=== PATIENT | male | born 1945 | race American Indian/Alaskan Native ===

== ENCOUNTER 2017-02-18 10:48 | Inpatient (IN) | payer MEDICARE ==
[2017-02-18] MEDS ORDERED: ARTIFICIAL TEARS OPHTH OINT OU PRN (11:09)
[2017-02-18] MEDS ORDERED: VASELINE LIP THERAPY TP PRN (11:09)
--- NOTE | 2017-02-18 11:13 | Emergency Department Report ---
HPI - General Chief Complaint: Seizure Time Seen by Provider: 02/18/17 11:09 - HPI HPI: This is a 71-year-old male who presents the emergency department by EMS after having 2 seizures, unknown if witnessed, with resulting altered mental status and unresponsive. Patient was found to have no gag reflex while in the emergency department and was completely unresponsive to painful or verbal stimuli and therefore was intubated secondary to protection of his airway. Secondary to his current medical condition the patient is a poor historian. ED Past Medical Hx - Past Medical History Previous Medical History?: Yes Hx Hypertension: Yes Hx GERD: Yes Hx Seizures: Yes Hx HIV: No Additional medical history: high cholesterol - Surgical History Past Surgical History?: Yes Additional Surgical History: L. knee replacement, vasectomy - Social History Smoking Status: Unknown if ever smoked - Medications Home Medications: Home Medications Medication Instructions Recorded Confirmed Last Taken Type Levothyroxine [Synthroid] 50 mcg PO QAM 05/26/16 02/18/17 02/17/17 History levETIRAcetam [Keppra TAB] 750 mg PO BID 05/26/16 02/18/17 02/17/17 History Clopidogrel [Plavix] 75 mg PO DAILY #30 tablet 06/03/16 02/18/17 02/17/17 Rx Simvastatin [Zocor TAB] 20 mg PO QHS 02/18/17 02/18/17 02/17/17 History ED Review of Systems ROS: Stated complaint: SEIZURE Other details as noted in HPI Comment: Unobtainable due to pts medical conditions Physical Exam - Physical Exam Vital Signs: Vital Signs 02/18/17 10:55 Temperature 98.7 F Pulse Rate 132 H Respiratory 24 Rate Blood Pressure 144/82 O2 Sat by Pulse 92 Oximetry Physical Exam: GENERAL: Patient is ill-appearing and unresponsive. HEENT: Normocephalic. Atraumatic. Pupils equal reactive to light bilaterally. No spontaneous eye opening or extraocular motion. Patient has moist mucous membranes. NECK: Supple. Trachea is midline. CHEST/LUNGS: Clear to auscultation. There is no respiratory distress noted. HEART/CARDIOVASCULAR: Regular. There is mild to moderate tachycardia. There is no gallop rub or murmur. ABDOMEN: Abdomen is soft, nontender. Patient has normal bowel sounds. There is no abdominal distention. SKIN: Skin is warm and dry. NEURO: The patient is unresponsive to verbal, tactile or painful stimuli. GCS of 3. No gag reflex. MUSCULOSKELETAL: There is no tenderness or deformity. Radial pulses +2 over 4 bilaterally. Cap refill less than 2 seconds There is no evidence of acute injury. ED Course Vital Signs 02/18/17 10:55 Temperature 98.7 F Pulse Rate 132 H Respiratory 24 Rate Blood Pressure 144/82 O2 Sat by Pulse 92 Oximetry - ABG Interpretation Ph: 7.349 PCO2: 39 PO2: 279 Bicarbonate: 21 Interpretation: normal - Intubation Time Out Performed: Yes Paralytic: Succinylcholine Mg Given: 100 Laryngoscope: fiberoptic video scope (glydescope) Size: 4 ET Tube Size: 7.5 Other Airway Intervention: 24 Tube Secured Location: lips Tube Placement Confirmation: visualized tube passing t, equal breath sounds bilat, confirmation by capnometr Patient Tolerated Procedure: well Intubation Complications: none ED Medical Decision Making - Lab Data Result diagrams: 02/18/17 11:30 02/18/17 11:30 - EKG Data -: EKG Interpreted by Me EKG shows normal: sinus rhythm, axis, intervals, QRS complexes, ST-T waves Rate: tachycardia (124 bpm) - EKG Data When compared to previous EKG there are: previous EKG unavailable Interpretation: other (Sinus Tachycardia) - Radiology Data Radiology results: report reviewed, image reviewed interpreted by me: Chest x-ray does not show any pneumothorax, pleural effusions or obvious pneumonia. ET tube is in appropriate position above the venkatesh. CT of the head without contrast shows no acute findings. Extensive chronic changes including a large chronic right MCA infarct or stable since May. - Medical Decision Making This is a 71-year-old male presents to the emergency department unresponsive after 2 witnessed seizures. When I see the patient he is unresponsive to any type of stimuli and has a GCS of 3 and no gag reflex. For this reason and protection of the airway the patient was intubated and was done so without any obvious, complications. CT of the head shows a chronic large right MCA infarct but no acute intracranial process. He has a elevated troponin level but this may be secondary to his seizures or physical stress. EKG does not show any signs of ST elevation AK. Patient was covered with some Keppra for the recent seizures. Eventually a family member came bedside and says that he doesn't fact have a history of seizures but she does not know which medications he takes. His primary care physician was found not to be Dr. Esa Melissa. Patient will be admitted to the ICU for further evaluation and treatment. - Differential Diagnosis status epilepticus, brain bleed, CVA, sepsis Critical Care Time: Yes Critical care time in (mins) excluding proc time.: 35 Critical care attestation.: If time is entered above; I have spent that time in minutes in the direct care of this critically ill patient, excluding procedure time. Critical care time was spent on this patient and doing his initial evaluation, multiple re- evaluations, ordering and interpretation of labs and imaging, reading of EKG, ventilator management. This does not include the time spent doing the intubation procedure. Critical Care Time: 35 minutes. ED Disposition Clinical Impression: H/O: CVA (cerebrovascular accident), Acute respiratory failure with hypoxemia, Seizure disorder, Encephalopathy Hypertension Qualifiers: Hypertension type: essential hypertension Qualified Code(s): I10 - Essential ( primary) hypertension Disposition: 09 OP ADMIT IP TO THIS HOSP Is pt being admited?: Yes Condition: Serious Time of Disposition: 18:43
[2017-02-18] MEDS ORDERED: QUELICIN ONE (11:16)
[2017-02-18 11:21] LABS: Urine Drugs of Abuse Note Disclamer
[2017-02-18 11:29] LABS: Bilirubin,Urine NEG (Negative); Blood,Urine NEG (Negative); Ketones,Urine NEG (Negative); Leukocyte Esterase,Urine NEG (Negative); Mucus,Urine FEW /HPF; Nitrite,Urine NEG (Negative); Protein,Urine <15 mg/dL mg/dL (Negative); Urobilinogen,Urine < 2.0 mg/dL (<2.0)
[2017-02-18] MEDS ORDERED: KEPPRA 1,000 MG/NS 0.75% 100ML 1,000 MG/100 ML BAG IV ONE (11:50)
[2017-02-18 11:51] LABS: Eosinophils % (Auto) 2.1 % (0.0-4.3); Hematocrit 43.8 % (35.5-45.6); Hemoglobin 13.9 gm/dl (11.8-15.2); Mean Corpuscular HGB Conc 32 % (32-34); Mean Corpuscular Hemoglobin 29 pg (28-32); Mean Corpuscular Volume 93 fl (84-94); Platelet Count 344 K/mm3 (140-440); Red Blood Count 4.74 M/mm3 (3.65-5.03); Red Cell Distribution Width 14.8 % (13.2-15.2); White Blood Count 11.1 K/mm3 (4.5-11.0)
--- NOTE | 2017-02-18 11:59 | XRay Report ---
AP CHEST: HISTORY: Endotracheal tube placement The endotracheal tube terminates 5.7 cm superior to the venkatesh. AP view of the chest demonstrates a normal mediastinal and cardiac contour with clear lungs and normal bony and soft tissue structures. IMPRESSION: Unremarkable AP chest.
[2017-02-18] MEDS ORDERED: ATIVAN 100 MG in NACL 0.9% 50 ML, VIAFLEX EMPTY CONTAINER 0 ML IV SCH (12:00)
--- NOTE | 2017-02-18 12:04 | Admit Criteria Form ---
Admission Criteria Documentation: RESPIRATORY FAILURE GRG Clinical Indications for Admission to Inpatient Care (Place 'X' for any and all applicable criteria): Hospital admission is needed for appropriate care of the patient because of acute respiratory failure or insufficiency as indicated by ANY ONE of the following(1)(2)(3)(4)(5)(6)(7)(8): [ ]I. Mechanical ventilation needed (acute invasive or noninvasive) [ ]II. Severe ventilation deficit as indicated by ANY ONE of the following (9) [ ]a) Respiratory acidosis (pH less than 7.32 and partial pressure of carbon dioxide greater than 40 mm Hg (5.3 kPa)) [ ]b) Partial pressure of carbon dioxide greater than 44 mm Hg (5.9 kPa ) (new) [ ]c) Airflow measurements less than 25% of predicted (eg, peak expiratory flow rate less than 100 L/minute) [ ]d) Forced vital capacity less than 15 mL/kg of ideal body weight, or 50% decrease in vital capacity from baseline [ ]III. Noncardiac pulmonary edema not resolving with rapid emergency treatment (8) [ ]IV. Severe respiratory distress as indicated by ANY ONE of the following: [ ]a) Severe tachypnea (respiratory rate greater than 30, greater than 45 for 6-month-old, greater than 60 for ) [ ]b) Severe hypoxemia (partial pressure of oxygen less than 50 mm Hg ( 6.7 kPa) on greater than 50% oxygen or partial pressure of oxygen to FIO2 ratio less than 200) [ ]c) Mental status deterioration from respiratory disease [X]V. Airway obstruction or inadequate protection [A](10)(11) The original [facility] content created by [employer] has been revised. The portions of the content which have been revised are identified through the use of italic text or in bold, and [employer] has neither reviewed nor approved the modified material. All other unmodified content is copyright [employer]. Please see references footnoted in the original [facility] edition 2016 Admission Criteria Met: Yes
[2017-02-18] MEDS ORDERED: NACL 0.9% 1000 ML 1,000 ML IV ONE ×2 (12:10→13:56)
[2017-02-18 12:12] LABS: Albumin 2.8 g/dL (3.9-5); Albumin/Globulin Ratio 0.5 %; BUN/Creatinine Ratio 9.33; Bilirubin,Total 0.3 mg/dL (0.1-1.2); Calcium 9.6 mg/dL (8.4-10.2); Chloride 95.9 mmol/L (98-107); Potassium 4.8 mmol/L (3.6-5.0); Total Protein 8.4 g/dL (6.3-8.2)
--- NOTE | 2017-02-18 12:31 | Cat Scan Report ---
Cranial CT without contrast. History: Seizure. Findings: Comparison is made to the previous study on May 26, 2016. The posterior fossa is normal. A large chronic right MCA infarct with associated ipsilateral ventriculomegaly ex vacuo is unchanged. Extensive atrophic changes and periventricular chronic ischemic changes are also stable. There is no evidence of acute infarct or hemorrhage. No extra-axial collections or masses are seen. A chronic lacunar infarct is seen in the internal capsule on the right. Impression: No acute findings. Extensive chronic changes including a large chronic right MCA infarct are stable since May,.
--- NOTE | 2017-02-18 12:49 | History and Physical Report ---
History of Present Illness Chief complaint: Unresponsive History of present illness: 71 YO Male with HTN, Seizure disorder, GERD, HLD, Bullous pemphigoid presents to ED for evaluation. Pt unable to provide history, but history taken from medical record, and ED staff, EMS run sheet, as well as patient family who is at bedside during exam and interview. Pt had two seizures as per EMS and was subsequently unresponsive. Pt seen and evaluated in ED, and found to be unresponsive and unable to protect airway with vomitus in oral pharynx with absent gag reflex. Pt intubated and placed on vent support. No reports of fever , chills, CP, Palpitations, NVD, recent ill contacts, trauma, or skin rashes. Past History Past Medical History: GERD, hypertension, hyperlipidemia, seizures Past Surgical History: total knee replacement, Other (vasectomy) Social history: single, Lives alone. denies: smoking, alcohol abuse, prescription drug abuse, IV drug use Family history: hypertension Medications and Allergies Allergies Allergy/AdvReac Type Severity Reaction Status Date / Time No Known Allergies Allergy Verified 10/24/13 04:08 Home Medications Medication Instructions Recorded Confirmed Last Taken Type Levothyroxine [Synthroid] 50 mcg PO QAM 05/26/16 02/18/17 02/17/17 History levETIRAcetam [Keppra TAB] 750 mg PO BID 05/26/16 02/18/17 02/17/17 History Clopidogrel [Plavix] 75 mg PO DAILY #30 tablet 06/03/16 02/18/17 02/17/17 Rx Simvastatin [Zocor TAB] 20 mg PO QHS 02/18/17 02/18/17 02/17/17 History Active Meds: Active Medications Hydrophilic Ointment (Vaseline Lip Therapy) 1 applic TP Q2HR PRN PRN Reason: Dry Lips Lorazepam 100 mg/ Sodium Chloride/ Miscellaneous Information 100 mls @ 1 mls/ hr IV TITR NESSA; 1 MG/HR PRN Reason: Protocol Last Admin: 02/18/17 12:47 Dose: 1 mg/hr, 1 mls/hr Sodium Chloride (Nacl 0.9% 1000 Ml) 1,000 mls @ 999 mls/hr IV BOLUS ONE Stop: 02/18/17 13:10 Last Admin: 02/18/17 12:47 Dose: 999 mls/hr Multi-Ingred Cream/Lotion/Oil/Oint (Artificial Tears Ophth Oint) 1 applic OU Q4HR PRN PRN Reason: Dry Eye(s) Review of Systems ROS unobtainable: due to mental status Exam - Constitutional Vitals: Temp Pulse Resp BP Pulse Ox 98.7 F 97 H 24 111/73 96 02/18/17 10:55 02/18/17 12:20 02/18/17 10:55 02/18/17 12:20 02/18/17 12:20 General appearance: Present: severe distress - EENT Eyes: Present: EOM intact - Neck Neck: Present: supple, normal ROM - Respiratory Respiratory effort: labored Respiratory: bilateral: diminished - Cardiovascular Heart Sounds: Present: S1 & S2. Absent: rub, click - Extremities Extremities: pulses symmetrical, No edema Peripheral Pulses: within normal limits - Abdominal General gastrointestinal: Present: soft, non-tender, non-distended, normal bowel sounds Male genitourinary: Present: normal - Integumentary Integumentary: Present: clear, dry, clammy (BLE lesions, back lesions, present on admission. ), decreased turgor - Musculoskeletal Musculoskeletal: generalized weakness - Psychiatric Psychiatric: no intact judgment & insight, no memory intact - Neurologic Neurologic: no gait normal Results - Labs CBC & Chem 7: 02/18/17 11:30 02/18/17 11:30 Labs: Abnormal lab results 02/18/17 02/18/17 02/18/17 Range/Units 10:54 11:30 11:30 WBC 11.1 H (4.5-11.0) K/mm3 Chloride 95.9 L (98-107) mmol/L Carbon Dioxide 13 L (22-30) mmol/L Glucose 192 H (75-100) mg/dL POC Glucose 223 H (70-105) Lactic Acid (0.7-2.0) mmol/L Troponin T 0.073 H (0.00-0.029) ng/mL Total Protein 8.4 H (6.3-8.2) g/dL Albumin 2.8 L (3.9-5) g/dL TSH (0.270-4.200) mlU/mL Salicylates (2.8-20.0) mg/dL 02/18/17 02/18/17 02/18/17 Range/Units 11:30 11:30 11:30 WBC (4.5-11.0) K/mm3 Chloride (98-107) mmol/L Carbon Dioxide (22-30) mmol/L Glucose (75-100) mg/dL POC Glucose (70-105) Lactic Acid 10.90 H* (0.7-2.0) mmol/L Troponin T (0.00-0.029) ng/mL Total Protein (6.3-8.2) g/dL Albumin (3.9-5) g/dL TSH 6.350 H (0.270-4.200) mlU/mL Salicylates < 0.3 L (2.8-20.0) mg/dL Assessment and Plan - Patient Problems (1) Acute respiratory failure with hypoxemia Current Visit: Yes Status: Acute Plan to address problem: Pt intubated: Wean vent as tolerated, SBT daily, Pulmonary consulted, ABG, supplemental oxygen, nebs, pulmonary toilet The high probability of a clinically significant, sudden or life threatening deterioration of the [Pulmonary, renal, cardiac] system(s) required my full and direct attention, intervention and personal management. The aggregate critical care time was [65] minutes. This time is in addition to time spent performing reported procedures but includes the following: [x] Data Review and interpretation [x] Patient assessment and monitoring of vital signs [x] Documentation [x] Medication orders and management (2) Aspiration pneumonia Current Visit: Yes Status: Acute Qualifiers: Aspiration pneumonia type: due to vomit Laterality: bilateral Lung location: L Plan to address problem: Pneumonia protocol: IV abx, blood cultures, supportive care, Pulmonary consulted , wean vent as tolerated. (3) Lactic acidosis Current Visit: Yes Status: Acute Plan to address problem: IV abx, IVF, supportive care, (4) Myxedema coma Current Visit: Yes Status: Acute Plan to address problem: Synthroid therapy, supportive care. (5) Encephalopathy Current Visit: Yes Status: Acute Plan to address problem: Toxic/Metabolic: IVF, synthroid and keppra therapy, supportive care. (6) Seizure disorder Current Visit: Yes Status: Acute Plan to address problem: Keppra therapy, keppra level, (7) DVT prophylaxis Current Visit: Yes Status: Acute
[2017-02-18] MEDS ORDERED: PROVENTIL IH PRN (12:51)
[2017-02-18 13:03] LABS: ISTAT Base Excess -4; ISTAT HCO3 21.9; ISTAT PCO2 39.9 (35-45); ISTAT PH 7.349 (7.35-7.45); ISTAT PO2 279 (80-105); ISTAT SO2 100; ISTAT TCO2 23
--- NOTE | 2017-02-18 14:51 | Consultation ---
History of Present Illness Consult date: 02/18/17 Requesting physician: SARABJIT KING Reason for consult: hypoxemia, other (Altered mental status from seizure activity) History of present illness: 71 y/o male with 2 witnessed seizures at home, unsure if history of seizure, admitted to ICU after being intubated in ED for airway protection. No family present and patient is not responsive. Home meds suggest history of seizures Past History Past Medical History: other (unable to obtain) Past Surgical History: Other (unable to obtain) Social history: other (unable to obtain) Family history: other (unable to obtain) Medications and Allergies Allergies Allergy/AdvReac Type Severity Reaction Status Date / Time No Known Allergies Allergy Verified 10/24/13 04:08 Home Medications Medication Instructions Recorded Confirmed Last Taken Type Levothyroxine [Synthroid] 50 mcg PO QAM 05/26/16 02/18/17 02/17/17 History levETIRAcetam [Keppra TAB] 750 mg PO BID 05/26/16 02/18/17 02/17/17 History Clopidogrel [Plavix] 75 mg PO DAILY #30 tablet 06/03/16 02/18/17 02/17/17 Rx Simvastatin [Zocor TAB] 20 mg PO QHS 02/18/17 02/18/17 02/17/17 History Active Meds: Active Medications Albuterol (Proventil) 2.5 mg IH Q3HRT PRN PRN Reason: Shortness Of Breath Hydrophilic Ointment (Vaseline Lip Therapy) 1 applic TP Q2HR PRN PRN Reason: Dry Lips Azithromycin 500 mg/ Sodium (Chloride) 250 mls @ 250 mls/hr IV Q24HR NESSA PRN Reason: Protocol Ceftriaxone Sodium (Rocephin/Ns 1 Gm/50 Ml) 1 gm in 50 mls @ 100 mls/hr IV Q24HR NESSA PRN Reason: Protocol Sodium Chloride (Nacl 0.9% 1000 Ml) 1,000 mls @ 999 mls/hr IV BOLUS ONE Stop: 02/18/17 14:56 Last Admin: 02/18/17 14:21 Dose: 999 mls/hr Levetiracetam (Keppra) 500 mg PO BID [facility] Levothyroxine Sodium (Synthroid) 50 mcg PO DAILY@0600 [facility] Multi-Ingred Cream/Lotion/Oil/Oint (Artificial Tears Ophth Oint) 1 applic OU Q4HR PRN PRN Reason: Dry Eye(s) Review of Systems ROS unobtainable: due to endotracheal tube, due to mental status Physical Examination Vital signs: Vital Signs Temp Pulse Resp BP Pulse Ox 98.7 F 132 H 24 144/82 92 02/18/17 10:55 02/18/17 10:55 02/18/17 10:55 02/18/17 10:55 02/18/17 10:55 General appearance: comatose, appears uncomfortable, other (dishelved) ENT: other (orally intubated) Neck: supple Effort: normal Ascultation: Bilateral: clear Cardiovascular: regular rate and rhythm Gastrointestinal: normoactive bowel sounds, soft, non-tender Extremities: edema Gait: other (unable to assess) Results - Laboratory Findings CBC and BMP: 02/18/17 11:30 02/19/17 11:59 ABG POC ABG pH 7.349 (7.35-7.45) L 02/18/17 12:51 POC ABG pCO2 39.9 (35-45) 02/18/17 12:51 POC ABG pO2 279 (80-105) H 02/18/17 12:51 POC ABG HCO3 21.9 02/18/17 12:51 POC ABG Total CO2 23 02/18/17 12:51 POC ABG O2 Sat 100 02/18/17 12:51 - Diagnostic Findings Chest x-ray: image reviewed (clear) Assessment and Plan 71 y/o male, intubated for airway protection secondary to encephalopathy, possible post-ictal phase of witnessed out of hospital seizures per report 1. Restart Keppra 2. No sedation 3. Attempt to reach family 4. Needs EEG to rule out nonconvulsive status CCT 31 minutes
--- NOTE | 2017-02-18 18:41 | XRay Report ---
FINAL REPORT EXAM: XR ABDOMEN 1V AP HISTORY: Feeding tube placement TECHNIQUE: KUB(s) view of abdomen. PRIORS: None. FINDINGS: Enteric tube extends below the diaphragm, appears looped over the epigastric region with tip projected laterally over left upper quadrant. Mildly nonspecific bowel gas pattern without evidence of mechanical obstruction. No apparent pneumoperitoneum. Degenerative change in the lumbar spine. IMPRESSION: 1. Enteric tube position as reported. 2. Nonspecific bowel gas pattern, which may represent adynamic ileus. Followup may be warranted.
[2017-02-18] MEDS: KEPPRA PO SCH (21:53)
[2017-02-19] MEDS ORDERED: SYNTHROID PO SCH (06:00)
[2017-02-19 06:30] LABS: ISTAT Base Excess -3; ISTAT HCO3 21.3; ISTAT PCO2 32.6 (35-45); ISTAT PH 7.423 (7.35-7.45); ISTAT PO2 181 (80-105); ISTAT SO2 100; ISTAT TCO2 22
--- NOTE | 2017-02-19 08:43 | XRay Report ---
AP CHEST :02/18/17 02:08 CLINICAL: Intubated.Follow up respiratory failure. COMPARISON:Previous day. FINDINGS: The endotracheal tube is in satisfactory position. The feeding tube is satisfactory. Normal heart and pulmonary vessels. Lungs are normally expanded and clear. No pneumothorax. IMPRESSION: No change.No congestive heart failure or pneumonia.
[2017-02-19 09:12] LABS: ISTAT Base Excess -2; ISTAT HCO3 23.6; ISTAT PCO2 39.9 (35-45); ISTAT PH 7.379 (7.35-7.45); ISTAT PO2 139 (80-105); ISTAT SO2 99; ISTAT TCO2 25
[2017-02-19] MEDS ORDERED: ZITHROMAX 500 MG in NACL 0.9% 250ML 250 ML IV SCH (10:00)
[2017-02-19] MEDS ORDERED: ROCEPHIN/NS 1 GM/50 ML 1 GM/50 ML BAG IV SCH (10:00)
[2017-02-19] MEDS: KEPPRA PO SCH ×2 (10:49→21:16)
[2017-02-19] MEDS: PEPCID IV SCH ×2 (10:49→21:16)
[2017-02-19 12:34] LABS: Anion Gap 20 mmol/L; BUN/Creatinine Ratio 14.54; Blood Urea Nitrogen 16 mg/dL (9-20); Calcium 8.5 mg/dL (8.4-10.2); Carbon Dioxide 18 mmol/L (22-30); Chloride 103.4 mmol/L (98-107); Glucose 82 mg/dL (75-100); Potassium 4.3 mmol/L (3.6-5.0); Sodium 137 mmol/L (137-145)
--- NOTE | 2017-02-19 13:06 | Progress Note ---
Assessment and Plan 71 y/o male, intubated for airway protection secondary to encephalopathy, possible post-ictal phase of witnessed out of hospital seizures per report 1. Follow up EEG results 2. needs neuro consult for EEG results 3. Attempt to reach family, still no one at bedside. 4. Continue home medications 5. Tolerating CPAP as gas was good and CXR remains clear, however, given mental state, not able to extubate at this time, may require trach. CCT 31 minutes Subjective Date of service: 02/19/17 Interval history: No acute events. Still intubated and on no sedation. Will open eyes but does not follow commands. No family at bedside. Objective Vital Signs - 12hr 02/19/17 02/19/17 02/19/17 01:11 01:21 01:30 Temperature Pulse Rate 97 H 95 H 101 H Respiratory 19 17 18 Rate Respiratory Rate [ Generalized] Blood Pressure 132/83 144/81 128/77 O2 Sat by Pulse 100 99 100 Oximetry 02/19/17 02/19/17 02/19/17 01:41 01:51 02:00 Temperature Pulse Rate 97 H 98 H 95 H Respiratory 18 13 18 Rate Respiratory Rate [ Generalized] Blood Pressure 128/77 121/79 142/82 O2 Sat by Pulse 98 99 97 Oximetry 02/19/17 02/19/17 02/19/17 02:11 02:21 02:31 Temperature Pulse Rate 95 H 110 H 108 H Respiratory 18 29 H 10 L Rate Respiratory Rate [ Generalized] Blood Pressure 142/82 147/89 142/82 O2 Sat by Pulse 99 100 Oximetry 02/19/17 02/19/17 02/19/17 02:40 02:51 03:00 Temperature Pulse Rate 106 H 100 H 98 H Respiratory 18 18 17 Rate Respiratory Rate [ Generalized] Blood Pressure 145/87 119/77 128/84 O2 Sat by Pulse 100 100 Oximetry 02/19/17 02/19/17 02/19/17 03:11 03:12 03:21 Temperature 99.0 F Pulse Rate 97 H 107 H Respiratory 14 18 Rate Respiratory Rate [ Generalized] Blood Pressure 128/84 140/83 O2 Sat by Pulse 100 100 Oximetry 02/19/17 02/19/17 02/19/17 03:30 03:41 03:51 Temperature Pulse Rate 99 H 107 H 101 H Respiratory 14 17 16 Rate Respiratory Rate [ Generalized] Blood Pressure 146/89 146/89 141/89 O2 Sat by Pulse 99 99 98 Oximetry 02/19/17 02/19/17 02/19/17 04:00 04:06 04:11 Temperature Pulse Rate 105 H 106 H Respiratory 18 18 Rate Respiratory Rate [ Generalized] Blood Pressure 148/92 148/92 O2 Sat by Pulse 99 100 98 Oximetry 02/19/17 02/19/17 02/19/17 04:20 04:21 04:30 Temperature Pulse Rate 105 H 98 H 107 H Respiratory 12 14 Rate Respiratory Rate [ Generalized] Blood Pressure 143/93 143/93 142/85 O2 Sat by Pulse 99 99 99 Oximetry 02/19/17 02/19/17 02/19/17 04:41 04:51 05:00 Temperature Pulse Rate 108 H 107 H 109 H Respiratory 19 17 18 Rate Respiratory Rate [ Generalized] Blood Pressure 142/85 149/93 149/89 O2 Sat by Pulse 99 98 97 Oximetry 02/19/17 02/19/17 02/19/17 05:11 05:21 05:30 Temperature Pulse Rate 108 H 100 H 107 H Respiratory 18 15 18 Rate Respiratory Rate [ Generalized] Blood Pressure 149/89 146/89 149/94 O2 Sat by Pulse 97 99 99 Oximetry 02/19/17 02/19/17 02/19/17 05:41 05:51 06:00 Temperature Pulse Rate 104 H 106 H 107 H Respiratory 18 17 17 Rate Respiratory Rate [ Generalized] Blood Pressure 149/94 144/92 153/87 O2 Sat by Pulse 99 98 98 Oximetry 02/19/17 02/19/17 02/19/17 06:11 06:21 06:30 Temperature Pulse Rate 105 H 107 H 112 H Respiratory 14 14 14 Rate Respiratory Rate [ Generalized] Blood Pressure 153/87 151/89 150/85 O2 Sat by Pulse 98 98 98 Oximetry 02/19/17 02/19/17 02/19/17 06:41 06:51 07:00 Temperature Pulse Rate 111 H 109 H 116 H Respiratory 16 15 17 Rate Respiratory Rate [ Generalized] Blood Pressure 150/85 151/91 134/86 O2 Sat by Pulse 98 97 98 Oximetry 02/19/17 02/19/17 02/19/17 07:11 07:21 07:30 Temperature Pulse Rate 112 H 112 H 113 H Respiratory 15 16 19 Rate Respiratory Rate [ Generalized] Blood Pressure 134/86 147/90 151/88 O2 Sat by Pulse 98 97 97 Oximetry 02/19/17 02/19/17 02/19/17 07:41 07:51 08:00 Temperature 99.7 F H Pulse Rate 111 H 110 H 109 H Respiratory 15 15 26 H Rate Respiratory Rate [ Generalized] Blood Pressure 151/88 124/73 150/86 O2 Sat by Pulse 98 98 98 Oximetry 02/19/17 02/19/17 02/19/17 08:03 08:11 08:21 Temperature Pulse Rate 107 H 115 H 115 H Respiratory 26 H 31 H Rate Respiratory Rate [ Generalized] Blood Pressure 124/73 150/86 154/84 O2 Sat by Pulse 99 98 97 Oximetry 02/19/17 02/19/17 02/19/17 08:30 08:41 08:51 Temperature Pulse Rate 117 H 117 H 120 H Respiratory 27 H 24 27 H Rate Respiratory Rate [ Generalized] Blood Pressure 149/86 149/86 137/79 O2 Sat by Pulse 96 99 98 Oximetry 02/19/17 02/19/17 02/19/17 09:00 09:11 09:21 Temperature Pulse Rate 119 H 112 H 117 H Respiratory 20 19 17 Rate Respiratory Rate [ Generalized] Blood Pressure 143/93 143/93 154/93 O2 Sat by Pulse 97 97 98 Oximetry 02/19/17 02/19/17 02/19/17 09:30 09:41 09:51 Temperature Pulse Rate 113 H 112 H 113 H Respiratory 16 24 29 H Rate Respiratory Rate [ Generalized] Blood Pressure 149/90 149/90 142/92 O2 Sat by Pulse 99 98 99 Oximetry 02/19/17 02/19/17 02/19/17 10:00 10:11 10:21 Temperature Pulse Rate 112 H 113 H 112 H Respiratory 28 H 14 25 H Rate Respiratory 24 Rate [ Generalized] Blood Pressure 139/90 139/90 151/85 O2 Sat by Pulse 98 98 98 Oximetry 02/19/17 02/19/17 02/19/17 10:30 10:41 10:51 Temperature Pulse Rate 113 H 111 H 111 H Respiratory 16 19 18 Rate Respiratory Rate [ Generalized] Blood Pressure 158/96 158/96 151/80 O2 Sat by Pulse 98 98 97 Oximetry 02/19/17 02/19/17 02/19/17 11:00 11:11 11:21 Temperature Pulse Rate 108 H 113 H 108 H Respiratory 22 15 Rate Respiratory Rate [ Generalized] Blood Pressure 166/95 166/95 166/95 O2 Sat by Pulse 97 98 99 Oximetry 02/19/17 02/19/17 02/19/17 11:30 11:41 11:51 Temperature Pulse Rate 112 H 117 H 113 H Respiratory Rate Respiratory Rate [ Generalized] Blood Pressure 167/98 167/98 167/98 O2 Sat by Pulse 99 99 98 Oximetry 02/19/17 02/19/17 12:00 12:25 Temperature 100.1 F H Pulse Rate 112 H 112 H Respiratory Rate Respiratory Rate [ Generalized] Blood Pressure 154/97 154/97 O2 Sat by Pulse 99 99 Oximetry Constitutional: comatose, appears uncomfortable, other (dishelved) ENT: other (orally intubated) Neck: supple Effort: normal Ascultation: Bilateral: clear Cardiovascular: regular rate and rhythm Gastrointestinal: normoactive bowel sounds, soft, non-tender Extremities: edema CBC and BMP: 02/18/17 11:30 02/19/17 11:59 ABG, PT/INR, D-dimer: ABG POC ABG pH 7.379 (7.35-7.45) 02/19/17 09:06 POC ABG pCO2 39.9 (35-45) 02/19/17 09:06 POC ABG pO2 139 (80-105) H 02/19/17 09:06 POC ABG HCO3 23.6 02/19/17 09:06 POC ABG Total CO2 25 02/19/17 09:06 POC ABG O2 Sat 99 02/19/17 09:06 Abnormal lab findings: Abnormal Labs 02/18/17 02/19/17 02/19/17 17:56 06:05 09:06 POC ABG pCO2 32.6 L POC ABG pO2 181 H 139 H Carbon Dioxide Lactic Acid 3.00 H* 02/19/17 02/19/17 11:59 11:59 POC ABG pCO2 POC ABG pO2 Carbon Dioxide 18 L Lactic Acid 2.20 H*
[2017-02-19] MEDS ORDERED: SIMPLE SYRUP FEEDTUBE PRN ×2 (13:14)
[2017-02-19] MEDS ORDERED: PANCREAZE DR 10,500 UNIT FEEDTUBE PRN (13:14)
[2017-02-19] MEDS ORDERED: SODIUM BICARBONATE FEEDTUBE PRN (13:14)
[2017-02-19] MEDS: DIPRIVAN 10 MG/ML 1,000 MG/100 ML BOTTLE IV SCH (15:06)
--- NOTE | 2017-02-19 18:43 | Progress Note ---
Assessment and Plan Assessment and plan: 71 YO Male with HTN, Seizure disorder, GERD, HLD, Bullous pemphigoid presents to ED for evaluation. Pt unable to provide history, but history taken from medical record, and ED staff, EMS run sheet, as well as patient family who is at bedside during exam and interview. Pt had two seizures as per EMS and was subsequently unresponsive. Pt seen and evaluated in ED, and found to be unresponsive and unable to protect airway with vomitus in oral pharynx with absent gag reflex. Pt intubated and placed on vent support. No reports of fever , chills, CP, Palpitations, NVD, recent ill contacts, trauma, or skin rashes. * Acute respiratory failure with hypoxemia * Aspiration pneumonitis * Lactic acidosis improved and doubt sepsis most likely secondary to seizure * Seizure disorder * Possible cardiomyopathy with bilateral lower extremity edema * Hypothyroidism evaluate for myxedema coma doubt the latter * Acute encephalopathy likely secondary to seizure postictal state Plan * Continue supportive care, bd special education teacher input appreciated * Start on empiric Levaquin for possible aspiration pneumonitis * Change levothyroxine to IV * Neurology consult and EEG pending * Continue critical care inpatient stay * Echocardiogram * DVT and GI prophylaxis * Aspiration precautions * No direct family member present in the room family friend present provided some information is noted. The high probability of a clinically significant, sudden or life threatening deterioration of the [Pulmonary, renal, cardiac] system(s) required my full and direct attention, intervention and personal management. The aggregate critical care time was [35] minutes. This time is in addition to time spent performing reported procedures but includes the following: [x] Data Review and interpretation [x] Patient assessment and monitoring of vital signs [x] Documentation [x] Medication orders and management History Interval history: Patient seen and examined today in no acute distress remains intubated. No other adverse events reported by nursing staff. Family friend in the room reports the patient has not had any seizure in the last 1 year. She denies any knowledge of drug abuse all noncompliance with medication. Unfortunately patient has not followed up with any doctor since diagnosis was made while in [place]. Hospitalist Physical - Physical exam Narrative exam: VITAL SIGNS: Reviewed. GENERAL: The patient appeared well nourished and normally developed. Vital signs as documented. HEAD: No signs of head trauma. EYES: Pupils are equal. Extraocular motions intact. EARS: Unable to assess patient's sedated MOUTH: ET tube in place NECK: No adenopathy, no JVD. CHEST: Chest with clear breath sounds bilaterally. No wheezes, rales, or rhonchi. CARDIAC: Regular rate and rhythm. S1 and S2, without murmurs, gallops, or rubs. VASCULAR: 2+ patellar edema bilaterally. Peripheral pulses normal and equal in all extremities. ABDOMEN: Soft, without detectable tenderness. No sign of distention. No rebound or guarding, and no masses palpated. Bowel Sounds normal. MUSCULOSKELETAL: Good range of motion of all major joints. Extremities without clubbing, cyanosis. NEUROLOGIC EXAM: Sedated on mechanical ventilation. PSYCHIATRIC: Mood normal. SKIN: No rash or lesions. - Constitutional Vitals: Temp Pulse Resp BP Pulse Ox 100.1 F H 105 H 16 145/90 99 02/19/17 12:00 02/19/17 18:00 02/19/17 16:00 02/19/17 18:00 02/19/17 18:00 General appearance: Present: severe distress Results - Labs CBC & Chem 7: 02/18/17 11:30 02/19/17 11:59 Labs: Laboratory Last Values WBC 11.1 K/mm3 (4.5-11.0) H 02/18/17 11:30 RBC 4.74 M/mm3 (3.65-5.03) 02/18/17 11:30 Hgb 13.9 gm/dl (11.8-15.2) 02/18/17 11:30 Hct 43.8 % (35.5-45.6) 02/18/17 11:30 MCV 93 fl (84-94) 02/18/17 11:30 MCH 29 pg (28-32) 02/18/17 11:30 MCHC 32 % (32-34) 02/18/17 11:30 RDW 14.8 % (13.2-15.2) 02/18/17 11:30 Plt Count 344 K/mm3 (140-440) 02/18/17 11:30 Lymph % (Auto) 33.6 % (13.4-35.0) 02/18/17 11:30 [place] % (Auto) 2.0 % (0.0-7.3) 02/18/17 11:30 Eos % (Auto) 2.1 % (0.0-4.3) 02/18/17 11:30 Baso % (Auto) 1.0 % (0.0-1.8) 02/18/17 11:30 Lymph # 3.7 K/mm3 (1.2-5.4) 02/18/17 11:30 [place] # 0.2 K/mm3 (0.0-0.8) 02/18/17 11:30 Eos # 0.2 K/mm3 (0.0-0.4) 02/18/17 11:30 Baso # 0.1 K/mm3 (0.0-0.1) 02/18/17 11:30 Seg Neutrophils % 61.3 % (40.0-70.0) 02/18/17 11:30 Seg Neutrophils # 6.8 K/mm3 (1.8-7.7) 02/18/17 11:30 POC ABG pH 7.379 (7.35-7.45) 02/19/17 09:06 POC ABG pCO2 39.9 (35-45) 02/19/17 09:06 POC ABG pO2 139 (80-105) H 02/19/17 09:06 POC ABG HCO3 23.6 02/19/17 09:06 POC ABG Total CO2 25 02/19/17 09:06 POC ABG O2 Sat 99 02/19/17 09:06 POC ABG Base Excess -2 02/19/17 09:06 FiO2 35 % 02/19/17 09:06 Sodium 137 mmol/L (137-145) 02/19/17 11:59 Potassium 4.3 mmol/L (3.6-5.0) 02/19/17 11:59 Chloride 103.4 mmol/L (98-107) 02/19/17 11:59 Carbon Dioxide 18 mmol/L (22-30) L 02/19/17 11:59 Anion Gap 20 mmol/L 02/19/17 11:59 BUN 16 mg/dL (9-20) 02/19/17 11:59 Creatinine 1.1 mg/dL (0.8-1.5) 02/19/17 11:59 Estimated GFR > 60 ml/min 02/19/17 11:59 BUN/Creatinine Ratio 14.54 % 02/19/17 11:59 Glucose 82 mg/dL (75-100) 02/19/17 11:59 POC Glucose 223 (70-105) H 02/18/17 10:54 Lactic Acid 2.20 mmol/L (0.7-2.0) H* 02/19/17 11:59 Calcium 8.5 mg/dL (8.4-10.2) 02/19/17 11:59 Total Bilirubin 0.30 mg/dL (0.1-1.2) 02/18/17 11:30 AST 26 units/L (5-40) 02/18/17 11:30 ALT 24 units/L (7-56) 02/18/17 11:30 Alkaline Phosphatase 113 units/L (35-129) 02/18/17 11:30 Troponin T 0.073 ng/mL (0.00-0.029) H 02/18/17 11:30 Total Protein 8.4 g/dL (6.3-8.2) H 02/18/17 11:30 Albumin 2.8 g/dL (3.9-5) L 02/18/17 11:30 Albumin/Globulin Ratio 0.5 % 02/18/17 11:30 Triglycerides 136 mg/dL (2-149) 02/18/17 11:30 Cholesterol 192 mg/dL (50-199) 02/18/17 11:30 LDL Cholesterol Direct 126 mg/dL (50-130) 02/18/17 11:30 HDL Cholesterol 39 mg/dL (40-59) L 02/18/17 11:30 Cholesterol/HDL Ratio 4.92 % 02/18/17 11:30 TSH 6.350 mlU/mL (0.270-4.200) H 02/18/17 11:30 Urine Color Yellow (Yellow) 02/18/17 Unknown Urine Turbidity Clear (Clear) 02/18/17 Unknown Urine pH 5.0 (5.0-7.0) 02/18/17 Unknown Ur Specific [place] 1.018 (1.003-1.030) 02/18/17 Unknown Urine Protein <15 mg/dl mg/dL (Negative) 02/18/17 Unknown Urine Glucose (UA) Neg mg/dL (Negative) 02/18/17 Unknown Urine Ketones Neg mg/dL (Negative) 02/18/17 Unknown Urine Blood Neg (Negative) 02/18/17 Unknown Urine Nitrite Neg (Negative) 02/18/17 Unknown Urine Bilirubin Neg (Negative) 02/18/17 Unknown Urine Urobilinogen < 2.0 mg/dL (<2.0) 02/18/17 Unknown Ur Leukocyte Esterase Neg (Negative) 02/18/17 Unknown Urine WBC (Auto) 1.0 /HPF (0.0-6.0) 02/18/17 Unknown Urine RBC (Auto) 1.0 /HPF (0.0-6.0) 02/18/17 Unknown U Epithel Cells (Auto) 3.0 /HPF (0-13.0) 02/18/17 Unknown Urine Mucus Few /HPF 02/18/17 Unknown Salicylates < 0.3 mg/dL (2.8-20.0) L 02/18/17 11:30 Urine Opiates Screen Presumptive negative 02/18/17 Unknown Urine Methadone Screen Presumptive negative 02/18/17 Unknown Acetaminophen < 15.0 ug/mL (10.0-30.0) 02/18/17 11:30 Ur Barbiturates Screen Presumptive negative 02/18/17 Unknown Ur Phencyclidine Scrn Presumptive negative 02/18/17 Unknown Ur Amphetamines Screen Presumptive negative 02/18/17 Unknown U Benzodiazepines Scrn Presumptive negative 02/18/17 Unknown Urine Cocaine Screen Presumptive negative 02/18/17 Unknown U Marijuana (THC) Screen Presumptive negative 02/18/17 Unknown Drugs of Abuse Note Disclamer 02/18/17 Unknown Plasma/Serum Alcohol < 0.01 gm% (0-0.07) 02/18/17 11:30 - Imaging and Cardiology Chest x-ray: image reviewed (no acute pathology)
[2017-02-19] MEDS ORDERED: LEVAQUIN 750MG/150ML 750 MG/150 ML BAG IV SCH (19:00)
--- NOTE | 2017-02-19 22:14 | Consultation ---
This EEG shows a great deal of muscle activity artifact present throughout and there is a right frontal spike wave focus with epileptiform discharges occurring in the right hemisphere. IMPRESSION: Abnormal EEG with persistent epileptic status activity in the right cerebral hemisphere and slowing present in the remainder of the tracing. [id number]la JOB# [id number] AUSTEN/NTS
[2017-02-20] MEDS: SYNTHROID IV SCH (05:39)
[2017-02-20 05:40] LABS: Hematocrit 34.6 % (35.5-45.6); Hemoglobin 11.1 gm/dl (11.8-15.2); Mean Corpuscular HGB Conc 32 % (32-34); Mean Corpuscular Hemoglobin 28 pg (28-32); Mean Corpuscular Volume 89 fl (84-94); Platelet Count 305 K/mm3 (140-440); Red Blood Count 3.89 M/mm3 (3.65-5.03); Red Cell Distribution Width 14.3 % (13.2-15.2); White Blood Count 11.3 K/mm3 (4.5-11.0)
[2017-02-20 06:03] LABS: Alanine Aminotransferase 29 units/L (7-56); Albumin 2.6 g/dL (3.9-5); Albumin/Globulin Ratio 0.7 %; Alkaline Phosphatase 93 units/L (35-129); Anion Gap 22 mmol/L; Blood Urea Nitrogen 17 mg/dL (9-20); Calcium 8.5 mg/dL (8.4-10.2); Carbon Dioxide 19 mmol/L (22-30); Chloride 106.8 mmol/L (98-107); Glucose 87 mg/dL (75-100); Sodium 144 mmol/L (137-145); Total Protein 6.3 g/dL (6.3-8.2)
[2017-02-20 07:03] LABS: ISTAT Base Excess -1; ISTAT HCO3 22.8; ISTAT PCO2 32.3 (35-45); ISTAT PH 7.457 (7.35-7.45); ISTAT PO2 134 (80-105); ISTAT SO2 99; ISTAT TCO2 24
--- NOTE | 2017-02-20 08:27 | Consultation ---
History of Present Illness - Reason for Consult Consult date: 02/20/17 seizure - History of Present Illness spoke witht attending yesterday post reviewing the EEG there is active spike wave focus a/w epilleptiform activity will review active IV seizure meds as seizure control is needed thanks Past History Past Medical History: other (unable to obtain) Past Surgical History: Other (unable to obtain) Social history: other (unable to obtain) Family history: other (unable to obtain) Medications and Allergies Allergies Allergy/AdvReac Type Severity Reaction Status Date / Time No Known Allergies Allergy Verified 10/24/13 04:08 Home Medications Medication Instructions Recorded Confirmed Last Taken Type Levothyroxine [Synthroid] 50 mcg PO QAM 05/26/16 02/18/17 02/17/17 History levETIRAcetam [Keppra TAB] 750 mg PO BID 05/26/16 02/18/17 02/17/17 History Clopidogrel [Plavix] 75 mg PO DAILY #30 tablet 06/03/16 02/18/17 02/17/17 Rx Simvastatin [Zocor TAB] 20 mg PO QHS 02/18/17 02/18/17 02/17/17 History Active Meds: Active Medications Albuterol (Proventil) 2.5 mg IH Q3HRT PRN PRN Reason: Shortness Of Breath Lipase/Protease/Amylase (Pancrejudy Dr 10,500 Unit) 1 each FEEDTUBE PRN PRN PRN Reason: For Clogged Feeding Tube Enoxaparin Sodium (Lovenox) 40 mg SUB-Q QDAY@1000 NESSA Famotidine (Pepcid) 20 mg IV BID NESSA Last Admin: 02/19/17 21:16 Dose: 20 mg Hydrophilic Ointment (Vaseline Lip Therapy) 1 applic TP Q2HR PRN PRN Reason: Dry Lips Propofol (Diprivan 10 Mg/Ml) 1,000 mg in 100 mls @ 2.37 mls/hr IV TITR NESSA; 5 MCG/KG/MIN PRN Reason: Protocol Last Admin: 02/19/17 15:06 Dose: 5 mcg/kg/min, 2.37 mls/hr Levofloxacin/Dextrose (Levaquin 750mg/150ml) 750 mg in 150 mls @ 100 mls/hr IV Q24HR NESSA PRN Reason: Protocol Last Admin: 02/19/17 20:22 Dose: 100 mls/hr Levetiracetam (Keppra) 500 mg PO BID [facility] Last Admin: 02/19/17 21:16 Dose: 500 mg Levothyroxine Sodium (Synthroid) 25 mcg IV DAILY@0600 [facility] Last Admin: 02/20/17 05:39 Dose: 25 mcg Multi-Ingred Cream/Lotion/Oil/Oint (Artificial Tears Ophth Oint) 1 applic OU Q4HR PRN PRN Reason: Dry Eye(s) Simple Syrup (Simple Syrup) 15 ml FEEDTUBE PRN PRN PRN Reason: Hypoglycemia Simple Syrup (Simple Syrup) 30 ml FEEDTUBE PRN PRN PRN Reason: Hypoglycemia Sodium Bicarbonate (Sodium Bicarbonate) 325 mg FEEDTUBE PRN PRN PRN Reason: For Clogged Feeding Tube Exam - Constitutional Vitals: Temp Pulse Resp BP Pulse Ox 99.2 F 108 H 18 146/80 98 02/20/17 07:52 02/20/17 08:00 02/20/17 08:00 02/20/17 08:00 02/20/17 08:00 Results - Labs CBC & Chem 7: 02/20/17 05:07 02/20/17 05:07 Labs: Abnormal lab results 02/19/17 02/19/17 02/19/17 Range/Units 09:06 11:59 11:59 WBC (4.5-11.0) K/mm3 Hgb (11.8-15.2) gm/dl Hct (35.5-45.6) % POC ABG pH (7.35-7.45) POC ABG pCO2 (35-45) POC ABG pO2 139 H (80-105) Carbon Dioxide 18 L (22-30) mmol/L Lactic Acid 2.20 H* (0.7-2.0) mmol/L Albumin (3.9-5) g/dL 02/20/17 02/20/17 02/20/17 Range/Units 05:07 05:07 06:41 WBC 11.3 H (4.5-11.0) K/mm3 Hgb 11.1 L (11.8-15.2) gm/dl Hct 34.6 L D (35.5-45.6) % POC ABG pH 7.457 H (7.35-7.45) POC ABG pCO2 32.3 L (35-45) POC ABG pO2 134 H (80-105) Carbon Dioxide 19 L (22-30) mmol/L Lactic Acid (0.7-2.0) mmol/L Albumin 2.6 L (3.9-5) g/dL
--- NOTE | 2017-02-20 09:34 | XRay Report ---
AP CHEST :02/20/17 02:07 CLINICAL: Intubated.Follow up respiratory failure. COMPARISON:The previous day. FINDINGS: The endotracheal tube is in satisfactory position. The feeding tube is satisfactory. The lungs are normally expanded and clear. Normal heart and pulmonary vessels. No pneumothorax. IMPRESSION: Normal chest.No change.
[2017-02-20] MEDS: PEPCID IV SCH (09:42)
[2017-02-20] MEDS: KEPPRA PO SCH (09:42)
[2017-02-20] MEDS: ATIVAN IV PRN (09:51)
--- NOTE | 2017-02-20 11:43 | Progress Note ---
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 Titrate propofol to stop seizures 2. Will need to increase maintanence medication. Will increase Keppra, may need second agent 3. No PSV trials now 4. Most likely will need trach and peg and superintendent terminal placement given history and current neurologic status. Will discuss with neuro and ask their opinion 5. Overall prognosis is guarded CCT 31 minutes Subjective Date of service: 02/20/17 Interval history: Patient found to be in status yesterday after neuro reviewed the EEG. Started on propofol for burst suppression. still seizing so propofol to be increased. Neurology is following. Objective Vital Signs - 12hr 02/19/17 02/20/17 02/20/17 23:41 00:00 00:28 Temperature 100.4 F H Pulse Rate 101 H 105 H Respiratory 17 Rate Blood Pressure 141/86 141/86 O2 Sat by Pulse 99 98 Oximetry 02/20/17 02/20/17 02/20/17 00:30 01:00 01:30 Temperature Pulse Rate 102 H 101 H 104 H Respiratory Rate Blood Pressure 149/93 155/96 151/94 O2 Sat by Pulse 100 100 100 Oximetry 02/20/17 02/20/17 02/20/17 02:00 02:30 03:00 Temperature Pulse Rate 94 H 99 H 97 H Respiratory 18 Rate Blood Pressure 142/84 146/83 145/80 O2 Sat by Pulse 98 100 99 Oximetry 02/20/17 02/20/17 02/20/17 03:30 03:49 04:00 Temperature 100.1 F H Pulse Rate 100 H 97 H 99 H Respiratory 18 15 Rate Blood Pressure 136/76 136/76 140/84 O2 Sat by Pulse 100 100 100 Oximetry 02/20/17 02/20/17 02/20/17 04:30 05:00 05:31 Temperature Pulse Rate 98 H 99 H 105 H Respiratory 18 19 18 Rate Blood Pressure 129/78 119/77 154/91 O2 Sat by Pulse 100 96 94 Oximetry 02/20/17 02/20/17 02/20/17 06:00 06:30 07:00 Temperature Pulse Rate 102 H 116 H 111 H Respiratory 18 18 19 Rate Blood Pressure 158/85 159/91 152/79 O2 Sat by Pulse 99 98 99 Oximetry 02/20/17 02/20/17 02/20/17 07:30 07:47 07:52 Temperature 99.2 F Pulse Rate 109 H 112 H Respiratory 18 Rate Blood Pressure 148/76 148/76 O2 Sat by Pulse 98 98 Oximetry 02/20/17 02/20/17 02/20/17 07:59 08:00 08:30 Temperature Pulse Rate 106 H 108 H 108 H Respiratory 18 18 Rate Blood Pressure 148/76 146/80 158/77 O2 Sat by Pulse 99 98 98 Oximetry 02/20/17 02/20/17 02/20/17 09:00 09:30 10:00 Temperature Pulse Rate 107 H 105 H 101 H Respiratory 18 18 Rate Blood Pressure 164/87 139/85 O2 Sat by Pulse 97 98 Oximetry 02/20/17 02/20/17 02/20/17 10:01 10:31 11:00 Temperature Pulse Rate 103 H 99 H 100 H Respiratory 18 18 18 Rate Blood Pressure 135/93 135/87 140/88 O2 Sat by Pulse 98 99 99 Oximetry Constitutional: comatose, appears uncomfortable, other (dishelved) ENT: other (orally intubated) Neck: supple Effort: normal Ascultation: Bilateral: clear Cardiovascular: regular rate and rhythm Gastrointestinal: normoactive bowel sounds, soft, non-tender Extremities: edema CBC and BMP: 02/20/17 05:07 02/20/17 05:07 ABG, PT/INR, D-dimer: ABG POC ABG pH 7.457 (7.35-7.45) H 02/20/17 06:41 POC ABG pCO2 32.3 (35-45) L 02/20/17 06:41 POC ABG pO2 134 (80-105) H 02/20/17 06:41 POC ABG HCO3 22.8 02/20/17 06:41 POC ABG Total CO2 24 02/20/17 06:41 POC ABG O2 Sat 99 02/20/17 06:41 Abnormal lab findings: Abnormal Labs 02/18/17 02/19/17 02/19/17 17:56 06:05 09:06 WBC Hgb Hct POC ABG pH POC ABG pCO2 32.6 L POC ABG pO2 181 H 139 H Carbon Dioxide Lactic Acid 3.00 H* Albumin 02/19/17 02/19/17 02/20/17 11:59 11:59 05:07 WBC 11.3 H Hgb 11.1 L Hct 34.6 L D POC ABG pH POC ABG pCO2 POC ABG pO2 Carbon Dioxide 18 L Lactic Acid 2.20 H* Albumin 02/20/17 02/20/17 02/20/17 05:07 06:41 09:58 WBC Hgb Hct POC ABG pH 7.457 H POC ABG pCO2 32.3 L POC ABG pO2 134 H Carbon Dioxide 19 L Lactic Acid 2.70 H* Albumin 2.6 L
[2017-02-20] MEDS ORDERED: NACL 0.9% 500 ML 500 ML IV SCH (12:00)
[2017-02-20] MEDS ORDERED: KEPPRA PO SCH (12:00)
[2017-02-20] MEDS: ZOSYN/NS 4.5GM/100ML 4.5 GM/100 ML VIAL IV SCH ×2 (12:35→17:16)
[2017-02-20] MEDS: LOVENOX SUB-Q SCH (12:39)
[2017-02-20] MEDS ORDERED: KEPPRA PO ONE (13:00)
--- NOTE | 2017-02-20 14:37 | Progress Note ---
Assessment and Plan Assessment and plan: 71 YO Male with HTN, Seizure disorder, GERD, HLD, Bullous pemphigoid presents to ED for evaluation. Pt unable to provide history, but history taken from medical record, and ED staff, EMS run sheet, as well as patient family who is at bedside during exam and interview. Pt had two seizures as per EMS and was subsequently unresponsive. Pt seen and evaluated in ED, and found to be unresponsive and unable to protect airway with vomitus in oral pharynx with absent gag reflex. Pt intubated and placed on vent support. No reports of fever , chills, CP, Palpitations, NVD, recent ill contacts, trauma, or skin rashes. * Acute respiratory failure with hypoxemia * Status Epiliepticus * Aspiration pneumonitis * Possible Sepsis from * Seizure disorder * Possible cardiomyopathy with bilateral lower extremity edema * Hypothyroidism evaluate for myxedema coma doubt the latter * Acute encephalopathy likely secondary to seizure postictal state Plan * Continue supportive care, vibrating screed operator input appreciated, titrating Propofol to held decrease seizures * PRN Ativan if needed * zosyn for abx. patient with low grade temp * Cultures reviewed, no growth * Change levothyroxine to IV * Neurology consult and EEG Review noted, patient in status epileptics * Continue critical care inpatient stay * Echocardiogram * DVT and GI prophylaxis * Aspiration precautions * Guarded prognosis * No direct family member present in the room family friend present provided some information is noted. The high probability of a clinically significant, sudden or life threatening deterioration of the [Pulmonary, Neuro cardiac] system(s) required my full and direct attention, intervention and personal management. The aggregate critical care time was [35] minutes. This time is in addition to time spent performing reported procedures but includes the following: [x] Data Review and interpretation [x] Patient assessment and monitoring of vital signs [x] Documentation [x] Medication orders and management History Interval history: Patient seen and examined today in no acute distress remains intubated. still with seizures. No other adverse events reported by nursing staff. Hospitalist Physical - Physical exam Narrative exam: VITAL SIGNS: Reviewed. GENERAL: The patient appeared well nourished and normally developed. Vital signs as documented. HEAD: No signs of head trauma. intermittent facail twitching EYES: Pupils are equal. Extraocular motions intact. EARS: Unable to assess patient's sedated MOUTH: ET tube in place NECK: No adenopathy, no JVD. CHEST: Chest with clear breath sounds bilaterally. No wheezes, rales, or rhonchi. CARDIAC: Regular rate and rhythm. S1 and S2, without murmurs, gallops, or rubs. VASCULAR: 2+ patellar edema bilaterally. Peripheral pulses normal and equal in all extremities. ABDOMEN: Soft, without detectable tenderness. No sign of distention. No rebound or guarding, and no masses palpated. Bowel Sounds normal. MUSCULOSKELETAL: Good range of motion of all major joints. Extremities without clubbing, cyanosis. NEUROLOGIC EXAM: Sedated on mechanical ventilation. PSYCHIATRIC: Mood normal. SKIN: No rash or lesions. - Constitutional Vitals: Temp Pulse Resp BP Pulse Ox 99.3 F 97 H 18 103/60 99 02/20/17 12:00 02/20/17 13:00 02/20/17 13:00 02/20/17 13:00 02/20/17 13:00 General appearance: Present: severe distress Results - Labs CBC & Chem 7: 02/20/17 05:07 02/20/17 05:07 Labs: Laboratory Last Values WBC 11.3 K/mm3 (4.5-11.0) H 02/20/17 05:07 RBC 3.89 M/mm3 (3.65-5.03) 02/20/17 05:07 Hgb 11.1 gm/dl (11.8-15.2) L 02/20/17 05:07 Hct 34.6 % (35.5-45.6) L D 02/20/17 05:07 MCV 89 fl (84-94) 02/20/17 05:07 MCH 28 pg (28-32) 02/20/17 05:07 MCHC 32 % (32-34) 02/20/17 05:07 RDW 14.3 % (13.2-15.2) 02/20/17 05:07 Plt Count 305 K/mm3 (140-440) 02/20/17 05:07 Lymph % (Auto) 33.6 % (13.4-35.0) 02/18/17 11:30 [place] % (Auto) 2.0 % (0.0-7.3) 02/18/17 11:30 Eos % (Auto) 2.1 % (0.0-4.3) 02/18/17 11:30 Baso % (Auto) 1.0 % (0.0-1.8) 02/18/17 11:30 Lymph # 3.7 K/mm3 (1.2-5.4) 02/18/17 11:30 [place] # 0.2 K/mm3 (0.0-0.8) 02/18/17 11:30 Eos # 0.2 K/mm3 (0.0-0.4) 02/18/17 11:30 Baso # 0.1 K/mm3 (0.0-0.1) 02/18/17 11:30 Seg Neutrophils % 61.3 % (40.0-70.0) 02/18/17 11:30 Seg Neutrophils # 6.8 K/mm3 (1.8-7.7) 02/18/17 11:30 POC ABG pH 7.457 (7.35-7.45) H 02/20/17 06:41 POC ABG pCO2 32.3 (35-45) L 02/20/17 06:41 POC ABG pO2 134 (80-105) H 02/20/17 06:41 POC ABG HCO3 22.8 02/20/17 06:41 POC ABG Total CO2 24 02/20/17 06:41 POC ABG O2 Sat 99 02/20/17 06:41 POC ABG Base Excess -1 02/20/17 06:41 FiO2 35 % 02/20/17 06:41 Sodium 144 mmol/L (137-145) D 02/20/17 05:07 Potassium 4.0 mmol/L (3.6-5.0) 02/20/17 05:07 Chloride 106.8 mmol/L (98-107) 02/20/17 05:07 Carbon Dioxide 19 mmol/L (22-30) L 02/20/17 05:07 Anion Gap 22 mmol/L 02/20/17 05:07 BUN 17 mg/dL (9-20) 02/20/17 05:07 Creatinine 1.0 mg/dL (0.8-1.5) 02/20/17 05:07 Estimated GFR > 60 ml/min 02/20/17 05:07 BUN/Creatinine Ratio 17.00 % 02/20/17 05:07 Glucose 87 mg/dL (75-100) 02/20/17 05:07 POC Glucose 223 (70-105) H 02/18/17 10:54 Lactic Acid 2.70 mmol/L (0.7-2.0) H* 02/20/17 09:58 Calcium 8.5 mg/dL (8.4-10.2) 02/20/17 05:07 Total Bilirubin 0.20 mg/dL (0.1-1.2) 02/20/17 05:07 AST 29 units/L (5-40) 02/20/17 05:07 ALT 29 units/L (7-56) 02/20/17 05:07 Alkaline Phosphatase 93 units/L (35-129) 02/20/17 05:07 Troponin T 0.073 ng/mL (0.00-0.029) H 02/18/17 11:30 Total Protein 6.3 g/dL (6.3-8.2) D 02/20/17 05:07 Albumin 2.6 g/dL (3.9-5) L 02/20/17 05:07 Albumin/Globulin Ratio 0.7 % 02/20/17 05:07 Triglycerides 136 mg/dL (2-149) 02/18/17 11:30 Cholesterol 192 mg/dL (50-199) 02/18/17 11:30 LDL Cholesterol Direct 126 mg/dL (50-130) 02/18/17 11:30 HDL Cholesterol 39 mg/dL (40-59) L 02/18/17 11:30 Cholesterol/HDL Ratio 4.92 % 02/18/17 11:30 TSH 6.350 mlU/mL (0.270-4.200) H 02/18/17 11:30 Free T4 1.15 ng/dL (0.76-1.46) 02/19/17 19:52 Urine Color Yellow (Yellow) 02/18/17 Unknown Urine Turbidity Clear (Clear) 02/18/17 Unknown Urine pH 5.0 (5.0-7.0) 02/18/17 Unknown Ur Specific [place] 1.018 (1.003-1.030) 02/18/17 Unknown Urine Protein <15 mg/dl mg/dL (Negative) 02/18/17 Unknown Urine Glucose (UA) Neg mg/dL (Negative) 02/18/17 Unknown Urine Ketones Neg mg/dL (Negative) 02/18/17 Unknown Urine Blood Neg (Negative) 02/18/17 Unknown Urine Nitrite Neg (Negative) 02/18/17 Unknown Urine Bilirubin Neg (Negative) 02/18/17 Unknown Urine Urobilinogen < 2.0 mg/dL (<2.0) 02/18/17 Unknown Ur Leukocyte Esterase Neg (Negative) 02/18/17 Unknown Urine WBC (Auto) 1.0 /HPF (0.0-6.0) 02/18/17 Unknown Urine RBC (Auto) 1.0 /HPF (0.0-6.0) 02/18/17 Unknown U Epithel Cells (Auto) 3.0 /HPF (0-13.0) 02/18/17 Unknown Urine Mucus Few /HPF 02/18/17 Unknown Salicylates < 0.3 mg/dL (2.8-20.0) L 02/18/17 11:30 Urine Opiates Screen Presumptive negative 02/18/17 Unknown Urine Methadone Screen Presumptive negative 02/18/17 Unknown Acetaminophen < 15.0 ug/mL (10.0-30.0) 02/18/17 11:30 Ur Barbiturates Screen Presumptive negative 02/18/17 Unknown Ur Phencyclidine Scrn Presumptive negative 02/18/17 Unknown Ur Amphetamines Screen Presumptive negative 02/18/17 Unknown U Benzodiazepines Scrn Presumptive negative 02/18/17 Unknown Urine Cocaine Screen Presumptive negative 02/18/17 Unknown U Marijuana (THC) Screen Presumptive negative 02/18/17 Unknown Drugs of Abuse Note Disclamer 02/18/17 Unknown Plasma/Serum Alcohol < 0.01 gm% (0-0.07) 02/18/17 11:30 - Imaging and Cardiology MRI - head: pending
[2017-02-20] MEDS: DIPRIVAN 10 MG/ML 1,000 MG/100 ML BOTTLE IV SCH (17:13)
[2017-02-20] MEDS: PEPCID PO SCH (22:10)
[2017-02-21] MEDS: KEPPRA PO SCH ×3 (00:38→22:26)
[2017-02-21] MEDS: DIPRIVAN 10 MG/ML 1,000 MG/100 ML BOTTLE IV SCH ×2 (00:42→17:46)
[2017-02-21] MEDS: ZOSYN/NS 4.5GM/100ML 4.5 GM/100 ML VIAL IV SCH ×3 (01:36→18:14)
[2017-02-21 04:55] LABS: Hematocrit 31.8 % (35.5-45.6); Hemoglobin 10.6 gm/dl (11.8-15.2); Mean Corpuscular HGB Conc 33 % (32-34); Mean Corpuscular Hemoglobin 29 pg (28-32); Mean Corpuscular Volume 88 fl (84-94); Platelet Count 276 K/mm3 (140-440); Red Blood Count 3.62 M/mm3 (3.65-5.03); Red Cell Distribution Width 14.9 % (13.2-15.2); White Blood Count 9.7 K/mm3 (4.5-11.0)
[2017-02-21 05:00] LABS: ISTAT Base Excess -2; ISTAT HCO3 20.6; ISTAT PCO2 25.6 (35-45); ISTAT PH 7.513 (7.35-7.45); ISTAT PO2 102 (80-105); ISTAT SO2 99; ISTAT TCO2 21
[2017-02-21] MEDS: SYNTHROID IV SCH (06:36)
--- NOTE | 2017-02-21 09:11 | XRay Report ---
AP CHEST :02/21/17 02:01 CLINICAL: Intubated.Follow up respiratory failure. COMPARISON:The previous day. FINDINGS: The endotracheal tube is in satisfactory position. The feeding tube is satisfactory. Normal heart and pulmonary vessels. The lungs are normally expanded and clear. No pneumothorax. IMPRESSION: Normal.
[2017-02-21] MEDS: PEPCID PO SCH ×2 (09:48→22:27)
[2017-02-21] MEDS: LOVENOX SUB-Q SCH (09:49)
--- NOTE | 2017-02-21 11:25 | Progress Note ---
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 Titrate propofol to stop seizures. We did increase Keppra as well yesterday. Nursing decreased diprovan this am from 15 down to 10. Explained to them the importance of seizure cessation. Needs repeat EEG to confirm patient is out of status. Will order today. 2. Continue Keppra, follow up neuro recs 3. No PSV trials now 4. Most likely will need trach and peg and alf placement given history and current neurologic status. Will discuss with neuro and ask their opinion 5. Overall prognosis is guarded CCT 31 minutes Subjective Date of service: 02/21/17 Interval history: No acute events. Diprovan up to 10. Patient at least not twitching. No family at bedside. Objective Vital Signs - 12hr 02/20/17 02/21/17 02/21/17 23:30 00:00 00:30 Temperature 98.8 F Pulse Rate 91 H 90 92 H Pulse Rate [ Left Dorsalis Pedis] Pulse Rate [ Left Radial] Pulse Rate [ Right Dorsalis Pedis] Pulse Rate [ Right Radial] Respiratory 18 18 18 Rate Blood Pressure 146/81 139/73 140/83 O2 Sat by Pulse 100 98 99 Oximetry 02/21/17 02/21/17 02/21/17 00:42 01:00 01:12 Temperature Pulse Rate 79 Pulse Rate [ Left Dorsalis Pedis] Pulse Rate [ Left Radial] Pulse Rate [ Right Dorsalis Pedis] Pulse Rate [ Right Radial] Respiratory 18 18 18 Rate Blood Pressure 132/73 O2 Sat by Pulse 99 Oximetry 02/21/17 02/21/17 02/21/17 01:30 02:00 02:30 Temperature Pulse Rate 81 88 81 Pulse Rate [ Left Dorsalis Pedis] Pulse Rate [ Left Radial] Pulse Rate [ Right Dorsalis Pedis] Pulse Rate [ Right Radial] Respiratory 18 18 18 Rate Blood Pressure 125/71 136/72 138/74 O2 Sat by Pulse 98 99 Oximetry 02/21/17 02/21/17 02/21/17 03:00 03:30 04:00 Temperature 98.3 F Pulse Rate 80 78 77 Pulse Rate [ 74 Left Dorsalis Pedis] Pulse Rate [ 74 Left Radial] Pulse Rate [ 74 Right Dorsalis Pedis] Pulse Rate [ 74 Right Radial] Respiratory 18 18 18 Rate Blood Pressure 126/69 123/76 128/77 O2 Sat by Pulse 100 99 Oximetry 02/21/17 02/21/17 02/21/17 04:30 04:34 05:00 Temperature Pulse Rate 77 75 75 Pulse Rate [ Left Dorsalis Pedis] Pulse Rate [ Left Radial] Pulse Rate [ Right Dorsalis Pedis] Pulse Rate [ Right Radial] Respiratory 18 17 Rate Blood Pressure 136/85 128/77 133/85 O2 Sat by Pulse 99 100 100 Oximetry 02/21/17 02/21/17 02/21/17 05:30 06:00 06:30 Temperature Pulse Rate 72 72 80 Pulse Rate [ Left Dorsalis Pedis] Pulse Rate [ Left Radial] Pulse Rate [ Right Dorsalis Pedis] Pulse Rate [ Right Radial] Respiratory 14 14 14 Rate Blood Pressure 134/79 136/78 135/76 O2 Sat by Pulse 99 99 99 Oximetry 02/21/17 02/21/17 02/21/17 07:00 07:30 08:00 Temperature 97.9 F Pulse Rate 79 73 83 Pulse Rate [ Left Dorsalis Pedis] Pulse Rate [ Left Radial] Pulse Rate [ Right Dorsalis Pedis] Pulse Rate [ Right Radial] Respiratory 15 14 16 Rate Blood Pressure 135/80 131/78 133/76 O2 Sat by Pulse 99 99 98 Oximetry 02/21/17 02/21/17 02/21/17 08:05 08:30 09:00 Temperature Pulse Rate 87 89 Pulse Rate [ Left Dorsalis Pedis] Pulse Rate [ Left Radial] Pulse Rate [ Right Dorsalis Pedis] Pulse Rate [ Right Radial] Respiratory 16 14 18 Rate Blood Pressure 139/79 133/76 O2 Sat by Pulse 99 100 99 Oximetry 02/21/17 02/21/17 09:30 10:00 Temperature Pulse Rate 84 78 Pulse Rate [ Left Dorsalis Pedis] Pulse Rate [ Left Radial] Pulse Rate [ Right Dorsalis Pedis] Pulse Rate [ Right Radial] Respiratory 17 16 Rate Blood Pressure 141/78 130/77 O2 Sat by Pulse 97 99 Oximetry Constitutional: comatose, other (dishelved) ENT: other (orally intubated) Neck: supple Effort: normal Ascultation: Bilateral: clear Cardiovascular: regular rate and rhythm Gastrointestinal: normoactive bowel sounds, soft, non-tender Extremities: edema CBC and BMP: 02/21/17 03:56 02/20/17 05:07 ABG, PT/INR, D-dimer: ABG POC ABG pH 7.513 (7.35-7.45) H 02/21/17 04:47 POC ABG pCO2 25.6 (35-45) L 02/21/17 04:47 POC ABG pO2 102 (80-105) 02/21/17 04:47 POC ABG HCO3 20.6 02/21/17 04:47 POC ABG Total CO2 21 02/21/17 04:47 POC ABG O2 Sat 99 02/21/17 04:47 Abnormal lab findings: Abnormal Labs 02/18/17 02/19/17 02/19/17 17:56 06:05 09:06 WBC RBC Hgb Hct POC ABG pH POC ABG pCO2 32.6 L POC ABG pO2 181 H 139 H Carbon Dioxide Lactic Acid 3.00 H* Albumin 02/19/17 02/19/17 02/20/17 11:59 11:59 05:07 WBC 11.3 H RBC Hgb 11.1 L Hct 34.6 L D POC ABG pH POC ABG pCO2 POC ABG pO2 Carbon Dioxide 18 L Lactic Acid 2.20 H* Albumin 02/20/17 02/20/17 02/20/17 05:07 06:41 09:58 WBC RBC Hgb Hct POC ABG pH 7.457 H POC ABG pCO2 32.3 L POC ABG pO2 134 H Carbon Dioxide 19 L Lactic Acid 2.70 H* Albumin 2.6 L 02/21/17 02/21/17 03:56 04:47 WBC RBC 3.62 L Hgb 10.6 L Hct 31.8 L POC ABG pH 7.513 H POC ABG pCO2 25.6 L POC ABG pO2 Carbon Dioxide Lactic Acid Albumin
--- NOTE | 2017-02-21 15:35 | Progress Note ---
Assessment and Plan Assessment and plan: 71 YO Male with HTN, Seizure disorder, GERD, HLD, Bullous pemphigoid presents to ED for evaluation. Pt unable to provide history, but history taken from medical record, and ED staff, EMS run sheet, as well as patient family who is at bedside during exam and interview. Pt had two seizures as per EMS and was subsequently unresponsive. Pt seen and evaluated in ED, and found to be unresponsive and unable to protect airway with vomitus in oral pharynx with absent gag reflex. Pt intubated and placed on vent support. No reports of fever , chills, CP, Palpitations, NVD, recent ill contacts, trauma, or skin rashes. * Acute respiratory failure with hypoxemia * Status Epiliepticus * Aspiration pneumonitis * Possible Sepsis from * Seizure disorder * Possible cardiomyopathy with bilateral lower extremity edema * Hypothyroidism evaluate for myxedema coma doubt the latter * Acute encephalopathy likely secondary to seizure postictal state Plan * Continue supportive care, skill training program coordinator input appreciated, discussed case in detail * Repeat EEG * PRN Ativan if needed * zosyn for abx. No new fever, will discontinue abx if remains afebril 24-48hrs * Cultures reviewed, no growth * Continue iv evothyroxine * Neurology consult and EEG Review noted, patient in status epileptics * Continue critical care inpatient stay * Echocardiogram * DVT and GI prophylaxis * Aspiration precautions * Guarded prognosis * No direct family member present in the room family friend present provided some information is noted. The high probability of a clinically significant, sudden or life threatening deterioration of the [Pulmonary, Neuro cardiac] system(s) required my full and direct attention, intervention and personal management. The aggregate critical care time was [35] minutes. This time is in addition to time spent performing reported procedures but includes the following: [x] Data Review and interpretation [x] Patient assessment and monitoring of vital signs [x] Documentation [x] Medication orders and management History Interval history: Patient seen and examined today in no acute distress remains intubated. no new seizure activity withnessed. No other adverse events reported by nursing staff. Hospitalist Physical - Physical exam Narrative exam: VITAL SIGNS: Reviewed. GENERAL: The patient appeared well nourished and normally developed. Vital signs as documented. HEAD: No signs of head trauma. EYES: Pupils are equal. Extraocular motions intact. EARS: Unable to assess patient's sedated MOUTH: ET tube in place NECK: No adenopathy, no JVD. CHEST: Chest with clear breath sounds bilaterally. No wheezes, rales, or rhonchi. CARDIAC: Regular rate and rhythm. S1 and S2, without murmurs, gallops, or rubs. VASCULAR: 2+ patellar edema bilaterally. Peripheral pulses normal and equal in all extremities. ABDOMEN: Soft, without detectable tenderness. No sign of distention. No rebound or guarding, and no masses palpated. Bowel Sounds normal. MUSCULOSKELETAL: Good range of motion of all major joints. Extremities without clubbing, cyanosis. NEUROLOGIC EXAM: Sedated on mechanical ventilation. PSYCHIATRIC: Mood normal. SKIN: No rash or lesions. - Constitutional Vitals: Temp Pulse Resp BP Pulse Ox 99.4 F 80 14 136/81 97 02/21/17 12:00 02/21/17 12:00 02/21/17 12:00 02/21/17 12:00 02/21/17 12:00 General appearance: Present: severe distress Results - Labs CBC & Chem 7: 02/21/17 03:56 02/20/17 05:07 Labs: Laboratory Last Values WBC 9.7 K/mm3 (4.5-11.0) 02/21/17 03:56 RBC 3.62 M/mm3 (3.65-5.03) L 02/21/17 03:56 Hgb 10.6 gm/dl (11.8-15.2) L 02/21/17 03:56 Hct 31.8 % (35.5-45.6) L 02/21/17 03:56 MCV 88 fl (84-94) 02/21/17 03:56 MCH 29 pg (28-32) 02/21/17 03:56 MCHC 33 % (32-34) 02/21/17 03:56 RDW 14.9 % (13.2-15.2) 02/21/17 03:56 Plt Count 276 K/mm3 (140-440) 02/21/17 03:56 Lymph % (Auto) 33.6 % (13.4-35.0) 02/18/17 11:30 [place] % (Auto) 2.0 % (0.0-7.3) 02/18/17 11:30 Eos % (Auto) 2.1 % (0.0-4.3) 02/18/17 11:30 Baso % (Auto) 1.0 % (0.0-1.8) 02/18/17 11:30 Lymph # 3.7 K/mm3 (1.2-5.4) 02/18/17 11:30 [place] # 0.2 K/mm3 (0.0-0.8) 02/18/17 11:30 Eos # 0.2 K/mm3 (0.0-0.4) 02/18/17 11:30 Baso # 0.1 K/mm3 (0.0-0.1) 02/18/17 11:30 Seg Neutrophils % 61.3 % (40.0-70.0) 02/18/17 11:30 Seg Neutrophils # 6.8 K/mm3 (1.8-7.7) 02/18/17 11:30 POC ABG pH 7.513 (7.35-7.45) H 02/21/17 04:47 POC ABG pCO2 25.6 (35-45) L 02/21/17 04:47 POC ABG pO2 102 (80-105) 02/21/17 04:47 POC ABG HCO3 20.6 02/21/17 04:47 POC ABG Total CO2 21 02/21/17 04:47 POC ABG O2 Sat 99 02/21/17 04:47 POC ABG Base Excess -2 02/21/17 04:47 FiO2 28 % 02/21/17 04:47 Sodium 144 mmol/L (137-145) D 02/20/17 05:07 Potassium 4.0 mmol/L (3.6-5.0) 02/20/17 05:07 Chloride 106.8 mmol/L (98-107) 02/20/17 05:07 Carbon Dioxide 19 mmol/L (22-30) L 02/20/17 05:07 Anion Gap 22 mmol/L 02/20/17 05:07 BUN 17 mg/dL (9-20) 02/20/17 05:07 Creatinine 1.0 mg/dL (0.8-1.5) 02/20/17 05:07 Estimated GFR > 60 ml/min 02/20/17 05:07 BUN/Creatinine Ratio 17.00 % 02/20/17 05:07 Glucose 87 mg/dL (75-100) 02/20/17 05:07 POC Glucose 223 (70-105) H 02/18/17 10:54 Lactic Acid 2.70 mmol/L (0.7-2.0) H* 02/20/17 09:58 Calcium 8.5 mg/dL (8.4-10.2) 02/20/17 05:07 Total Bilirubin 0.20 mg/dL (0.1-1.2) 02/20/17 05:07 AST 29 units/L (5-40) 02/20/17 05:07 ALT 29 units/L (7-56) 02/20/17 05:07 Alkaline Phosphatase 93 units/L (35-129) 02/20/17 05:07 Troponin T 0.073 ng/mL (0.00-0.029) H 02/18/17 11:30 Total Protein 6.3 g/dL (6.3-8.2) D 02/20/17 05:07 Albumin 2.6 g/dL (3.9-5) L 02/20/17 05:07 Albumin/Globulin Ratio 0.7 % 02/20/17 05:07 Triglycerides 136 mg/dL (2-149) 02/18/17 11:30 Cholesterol 192 mg/dL (50-199) 02/18/17 11:30 LDL Cholesterol Direct 126 mg/dL (50-130) 02/18/17 11:30 HDL Cholesterol 39 mg/dL (40-59) L 02/18/17 11:30 Cholesterol/HDL Ratio 4.92 % 02/18/17 11:30 TSH 6.350 mlU/mL (0.270-4.200) H 02/18/17 11:30 Free T4 1.15 ng/dL (0.76-1.46) 02/19/17 19:52 Urine Color Yellow (Yellow) 02/18/17 Unknown Urine Turbidity Clear (Clear) 02/18/17 Unknown Urine pH 5.0 (5.0-7.0) 02/18/17 Unknown Ur Specific [place] 1.018 (1.003-1.030) 02/18/17 Unknown Urine Protein <15 mg/dl mg/dL (Negative) 02/18/17 Unknown Urine Glucose (UA) Neg mg/dL (Negative) 02/18/17 Unknown Urine Ketones Neg mg/dL (Negative) 02/18/17 Unknown Urine Blood Neg (Negative) 02/18/17 Unknown Urine Nitrite Neg (Negative) 02/18/17 Unknown Urine Bilirubin Neg (Negative) 02/18/17 Unknown Urine Urobilinogen < 2.0 mg/dL (<2.0) 02/18/17 Unknown Ur Leukocyte Esterase Neg (Negative) 02/18/17 Unknown Urine WBC (Auto) 1.0 /HPF (0.0-6.0) 02/18/17 Unknown Urine RBC (Auto) 1.0 /HPF (0.0-6.0) 02/18/17 Unknown U Epithel Cells (Auto) 3.0 /HPF (0-13.0) 02/18/17 Unknown Urine Mucus Few /HPF 02/18/17 Unknown Salicylates < 0.3 mg/dL (2.8-20.0) L 02/18/17 11:30 Urine Opiates Screen Presumptive negative 02/18/17 Unknown Urine Methadone Screen Presumptive negative 02/18/17 Unknown Acetaminophen < 15.0 ug/mL (10.0-30.0) 02/18/17 11:30 Ur Barbiturates Screen Presumptive negative 02/18/17 Unknown Levetiracetam 15.1 mcg/mL 02/18/17 13:07 Ur Phencyclidine Scrn Presumptive negative 02/18/17 Unknown Ur Amphetamines Screen Presumptive negative 02/18/17 Unknown U Benzodiazepines Scrn Presumptive negative 02/18/17 Unknown Urine Cocaine Screen Presumptive negative 02/18/17 Unknown U Marijuana (THC) Screen Presumptive negative 02/18/17 Unknown Drugs of Abuse Note Disclamer 02/18/17 Unknown Plasma/Serum Alcohol < 0.01 gm% (0-0.07) 02/18/17 11:30
[2017-02-22] MEDS: ZOSYN/NS 4.5GM/100ML 4.5 GM/100 ML VIAL IV SCH ×3 (01:45→18:25)
[2017-02-22 03:48] LABS: Hematocrit 33.3 % (35.5-45.6); Hemoglobin 11.1 gm/dl (11.8-15.2); Mean Corpuscular HGB Conc 33 % (32-34); Mean Corpuscular Hemoglobin 29 pg (28-32); Mean Corpuscular Volume 88 fl (84-94); Platelet Count 268 K/mm3 (140-440); Red Blood Count 3.79 M/mm3 (3.65-5.03); Red Cell Distribution Width 14.7 % (13.2-15.2); White Blood Count 9.3 K/mm3 (4.5-11.0)
[2017-02-22 04:04] LABS: BUN/Creatinine Ratio 23.33; Blood Urea Nitrogen 21 mg/dL (9-20); Calcium 8.1 mg/dL (8.4-10.2); Carbon Dioxide 20 mmol/L (22-30); Glucose 132 mg/dL (75-100)
[2017-02-22 04:05] LABS: Anion Gap 18 mmol/L; Chloride 107.8 mmol/L (98-107); Potassium 3.3 mmol/L (3.6-5.0); Sodium 142 mmol/L (137-145)
[2017-02-22 05:38] LABS: ISTAT Base Excess -2; ISTAT HCO3 22.3; ISTAT PCO2 32.8 (35-45); ISTAT PH 7.441 (7.35-7.45); ISTAT PO2 112 (80-105); ISTAT SO2 99; ISTAT TCO2 23
[2017-02-22] MEDS: SYNTHROID IV SCH (05:49)
[2017-02-22] MEDS: TYLENOL FEEDTUBE PRN (08:57)
--- NOTE | 2017-02-22 09:08 | XRay Report ---
AP CHEST :02/22/17 CLINICAL: Intubated.Follow up respiratory failure. COMPARISON:Previous day. FINDINGS: An endotracheal tube is in satisfactory position. A feeding tube is satisfactory. Normal heart and pulmonary vessels. Lungs are clear except for mild left lower lobe subsegmental atelectasis. No pneumothorax. IMPRESSION: Mild left lower lobe atelectasis.No congestive heart failure or pneumonia.
[2017-02-22] MEDS: KEPPRA PO SCH ×2 (09:32→21:43)
[2017-02-22] MEDS: PEPCID PO SCH ×2 (09:33→21:45)
[2017-02-22] MEDS: LOVENOX SUB-Q SCH (09:33)
[2017-02-22] MEDS: DIPRIVAN 10 MG/ML 1,000 MG/100 ML BOTTLE IV SCH (10:45)
--- NOTE | 2017-02-22 13:56 | Progress Note ---
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 patient found to be in status via EEG read by neuro. Placed on Diprovan 02/20/17 for burst suppression. Also increased Keppra dosing same day. [place] following. Per neuro, EEG tomorrow. Most likely this patient will need trach and peg given his current mental state. Lung mechanics are good, not a candidate for extubation based on mental state. Will check Triglycerides given continuous propofol infusion therapy. 2. Follow up neuro recs 3. Overall prognosis is guarded CCT 31 minutes Subjective Date of service: 02/22/17 Interval history: No acute events. No documented evidence of seizure activity. Spoke with neuro yesterday. They state they will order EEG for tomorrow. Had temp of 100.7 this am. Last cultures drawn were from 02/18. Remainder is negative. Objective Vital Signs - 12hr 02/22/17 02/22/17 02/22/17 02:00 02:30 03:00 Temperature Pulse Rate 88 90 86 Pulse Rate [ Left Dorsalis Pedis] Pulse Rate [ Left Radial] Pulse Rate [ Right Dorsalis Pedis] Pulse Rate [ Right Radial] Respiratory 15 19 14 Rate Blood Pressure 161/80 165/88 148/81 O2 Sat by Pulse 99 100 99 Oximetry 02/22/17 02/22/17 02/22/17 03:30 03:53 04:00 Temperature 100.5 F H Pulse Rate 87 95 H Pulse Rate [ 89 Left Dorsalis Pedis] Pulse Rate [ 89 Left Radial] Pulse Rate [ 89 Right Dorsalis Pedis] Pulse Rate [ 89 Right Radial] Respiratory 14 14 Rate Blood Pressure 150/85 174/102 O2 Sat by Pulse 100 98 Oximetry 02/22/17 02/22/17 02/22/17 04:15 04:30 05:00 Temperature Pulse Rate 84 89 83 Pulse Rate [ Left Dorsalis Pedis] Pulse Rate [ Left Radial] Pulse Rate [ Right Dorsalis Pedis] Pulse Rate [ Right Radial] Respiratory 17 14 Rate Blood Pressure 147/102 167/104 153/80 O2 Sat by Pulse 100 100 100 Oximetry 02/22/17 02/22/17 02/22/17 05:30 06:00 06:30 Temperature Pulse Rate 87 72 82 Pulse Rate [ Left Dorsalis Pedis] Pulse Rate [ Left Radial] Pulse Rate [ Right Dorsalis Pedis] Pulse Rate [ Right Radial] Respiratory 15 15 16 Rate Blood Pressure 152/83 157/71 163/81 O2 Sat by Pulse 99 99 98 Oximetry 02/22/17 02/22/17 02/22/17 07:00 07:11 07:20 Temperature Pulse Rate 92 H 90 91 H Pulse Rate [ Left Dorsalis Pedis] Pulse Rate [ Left Radial] Pulse Rate [ Right Dorsalis Pedis] Pulse Rate [ Right Radial] Respiratory 20 29 H Rate Blood Pressure 156/86 156/86 160/85 O2 Sat by Pulse 99 100 99 Oximetry 02/22/17 02/22/17 02/22/17 07:30 07:37 07:39 Temperature Pulse Rate 95 H 95 H 94 H Pulse Rate [ Left Dorsalis Pedis] Pulse Rate [ Left Radial] Pulse Rate [ Right Dorsalis Pedis] Pulse Rate [ Right Radial] Respiratory 23 31 H Rate Blood Pressure 158/85 160/85 158/85 O2 Sat by Pulse 100 99 100 Oximetry 02/22/17 02/22/17 02/22/17 08:00 08:10 08:30 Temperature 100.7 F H Pulse Rate 102 H 99 H Pulse Rate [ Left Dorsalis Pedis] Pulse Rate [ Left Radial] Pulse Rate [ Right Dorsalis Pedis] Pulse Rate [ Right Radial] Respiratory 23 19 17 Rate Blood Pressure 170/91 171/95 O2 Sat by Pulse 99 99 99 Oximetry 02/22/17 02/22/17 02/22/17 09:00 09:30 10:00 Temperature Pulse Rate 95 H 97 H 94 H Pulse Rate [ Left Dorsalis Pedis] Pulse Rate [ Left Radial] Pulse Rate [ Right Dorsalis Pedis] Pulse Rate [ Right Radial] Respiratory 15 22 15 Rate Blood Pressure 159/85 164/86 135/71 O2 Sat by Pulse 98 99 97 Oximetry 02/22/17 02/22/17 02/22/17 10:30 10:45 11:00 Temperature Pulse Rate 82 83 81 Pulse Rate [ Left Dorsalis Pedis] Pulse Rate [ Left Radial] Pulse Rate [ Right Dorsalis Pedis] Pulse Rate [ Right Radial] Respiratory 14 15 Rate Blood Pressure 123/66 141/71 O2 Sat by Pulse 100 100 Oximetry 02/22/17 02/22/17 02/22/17 11:30 11:39 12:00 Temperature 99.9 F H Pulse Rate 78 78 66 Pulse Rate [ Left Dorsalis Pedis] Pulse Rate [ Left Radial] Pulse Rate [ Right Dorsalis Pedis] Pulse Rate [ Right Radial] Respiratory 14 14 Rate Blood Pressure 127/67 127/67 131/65 O2 Sat by Pulse 100 100 99 Oximetry 02/22/17 02/22/17 02/22/17 12:20 12:30 13:00 Temperature Pulse Rate 78 88 Pulse Rate [ Left Dorsalis Pedis] Pulse Rate [ Left Radial] Pulse Rate [ Right Dorsalis Pedis] Pulse Rate [ Right Radial] Respiratory 14 15 16 Rate Blood Pressure 138/69 134/74 O2 Sat by Pulse 100 99 98 Oximetry Constitutional: comatose, other (dishelved) ENT: other (orally intubated) Neck: supple Effort: normal Ascultation: Bilateral: clear Cardiovascular: regular rate and rhythm Gastrointestinal: normoactive bowel sounds, soft, non-tender Extremities: edema CBC and BMP: 02/22/17 03:22 02/22/17 03:22 ABG, PT/INR, D-dimer: ABG POC ABG pH 7.441 (7.35-7.45) 02/22/17 04:33 POC ABG pCO2 32.8 (35-45) L 02/22/17 04:33 POC ABG pO2 112 (80-105) H 02/22/17 04:33 POC ABG HCO3 22.3 02/22/17 04:33 POC ABG Total CO2 23 02/22/17 04:33 POC ABG O2 Sat 99 02/22/17 04:33 Abnormal lab findings: Abnormal Labs 02/18/17 02/19/17 02/19/17 17:56 06:05 09:06 WBC RBC Hgb Hct POC ABG pH POC ABG pCO2 32.6 L POC ABG pO2 181 H 139 H Potassium Chloride Carbon Dioxide BUN Glucose Lactic Acid 3.00 H* Calcium Albumin 02/19/17 02/19/17 02/20/17 11:59 11:59 05:07 WBC 11.3 H RBC Hgb 11.1 L Hct 34.6 L D POC ABG pH POC ABG pCO2 POC ABG pO2 Potassium Chloride Carbon Dioxide 18 L BUN Glucose Lactic Acid 2.20 H* Calcium Albumin 02/20/17 02/20/17 02/20/17 05:07 06:41 09:58 WBC RBC Hgb Hct POC ABG pH 7.457 H POC ABG pCO2 32.3 L POC ABG pO2 134 H Potassium Chloride Carbon Dioxide 19 L BUN Glucose Lactic Acid 2.70 H* Calcium Albumin 2.6 L 02/21/17 02/21/17 02/22/17 03:56 04:47 03:22 WBC RBC 3.62 L Hgb 10.6 L 11.1 L Hct 31.8 L 33.3 L POC ABG pH 7.513 H POC ABG pCO2 25.6 L POC ABG pO2 Potassium Chloride Carbon Dioxide BUN Glucose Lactic Acid Calcium Albumin 02/22/17 02/22/17 03:22 04:33 WBC RBC Hgb Hct POC ABG pH POC ABG pCO2 32.8 L POC ABG pO2 112 H Potassium 3.3 L Chloride 107.8 H Carbon Dioxide 20 L BUN 21 H Glucose 132 H Lactic Acid Calcium 8.1 L Albumin
--- NOTE | 2017-02-22 14:14 | Progress Note ---
Assessment and Plan Assessment and plan: 71 YO Male with HTN, Seizure disorder, GERD, HLD, Bullous pemphigoid presents to ED for evaluation. Pt unable to provide history, but history taken from medical record, and ED staff, EMS run sheet, as well as patient family who is at bedside during exam and interview. Pt had two seizures as per EMS and was subsequently unresponsive. Pt seen and evaluated in ED, and found to be unresponsive and unable to protect airway with vomitus in oral pharynx with absent gag reflex. Pt intubated and placed on vent support. No reports of fever , chills, CP, Palpitations, NVD, recent ill contacts, trauma, or skin rashes. * Acute respiratory failure with hypoxemia * Status Epiliepticus * Aspiration pneumonitis * Possible Sepsis * Hypokalemia * Seizure disorder * Possible cardiomyopathy with bilateral lower extremity edema * Hypothyroidism evaluate for myxedema coma doubt the latter * Acute encephalopathy likely secondary to seizure postictal state Plan * Continue supportive care, machine spreader input appreciated, discussed case in detail * Repeat EEG PENDING * MRI still pending. * PRN Ativan if needed * zosyn for abx. No new fever, will discontinue abx if remains afebril 24-48hrs * Cultures reviewed, no growth * REPLACE k * Continue iv Levothyroxine * Neurology consult and EEG Review noted, patient in status epileptics * Continue critical care inpatient stay * Echocardiogram * DVT and GI prophylaxis * Aspiration precautions * Guarded prognosis * No direct family member present in the room family friend present provided some information is noted. The high probability of a clinically significant, sudden or life threatening deterioration of the [Pulmonary, Neuro cardiac] system(s) required my full and direct attention, intervention and personal management. The aggregate critical care time was [35] minutes. This time is in addition to time spent performing reported procedures but includes the following: [x] Data Review and interpretation [x] Patient assessment and monitoring of vital signs [x] Documentation [x] Medication orders and management History Interval history: Patient seen and examined today in no acute distress remains intubated. no new seizure activity witnessed. No other adverse events reported by nursing staff. Hospitalist Physical - Physical exam Narrative exam: VITAL SIGNS: Reviewed. GENERAL: The patient appeared well nourished and normally developed. Vital signs as documented. HEAD: No signs of head trauma. EYES: Pupils are equal. Extraocular motions intact. EARS: Unable to assess patient's sedated MOUTH: ET tube in place NECK: No adenopathy, no JVD. CHEST: Chest with clear breath sounds bilaterally. No wheezes, rales, or rhonchi. CARDIAC: Regular rate and rhythm. S1 and S2, without murmurs, gallops, or rubs. VASCULAR: 1+ patellar edema bilaterally. Peripheral pulses normal and equal in all extremities. ABDOMEN: Soft, without detectable tenderness. No sign of distention. No rebound or guarding, and no masses palpated. Bowel Sounds normal. MUSCULOSKELETAL: Good range of motion of all major joints. Extremities without clubbing, cyanosis. NEUROLOGIC EXAM: Sedated on mechanical ventilation. PSYCHIATRIC: Mood normal. SKIN: No rash or lesions. - Constitutional Vitals: Temp Pulse Resp BP Pulse Ox 99.9 F H 88 16 134/74 98 02/22/17 12:00 02/22/17 13:00 02/22/17 13:00 02/22/17 13:00 02/22/17 13:00 General appearance: Present: severe distress Results - Labs CBC & Chem 7: 02/22/17 03:22 02/22/17 03:22 Labs: Laboratory Last Values WBC 9.3 K/mm3 (4.5-11.0) 02/22/17 03:22 RBC 3.79 M/mm3 (3.65-5.03) 02/22/17 03:22 Hgb 11.1 gm/dl (11.8-15.2) L 02/22/17 03:22 Hct 33.3 % (35.5-45.6) L 02/22/17 03:22 MCV 88 fl (84-94) 02/22/17 03:22 MCH 29 pg (28-32) 02/22/17 03:22 MCHC 33 % (32-34) 02/22/17 03:22 RDW 14.7 % (13.2-15.2) 02/22/17 03:22 Plt Count 268 K/mm3 (140-440) 02/22/17 03:22 Lymph % (Auto) 33.6 % (13.4-35.0) 02/18/17 11:30 [place] % (Auto) 2.0 % (0.0-7.3) 02/18/17 11:30 Eos % (Auto) 2.1 % (0.0-4.3) 02/18/17 11:30 Baso % (Auto) 1.0 % (0.0-1.8) 02/18/17 11:30 Lymph # 3.7 K/mm3 (1.2-5.4) 02/18/17 11:30 [place] # 0.2 K/mm3 (0.0-0.8) 02/18/17 11:30 Eos # 0.2 K/mm3 (0.0-0.4) 02/18/17 11:30 Baso # 0.1 K/mm3 (0.0-0.1) 02/18/17 11:30 Seg Neutrophils % 61.3 % (40.0-70.0) 02/18/17 11:30 Seg Neutrophils # 6.8 K/mm3 (1.8-7.7) 02/18/17 11:30 POC ABG pH 7.441 (7.35-7.45) 02/22/17 04:33 POC ABG pCO2 32.8 (35-45) L 02/22/17 04:33 POC ABG pO2 112 (80-105) H 02/22/17 04:33 POC ABG HCO3 22.3 02/22/17 04:33 POC ABG Total CO2 23 02/22/17 04:33 POC ABG O2 Sat 99 02/22/17 04:33 POC ABG Base Excess -2 02/22/17 04:33 FiO2 28 % 02/22/17 04:33 Sodium 142 mmol/L (137-145) 02/22/17 03:22 Potassium 3.3 mmol/L (3.6-5.0) L 02/22/17 03:22 Chloride 107.8 mmol/L (98-107) H 02/22/17 03:22 Carbon Dioxide 20 mmol/L (22-30) L 02/22/17 03:22 Anion Gap 18 mmol/L 02/22/17 03:22 BUN 21 mg/dL (9-20) H 02/22/17 03:22 Creatinine 0.9 mg/dL (0.8-1.5) 02/22/17 03:22 Estimated GFR > 60 ml/min 02/22/17 03:22 BUN/Creatinine Ratio 23.33 % 02/22/17 03:22 Glucose 132 mg/dL (75-100) H 02/22/17 03:22 POC Glucose 223 (70-105) H 02/18/17 10:54 Lactic Acid 1.70 mmol/L (0.7-2.0) 02/22/17 03:22 Calcium 8.1 mg/dL (8.4-10.2) L 02/22/17 03:22 Total Bilirubin 0.20 mg/dL (0.1-1.2) 02/20/17 05:07 AST 29 units/L (5-40) 02/20/17 05:07 ALT 29 units/L (7-56) 02/20/17 05:07 Alkaline Phosphatase 93 units/L (35-129) 02/20/17 05:07 Troponin T 0.073 ng/mL (0.00-0.029) H 02/18/17 11:30 Total Protein 6.3 g/dL (6.3-8.2) D 02/20/17 05:07 Albumin 2.6 g/dL (3.9-5) L 02/20/17 05:07 Albumin/Globulin Ratio 0.7 % 02/20/17 05:07 Triglycerides 136 mg/dL (2-149) 02/18/17 11:30 Cholesterol 192 mg/dL (50-199) 02/18/17 11:30 LDL Cholesterol Direct 126 mg/dL (50-130) 02/18/17 11:30 HDL Cholesterol 39 mg/dL (40-59) L 02/18/17 11:30 Cholesterol/HDL Ratio 4.92 % 02/18/17 11:30 TSH 6.350 mlU/mL (0.270-4.200) H 02/18/17 11:30 Free T4 1.15 ng/dL (0.76-1.46) 02/19/17 19:52 Urine Color Yellow (Yellow) 02/18/17 Unknown Urine Turbidity Clear (Clear) 02/18/17 Unknown Urine pH 5.0 (5.0-7.0) 02/18/17 Unknown Ur Specific [place] 1.018 (1.003-1.030) 02/18/17 Unknown Urine Protein <15 mg/dl mg/dL (Negative) 02/18/17 Unknown Urine Glucose (UA) Neg mg/dL (Negative) 02/18/17 Unknown Urine Ketones Neg mg/dL (Negative) 02/18/17 Unknown Urine Blood Neg (Negative) 02/18/17 Unknown Urine Nitrite Neg (Negative) 02/18/17 Unknown Urine Bilirubin Neg (Negative) 02/18/17 Unknown Urine Urobilinogen < 2.0 mg/dL (<2.0) 02/18/17 Unknown Ur Leukocyte Esterase Neg (Negative) 02/18/17 Unknown Urine WBC (Auto) 1.0 /HPF (0.0-6.0) 02/18/17 Unknown Urine RBC (Auto) 1.0 /HPF (0.0-6.0) 02/18/17 Unknown U Epithel Cells (Auto) 3.0 /HPF (0-13.0) 02/18/17 Unknown Urine Mucus Few /HPF 02/18/17 Unknown Salicylates < 0.3 mg/dL (2.8-20.0) L 02/18/17 11:30 Urine Opiates Screen Presumptive negative 02/18/17 Unknown Urine Methadone Screen Presumptive negative 02/18/17 Unknown Acetaminophen < 15.0 ug/mL (10.0-30.0) 02/18/17 11:30 Ur Barbiturates Screen Presumptive negative 02/18/17 Unknown Levetiracetam 15.1 mcg/mL 02/18/17 13:07 Ur Phencyclidine Scrn Presumptive negative 02/18/17 Unknown Ur Amphetamines Screen Presumptive negative 02/18/17 Unknown U Benzodiazepines Scrn Presumptive negative 02/18/17 Unknown Urine Cocaine Screen Presumptive negative 02/18/17 Unknown U Marijuana (THC) Screen Presumptive negative 02/18/17 Unknown Drugs of Abuse Note Disclamer 02/18/17 Unknown Plasma/Serum Alcohol < 0.01 gm% (0-0.07) 02/18/17 11:30
[2017-02-22] MEDS: KCL 10MEQ/100ML 10 MEQ/100 ML BAG IV SCH ×4 (16:33→20:40)
[2017-02-23] MEDS: ZOSYN/NS 4.5GM/100ML 4.5 GM/100 ML VIAL IV SCH ×2 (01:05→09:16)
[2017-02-23] MEDS: DIPRIVAN 10 MG/ML 1,000 MG/100 ML BOTTLE IV SCH (01:34)
[2017-02-23] MEDS: SYNTHROID IV SCH (06:51)
[2017-02-23 06:53] LABS: Hematocrit 38.8 % (35.5-45.6); Hemoglobin 12.8 gm/dl (11.8-15.2); Mean Corpuscular HGB Conc 33 % (32-34); Mean Corpuscular Hemoglobin 31 pg (28-32); Mean Corpuscular Volume 94 fl (84-94); Platelet Count 165 K/mm3 (140-440); Red Blood Count 4.14 M/mm3 (3.65-5.03); Red Cell Distribution Width 16.5 % (13.2-15.2); White Blood Count 7.8 K/mm3 (4.5-11.0)
[2017-02-23 07:18] LABS: Anion Gap 16 mmol/L; Blood Urea Nitrogen 35 mg/dL (9-20); Calcium 7.4 mg/dL (8.4-10.2); Carbon Dioxide 18 mmol/L (22-30); Chloride 119.5 mmol/L (98-107); Glucose 143 mg/dL (75-100); Potassium 3.7 mmol/L (3.6-5.0); Sodium 150 mmol/L (137-145)
--- NOTE | 2017-02-23 07:19 | XRay Report ---
Single view chest: Compared to 02/22/17. History: Followup of respiratory failure. Findings: Cardiomegaly. Stable support system. No right lung consolidation. Left lower lobe obscured by enlarged heart. Impression: Findings as detailed above. Consolidation or atelectasis if present left lower lobe cannot be excluded.
--- NOTE | 2017-02-23 08:19 | Consultation ---
History of Present Illness - Reason for Consult Consult date: 02/23/17 seizure - History of Present Illness I plan to check another portable EEG on the patient and leave a note as to the results... spoke to attending on thursday Past History Past Medical History: other (unable to obtain) Past Surgical History: Other (unable to obtain) Social history: other (unable to obtain) Family history: other (unable to obtain) Medications and Allergies Allergies Allergy/AdvReac Type Severity Reaction Status Date / Time No Known Allergies Allergy Verified 10/24/13 04:08 Home Medications Medication Instructions Recorded Confirmed Last Taken Type Levothyroxine [Synthroid] 50 mcg PO QAM 05/26/16 02/18/17 02/17/17 History levETIRAcetam [Keppra TAB] 750 mg PO BID 05/26/16 02/18/17 02/17/17 History Clopidogrel [Plavix] 75 mg PO DAILY #30 tablet 06/03/16 02/18/17 02/17/17 Rx Simvastatin [Zocor TAB] 20 mg PO QHS 02/18/17 02/18/17 02/17/17 History Active Meds: Active Medications Acetaminophen (Tylenol) 650 mg FEEDTUBE Q6H PRN PRN Reason: Non Cardiac Pain or Temp>100.5 Last Admin: 02/22/17 08:57 Dose: 650 mg Albuterol (Proventil) 2.5 mg IH Q3HRT PRN PRN Reason: Shortness Of Breath Lipase/Protease/Amylase (Pancreaze Dr 10,500 Unit) 1 each FEEDTUBE PRN PRN PRN Reason: For Clogged Feeding Tube Enoxaparin Sodium (Lovenox) 40 mg SUB-Q QDAY@1000 NESSA Last Admin: 02/22/17 09:33 Dose: 40 mg Famotidine (Pepcid) 20 mg PO BID NESSA Last Admin: 02/22/17 21:45 Dose: 20 mg Hydrophilic Ointment (Vaseline Lip Therapy) 1 applic TP Q2HR PRN PRN Reason: Dry Lips Propofol (Diprivan 10 Mg/Ml) 1,000 mg in 100 mls @ 2.37 mls/hr IV TITR NESSA; 5 MCG/KG/MIN PRN Reason: Protocol Last Admin: 02/23/17 01:34 Dose: 10 mcg/kg/min, 4.74 mls/hr Piperacillin Sod/Tazobactam Sod (Zosyn/Ns 4.5gm/100ml) 4.5 gm in 100 mls @ 200 mls/hr IV Q8H NESSA PRN Reason: Protocol Last Admin: 02/23/17 01:05 Dose: 200 mls/hr Levetiracetam (Keppra) 1,000 mg PO BID [facility] Last Admin: 02/22/17 21:43 Dose: 1,000 mg Levothyroxine Sodium (Synthroid) 25 mcg IV DAILY@0600 [facility] Last Admin: 02/23/17 06:51 Dose: 25 mcg Lorazepam (Ativan) 2 mg IV Q4H PRN PRN Reason: Seizures Last Admin: 02/20/17 09:51 Dose: 2 mg Multi-Ingred Cream/Lotion/Oil/Oint (Artificial Tears Ophth Oint) 1 applic OU Q4HR PRN PRN Reason: Dry Eye(s) Simple Syrup (Simple Syrup) 15 ml FEEDTUBE PRN PRN PRN Reason: Hypoglycemia Simple Syrup (Simple Syrup) 30 ml FEEDTUBE PRN PRN PRN Reason: Hypoglycemia Sodium Bicarbonate (Sodium Bicarbonate) 325 mg FEEDTUBE PRN PRN PRN Reason: For Clogged Feeding Tube Exam - Constitutional Vitals: Temp Pulse Resp BP Pulse Ox 98.9 F 68 17 141/64 99 02/23/17 03:21 02/23/17 08:02 02/23/17 07:00 02/23/17 08:02 02/23/17 08:02 Results - Labs CBC & Chem 7: 02/23/17 06:15 02/23/17 06:15 Labs: Abnormal lab results 02/23/17 02/23/17 Range/Units 06:15 06:15 RDW 16.5 H (13.2-15.2) % Sodium 150 H D (137-145) mmol/L Chloride 119.5 H (98-107) mmol/L Carbon Dioxide 18 L (22-30) mmol/L BUN 35 H (9-20) mg/dL Glucose 143 H (75-100) mg/dL Calcium 7.4 L (8.4-10.2) mg/dL
[2017-02-23 08:50] LABS: ISTAT Base Excess 0; ISTAT HCO3 23.7; ISTAT PH 7.464 (7.35-7.45); ISTAT PO2 71 (80-105); ISTAT SO2 95; ISTAT TCO2 25
[2017-02-23] MEDS: KEPPRA PO SCH ×2 (09:17→21:09)
[2017-02-23] MEDS: PEPCID PO SCH ×2 (09:17→21:09)
[2017-02-23] MEDS: LOVENOX SUB-Q SCH (09:17)
--- NOTE | 2017-02-23 13:18 | Progress Note ---
Assessment and Plan Imp: 1. Status epilepticus 2. Acute resp. failure, hypoxia 3. YUDY, better 4. Hypernatremia 5. Aspiration pneumonia 6. Hx of CVA 7. Lactic acidosis 2/2 #1 Rec: 1. F/u repeat EEG and needs MRI; f/u neurology recs -> ? if he needs additional AEDs besides Keppra 2. Hold SBT pending #1 3. Complete a brief course of Zosyn 4. Increase free water; cont. TFs, DVT and GI PPx 5. May need trach but would like to see if he could wake up off Diprivan first 6. Prognosis guarded; will update niece by phone CCT 31 minutes Subjective Date of service: 02/23/17 Principal diagnosis: Acute resp. failure Interval history: No seizures reported. Sedated on Propofol 10mcg. Unable to give hx. Active Medications Acetaminophen (Tylenol) 650 mg FEEDTUBE Q6H PRN PRN Reason: Non Cardiac Pain or Temp>100.5 Last Admin: 02/22/17 08:57 Dose: 650 mg Albuterol (Proventil) 2.5 mg IH Q3HRT PRN PRN Reason: Shortness Of Breath Lipase/Protease/Amylase (Pancreaze Dr 10,500 Unit) 1 each FEEDTUBE PRN PRN PRN Reason: For Clogged Feeding Tube Enoxaparin Sodium (Lovenox) 40 mg SUB-Q QDAY@1000 NESSA Last Admin: 02/23/17 09:17 Dose: 40 mg Famotidine (Pepcid) 20 mg PO BID NESSA Last Admin: 02/23/17 09:17 Dose: 20 mg Hydrophilic Ointment (Vaseline Lip Therapy) 1 applic TP Q2HR PRN PRN Reason: Dry Lips Propofol (Diprivan 10 Mg/Ml) 1,000 mg in 100 mls @ 2.37 mls/hr IV TITR NESSA; 5 MCG/KG/MIN PRN Reason: Protocol Last Admin: 02/23/17 01:34 Dose: 10 mcg/kg/min, 4.74 mls/hr Piperacillin Sod/Tazobactam Sod (Zosyn/Ns 4.5gm/100ml) 4.5 gm in 100 mls @ 200 mls/hr IV Q8H NESSA PRN Reason: Protocol Last Admin: 02/23/17 09:16 Dose: 200 mls/hr Levetiracetam (Keppra) 1,000 mg PO BID [facility] Last Admin: 02/23/17 09:17 Dose: 1,000 mg Levothyroxine Sodium (Synthroid) 25 mcg IV DAILY@0600 [facility] Last Admin: 02/23/17 06:51 Dose: 25 mcg Lorazepam (Ativan) 2 mg IV Q4H PRN PRN Reason: Seizures Last Admin: 02/20/17 09:51 Dose: 2 mg Multi-Ingred Cream/Lotion/Oil/Oint (Artificial Tears Ophth Oint) 1 applic OU Q4HR PRN PRN Reason: Dry Eye(s) Simple Syrup (Simple Syrup) 15 ml FEEDTUBE PRN PRN PRN Reason: Hypoglycemia Simple Syrup (Simple Syrup) 30 ml FEEDTUBE PRN PRN PRN Reason: Hypoglycemia Sodium Bicarbonate (Sodium Bicarbonate) 325 mg FEEDTUBE PRN PRN PRN Reason: For Clogged Feeding Tube Objective Vital Signs - 12hr 02/23/17 02/23/17 02/23/17 01:34 02:00 03:00 Temperature Pulse Rate 80 78 Pulse Rate [ From Monitor] Respiratory 16 22 16 Rate Respiratory Rate [ Generalized] Blood Pressure 153/71 134/64 O2 Sat by Pulse 98 95 Oximetry 02/23/17 02/23/17 02/23/17 03:21 04:00 04:30 Temperature 98.9 F Pulse Rate 65 72 Pulse Rate [ From Monitor] Respiratory 14 Rate Respiratory 16 Rate [ Generalized] Blood Pressure 143/62 136/77 O2 Sat by Pulse 98 99 Oximetry 02/23/17 02/23/17 02/23/17 05:00 06:00 07:00 Temperature Pulse Rate 73 75 70 Pulse Rate [ From Monitor] Respiratory 14 17 17 Rate Respiratory Rate [ Generalized] Blood Pressure 137/66 140/66 141/64 O2 Sat by Pulse 99 97 97 Oximetry 02/23/17 02/23/17 02/23/17 08:00 08:02 09:00 Temperature 98.4 F Pulse Rate 74 68 60 Pulse Rate [ 74 From Monitor] Respiratory 16 14 Rate Respiratory Rate [ Generalized] Blood Pressure 140/62 141/64 143/56 O2 Sat by Pulse 99 99 100 Oximetry 02/23/17 02/23/17 02/23/17 10:00 11:01 12:00 Temperature 99.4 F Pulse Rate 85 61 Pulse Rate [ From Monitor] Respiratory 20 14 Rate Respiratory Rate [ Generalized] Blood Pressure 155/79 130/57 O2 Sat by Pulse 100 100 Oximetry 02/23/17 12:29 Temperature Pulse Rate 72 Pulse Rate [ From Monitor] Respiratory Rate Respiratory Rate [ Generalized] Blood Pressure 131/60 O2 Sat by Pulse 100 Oximetry Constitutional: other (disheveled on Propofol, critically ill on vent) ENT: other (orally intubated) Neck: supple Effort: normal Ascultation: Bilateral: other (coarse BS bilaterally) Cardiovascular: regular rate and rhythm Gastrointestinal: normoactive bowel sounds, soft, non-tender Integumentary: normal Extremities: pink and warm, edema Neurologic: unable to assess (on propofol) Psychiatric: other (unable to assess) CBC and BMP: 02/23/17 06:15 02/23/17 06:15 ABG, PT/INR, D-dimer: ABG POC ABG pH 7.464 (7.35-7.45) H 02/23/17 05:49 POC ABG pCO2 33.0 (35-45) L 02/23/17 05:49 POC ABG pO2 71 (80-105) L 02/23/17 05:49 POC ABG HCO3 23.7 02/23/17 05:49 POC ABG Total CO2 25 02/23/17 05:49 POC ABG O2 Sat 95 02/23/17 05:49 Abnormal lab findings: Abnormal Labs 02/18/17 02/19/17 02/19/17 17:56 06:05 09:06 WBC RBC Hgb Hct RDW POC ABG pH POC ABG pCO2 32.6 L POC ABG pO2 181 H 139 H Sodium Potassium Chloride Carbon Dioxide BUN Glucose Lactic Acid 3.00 H* Calcium Albumin 02/19/17 02/19/17 02/20/17 11:59 11:59 05:07 WBC 11.3 H RBC Hgb 11.1 L Hct 34.6 L D RDW POC ABG pH POC ABG pCO2 POC ABG pO2 Sodium Potassium Chloride Carbon Dioxide 18 L BUN Glucose Lactic Acid 2.20 H* Calcium Albumin 02/20/17 02/20/17 02/20/17 05:07 06:41 09:58 WBC RBC Hgb Hct RDW POC ABG pH 7.457 H POC ABG pCO2 32.3 L POC ABG pO2 134 H Sodium Potassium Chloride Carbon Dioxide 19 L BUN Glucose Lactic Acid 2.70 H* Calcium Albumin 2.6 L 02/21/17 02/21/17 02/22/17 03:56 04:47 03:22 WBC RBC 3.62 L Hgb 10.6 L 11.1 L Hct 31.8 L 33.3 L RDW POC ABG pH 7.513 H POC ABG pCO2 25.6 L POC ABG pO2 Sodium Potassium Chloride Carbon Dioxide BUN Glucose Lactic Acid Calcium Albumin 02/22/17 02/22/17 02/23/17 03:22 04:33 05:49 WBC RBC Hgb Hct RDW POC ABG pH 7.464 H POC ABG pCO2 32.8 L 33.0 L POC ABG pO2 112 H 71 L Sodium Potassium 3.3 L Chloride 107.8 H Carbon Dioxide 20 L BUN 21 H Glucose 132 H Lactic Acid Calcium 8.1 L Albumin 02/23/17 02/23/17 06:15 06:15 WBC RBC Hgb Hct RDW 16.5 H POC ABG pH POC ABG pCO2 POC ABG pO2 Sodium 150 H D Potassium Chloride 119.5 H Carbon Dioxide 18 L BUN 35 H Glucose 143 H Lactic Acid Calcium 7.4 L Albumin Chest x-ray: report reviewed, image reviewed (? LLL density)
--- NOTE | 2017-02-23 16:53 | Progress Note ---
Assessment and Plan Assessment and plan: 71 YO Male with HTN, Seizure disorder, GERD, HLD, Bullous pemphigoid presents to ED for evaluation. Pt unable to provide history, but history taken from medical record, and ED staff, EMS run sheet, as well as patient family who is at bedside during exam and interview. Pt had two seizures as per EMS and was subsequently unresponsive. Pt seen and evaluated in ED, and found to be unresponsive and unable to protect airway with vomitus in oral pharynx with absent gag reflex. Pt intubated and placed on vent support. No reports of fever , chills, CP, Palpitations, NVD, recent ill contacts, trauma, or skin rashes. * Acute respiratory failure with hypoxemia * Status Epiliepticus * Aspiration pneumonitis-RESOLVING NO NEW FEVER * YUDY-secondary to vasomotor nephropathy-resolved * Possible Sepsis * Hypernatremia * Hypokalemia-corrected * Seizure disorder * DIASTOLIC CHF-CHRONIC. preserved EF * Hypothyroidism evaluate for myxedema coma doubt the latter * Acute encephalopathy likely secondary to seizure postictal state Plan * Continue supportive care, family program specialist input appreciated, discussed case in detail * Repeat EEG PENDING * MRI still pending. * PRN Ativan if needed * zosyn for abx. No new fever, will discontinue abx * Cultures reviewed, no growth * Continue iv Levothyroxine * Neurology consult and EEG Review noted, patient in status epileptics * Continue critical care inpatient stay * DVT and GI prophylaxis * Aspiration precautions * Guarded prognosis * Discussed with niece family member present in the room family friend present provided some information is noted. The high probability of a clinically significant, sudden or life threatening deterioration of the [Pulmonary, Neuro cardiac] system(s) required my full and direct attention, intervention and personal management. The aggregate critical care time was [35] minutes. This time is in addition to time spent performing reported procedures but includes the following: [x] Data Review and interpretation [x] Patient assessment and monitoring of vital signs [x] Documentation [x] Medication orders and management History Interval history: Patient seen and examined today in no acute distress remains intubated. no new seizure activity witnessed. No other adverse events reported by nursing staff. Hospitalist Physical - Physical exam Narrative exam: VITAL SIGNS: Reviewed. GENERAL: The patient appeared well nourished and normally developed. Vital signs as documented. HEAD: No signs of head trauma. EYES: Pupils are equal. Extraocular motions intact. EARS: Unable to assess patient's sedated MOUTH: ET tube in place NECK: No adenopathy, no JVD. CHEST: Chest with clear breath sounds bilaterally. No wheezes, rales, or rhonchi. CARDIAC: Regular rate and rhythm. S1 and S2, without murmurs, gallops, or rubs. VASCULAR: 1+ patellar edema bilaterally. Peripheral pulses normal and equal in all extremities. ABDOMEN: Soft, without detectable tenderness. No sign of distention. No rebound or guarding, and no masses palpated. Bowel Sounds normal. MUSCULOSKELETAL: Extremities without clubbing, cyanosis. NEUROLOGIC EXAM: Sedated on mechanical ventilation. PSYCHIATRIC: Mood normal. SKIN: No rash or lesions. - Constitutional Vitals: Temp Pulse Resp BP Pulse Ox 99.4 F 68 14 132/60 99 02/23/17 12:00 02/23/17 15:49 02/23/17 15:00 02/23/17 15:49 02/23/17 15:49 General appearance: Present: severe distress Results - Labs CBC & Chem 7: 02/23/17 06:15 02/23/17 06:15 Labs: Laboratory Last Values WBC 7.8 K/mm3 (4.5-11.0) 02/23/17 06:15 RBC 4.14 M/mm3 (3.65-5.03) 02/23/17 06:15 Hgb 12.8 gm/dl (11.8-15.2) 02/23/17 06:15 Hct 38.8 % (35.5-45.6) 02/23/17 06:15 MCV 94 fl (84-94) 02/23/17 06:15 MCH 31 pg (28-32) 02/23/17 06:15 MCHC 33 % (32-34) 02/23/17 06:15 RDW 16.5 % (13.2-15.2) H 02/23/17 06:15 Plt Count 165 K/mm3 (140-440) 02/23/17 06:15 Lymph % (Auto) 33.6 % (13.4-35.0) 02/18/17 11:30 [place] % (Auto) 2.0 % (0.0-7.3) 02/18/17 11:30 Eos % (Auto) 2.1 % (0.0-4.3) 02/18/17 11:30 Baso % (Auto) 1.0 % (0.0-1.8) 02/18/17 11:30 Lymph # 3.7 K/mm3 (1.2-5.4) 02/18/17 11:30 [place] # 0.2 K/mm3 (0.0-0.8) 02/18/17 11:30 Eos # 0.2 K/mm3 (0.0-0.4) 02/18/17 11:30 Baso # 0.1 K/mm3 (0.0-0.1) 02/18/17 11:30 Seg Neutrophils % 61.3 % (40.0-70.0) 02/18/17 11:30 Seg Neutrophils # 6.8 K/mm3 (1.8-7.7) 02/18/17 11:30 POC ABG pH 7.464 (7.35-7.45) H 02/23/17 05:49 POC ABG pCO2 33.0 (35-45) L 02/23/17 05:49 POC ABG pO2 71 (80-105) L 02/23/17 05:49 POC ABG HCO3 23.7 02/23/17 05:49 POC ABG Total CO2 25 02/23/17 05:49 POC ABG O2 Sat 95 02/23/17 05:49 POC ABG Base Excess 0 02/23/17 05:49 FiO2 28 % 02/23/17 05:49 Sodium 150 mmol/L (137-145) H D 02/23/17 06:15 Potassium 3.7 mmol/L (3.6-5.0) 02/23/17 06:15 Chloride 119.5 mmol/L (98-107) H 02/23/17 06:15 Carbon Dioxide 18 mmol/L (22-30) L 02/23/17 06:15 Anion Gap 16 mmol/L 02/23/17 06:15 BUN 35 mg/dL (9-20) H 02/23/17 06:15 Creatinine 1.0 mg/dL (0.8-1.5) 02/23/17 06:15 Estimated GFR > 60 ml/min 02/23/17 06:15 BUN/Creatinine Ratio 35.00 % 02/23/17 06:15 Glucose 143 mg/dL (75-100) H 02/23/17 06:15 POC Glucose 223 (70-105) H 02/18/17 10:54 Lactic Acid 1.70 mmol/L (0.7-2.0) 02/22/17 03:22 Calcium 7.4 mg/dL (8.4-10.2) L 02/23/17 06:15 Total Bilirubin 0.20 mg/dL (0.1-1.2) 02/20/17 05:07 AST 29 units/L (5-40) 02/20/17 05:07 ALT 29 units/L (7-56) 02/20/17 05:07 Alkaline Phosphatase 93 units/L (35-129) 02/20/17 05:07 Troponin T 0.073 ng/mL (0.00-0.029) H 02/18/17 11:30 Total Protein 6.3 g/dL (6.3-8.2) D 02/20/17 05:07 Albumin 2.6 g/dL (3.9-5) L 02/20/17 05:07 Albumin/Globulin Ratio 0.7 % 02/20/17 05:07 Triglycerides 136 mg/dL (2-149) 02/18/17 11:30 Cholesterol 192 mg/dL (50-199) 02/18/17 11:30 LDL Cholesterol Direct 126 mg/dL (50-130) 02/18/17 11:30 HDL Cholesterol 39 mg/dL (40-59) L 02/18/17 11:30 Cholesterol/HDL Ratio 4.92 % 02/18/17 11:30 TSH 6.350 mlU/mL (0.270-4.200) H 02/18/17 11:30 Free T4 1.15 ng/dL (0.76-1.46) 02/19/17 19:52 Urine Color Yellow (Yellow) 02/18/17 Unknown Urine Turbidity Clear (Clear) 02/18/17 Unknown Urine pH 5.0 (5.0-7.0) 02/18/17 Unknown Ur Specific [place] 1.018 (1.003-1.030) 02/18/17 Unknown Urine Protein <15 mg/dl mg/dL (Negative) 02/18/17 Unknown Urine Glucose (UA) Neg mg/dL (Negative) 02/18/17 Unknown Urine Ketones Neg mg/dL (Negative) 02/18/17 Unknown Urine Blood Neg (Negative) 02/18/17 Unknown Urine Nitrite Neg (Negative) 02/18/17 Unknown Urine Bilirubin Neg (Negative) 02/18/17 Unknown Urine Urobilinogen < 2.0 mg/dL (<2.0) 02/18/17 Unknown Ur Leukocyte Esterase Neg (Negative) 02/18/17 Unknown Urine WBC (Auto) 1.0 /HPF (0.0-6.0) 02/18/17 Unknown Urine RBC (Auto) 1.0 /HPF (0.0-6.0) 02/18/17 Unknown U Epithel Cells (Auto) 3.0 /HPF (0-13.0) 02/18/17 Unknown Urine Mucus Few /HPF 02/18/17 Unknown Salicylates < 0.3 mg/dL (2.8-20.0) L 02/18/17 11:30 Urine Opiates Screen Presumptive negative 02/18/17 Unknown Urine Methadone Screen Presumptive negative 02/18/17 Unknown Acetaminophen < 15.0 ug/mL (10.0-30.0) 02/18/17 11:30 Ur Barbiturates Screen Presumptive negative 02/18/17 Unknown Levetiracetam 15.1 mcg/mL 02/18/17 13:07 Ur Phencyclidine Scrn Presumptive negative 02/18/17 Unknown Ur Amphetamines Screen Presumptive negative 02/18/17 Unknown U Benzodiazepines Scrn Presumptive negative 02/18/17 Unknown Urine Cocaine Screen Presumptive negative 02/18/17 Unknown U Marijuana (THC) Screen Presumptive negative 02/18/17 Unknown Drugs of Abuse Note Disclamer 02/18/17 Unknown Plasma/Serum Alcohol < 0.01 gm% (0-0.07) 02/18/17 11:30
[2017-02-24] MEDS: ATIVAN IV PRN (00:17)
--- NOTE | 2017-02-24 00:19 | XRay Report ---
FINAL REPORT EXAM: XR ABDOMEN 1V AP HISTORY: confirm DH placement TECHNIQUE: Single-view abdomen 1 image PRIORS: Abdomen radiograph 02/18/2017 FINDINGS: There is a nonobstructed bowel-gas pattern. Metallic tip feeding tube courses to the stomach. No acute osseous abnormality is identified. There is increased opacity in the retrocardiac region of the left lung base. IMPRESSION: 1. Metallic tip feeding tube courses to the stomach. 2. Atelectasis versus infiltrate in the left lung base.
[2017-02-24] MEDS ORDERED: ATIVAN IV STA (00:40)
[2017-02-24 05:01] LABS: Hematocrit TNR % (35.5-45.6); Hemoglobin TNR gm/dl (11.8-15.2); Mean Corpuscular HGB Conc TNR % (32-34); Mean Corpuscular Hemoglobin TNR pg (28-32); Mean Corpuscular Volume TNR fl (84-94); Mean Platelet Volume TNR fl (6-12); Platelet Count TNR K/mm3 (140-440); Red Blood Count TNR M/mm3 (3.65-5.03); Red Cell Distribution Width TNR % (13.2-15.2); White Blood Count TNR K/mm3 (4.5-11.0)
[2017-02-24 05:02] LABS: Basophils % (Auto) TNR % (0.0-1.8); Diff Status TNR; Eosinophils % (Auto) TNR % (0.0-4.3)
[2017-02-24 05:04] LABS: Anion Gap 18 mmol/L; BUN/Creatinine Ratio 21.66; Blood Urea Nitrogen 13 mg/dL (9-20); Calcium 8.3 mg/dL (8.4-10.2); Carbon Dioxide 18 mmol/L (22-30); Chloride 104.9 mmol/L (98-107); Glucose 109 mg/dL (75-100); Potassium 3.4 mmol/L (3.6-5.0); Sodium 137 mmol/L (137-145)
[2017-02-24 05:05] LABS: ISTAT Base Excess -2; ISTAT HCO3 22.1; ISTAT PCO2 31.1 (35-45); ISTAT PO2 61 (80-105); ISTAT SO2 93; ISTAT TCO2 23
[2017-02-24] MEDS: DIPRIVAN 10 MG/ML 1,000 MG/100 ML BOTTLE IV SCH (05:18)
[2017-02-24 05:52] LABS: Basophils % (Auto) 0.4 % (0.0-1.8); Eosinophils % (Auto) 3.2 % (0.0-4.3); Hematocrit 34.7 % (35.5-45.6); Mean Corpuscular HGB Conc 32 % (32-34); Mean Corpuscular Hemoglobin 28 pg (28-32); Mean Corpuscular Volume 89 fl (84-94); Platelet Count 279 K/mm3 (140-440); Red Blood Count 3.89 M/mm3 (3.65-5.03); Red Cell Distribution Width 15.2 % (13.2-15.2); White Blood Count 10.2 K/mm3 (4.5-11.0)
[2017-02-24] MEDS ORDERED: KPHOS 30 MMOL in NACL 0.9% 500 ML 500 ML IV ONE (08:00)
--- NOTE | 2017-02-24 09:53 | XRay Report ---
AP chest x-ray. History: Follow up breast for failure. Findings: Mild cardiomegaly is present. The lungs are clear. There is no pleural fluid. Pulmonary vessels are normal. The endotracheal tube is in satisfactory position. Impression: No acute findings.
[2017-02-24] MEDS: KEPPRA PO SCH ×2 (09:55→22:34)
[2017-02-24] MEDS: PEPCID PO SCH ×2 (09:56→22:34)
[2017-02-24] MEDS: LOVENOX SUB-Q SCH (09:56)
[2017-02-24] MEDS ORDERED: NACL 0.9% IV ONE (11:00)
[2017-02-24] MEDS ORDERED: DILANTIN IV ONE (11:00)
--- NOTE | 2017-02-24 11:48 | Progress Note ---
Assessment and Plan Imp: 1. Status epilepticus 2. Acute resp. failure, hypoxia 3. YUDY, better 4. Hypernatremia 5. Aspiration pneumonia, better 6. Hx of CVA 7. Lactic acidosis 2/2 #1 Rec: 1. F/u repeat EEG and needs MRI once off Propofol; cont. Keppra and will load him with/add Dilantin 2. Hold SBT pending #1 3. Completed a brief course of Zosyn; check stool for cdiff 4. Cont. free water; cont. TFs, DVT and GI PPx 5. May need trach but would like to see if he could wake up off Diprivan first 6. Replete K and Phos 7. Prognosis guarded; updated niece by phone on 02/23 CCT 31 minutes Subjective Date of service: 02/24/17 Principal diagnosis: Acute resp. failure Interval history: ? Seizure activity overnight (mouth twitching) and given several doses of Ativan. Sedated on Propofol 5mcg. Unable to give hx. High residuals and loose stools per RN. Active Medications Acetaminophen (Tylenol) 650 mg FEEDTUBE Q6H PRN PRN Reason: Non Cardiac Pain or Temp>100.5 Last Admin: 02/22/17 08:57 Dose: 650 mg Albuterol (Proventil) 2.5 mg IH Q3HRT PRN PRN Reason: Shortness Of Breath Lipase/Protease/Amylase (Pancreaze Dr 10,500 Unit) 1 each FEEDTUBE PRN PRN PRN Reason: For Clogged Feeding Tube Enoxaparin Sodium (Lovenox) 40 mg SUB-Q QDAY@1000 NESSA Last Admin: 02/24/17 09:56 Dose: 40 mg Famotidine (Pepcid) 20 mg PO BID [facility] Last Admin: 02/24/17 09:56 Dose: 20 mg Hydrophilic Ointment (Vaseline Lip Therapy) 1 applic TP Q2HR PRN PRN Reason: Dry Lips Propofol (Diprivan 10 Mg/Ml) 1,000 mg in 100 mls @ 2.37 mls/hr IV TITR NESSA; 5 MCG/KG/MIN PRN Reason: Protocol Last Admin: 02/24/17 05:18 Dose: 5 mcg/kg/min, 2.37 mls/hr Potassium Phosphate 30 mmol/ (Sodium Chloride) 510 mls @ 85 mls/hr IV ONCE ONE Stop: 02/24/17 13:59 Last Admin: 02/24/17 09:55 Dose: 85 mls/hr Phenytoin 1,000 mg/ Sodium (Chloride) 520 mls @ 500 mls/hr IV ONCE ONE Stop: 02/24/17 12:02 Levetiracetam (Keppra) 1,000 mg PO BID [facility] Last Admin: 02/24/17 09:55 Dose: 1,000 mg Levothyroxine Sodium (Synthroid) 25 mcg IV DAILY@0600 [facility] Last Admin: 02/23/17 06:51 Dose: 25 mcg Lorazepam (Ativan) 2 mg IV Q4H PRN PRN Reason: Seizures Last Admin: 02/24/17 00:17 Dose: 2 mg Multi-Ingred Cream/Lotion/Oil/Oint (Artificial Tears Ophth Oint) 1 applic OU Q4HR PRN PRN Reason: Dry Eye(s) Phenytoin (Dilantin) 125 mg FEEDTUBE Q8HR NESSA Simple Syrup (Simple Syrup) 15 ml FEEDTUBE PRN PRN PRN Reason: Hypoglycemia Simple Syrup (Simple Syrup) 30 ml FEEDTUBE PRN PRN PRN Reason: Hypoglycemia Sodium Bicarbonate (Sodium Bicarbonate) 325 mg FEEDTUBE PRN PRN PRN Reason: For Clogged Feeding Tube Objective Vital Signs - 12hr 02/24/17 02/24/17 02/24/17 00:00 00:15 01:00 Temperature 98.5 F Pulse Rate 91 H 83 86 Respiratory 19 14 Rate Blood Pressure 164/81 164/81 152/98 O2 Sat by Pulse 98 100 99 Oximetry 02/24/17 02/24/17 02/24/17 01:45 02:00 03:00 Temperature Pulse Rate 74 74 68 Respiratory 14 14 Rate Blood Pressure 140/71 132/69 O2 Sat by Pulse 98 99 100 Oximetry 02/24/17 02/24/17 02/24/17 04:00 04:01 04:41 Temperature 98.7 F Pulse Rate 75 75 Respiratory 14 Rate Blood Pressure 147/69 147/69 O2 Sat by Pulse 99 98 Oximetry 02/24/17 02/24/17 02/24/17 05:00 05:18 06:00 Temperature Pulse Rate 75 76 Respiratory 15 15 14 Rate Blood Pressure 140/73 128/69 O2 Sat by Pulse 98 Oximetry 02/24/17 02/24/17 02/24/17 07:00 07:57 08:00 Temperature 99.2 F Pulse Rate 64 67 63 Respiratory 14 14 Rate Blood Pressure 140/74 140/74 138/70 O2 Sat by Pulse 97 99 Oximetry 02/24/17 02/24/17 02/24/17 09:00 10:00 11:00 Temperature Pulse Rate 69 66 74 Respiratory 14 14 14 Rate Blood Pressure 133/71 129/68 150/74 O2 Sat by Pulse 100 100 Oximetry Constitutional: other (disheveled on Propofol, critically ill on vent) ENT: other (orally intubated) Neck: supple Effort: normal Ascultation: Bilateral: other (coarse BS bilaterally) Cardiovascular: regular rate and rhythm (no mrg) Gastrointestinal: normoactive bowel sounds, soft, non-tender Integumentary: normal Extremities: no cyanosis, pink and warm, edema Neurologic: unable to assess (on propofol) Psychiatric: other (unable to assess) CBC and BMP: 02/24/17 05:38 02/24/17 04:04 ABG, PT/INR, D-dimer: ABG POC ABG pH 7.460 (7.35-7.45) H 02/24/17 04:41 POC ABG pCO2 31.1 (35-45) L 02/24/17 04:41 POC ABG pO2 61 (80-105) L 02/24/17 04:41 POC ABG HCO3 22.1 02/24/17 04:41 POC ABG Total CO2 23 02/24/17 04:41 POC ABG O2 Sat 93 02/24/17 04:41 Abnormal lab findings: Abnormal Labs 02/18/17 02/19/17 02/19/17 17:56 06:05 09:06 WBC RBC Hgb Hct RDW POC ABG pH POC ABG pCO2 32.6 L POC ABG pO2 181 H 139 H Sodium Potassium Chloride Carbon Dioxide BUN Creatinine Glucose Lactic Acid 3.00 H* Calcium Phosphorus Albumin 02/19/17 02/19/17 02/20/17 11:59 11:59 05:07 WBC 11.3 H RBC Hgb 11.1 L Hct 34.6 L D RDW POC ABG pH POC ABG pCO2 POC ABG pO2 Sodium Potassium Chloride Carbon Dioxide 18 L BUN Creatinine Glucose Lactic Acid 2.20 H* Calcium Phosphorus Albumin 02/20/17 02/20/17 02/20/17 05:07 06:41 09:58 WBC RBC Hgb Hct RDW POC ABG pH 7.457 H POC ABG pCO2 32.3 L POC ABG pO2 134 H Sodium Potassium Chloride Carbon Dioxide 19 L BUN Creatinine Glucose Lactic Acid 2.70 H* Calcium Phosphorus Albumin 2.6 L 02/21/17 02/21/17 02/22/17 03:56 04:47 03:22 WBC RBC 3.62 L Hgb 10.6 L 11.1 L Hct 31.8 L 33.3 L RDW POC ABG pH 7.513 H POC ABG pCO2 25.6 L POC ABG pO2 Sodium Potassium Chloride Carbon Dioxide BUN Creatinine Glucose Lactic Acid Calcium Phosphorus Albumin 02/22/17 02/22/17 02/23/17 03:22 04:33 05:49 WBC RBC Hgb Hct RDW POC ABG pH 7.464 H POC ABG pCO2 32.8 L 33.0 L POC ABG pO2 112 H 71 L Sodium Potassium 3.3 L Chloride 107.8 H Carbon Dioxide 20 L BUN 21 H Creatinine Glucose 132 H Lactic Acid Calcium 8.1 L Phosphorus Albumin 02/23/17 02/23/17 02/24/17 06:15 06:15 04:04 WBC RBC Hgb Hct RDW 16.5 H POC ABG pH POC ABG pCO2 POC ABG pO2 Sodium 150 H D Potassium 3.4 L Chloride 119.5 H Carbon Dioxide 18 L 18 L BUN 35 H Creatinine 0.6 L Glucose 143 H 109 H Lactic Acid Calcium 7.4 L 8.3 L Phosphorus 1.50 L Albumin 02/24/17 02/24/17 04:41 05:38 WBC RBC Hgb 11.0 L Hct 34.7 L RDW POC ABG pH 7.460 H POC ABG pCO2 31.1 L POC ABG pO2 61 L Sodium Potassium Chloride Carbon Dioxide BUN Creatinine Glucose Lactic Acid Calcium Phosphorus Albumin Chest x-ray: report reviewed, image reviewed (clear lungs)
[2017-02-24] MEDS: DILANTIN FEEDTUBE SCH ×2 (14:00→22:34)
--- NOTE | 2017-02-24 16:48 | XRay Report ---
AP chest x-ray. History: PICC line placement. Findings: A left-sided PIC line terminates in the region of the upper SVC, and there is no evidence of pneumothorax. The heart and lungs reveal no acute findings or interval changes since today's earlier study. The endotracheal tube is in satisfactory position.
[2017-02-25 04:40] LABS: Basophils % (Auto) 0.8 % (0.0-1.8); Hematocrit 33.3 % (35.5-45.6); Mean Corpuscular HGB Conc 33 % (32-34); Mean Corpuscular Hemoglobin 29 pg (28-32); Mean Corpuscular Volume 88 fl (84-94); Platelet Count 308 K/mm3 (140-440); Red Blood Count 3.79 M/mm3 (3.65-5.03); White Blood Count 9.7 K/mm3 (4.5-11.0)
[2017-02-25 04:53] LABS: Anion Gap 16 mmol/L; BUN/Creatinine Ratio 21.42; Blood Urea Nitrogen 15 mg/dL (9-20); Calcium 8.2 mg/dL (8.4-10.2); Carbon Dioxide 22 mmol/L (22-30); Chloride 106.8 mmol/L (98-107); Glucose 123 mg/dL (75-100); Potassium 3.7 mmol/L (3.6-5.0); Sodium 141 mmol/L (137-145)
[2017-02-25] MEDS: SYNTHROID IV SCH ×2 (05:59→22:09)
[2017-02-25] MEDS: DIPRIVAN 10 MG/ML 1,000 MG/100 ML BOTTLE IV SCH (06:00)
[2017-02-25] MEDS: DILANTIN FEEDTUBE SCH ×3 (06:00→22:15)
[2017-02-25 06:57] LABS: ISTAT Base Excess -1; ISTAT HCO3 22.2; ISTAT PCO2 30.1 (35-45); ISTAT PH 7.475 (7.35-7.45); ISTAT PO2 161 (80-105); ISTAT SO2 100; ISTAT TCO2 23
--- NOTE | 2017-02-25 09:28 | XRay Report ---
AP CHEST: HISTORY: Followup respiratory failure Lines and support devices are unchanged since yesterday's exam. Heart size is stable at the upper limits of normal. Subtle opacity has developed at the left lung base which could represent atelectasis or small effusion. Otherwise the lungs are clear.
[2017-02-25] MEDS: KEPPRA PO SCH ×2 (09:52→22:15)
[2017-02-25] MEDS: LOVENOX SUB-Q SCH (09:52)
[2017-02-25] MEDS: PEPCID PO SCH ×2 (09:53→22:15)
--- NOTE | 2017-02-25 13:34 | Progress Note ---
Assessment and Plan Assessment and plan: 71 YO Male with HTN, Seizure disorder, GERD, HLD, Bullous pemphigoid presents to ED for evaluation. Pt unable to provide history, but history taken from medical record, and ED staff, EMS run sheet, as well as patient family who is at bedside during exam and interview. Pt had two seizures as per EMS and was subsequently unresponsive. Pt seen and evaluated in ED, and found to be unresponsive and unable to protect airway with vomitus in oral pharynx with absent gag reflex. Pt intubated and placed on vent support. No reports of fever , chills, CP, Palpitations, NVD, recent ill contacts, trauma, or skin rashes. Acute respiratory failure with hypoxemia on mechanical ventilator greater than 96 hours * Continue to attempt to wean off ventilator. Patient will likely require trach and PEG, pulmonary input appreciated Status Epiliepticus * Neurology input appreciated, continue Keppra, continue Dilantin which is being titrated off, continued propofol, we'll continue to taper off propofol as tolerated Aspiration pneumonitis was ruled out, sepsis ruled out, CXR negative YUDY-secondary to vasomotor nephropathy-resolved Hypernatremia resolved with IVF Hypokalemia-corrected * repleted and normalized DIASTOLIC CHF-CHRONIC. preserved EF Subclinical Hypothyroidism * continue low dose synthroid Acute Metabolic encephalopathy likely secondary to seizure and postictal state, rx underlying cause * Guarded prognosis * Discussed with niece family member present in the room family friend present provided some information is noted. The high probability of a clinically significant, sudden or life threatening deterioration of the [Pulmonary, Neuro cardiac] system(s) required my full and direct attention, intervention and personal management. The aggregate critical care time was [35] minutes. This time is in addition to time spent performing reported procedures but includes the following: [x] Data Review and interpretation [x] Patient assessment and monitoring of vital signs [x] Documentation [x] Medication orders and management History Interval history: Patient remains intubated and sedated, he is on propofol drip Hospitalist Physical - Physical exam Narrative exam: General: no distress HEENT: MMM, EOMI cardiac: S1-S2 heard lungs: Ventilated breath sounds abdomen: soft, nontender, nondistended bowel sounds positive extremities: no edema clubbing or cyanosis Skin: no rash or lesion Neuro: Intubated and sedated - Constitutional Vitals: Temp Pulse Resp BP Pulse Ox 98.8 F 70 14 154/69 99 02/25/17 08:00 02/25/17 12:00 02/25/17 12:00 02/25/17 12:00 02/25/17 12:00 General appearance: Present: severe distress Results - Labs CBC & Chem 7: 02/27/17 05:40 02/27/17 05:40 Labs: Laboratory Last Values WBC 9.7 K/mm3 (4.5-11.0) 02/25/17 04:00 RBC 3.79 M/mm3 (3.65-5.03) 02/25/17 04:00 Hgb 11.0 gm/dl (11.8-15.2) L 02/25/17 04:00 Hct 33.3 % (35.5-45.6) L 02/25/17 04:00 MCV 88 fl (84-94) 02/25/17 04:00 MCH 29 pg (28-32) 02/25/17 04:00 MCHC 33 % (32-34) 02/25/17 04:00 RDW 15.0 % (13.2-15.2) 02/25/17 04:00 Plt Count 308 K/mm3 (140-440) 02/25/17 04:00 Lymph % (Auto) 21.8 % (13.4-35.0) 02/25/17 04:00 [place] % (Auto) 5.6 % (0.0-7.3) 02/25/17 04:00 Eos % (Auto) 3.0 % (0.0-4.3) 02/25/17 04:00 Baso % (Auto) 0.8 % (0.0-1.8) 02/25/17 04:00 Lymph # 2.1 K/mm3 (1.2-5.4) 02/25/17 04:00 [place] # 0.5 K/mm3 (0.0-0.8) 02/25/17 04:00 Eos # 0.3 K/mm3 (0.0-0.4) 02/25/17 04:00 Baso # 0.1 K/mm3 (0.0-0.1) 02/25/17 04:00 Add Manual Diff TNR 02/24/17 04:04 Seg Neutrophils % 68.8 % (40.0-70.0) 02/25/17 04:00 Seg Neutrophils # 6.7 K/mm3 (1.8-7.7) 02/25/17 04:00 POC ABG pH 7.475 (7.35-7.45) H 02/25/17 06:44 POC ABG pCO2 30.1 (35-45) L 02/25/17 06:44 POC ABG pO2 161 (80-105) H 02/25/17 06:44 POC ABG HCO3 22.2 02/25/17 06:44 POC ABG Total CO2 23 02/25/17 06:44 POC ABG O2 Sat 100 02/25/17 06:44 POC ABG Base Excess -1 02/25/17 06:44 FiO2 28 % 02/25/17 06:44 Sodium 141 mmol/L (137-145) 02/25/17 04:00 Potassium 3.7 mmol/L (3.6-5.0) 02/25/17 04:00 Chloride 106.8 mmol/L (98-107) 02/25/17 04:00 Carbon Dioxide 22 mmol/L (22-30) 02/25/17 04:00 Anion Gap 16 mmol/L 02/25/17 04:00 BUN 15 mg/dL (9-20) 02/25/17 04:00 Creatinine 0.7 mg/dL (0.8-1.5) L 02/25/17 04:00 Estimated GFR > 60 ml/min 02/25/17 04:00 BUN/Creatinine Ratio 21.42 % 02/25/17 04:00 Glucose 123 mg/dL (75-100) H 02/25/17 04:00 POC Glucose 223 (70-105) H 02/18/17 10:54 Lactic Acid 1.70 mmol/L (0.7-2.0) 02/22/17 03:22 Calcium 8.2 mg/dL (8.4-10.2) L 02/25/17 04:00 Phosphorus 2.90 mg/dL (2.5-4.5) D 02/25/17 04:00 Magnesium 2.00 mg/dL (1.7-2.3) 02/24/17 04:04 Total Bilirubin 0.20 mg/dL (0.1-1.2) 02/20/17 05:07 AST 29 units/L (5-40) 02/20/17 05:07 ALT 29 units/L (7-56) 02/20/17 05:07 Alkaline Phosphatase 93 units/L (35-129) 02/20/17 05:07 Troponin T 0.073 ng/mL (0.00-0.029) H 02/18/17 11:30 Total Protein 6.3 g/dL (6.3-8.2) D 02/20/17 05:07 Albumin 2.6 g/dL (3.9-5) L 02/20/17 05:07 Albumin/Globulin Ratio 0.7 % 02/20/17 05:07 Triglycerides 136 mg/dL (2-149) 02/18/17 11:30 Cholesterol 192 mg/dL (50-199) 02/18/17 11:30 LDL Cholesterol Direct 126 mg/dL (50-130) 02/18/17 11:30 HDL Cholesterol 39 mg/dL (40-59) L 02/18/17 11:30 Cholesterol/HDL Ratio 4.92 % 02/18/17 11:30 TSH 6.350 mlU/mL (0.270-4.200) H 02/18/17 11:30 Free T4 1.15 ng/dL (0.76-1.46) 02/19/17 19:52 Urine Color Yellow (Yellow) 02/18/17 Unknown Urine Turbidity Clear (Clear) 02/18/17 Unknown Urine pH 5.0 (5.0-7.0) 02/18/17 Unknown Ur Specific [place] 1.018 (1.003-1.030) 02/18/17 Unknown Urine Protein <15 mg/dl mg/dL (Negative) 02/18/17 Unknown Urine Glucose (UA) Neg mg/dL (Negative) 02/18/17 Unknown Urine Ketones Neg mg/dL (Negative) 02/18/17 Unknown Urine Blood Neg (Negative) 02/18/17 Unknown Urine Nitrite Neg (Negative) 02/18/17 Unknown Urine Bilirubin Neg (Negative) 02/18/17 Unknown Urine Urobilinogen < 2.0 mg/dL (<2.0) 02/18/17 Unknown Ur Leukocyte Esterase Neg (Negative) 02/18/17 Unknown Urine WBC (Auto) 1.0 /HPF (0.0-6.0) 02/18/17 Unknown Urine RBC (Auto) 1.0 /HPF (0.0-6.0) 02/18/17 Unknown U Epithel Cells (Auto) 3.0 /HPF (0-13.0) 02/18/17 Unknown Urine Mucus Few /HPF 02/18/17 Unknown Salicylates < 0.3 mg/dL (2.8-20.0) L 02/18/17 11:30 Urine Opiates Screen Presumptive negative 02/18/17 Unknown Urine Methadone Screen Presumptive negative 02/18/17 Unknown Acetaminophen < 15.0 ug/mL (10.0-30.0) 02/18/17 11:30 Ur Barbiturates Screen Presumptive negative 02/18/17 Unknown Levetiracetam 15.1 mcg/mL 02/18/17 13:07 Ur Phencyclidine Scrn Presumptive negative 02/18/17 Unknown Ur Amphetamines Screen Presumptive negative 02/18/17 Unknown U Benzodiazepines Scrn Presumptive negative 02/18/17 Unknown Urine Cocaine Screen Presumptive negative 02/18/17 Unknown U Marijuana (THC) Screen Presumptive negative 02/18/17 Unknown Drugs of Abuse Note Disclamer 02/18/17 Unknown Plasma/Serum Alcohol < 0.01 gm% (0-0.07) 02/18/17 11:30
--- NOTE | 2017-02-25 14:18 | Progress Note ---
Assessment and Plan Imp: 1. Seizure d/o -> Status epilepticus, better 2. Acute resp. failure, hypoxia 3. YUDY, better 4. Hypernatremia 5. Aspiration pneumonia, better 6. Hx of CVA 7. Lactic acidosis 2/2 #1 Rec: 1. F/u repeat EEG and needs MRI now that he is off Propofol; cont. Keppra/ Dilantin; f/u neuro recs 2. Hold SBT pending #1, unless mentation improves significantly off sedation 3. Completed a brief course of Zosyn; check stool for cdiff -> neg 4. Cont. free water; cont. TFs, DVT and GI PPx 5. May need trach but would like to see if he could wake up off Diprivan first 6. Replete elytes prn 7. Prognosis guarded; updated niece by phone on 02/23 CCT 31 minutes Subjective Date of service: 02/25/17 Principal diagnosis: Acute resp. failure Interval history: No seizure activity reported. Off propofol as of this morning. Will open eyes minimally but not following commands. Moves legs spontaneously. Active Medications Acetaminophen (Tylenol) 650 mg FEEDTUBE Q6H PRN PRN Reason: Non Cardiac Pain or Temp>100.5 Last Admin: 02/22/17 08:57 Dose: 650 mg Albuterol (Proventil) 2.5 mg IH Q3HRT PRN PRN Reason: Shortness Of Breath Lipase/Protease/Amylase (Pancrejudy Dr 10,500 Unit) 1 each FEEDTUBE PRN PRN PRN Reason: For Clogged Feeding Tube Enoxaparin Sodium (Lovenox) 40 mg SUB-Q QDAY@1000 NESSA Last Admin: 02/25/17 09:52 Dose: 40 mg Famotidine (Pepcid) 20 mg PO BID [facility] Last Admin: 02/25/17 09:53 Dose: 20 mg Hydrophilic Ointment (Vaseline Lip Therapy) 1 applic TP Q2HR PRN PRN Reason: Dry Lips Propofol (Diprivan 10 Mg/Ml) 1,000 mg in 100 mls @ 2.37 mls/hr IV TITR NESSA; 5 MCG/KG/MIN PRN Reason: Protocol Last Admin: 02/25/17 06:00 Dose: 5 mcg/kg/min, 2.37 mls/hr Levetiracetam (Keppra) 1,000 mg PO BID [facility] Last Admin: 02/25/17 09:52 Dose: 1,000 mg Levothyroxine Sodium (Synthroid) 25 mcg IV DAILY@0600 [facility] Last Admin: 02/25/17 05:59 Dose: 25 mcg Lorazepam (Ativan) 2 mg IV Q4H PRN PRN Reason: Seizures Last Admin: 02/24/17 00:17 Dose: 2 mg Multi-Ingred Cream/Lotion/Oil/Oint (Artificial Tears Ophth Oint) 1 applic OU Q4HR PRN PRN Reason: Dry Eye(s) Phenytoin (Dilantin) 125 mg FEEDTUBE Q8HR [facility] Last Admin: 02/25/17 06:00 Dose: 125 mg Simple Syrup (Simple Syrup) 15 ml FEEDTUBE PRN PRN PRN Reason: Hypoglycemia Simple Syrup (Simple Syrup) 30 ml FEEDTUBE PRN PRN PRN Reason: Hypoglycemia Sodium Bicarbonate (Sodium Bicarbonate) 325 mg FEEDTUBE PRN PRN PRN Reason: For Clogged Feeding Tube Objective Vital Signs - 12hr 02/25/17 02/25/17 02/25/17 03:00 04:00 04:51 Temperature 98.9 F Pulse Rate 76 77 85 Pulse Rate [ 75 From Monitor] Respiratory 15 16 Rate Blood Pressure 152/80 162/76 135/81 O2 Sat by Pulse 100 100 100 Oximetry 02/25/17 02/25/17 02/25/17 05:01 06:00 07:00 Temperature Pulse Rate 77 74 62 Pulse Rate [ From Monitor] Respiratory 14 15 15 Rate Blood Pressure 162/76 150/73 152/64 O2 Sat by Pulse 100 100 100 Oximetry 02/25/17 02/25/17 02/25/17 07:01 08:00 09:00 Temperature 98.8 F Pulse Rate 89 69 81 Pulse Rate [ From Monitor] Respiratory 14 15 Rate Blood Pressure 141/65 146/76 O2 Sat by Pulse 100 100 100 Oximetry 02/25/17 02/25/17 02/25/17 10:00 11:00 11:55 Temperature Pulse Rate 83 74 83 Pulse Rate [ From Monitor] Respiratory 15 14 Rate Blood Pressure 145/78 149/75 145/78 O2 Sat by Pulse 100 100 100 Oximetry 02/25/17 12:00 Temperature Pulse Rate 70 Pulse Rate [ From Monitor] Respiratory 14 Rate Blood Pressure 154/69 O2 Sat by Pulse 100 Oximetry Constitutional: other (disheveled, critically ill on vent) ENT: other (orally intubated) Neck: supple Effort: normal Ascultation: Bilateral: other (coarse BS bilaterally) Cardiovascular: regular rate and rhythm (no mrg) Gastrointestinal: normoactive bowel sounds, soft, non-tender Integumentary: normal Extremities: no cyanosis, pink and warm, edema Neurologic: unable to assess (on propofol) Psychiatric: other (unable to assess) CBC and BMP: 02/25/17 04:00 02/25/17 04:00 ABG, PT/INR, D-dimer: ABG POC ABG pH 7.475 (7.35-7.45) H 02/25/17 06:44 POC ABG pCO2 30.1 (35-45) L 02/25/17 06:44 POC ABG pO2 161 (80-105) H 02/25/17 06:44 POC ABG HCO3 22.2 02/25/17 06:44 POC ABG Total CO2 23 02/25/17 06:44 POC ABG O2 Sat 100 02/25/17 06:44 Abnormal lab findings: Abnormal Labs 02/18/17 02/19/17 02/19/17 17:56 06:05 09:06 WBC RBC Hgb Hct RDW POC ABG pH POC ABG pCO2 32.6 L POC ABG pO2 181 H 139 H Sodium Potassium Chloride Carbon Dioxide BUN Creatinine Glucose Lactic Acid 3.00 H* Calcium Phosphorus Albumin 02/19/17 02/19/17 02/20/17 11:59 11:59 05:07 WBC 11.3 H RBC Hgb 11.1 L Hct 34.6 L D RDW POC ABG pH POC ABG pCO2 POC ABG pO2 Sodium Potassium Chloride Carbon Dioxide 18 L BUN Creatinine Glucose Lactic Acid 2.20 H* Calcium Phosphorus Albumin 02/20/17 02/20/17 02/20/17 05:07 06:41 09:58 WBC RBC Hgb Hct RDW POC ABG pH 7.457 H POC ABG pCO2 32.3 L POC ABG pO2 134 H Sodium Potassium Chloride Carbon Dioxide 19 L BUN Creatinine Glucose Lactic Acid 2.70 H* Calcium Phosphorus Albumin 2.6 L 02/21/17 02/21/17 02/22/17 03:56 04:47 03:22 WBC RBC 3.62 L Hgb 10.6 L 11.1 L Hct 31.8 L 33.3 L RDW POC ABG pH 7.513 H POC ABG pCO2 25.6 L POC ABG pO2 Sodium Potassium Chloride Carbon Dioxide BUN Creatinine Glucose Lactic Acid Calcium Phosphorus Albumin 02/22/17 02/22/17 02/23/17 03:22 04:33 05:49 WBC RBC Hgb Hct RDW POC ABG pH 7.464 H POC ABG pCO2 32.8 L 33.0 L POC ABG pO2 112 H 71 L Sodium Potassium 3.3 L Chloride 107.8 H Carbon Dioxide 20 L BUN 21 H Creatinine Glucose 132 H Lactic Acid Calcium 8.1 L Phosphorus Albumin 02/23/17 02/23/17 02/24/17 06:15 06:15 04:04 WBC RBC Hgb Hct RDW 16.5 H POC ABG pH POC ABG pCO2 POC ABG pO2 Sodium 150 H D Potassium 3.4 L Chloride 119.5 H Carbon Dioxide 18 L 18 L BUN 35 H Creatinine 0.6 L Glucose 143 H 109 H Lactic Acid Calcium 7.4 L 8.3 L Phosphorus 1.50 L Albumin 02/24/17 02/24/17 02/25/17 04:41 05:38 04:00 WBC RBC Hgb 11.0 L 11.0 L Hct 34.7 L 33.3 L RDW POC ABG pH 7.460 H POC ABG pCO2 31.1 L POC ABG pO2 61 L Sodium Potassium Chloride Carbon Dioxide BUN Creatinine Glucose Lactic Acid Calcium Phosphorus Albumin 02/25/17 02/25/17 04:00 06:44 WBC RBC Hgb Hct RDW POC ABG pH 7.475 H POC ABG pCO2 30.1 L POC ABG pO2 161 H Sodium Potassium Chloride Carbon Dioxide BUN Creatinine 0.7 L Glucose 123 H Lactic Acid Calcium 8.2 L Phosphorus Albumin Chest x-ray: report reviewed (unable to view image myself)
[2017-02-26] MEDS: DILANTIN FEEDTUBE SCH ×3 (05:19→22:20)
[2017-02-26] MEDS: SYNTHROID IV SCH (05:20)
[2017-02-26 07:00] LABS: Basophils % (Auto) 0.6 % (0.0-1.8); Eosinophils % (Auto) 3.1 % (0.0-4.3); Hematocrit 32.3 % (35.5-45.6); Hemoglobin 10.6 gm/dl (11.8-15.2); Mean Corpuscular HGB Conc 33 % (32-34); Mean Corpuscular Hemoglobin 29 pg (28-32); Mean Corpuscular Volume 89 fl (84-94); Platelet Count 329 K/mm3 (140-440); Red Blood Count 3.65 M/mm3 (3.65-5.03); Red Cell Distribution Width 14.9 % (13.2-15.2); White Blood Count 8.5 K/mm3 (4.5-11.0)
[2017-02-26 07:25] LABS: Anion Gap 20 mmol/L; Blood Urea Nitrogen 14 mg/dL (9-20); Carbon Dioxide 18 mmol/L (22-30); Chloride 100.9 mmol/L (98-107); Glucose 125 mg/dL (75-100); Potassium 3.6 mmol/L (3.6-5.0); Sodium 135 mmol/L (137-145)
[2017-02-26] MEDS ORDERED: POTASSIUM CHLORIDE FEEDTUBE ONE (10:00)
[2017-02-26] MEDS: LOVENOX SUB-Q SCH (10:16)
[2017-02-26] MEDS: PEPCID PO SCH ×2 (10:17→22:20)
[2017-02-26] MEDS: KEPPRA PO SCH ×2 (10:17→22:20)
[2017-02-26] MEDS: ATIVAN IV PRN (11:30)
--- NOTE | 2017-02-26 12:14 | Magnetic Resonance Report ---
MRI scan of brain: History: Seizure. Technique: Multiplanar, multisequence images were obtained without contrast injection. Findings: No evidence of restricted diffusion. Ventricles are midline location with mild dilatation with evidence of cortical atrophy. Periventricular areas of hyperintensity is noted. There is chronic right MCA infarct. No extra-axial fluid collection. Normal brainstem and cerebellum. Impression: No acute intracranial abnormality. Small vessel ischemic changes with cortical atrophy. Chronic right MCA infarct.
--- NOTE | 2017-02-26 12:35 | Progress Note ---
Assessment and Plan Imp: 1. Seizure d/o -> Status epilepticus, better 2. Acute resp. failure, hypoxia 3. YUDY, better 4. Hypernatremia 5. Aspiration pneumonia, better 6. Hx of R MCA CVA 7. Lactic acidosis 2/2 #1 Rec: 1. F/u repeat EEG; MRI neg for acute process; cont. Keppra/Dilantin; f/u neuro recs 2. Okay for SBT but mentation precludes extubation; if no improvement next 24 hours will need to consult surgery to evaluate for trach/peg which could be done early next week, then would likely need LTAC at that point 3. Completed a brief course of Zosyn; check stool for cdiff -> neg 4. Cont. free water; cont. TFs, DVT and GI PPx 5. Replete elytes prn 6. Prognosis guarded; updated niece by phone on 02/23; no family present today CCT 31 minutes Subjective Date of service: 02/26/17 Principal diagnosis: Acute resp. failure Interval history: No seizure activity reported. Off propofol x 24 hours. Was getting agitated during MRI, trying to raise up out of bed, but nothing purposeful. Received IV Ativan and is now sedated. He was on PSV and tolerating well but after sedation back on ACVC. Active Medications Acetaminophen (Tylenol) 650 mg FEEDTUBE Q6H PRN PRN Reason: Non Cardiac Pain or Temp>100.5 Last Admin: 02/22/17 08:57 Dose: 650 mg Albuterol (Proventil) 2.5 mg IH Q3HRT PRN PRN Reason: Shortness Of Breath Lipase/Protease/Amylase (Saleem Hart 10,500 Unit) 1 each FEEDTUBE PRN PRN PRN Reason: For Clogged Feeding Tube Enoxaparin Sodium (Lovenox) 40 mg SUB-Q QDAY@1000 NESSA Last Admin: 02/26/17 10:16 Dose: 40 mg Famotidine (Pepcid) 20 mg PO BID [facility] Last Admin: 02/26/17 10:17 Dose: 20 mg Hydrophilic Ointment (Vaseline Lip Therapy) 1 applic TP Q2HR PRN PRN Reason: Dry Lips Propofol (Diprivan 10 Mg/Ml) 1,000 mg in 100 mls @ 2.37 mls/hr IV TITR NESSA; 5 MCG/KG/MIN PRN Reason: Protocol Last Admin: 02/25/17 06:00 Dose: 5 mcg/kg/min, 2.37 mls/hr Levetiracetam (Keppra) 1,000 mg PO BID [facility] Last Admin: 02/26/17 10:17 Dose: 1,000 mg Levothyroxine Sodium (Synthroid) 25 mcg IV DAILY@0600 [facility] Last Admin: 02/26/17 05:20 Dose: 25 mcg Lorazepam (Ativan) 2 mg IV Q4H PRN PRN Reason: Seizures Last Admin: 02/24/17 00:17 Dose: 2 mg Multi-Ingred Cream/Lotion/Oil/Oint (Artificial Tears Ophth Oint) 1 applic OU Q4HR PRN PRN Reason: Dry Eye(s) Phenytoin (Dilantin) 125 mg FEEDTUBE Q8HR [facility] Last Admin: 02/26/17 05:19 Dose: 125 mg Simple Syrup (Simple Syrup) 15 ml FEEDTUBE PRN PRN PRN Reason: Hypoglycemia Simple Syrup (Simple Syrup) 30 ml FEEDTUBE PRN PRN PRN Reason: Hypoglycemia Sodium Bicarbonate (Sodium Bicarbonate) 325 mg FEEDTUBE PRN PRN PRN Reason: For Clogged Feeding Tube Objective Vital Signs - 12hr 02/26/17 02/26/17 02/26/17 01:00 02:00 03:00 Temperature Pulse Rate 97 H 97 H 91 H Pulse Rate [ From Monitor] Respiratory 14 17 15 Rate Blood Pressure 158/84 154/83 150/78 O2 Sat by Pulse 100 100 100 Oximetry 02/26/17 02/26/17 02/26/17 03:42 04:00 05:00 Temperature 99.4 F Pulse Rate 93 H 97 H 87 Pulse Rate [ 97 H From Monitor] Respiratory 16 13 Rate Blood Pressure 158/84 162/85 148/75 O2 Sat by Pulse 100 100 100 Oximetry 02/26/17 02/26/17 02/26/17 06:00 06:30 07:00 Temperature Pulse Rate 97 H 80 Pulse Rate [ From Monitor] Respiratory 21 Rate Blood Pressure 148/75 162/85 156/86 O2 Sat by Pulse 99 100 100 Oximetry 02/26/17 02/26/17 02/26/17 08:00 09:00 09:41 Temperature 97.7 F Pulse Rate 87 86 82 Pulse Rate [ From Monitor] Respiratory 18 26 H 24 Rate Blood Pressure 174/88 174/87 174/87 O2 Sat by Pulse 99 99 99 Oximetry 02/26/17 10:00 Temperature Pulse Rate 75 Pulse Rate [ From Monitor] Respiratory 25 H Rate Blood Pressure 140/81 O2 Sat by Pulse 100 Oximetry Constitutional: other (disheveled, critically ill on vent) ENT: other (orally intubated) Neck: supple Effort: normal Ascultation: Bilateral: other (coarse BS bilaterally) Cardiovascular: regular rate and rhythm (no mrg) Gastrointestinal: normoactive bowel sounds, soft, non-tender Integumentary: normal Extremities: no cyanosis, pink and warm, edema Neurologic: CN II-XII normal, unable to assess (sedated) Psychiatric: other (unable to assess) CBC and BMP: 02/26/17 05:51 02/26/17 05:51 ABG, PT/INR, D-dimer: ABG POC ABG pH 7.475 (7.35-7.45) H 02/25/17 06:44 POC ABG pCO2 30.1 (35-45) L 02/25/17 06:44 POC ABG pO2 161 (80-105) H 02/25/17 06:44 POC ABG HCO3 22.2 02/25/17 06:44 POC ABG Total CO2 23 02/25/17 06:44 POC ABG O2 Sat 100 02/25/17 06:44 Abnormal lab findings: Abnormal Labs 02/18/17 02/19/17 02/19/17 17:56 06:05 09:06 WBC RBC Hgb Hct RDW POC ABG pH POC ABG pCO2 32.6 L POC ABG pO2 181 H 139 H Sodium Potassium Chloride Carbon Dioxide BUN Creatinine Glucose Lactic Acid 3.00 H* Calcium Phosphorus Albumin 02/19/17 02/19/17 02/20/17 11:59 11:59 05:07 WBC 11.3 H RBC Hgb 11.1 L Hct 34.6 L D RDW POC ABG pH POC ABG pCO2 POC ABG pO2 Sodium Potassium Chloride Carbon Dioxide 18 L BUN Creatinine Glucose Lactic Acid 2.20 H* Calcium Phosphorus Albumin 02/20/17 02/20/17 02/20/17 05:07 06:41 09:58 WBC RBC Hgb Hct RDW POC ABG pH 7.457 H POC ABG pCO2 32.3 L POC ABG pO2 134 H Sodium Potassium Chloride Carbon Dioxide 19 L BUN Creatinine Glucose Lactic Acid 2.70 H* Calcium Phosphorus Albumin 2.6 L 02/21/17 02/21/17 02/22/17 03:56 04:47 03:22 WBC RBC 3.62 L Hgb 10.6 L 11.1 L Hct 31.8 L 33.3 L RDW POC ABG pH 7.513 H POC ABG pCO2 25.6 L POC ABG pO2 Sodium Potassium Chloride Carbon Dioxide BUN Creatinine Glucose Lactic Acid Calcium Phosphorus Albumin 02/22/17 02/22/17 02/23/17 03:22 04:33 05:49 WBC RBC Hgb Hct RDW POC ABG pH 7.464 H POC ABG pCO2 32.8 L 33.0 L POC ABG pO2 112 H 71 L Sodium Potassium 3.3 L Chloride 107.8 H Carbon Dioxide 20 L BUN 21 H Creatinine Glucose 132 H Lactic Acid Calcium 8.1 L Phosphorus Albumin 02/23/17 02/23/17 02/24/17 06:15 06:15 04:04 WBC RBC Hgb Hct RDW 16.5 H POC ABG pH POC ABG pCO2 POC ABG pO2 Sodium 150 H D Potassium 3.4 L Chloride 119.5 H Carbon Dioxide 18 L 18 L BUN 35 H Creatinine 0.6 L Glucose 143 H 109 H Lactic Acid Calcium 7.4 L 8.3 L Phosphorus 1.50 L Albumin 02/24/17 02/24/17 02/25/17 04:41 05:38 04:00 WBC RBC Hgb 11.0 L 11.0 L Hct 34.7 L 33.3 L RDW POC ABG pH 7.460 H POC ABG pCO2 31.1 L POC ABG pO2 61 L Sodium Potassium Chloride Carbon Dioxide BUN Creatinine Glucose Lactic Acid Calcium Phosphorus Albumin 02/25/17 02/25/17 02/26/17 04:00 06:44 05:51 WBC RBC Hgb 10.6 L Hct 32.3 L RDW POC ABG pH 7.475 H POC ABG pCO2 30.1 L POC ABG pO2 161 H Sodium Potassium Chloride Carbon Dioxide BUN Creatinine 0.7 L Glucose 123 H Lactic Acid Calcium 8.2 L Phosphorus Albumin 02/26/17 05:51 WBC RBC Hgb Hct RDW POC ABG pH POC ABG pCO2 POC ABG pO2 Sodium 135 L Potassium Chloride Carbon Dioxide 18 L BUN Creatinine 0.7 L Glucose 125 H Lactic Acid Calcium 8.0 L Phosphorus 2.40 L Albumin Chest x-ray: report reviewed, image reviewed
--- NOTE | 2017-02-26 18:53 | Progress Note ---
Assessment and Plan Assessment and plan: 71 YO Male with HTN, Seizure disorder, GERD, HLD, Bullous pemphigoid presents to ED for evaluation. Pt unable to provide history, but history taken from medical record, and ED staff, EMS run sheet, as well as patient family who is at bedside during exam and interview. Pt had two seizures as per EMS and was subsequently unresponsive. Pt seen and evaluated in ED, and found to be unresponsive and unable to protect airway with vomitus in oral pharynx with absent gag reflex. Pt intubated and placed on vent support. No reports of fever , chills, CP, Palpitations, NVD, recent ill contacts, trauma, or skin rashes. Acute respiratory failure with hypoxemia on mechanical ventilator greater than 96 hours * Continue to attempt to wean off ventilator. Patient will likely require trach and PEG, pulmonary input appreciated Status Epiliepticus * Neurology input appreciated, continue Keppra, continue Dilantin which is being titrated off, continued propofol, we'll continue to taper off propofol as tolerated Aspiration pneumonitis was ruled out, sepsis ruled out, CXR negative YUDY-secondary to vasomotor nephropathy-resolved Hypernatremia resolved with IVF Hypokalemia-corrected * repleted and normalized DIASTOLIC CHF-CHRONIC. preserved EF, stable Subclinical Hypothyroidism * continue low dose synthroid Acute Metabolic encephalopathy likely secondary to seizure and postictal state, rx underlying cause * Guarded prognosis * Discussed with niece family member present in the room family friend present provided some information is noted. The high probability of a clinically significant, sudden or life threatening deterioration of the [Pulmonary, Neuro cardiac] system(s) required my full and direct attention, intervention and personal management. The aggregate critical care time was [35] minutes. This time is in addition to time spent performing reported procedures but includes the following: [x] Data Review and interpretation [x] Patient assessment and monitoring of vital signs [x] Documentation [x] Medication orders and management History Interval history: His nurse relates that when he went on to MRI and he was off propofol patient was moving, but not agitated. Patient remains intubated and sedated, he is on propofol drip Hospitalist Physical - Physical exam Narrative exam: General: no distress HEENT: MMM, EOMI cardiac: S1-S2 heard lungs: Ventilated breath sounds abdomen: soft, nontender, nondistended bowel sounds positive extremities: no edema clubbing or cyanosis Skin: no rash or lesion Neuro: Intubated and sedated - Constitutional Vitals: Temp Pulse Resp BP Pulse Ox 99.1 F 84 14 136/86 100 02/26/17 16:00 02/26/17 18:00 02/26/17 18:00 02/26/17 18:00 02/26/17 18:00 General appearance: Present: severe distress Results - Labs CBC & Chem 7: 02/27/17 05:40 02/27/17 05:40 Labs: Laboratory Last Values WBC 8.5 K/mm3 (4.5-11.0) 02/26/17 05:51 RBC 3.65 M/mm3 (3.65-5.03) 02/26/17 05:51 Hgb 10.6 gm/dl (11.8-15.2) L 02/26/17 05:51 Hct 32.3 % (35.5-45.6) L 02/26/17 05:51 MCV 89 fl (84-94) 02/26/17 05:51 MCH 29 pg (28-32) 02/26/17 05:51 MCHC 33 % (32-34) 02/26/17 05:51 RDW 14.9 % (13.2-15.2) 02/26/17 05:51 Plt Count 329 K/mm3 (140-440) 02/26/17 05:51 Lymph % (Auto) 28.0 % (13.4-35.0) 02/26/17 05:51 [place] % (Auto) 6.5 % (0.0-7.3) 02/26/17 05:51 Eos % (Auto) 3.1 % (0.0-4.3) 02/26/17 05:51 Baso % (Auto) 0.6 % (0.0-1.8) 02/26/17 05:51 Lymph # 2.4 K/mm3 (1.2-5.4) 02/26/17 05:51 [place] # 0.6 K/mm3 (0.0-0.8) 02/26/17 05:51 Eos # 0.3 K/mm3 (0.0-0.4) 02/26/17 05:51 Baso # 0.1 K/mm3 (0.0-0.1) 02/26/17 05:51 Add Manual Diff TNR 02/24/17 04:04 Seg Neutrophils % 61.8 % (40.0-70.0) 02/26/17 05:51 Seg Neutrophils # 5.3 K/mm3 (1.8-7.7) 02/26/17 05:51 POC ABG pH 7.475 (7.35-7.45) H 02/25/17 06:44 POC ABG pCO2 30.1 (35-45) L 02/25/17 06:44 POC ABG pO2 161 (80-105) H 02/25/17 06:44 POC ABG HCO3 22.2 02/25/17 06:44 POC ABG Total CO2 23 02/25/17 06:44 POC ABG O2 Sat 100 02/25/17 06:44 POC ABG Base Excess -1 02/25/17 06:44 FiO2 28 % 02/25/17 06:44 Sodium 135 mmol/L (137-145) L 02/26/17 05:51 Potassium 3.6 mmol/L (3.6-5.0) 02/26/17 05:51 Chloride 100.9 mmol/L (98-107) 02/26/17 05:51 Carbon Dioxide 18 mmol/L (22-30) L 02/26/17 05:51 Anion Gap 20 mmol/L 02/26/17 05:51 BUN 14 mg/dL (9-20) 02/26/17 05:51 Creatinine 0.7 mg/dL (0.8-1.5) L 02/26/17 05:51 Estimated GFR > 60 ml/min 02/26/17 05:51 BUN/Creatinine Ratio 20.00 % 02/26/17 05:51 Glucose 125 mg/dL (75-100) H 02/26/17 05:51 POC Glucose 223 (70-105) H 02/18/17 10:54 Lactic Acid 1.70 mmol/L (0.7-2.0) 02/22/17 03:22 Calcium 8.0 mg/dL (8.4-10.2) L 02/26/17 05:51 Phosphorus 2.40 mg/dL (2.5-4.5) L 02/26/17 05:51 Magnesium 1.90 mg/dL (1.7-2.3) 02/26/17 05:51 Total Bilirubin 0.20 mg/dL (0.1-1.2) 02/20/17 05:07 AST 29 units/L (5-40) 02/20/17 05:07 ALT 29 units/L (7-56) 02/20/17 05:07 Alkaline Phosphatase 93 units/L (35-129) 02/20/17 05:07 Troponin T 0.073 ng/mL (0.00-0.029) H 02/18/17 11:30 Total Protein 6.3 g/dL (6.3-8.2) D 02/20/17 05:07 Albumin 2.6 g/dL (3.9-5) L 02/20/17 05:07 Albumin/Globulin Ratio 0.7 % 02/20/17 05:07 Triglycerides 136 mg/dL (2-149) 02/18/17 11:30 Cholesterol 192 mg/dL (50-199) 02/18/17 11:30 LDL Cholesterol Direct 126 mg/dL (50-130) 02/18/17 11:30 HDL Cholesterol 39 mg/dL (40-59) L 02/18/17 11:30 Cholesterol/HDL Ratio 4.92 % 02/18/17 11:30 TSH 6.350 mlU/mL (0.270-4.200) H 02/18/17 11:30 Free T4 1.15 ng/dL (0.76-1.46) 02/19/17 19:52 Urine Color Yellow (Yellow) 02/18/17 Unknown Urine Turbidity Clear (Clear) 02/18/17 Unknown Urine pH 5.0 (5.0-7.0) 02/18/17 Unknown Ur Specific [place] 1.018 (1.003-1.030) 02/18/17 Unknown Urine Protein <15 mg/dl mg/dL (Negative) 02/18/17 Unknown Urine Glucose (UA) Neg mg/dL (Negative) 02/18/17 Unknown Urine Ketones Neg mg/dL (Negative) 02/18/17 Unknown Urine Blood Neg (Negative) 02/18/17 Unknown Urine Nitrite Neg (Negative) 02/18/17 Unknown Urine Bilirubin Neg (Negative) 02/18/17 Unknown Urine Urobilinogen < 2.0 mg/dL (<2.0) 02/18/17 Unknown Ur Leukocyte Esterase Neg (Negative) 02/18/17 Unknown Urine WBC (Auto) 1.0 /HPF (0.0-6.0) 02/18/17 Unknown Urine RBC (Auto) 1.0 /HPF (0.0-6.0) 02/18/17 Unknown U Epithel Cells (Auto) 3.0 /HPF (0-13.0) 02/18/17 Unknown Urine Mucus Few /HPF 02/18/17 Unknown Salicylates < 0.3 mg/dL (2.8-20.0) L 02/18/17 11:30 Urine Opiates Screen Presumptive negative 02/18/17 Unknown Urine Methadone Screen Presumptive negative 02/18/17 Unknown Acetaminophen < 15.0 ug/mL (10.0-30.0) 02/18/17 11:30 Ur Barbiturates Screen Presumptive negative 02/18/17 Unknown Levetiracetam 15.1 mcg/mL 02/18/17 13:07 Ur Phencyclidine Scrn Presumptive negative 02/18/17 Unknown Ur Amphetamines Screen Presumptive negative 02/18/17 Unknown U Benzodiazepines Scrn Presumptive negative 02/18/17 Unknown Urine Cocaine Screen Presumptive negative 02/18/17 Unknown U Marijuana (THC) Screen Presumptive negative 02/18/17 Unknown Drugs of Abuse Note Disclamer 02/18/17 Unknown Plasma/Serum Alcohol < 0.01 gm% (0-0.07) 02/18/17 11:30
[2017-02-27] MEDS: DILANTIN FEEDTUBE SCH ×3 (06:01→22:17)
[2017-02-27] MEDS: SYNTHROID IV SCH (06:02)
[2017-02-27 06:16] LABS: Basophils % (Auto) 0.5 % (0.0-1.8); Eosinophils % (Auto) 2.9 % (0.0-4.3); Hematocrit 31.4 % (35.5-45.6); Hemoglobin 10.2 gm/dl (11.8-15.2); Mean Corpuscular HGB Conc 33 % (32-34); Mean Corpuscular Hemoglobin 29 pg (28-32); Mean Corpuscular Volume 88 fl (84-94); Platelet Count 312 K/mm3 (140-440); Red Blood Count 3.57 M/mm3 (3.65-5.03); Red Cell Distribution Width 15.1 % (13.2-15.2); White Blood Count 7.3 K/mm3 (4.5-11.0)
[2017-02-27 06:35] LABS: Anion Gap 17 mmol/L; BUN/Creatinine Ratio 24.28; Blood Urea Nitrogen 17 mg/dL (9-20); Calcium 8.3 mg/dL (8.4-10.2); Carbon Dioxide 23 mmol/L (22-30); Chloride 105.4 mmol/L (98-107); Glucose 100 mg/dL (75-100); Potassium 3.9 mmol/L (3.6-5.0); Sodium 141 mmol/L (137-145)
[2017-02-27 08:23] LABS: ISTAT Base Excess -2; ISTAT HCO3 22.9; ISTAT PCO2 36.3 (35-45); ISTAT PH 7.409 (7.35-7.45); ISTAT PO2 107 (80-105); ISTAT SO2 98; ISTAT TCO2 24
--- NOTE | 2017-02-27 10:00 | Progress Note ---
Assessment and Plan Assessment and plan: 71 YO Male with HTN, Seizure disorder, GERD, HLD, Bullous pemphigoid presents to ED for evaluation. Pt unable to provide history, but history taken from medical record, and ED staff, EMS run sheet, as well as patient family who is at bedside during exam and interview. Pt had two seizures as per EMS and was subsequently unresponsive. Pt seen and evaluated in ED, and found to be unresponsive and unable to protect airway with vomitus in oral pharynx with absent gag reflex. Pt intubated and placed on vent support. No reports of fever , chills, CP, Palpitations, NVD, recent ill contacts, trauma, or skin rashes. Acute respiratory failure with hypoxemia on mechanical ventilator greater than 96 hours * Continue to attempt to wean off ventilator. Patient will likely require trach and PEG, pulmonary input appreciated Status Epiliepticus * Neurology input appreciated, continue Keppra, continue Dilantin which is being titrated off, continued propofol, we'll continue to taper off propofol as tolerated * check dilantin level * Case discussed with neurologist Aspiration pneumonitis * start on zosyn, will need seven-day course of antibiotics * Obtain tracheal aspirate culture YUDY-secondary to vasomotor nephropathy-resolved with IVF Hypernatremia resolved with IVF Hypokalemia-corrected * repleted and normalized DIASTOLIC CHF-CHRONIC. preserved EF, stable Subclinical Hypothyroidism * continue low dose synthroid Acute Metabolic encephalopathy likely secondary to seizure and postictal state, rx underlying cause * Guarded prognosis * Discussed with niece family member present in the room family friend present provided some information is noted. Case management on board, patient will likely require LTAC placement The high probability of a clinically significant, sudden or life threatening deterioration of the [Pulmonary, Neuro cardiac] system(s) required my full and direct attention, intervention and personal management. The aggregate critical care time was [35] minutes. This time is in addition to time spent performing reported procedures but includes the following: [x] Data Review and interpretation [x] Patient assessment and monitoring of vital signs [x] Documentation [x] Medication orders and management History Interval history: Patient remains intubated and sedated, he is on propofol drip Hospitalist Physical - Physical exam Narrative exam: General: no distress HEENT: MMM, EOMI cardiac: S1-S2 heard lungs: Ventilated breath sounds abdomen: soft, nontender, nondistended bowel sounds positive extremities: no edema clubbing or cyanosis Skin: no rash or lesion Neuro: Intubated and sedated - Constitutional Vitals: Temp Pulse Resp BP Pulse Ox 98.7 F 94 H 28 H 138/74 98 02/27/17 08:00 02/27/17 08:05 02/27/17 08:05 02/27/17 08:05 02/27/17 08:05 General appearance: Present: severe distress Results - Labs CBC & Chem 7: 02/27/17 05:40 02/27/17 05:40 Labs: Laboratory Last Values WBC 7.3 K/mm3 (4.5-11.0) 02/27/17 05:40 RBC 3.57 M/mm3 (3.65-5.03) L 02/27/17 05:40 Hgb 10.2 gm/dl (11.8-15.2) L 02/27/17 05:40 Hct 31.4 % (35.5-45.6) L 02/27/17 05:40 MCV 88 fl (84-94) 02/27/17 05:40 MCH 29 pg (28-32) 02/27/17 05:40 MCHC 33 % (32-34) 02/27/17 05:40 RDW 15.1 % (13.2-15.2) 02/27/17 05:40 Plt Count 312 K/mm3 (140-440) 02/27/17 05:40 Lymph % (Auto) 30.0 % (13.4-35.0) 02/27/17 05:40 [place] % (Auto) 7.4 % (0.0-7.3) H 02/27/17 05:40 Eos % (Auto) 2.9 % (0.0-4.3) 02/27/17 05:40 Baso % (Auto) 0.5 % (0.0-1.8) 02/27/17 05:40 Lymph # 2.2 K/mm3 (1.2-5.4) 02/27/17 05:40 [place] # 0.5 K/mm3 (0.0-0.8) 02/27/17 05:40 Eos # 0.2 K/mm3 (0.0-0.4) 02/27/17 05:40 Baso # 0.0 K/mm3 (0.0-0.1) 02/27/17 05:40 Add Manual Diff TNR 02/24/17 04:04 Seg Neutrophils % 59.2 % (40.0-70.0) 02/27/17 05:40 Seg Neutrophils # 4.3 K/mm3 (1.8-7.7) 02/27/17 05:40 POC ABG pH 7.409 (7.35-7.45) 02/27/17 08:13 POC ABG pCO2 36.3 (35-45) 02/27/17 08:13 POC ABG pO2 107 (80-105) H 02/27/17 08:13 POC ABG HCO3 22.9 02/27/17 08:13 POC ABG Total CO2 24 02/27/17 08:13 POC ABG O2 Sat 98 02/27/17 08:13 POC ABG Base Excess -2 02/27/17 08:13 FiO2 28 % 02/27/17 08:13 Sodium 141 mmol/L (137-145) 02/27/17 05:40 Potassium 3.9 mmol/L (3.6-5.0) 02/27/17 05:40 Chloride 105.4 mmol/L (98-107) 02/27/17 05:40 Carbon Dioxide 23 mmol/L (22-30) 02/27/17 05:40 Anion Gap 17 mmol/L 02/27/17 05:40 BUN 17 mg/dL (9-20) 02/27/17 05:40 Creatinine 0.7 mg/dL (0.8-1.5) L 02/27/17 05:40 Estimated GFR > 60 ml/min 02/27/17 05:40 BUN/Creatinine Ratio 24.28 % 02/27/17 05:40 Glucose 100 mg/dL (75-100) 02/27/17 05:40 POC Glucose 223 (70-105) H 02/18/17 10:54 Lactic Acid 1.70 mmol/L (0.7-2.0) 02/22/17 03:22 Calcium 8.3 mg/dL (8.4-10.2) L 02/27/17 05:40 Phosphorus 2.40 mg/dL (2.5-4.5) L 02/26/17 05:51 Magnesium 1.90 mg/dL (1.7-2.3) 02/27/17 05:40 Total Bilirubin 0.20 mg/dL (0.1-1.2) 02/20/17 05:07 AST 29 units/L (5-40) 02/20/17 05:07 ALT 29 units/L (7-56) 02/20/17 05:07 Alkaline Phosphatase 93 units/L (35-129) 02/20/17 05:07 Troponin T 0.073 ng/mL (0.00-0.029) H 02/18/17 11:30 Total Protein 6.3 g/dL (6.3-8.2) D 02/20/17 05:07 Albumin 2.6 g/dL (3.9-5) L 02/20/17 05:07 Albumin/Globulin Ratio 0.7 % 02/20/17 05:07 Triglycerides 136 mg/dL (2-149) 02/18/17 11:30 Cholesterol 192 mg/dL (50-199) 02/18/17 11:30 LDL Cholesterol Direct 126 mg/dL (50-130) 02/18/17 11:30 HDL Cholesterol 39 mg/dL (40-59) L 02/18/17 11:30 Cholesterol/HDL Ratio 4.92 % 02/18/17 11:30 TSH 6.350 mlU/mL (0.270-4.200) H 02/18/17 11:30 Free T4 1.15 ng/dL (0.76-1.46) 02/19/17 19:52 Urine Color Yellow (Yellow) 02/18/17 Unknown Urine Turbidity Clear (Clear) 02/18/17 Unknown Urine pH 5.0 (5.0-7.0) 02/18/17 Unknown Ur Specific [place] 1.018 (1.003-1.030) 02/18/17 Unknown Urine Protein <15 mg/dl mg/dL (Negative) 02/18/17 Unknown Urine Glucose (UA) Neg mg/dL (Negative) 02/18/17 Unknown Urine Ketones Neg mg/dL (Negative) 02/18/17 Unknown Urine Blood Neg (Negative) 02/18/17 Unknown Urine Nitrite Neg (Negative) 02/18/17 Unknown Urine Bilirubin Neg (Negative) 02/18/17 Unknown Urine Urobilinogen < 2.0 mg/dL (<2.0) 02/18/17 Unknown Ur Leukocyte Esterase Neg (Negative) 02/18/17 Unknown Urine WBC (Auto) 1.0 /HPF (0.0-6.0) 02/18/17 Unknown Urine RBC (Auto) 1.0 /HPF (0.0-6.0) 02/18/17 Unknown U Epithel Cells (Auto) 3.0 /HPF (0-13.0) 02/18/17 Unknown Urine Mucus Few /HPF 02/18/17 Unknown Salicylates < 0.3 mg/dL (2.8-20.0) L 02/18/17 11:30 Urine Opiates Screen Presumptive negative 02/18/17 Unknown Urine Methadone Screen Presumptive negative 02/18/17 Unknown Acetaminophen < 15.0 ug/mL (10.0-30.0) 02/18/17 11:30 Ur Barbiturates Screen Presumptive negative 02/18/17 Unknown Levetiracetam 15.1 mcg/mL 02/18/17 13:07 Ur Phencyclidine Scrn Presumptive negative 02/18/17 Unknown Ur Amphetamines Screen Presumptive negative 02/18/17 Unknown U Benzodiazepines Scrn Presumptive negative 02/18/17 Unknown Urine Cocaine Screen Presumptive negative 02/18/17 Unknown U Marijuana (THC) Screen Presumptive negative 02/18/17 Unknown Drugs of Abuse Note Disclamer 02/18/17 Unknown Plasma/Serum Alcohol < 0.01 gm% (0-0.07) 02/18/17 11:30
[2017-02-27] MEDS: PEPCID PO SCH ×2 (10:16→22:17)
[2017-02-27] MEDS: KEPPRA PO SCH ×2 (10:16→22:17)
[2017-02-27] MEDS: LOVENOX SUB-Q SCH (10:17)
--- NOTE | 2017-02-27 10:53 | Consultation ---
History of Present Illness - Reason for Consult Consult date: 02/27/17 stroke - History of Present Illness I reviewed both the current EEG and the MRI the MRI shows onlly chronic changes and no acute stroke old right hemisphere stroke present NOT acute NO BRAIN EDEMA the EEG is much improved no more epileptic activity recommend continue same doses of the dilantin and IV keppra check drug levels formal exam shows he is more arousable Past History Past Medical History: other (unable to obtain) Past Surgical History: Other (unable to obtain) Social history: other (unable to obtain) Family history: other (unable to obtain) Medications and Allergies Allergies Allergy/AdvReac Type Severity Reaction Status Date / Time No Known Allergies Allergy Verified 10/24/13 04:08 Home Medications Medication Instructions Recorded Confirmed Last Taken Type Levothyroxine [Synthroid] 50 mcg PO QAM 05/26/16 02/18/17 02/17/17 History levETIRAcetam [Keppra TAB] 750 mg PO BID 05/26/16 02/18/17 02/17/17 History Clopidogrel [Plavix] 75 mg PO DAILY #30 tablet 06/03/16 02/18/17 02/17/17 Rx Simvastatin [Zocor TAB] 20 mg PO QHS 02/18/17 02/18/17 02/17/17 History Active Meds: Active Medications Acetaminophen (Tylenol) 650 mg FEEDTUBE Q6H PRN PRN Reason: Non Cardiac Pain or Temp>100.5 Last Admin: 02/22/17 08:57 Dose: 650 mg Albuterol (Proventil) 2.5 mg IH Q3HRT PRN PRN Reason: Shortness Of Breath Lipase/Protease/Amylase (Pancreaze Dr 10,500 Unit) 1 each FEEDTUBE PRN PRN PRN Reason: For Clogged Feeding Tube Enoxaparin Sodium (Lovenox) 40 mg SUB-Q QDAY@1000 NESSA Last Admin: 02/27/17 10:17 Dose: 40 mg Famotidine (Pepcid) 20 mg PO BID NESSA Last Admin: 02/27/17 10:16 Dose: 20 mg Hydrophilic Ointment (Vaseline Lip Therapy) 1 applic TP Q2HR PRN PRN Reason: Dry Lips Propofol (Diprivan 10 Mg/Ml) 1,000 mg in 100 mls @ 2.37 mls/hr IV TITR NESSA; 5 MCG/KG/MIN PRN Reason: Protocol Last Admin: 02/25/17 06:00 Dose: 5 mcg/kg/min, 2.37 mls/hr Piperacillin Sod/Tazobactam Sod (Zosyn/Ns 4.5gm/100ml) 4.5 gm in 100 mls @ 200 mls/hr IV Q8H NESSA PRN Reason: Protocol Levetiracetam (Keppra) 1,000 mg PO BID NESSA Last Admin: 02/27/17 10:16 Dose: 1,000 mg Levothyroxine Sodium (Synthroid) 25 mcg FEEDTUBE DAILY@0600 NESSA Lorazepam (Ativan) 2 mg IV Q4H PRN PRN Reason: Seizures Last Admin: 02/26/17 11:30 Dose: 2 mg Multi-Ingred Cream/Lotion/Oil/Oint (Artificial Tears Ophth Oint) 1 applic OU Q4HR PRN PRN Reason: Dry Eye(s) Phenytoin (Dilantin) 125 mg FEEDTUBE Q8HR [facility] Last Admin: 02/27/17 06:01 Dose: 125 mg Simple Syrup (Simple Syrup) 15 ml FEEDTUBE PRN PRN PRN Reason: Hypoglycemia Simple Syrup (Simple Syrup) 30 ml FEEDTUBE PRN PRN PRN Reason: Hypoglycemia Sodium Bicarbonate (Sodium Bicarbonate) 325 mg FEEDTUBE PRN PRN PRN Reason: For Clogged Feeding Tube Exam - Constitutional Vitals: Temp Pulse Resp BP Pulse Ox 98.7 F 94 H 28 H 138/74 98 02/27/17 08:00 02/27/17 08:05 02/27/17 08:05 02/27/17 08:05 02/27/17 08:05 Results - Labs CBC & Chem 7: 02/27/17 05:40 02/27/17 05:40 Labs: Abnormal lab results 02/27/17 02/27/17 02/27/17 Range/Units 05:40 05:40 08:13 RBC 3.57 L (3.65-5.03) M/mm3 Hgb 10.2 L (11.8-15.2) gm/dl Hct 31.4 L (35.5-45.6) % [place] % (Auto) 7.4 H (0.0-7.3) % POC ABG pO2 107 H (80-105) Creatinine 0.7 L (0.8-1.5) mg/dL Calcium 8.3 L (8.4-10.2) mg/dL
[2017-02-27] MEDS: ZOSYN/NS 4.5GM/100ML 4.5 GM/100 ML VIAL IV SCH ×2 (11:53→20:45)
--- NOTE | 2017-02-27 13:55 | Progress Note ---
Assessment and Plan Imp: 1. Seizure d/o -> Status epilepticus, better 2. Acute resp. failure, hypoxia 3. YUDY, better 4. Hypernatremia 5. Aspiration pneumonia, better 6. Hx of R MCA CVA 7. Lactic acidosis 2/2 #1 Rec: 1. Repeat EEG; MRI neg for acute process or ongoing seizures; cont. Keppra/ Dilantin; f/u neuro recs 2. Okay for SBT but mentation precludes extubation; day #9 of vent; if no improvement in mentation over weekend would consult surgery for trach/peg -> LTAC 3. Completed a brief course of Zosyn; check stool for cdiff -> neg 4. Cont. free water; cont. TFs, DVT and GI PPx 5. Replete elytes prn; labs AM 6. Prognosis guarded; updated niece by phone on 02/23; no family present today; unsure exact baseline level functioning but I suspect was poor after recent extensive MCA infarct CCT 31 minutes Subjective Date of service: 02/27/17 Principal diagnosis: Acute resp. failure Interval history: No seizure activity reported. Off propofol x 48 hours. Tolerates PSV but barely opens eyes and follows no commands. Active Medications Acetaminophen (Tylenol) 650 mg FEEDTUBE Q6H PRN PRN Reason: Non Cardiac Pain or Temp>100.5 Last Admin: 02/22/17 08:57 Dose: 650 mg Albuterol (Proventil) 2.5 mg IH Q3HRT PRN PRN Reason: Shortness Of Breath Lipase/Protease/Amylase (Pancreaze Dr 10,500 Unit) 1 each FEEDTUBE PRN PRN PRN Reason: For Clogged Feeding Tube Enoxaparin Sodium (Lovenox) 40 mg SUB-Q QDAY@1000 [facility] Last Admin: 02/27/17 10:17 Dose: 40 mg Famotidine (Pepcid) 20 mg PO BID [facility] Last Admin: 02/27/17 10:16 Dose: 20 mg Hydrophilic Ointment (Vaseline Lip Therapy) 1 applic TP Q2HR PRN PRN Reason: Dry Lips Piperacillin Sod/Tazobactam Sod (Zosyn/Ns 4.5gm/100ml) 4.5 gm in 100 mls @ 200 mls/hr IV Q8H NESSA PRN Reason: Protocol Last Admin: 02/27/17 11:53 Dose: 200 mls/hr Levetiracetam (Keppra) 1,000 mg PO BID [facility] Last Admin: 02/27/17 10:16 Dose: 1,000 mg Levothyroxine Sodium (Synthroid) 25 mcg FEEDTUBE DAILY@0600 [facility] Lorazepam (Ativan) 2 mg IV Q4H PRN PRN Reason: Seizures Last Admin: 02/26/17 11:30 Dose: 2 mg Multi-Ingred Cream/Lotion/Oil/Oint (Artificial Tears Ophth Oint) 1 applic OU Q4HR PRN PRN Reason: Dry Eye(s) Phenytoin (Dilantin) 125 mg FEEDTUBE Q8HR [facility] Last Admin: 02/27/17 06:01 Dose: 125 mg Simple Syrup (Simple Syrup) 15 ml FEEDTUBE PRN PRN PRN Reason: Hypoglycemia Simple Syrup (Simple Syrup) 30 ml FEEDTUBE PRN PRN PRN Reason: Hypoglycemia Sodium Bicarbonate (Sodium Bicarbonate) 325 mg FEEDTUBE PRN PRN PRN Reason: For Clogged Feeding Tube Objective Vital Signs - 12hr 02/27/17 02/27/17 02/27/17 02:00 03:00 04:00 Temperature 99 F Pulse Rate 80 84 79 Pulse Rate [ From Monitor] Respiratory 21 16 14 Rate Blood Pressure 139/81 147/81 120/52 O2 Sat by Pulse 97 97 96 Oximetry 02/27/17 02/27/17 02/27/17 04:18 04:52 05:00 Temperature Pulse Rate 71 67 Pulse Rate [ 76 From Monitor] Respiratory 21 14 Rate Blood Pressure 120/52 118/57 O2 Sat by Pulse 100 100 Oximetry 02/27/17 02/27/17 02/27/17 06:00 07:00 08:00 Temperature 98.7 F Pulse Rate 78 99 H 96 H Pulse Rate [ 89 From Monitor] Respiratory 14 28 H 34 H Rate Blood Pressure 139/63 138/74 166/77 O2 Sat by Pulse 97 94 100 Oximetry 02/27/17 02/27/17 02/27/17 08:05 09:00 10:00 Temperature Pulse Rate 94 H 90 79 Pulse Rate [ From Monitor] Respiratory 28 H 30 H 15 Rate Blood Pressure 138/74 133/84 135/83 O2 Sat by Pulse 98 95 96 Oximetry 02/27/17 02/27/17 02/27/17 11:00 11:07 12:00 Temperature 98.9 F Pulse Rate 79 79 87 Pulse Rate [ From Monitor] Respiratory 25 H 19 29 H Rate Blood Pressure 135/83 135/83 134/79 O2 Sat by Pulse 99 99 99 Oximetry 02/27/17 13:00 Temperature Pulse Rate 79 Pulse Rate [ From Monitor] Respiratory 26 H Rate Blood Pressure 132/81 O2 Sat by Pulse 98 Oximetry Constitutional: other (disheveled, critically ill on vent) ENT: other (orally intubated) Neck: supple Effort: normal Ascultation: Bilateral: other (coarse BS bilaterally) Cardiovascular: regular rate and rhythm (no mrg) Gastrointestinal: normoactive bowel sounds, soft, non-tender Integumentary: normal Extremities: no cyanosis, pink and warm, edema Neurologic: other (opens eyes minimally, not moving extremities) Psychiatric: other (unable to assess) CBC and BMP: 02/27/17 05:40 02/27/17 05:40 ABG, PT/INR, D-dimer: ABG POC ABG pH 7.409 (7.35-7.45) 02/27/17 08:13 POC ABG pCO2 36.3 (35-45) 02/27/17 08:13 POC ABG pO2 107 (80-105) H 02/27/17 08:13 POC ABG HCO3 22.9 02/27/17 08:13 POC ABG Total CO2 24 02/27/17 08:13 POC ABG O2 Sat 98 02/27/17 08:13 Abnormal lab findings: Abnormal Labs 02/18/17 02/19/17 02/19/17 17:56 06:05 09:06 WBC RBC Hgb Hct RDW [place] % (Auto) POC ABG pH POC ABG pCO2 32.6 L POC ABG pO2 181 H 139 H Sodium Potassium Chloride Carbon Dioxide BUN Creatinine Glucose Lactic Acid 3.00 H* Calcium Phosphorus Albumin 02/19/17 02/19/17 02/20/17 11:59 11:59 05:07 WBC 11.3 H RBC Hgb 11.1 L Hct 34.6 L D RDW [place] % (Auto) POC ABG pH POC ABG pCO2 POC ABG pO2 Sodium Potassium Chloride Carbon Dioxide 18 L BUN Creatinine Glucose Lactic Acid 2.20 H* Calcium Phosphorus Albumin 02/20/17 02/20/17 02/20/17 05:07 06:41 09:58 WBC RBC Hgb Hct RDW [place] % (Auto) POC ABG pH 7.457 H POC ABG pCO2 32.3 L POC ABG pO2 134 H Sodium Potassium Chloride Carbon Dioxide 19 L BUN Creatinine Glucose Lactic Acid 2.70 H* Calcium Phosphorus Albumin 2.6 L 02/21/17 02/21/17 02/22/17 03:56 04:47 03:22 WBC RBC 3.62 L Hgb 10.6 L 11.1 L Hct 31.8 L 33.3 L RDW [place] % (Auto) POC ABG pH 7.513 H POC ABG pCO2 25.6 L POC ABG pO2 Sodium Potassium Chloride Carbon Dioxide BUN Creatinine Glucose Lactic Acid Calcium Phosphorus Albumin 02/22/17 02/22/17 02/23/17 03:22 04:33 05:49 WBC RBC Hgb Hct RDW [place] % (Auto) POC ABG pH 7.464 H POC ABG pCO2 32.8 L 33.0 L POC ABG pO2 112 H 71 L Sodium Potassium 3.3 L Chloride 107.8 H Carbon Dioxide 20 L BUN 21 H Creatinine Glucose 132 H Lactic Acid Calcium 8.1 L Phosphorus Albumin 02/23/17 02/23/17 02/24/17 06:15 06:15 04:04 WBC RBC Hgb Hct RDW 16.5 H [place] % (Auto) POC ABG pH POC ABG pCO2 POC ABG pO2 Sodium 150 H D Potassium 3.4 L Chloride 119.5 H Carbon Dioxide 18 L 18 L BUN 35 H Creatinine 0.6 L Glucose 143 H 109 H Lactic Acid Calcium 7.4 L 8.3 L Phosphorus 1.50 L Albumin 02/24/17 02/24/17 02/25/17 04:41 05:38 04:00 WBC RBC Hgb 11.0 L 11.0 L Hct 34.7 L 33.3 L RDW [place] % (Auto) POC ABG pH 7.460 H POC ABG pCO2 31.1 L POC ABG pO2 61 L Sodium Potassium Chloride Carbon Dioxide BUN Creatinine Glucose Lactic Acid Calcium Phosphorus Albumin 02/25/17 02/25/17 02/26/17 04:00 06:44 05:51 WBC RBC Hgb 10.6 L Hct 32.3 L RDW [place] % (Auto) POC ABG pH 7.475 H POC ABG pCO2 30.1 L POC ABG pO2 161 H Sodium Potassium Chloride Carbon Dioxide BUN Creatinine 0.7 L Glucose 123 H Lactic Acid Calcium 8.2 L Phosphorus Albumin 02/26/17 02/27/17 02/27/17 05:51 05:40 05:40 WBC RBC 3.57 L Hgb 10.2 L Hct 31.4 L RDW [place] % (Auto) 7.4 H POC ABG pH POC ABG pCO2 POC ABG pO2 Sodium 135 L Potassium Chloride Carbon Dioxide 18 L BUN Creatinine 0.7 L 0.7 L Glucose 125 H Lactic Acid Calcium 8.0 L 8.3 L Phosphorus 2.40 L Albumin 02/27/17 08:13 WBC RBC Hgb Hct RDW [place] % (Auto) POC ABG pH POC ABG pCO2 POC ABG pO2 107 H Sodium Potassium Chloride Carbon Dioxide BUN Creatinine Glucose Lactic Acid Calcium Phosphorus Albumin Chest x-ray: report reviewed, image reviewed
[2017-02-28] MEDS: ZOSYN/NS 4.5GM/100ML 4.5 GM/100 ML VIAL IV SCH ×3 (04:22→21:04)
[2017-02-28] MEDS: SYNTHROID FEEDTUBE SCH (05:46)
[2017-02-28] MEDS: DILANTIN FEEDTUBE SCH ×3 (05:46→21:05)
[2017-02-28 06:36] LABS: Basophils % (Auto) 0.7 % (0.0-1.8); Eosinophils % (Auto) 2.6 % (0.0-4.3); Hematocrit 32.4 % (35.5-45.6); Hemoglobin 10.4 gm/dl (11.8-15.2); Mean Corpuscular HGB Conc 32 % (32-34); Mean Corpuscular Hemoglobin 29 pg (28-32); Mean Corpuscular Volume 90 fl (84-94); Platelet Count 323 K/mm3 (140-440); Red Blood Count 3.62 M/mm3 (3.65-5.03); Red Cell Distribution Width 15.4 % (13.2-15.2); White Blood Count 9.7 K/mm3 (4.5-11.0)
[2017-02-28 07:11] LABS: Anion Gap 17 mmol/L; BUN/Creatinine Ratio 22.85; Blood Urea Nitrogen 16 mg/dL (9-20); Calcium 8.3 mg/dL (8.4-10.2); Carbon Dioxide 22 mmol/L (22-30); Chloride 100.7 mmol/L (98-107); Glucose 107 mg/dL (75-100); Potassium 4.3 mmol/L (3.6-5.0); Sodium 135 mmol/L (137-145)
[2017-02-28 08:42] LABS: ISTAT Base Excess -1; ISTAT HCO3 23.7; ISTAT PH 7.413 (7.35-7.45); ISTAT PO2 104 (80-105); ISTAT SO2 98; ISTAT TCO2 25
[2017-02-28] MEDS: KEPPRA PO SCH ×2 (10:17→21:04)
[2017-02-28] MEDS: LOVENOX SUB-Q SCH (10:17)
[2017-02-28] MEDS: PEPCID PO SCH ×2 (10:18→21:05)
--- NOTE | 2017-02-28 11:44 | Progress Note ---
Assessment and Plan Seizure d/o - Status epilepticus, better. No electoconvulsive status on EEG report. See note up comments Acute resp. failure. Intubated. Tolerating SBT 10/5 cm H2O bur RSBI 100-130 at this point YUDY, better Hypernatremia. Controlled Aspiration pneumonia, improved Hx of R MCA CVA Lactic acidosis. Resolved Rec Continue SBT as tolerated but doubt extubation at this point, due to neurological status. Complete antibiotics Nutritional support Suture management per neurology recommendations Extubation status likely due to be determined by patient neurological improvement Follow-up chest x-ray in the morning Critical care time was 35 minutes of [id number] evaluation and coordination of care. Subjective Date of service: 02/28/17 Principal diagnosis: Acute resp. failure Interval history: Intubated,non verbal Objective Vital Signs - 12hr 02/28/17 02/28/17 02/28/17 00:00 00:02 00:20 Temperature 99.3 F Pulse Rate 80 85 Respiratory 14 Rate Blood Pressure 131/68 131/68 O2 Sat by Pulse 97 98 98 Oximetry 02/28/17 02/28/17 02/28/17 01:00 02:00 03:00 Temperature Pulse Rate 81 88 84 Respiratory 14 14 14 Rate Blood Pressure 133/76 136/71 136/80 O2 Sat by Pulse 97 95 92 Oximetry 02/28/17 02/28/17 02/28/17 03:40 04:00 04:30 Temperature 99.3 F Pulse Rate 82 Respiratory 14 15 Rate Blood Pressure 130/75 O2 Sat by Pulse 96 97 Oximetry 02/28/17 02/28/17 02/28/17 05:00 06:00 07:00 Temperature Pulse Rate 82 76 74 Respiratory 15 15 21 Rate Blood Pressure 130/75 128/69 131/74 O2 Sat by Pulse 99 98 Oximetry 02/28/17 02/28/17 02/28/17 08:00 08:28 09:00 Temperature 98.4 F Pulse Rate 82 80 88 Respiratory 29 H 24 28 H Rate Blood Pressure 147/75 147/75 146/75 O2 Sat by Pulse 98 79 L 94 Oximetry 02/28/17 10:00 Temperature Pulse Rate 81 Respiratory 31 H Rate Blood Pressure 138/71 O2 Sat by Pulse 93 Oximetry Constitutional: no acute distress, lethargic ENT: other (orally intubated) Neck: supple Effort: normal Ascultation: Bilateral: clear, diminished breath sounds Cardiovascular: regular rate and rhythm Gastrointestinal: normoactive bowel sounds, soft, non-tender Integumentary: normal Extremities: no cyanosis, pink and warm, edema Neurologic: other (opens eyes minimally, not moving extremities) Psychiatric: other (unable to assess) CBC and BMP: 02/28/17 05:35 02/28/17 05:35 ABG, PT/INR, D-dimer: ABG POC ABG pH 7.413 (7.35-7.45) 02/28/17 08:26 POC ABG pCO2 37.0 (35-45) 02/28/17 08:26 POC ABG pO2 104 (80-105) 02/28/17 08:26 POC ABG HCO3 23.7 02/28/17 08:26 POC ABG Total CO2 25 02/28/17 08:26 POC ABG O2 Sat 98 02/28/17 08:26 Abnormal lab findings: Abnormal Labs 02/18/17 02/19/17 02/19/17 17:56 06:05 09:06 WBC RBC Hgb Hct RDW [place] % (Auto) POC ABG pH POC ABG pCO2 32.6 L POC ABG pO2 181 H 139 H Sodium Potassium Chloride Carbon Dioxide BUN Creatinine Glucose Lactic Acid 3.00 H* Calcium Phosphorus Albumin Phenytoin 02/19/17 02/19/17 02/20/17 11:59 11:59 05:07 WBC 11.3 H RBC Hgb 11.1 L Hct 34.6 L D RDW [place] % (Auto) POC ABG pH POC ABG pCO2 POC ABG pO2 Sodium Potassium Chloride Carbon Dioxide 18 L BUN Creatinine Glucose Lactic Acid 2.20 H* Calcium Phosphorus Albumin Phenytoin 02/20/17 02/20/17 02/20/17 05:07 06:41 09:58 WBC RBC Hgb Hct RDW [place] % (Auto) POC ABG pH 7.457 H POC ABG pCO2 32.3 L POC ABG pO2 134 H Sodium Potassium Chloride Carbon Dioxide 19 L BUN Creatinine Glucose Lactic Acid 2.70 H* Calcium Phosphorus Albumin 2.6 L Phenytoin 02/21/17 02/21/17 02/22/17 03:56 04:47 03:22 WBC RBC 3.62 L Hgb 10.6 L 11.1 L Hct 31.8 L 33.3 L RDW [place] % (Auto) POC ABG pH 7.513 H POC ABG pCO2 25.6 L POC ABG pO2 Sodium Potassium Chloride Carbon Dioxide BUN Creatinine Glucose Lactic Acid Calcium Phosphorus Albumin Phenytoin 02/22/17 02/22/17 02/23/17 03:22 04:33 05:49 WBC RBC Hgb Hct RDW [place] % (Auto) POC ABG pH 7.464 H POC ABG pCO2 32.8 L 33.0 L POC ABG pO2 112 H 71 L Sodium Potassium 3.3 L Chloride 107.8 H Carbon Dioxide 20 L BUN 21 H Creatinine Glucose 132 H Lactic Acid Calcium 8.1 L Phosphorus Albumin Phenytoin 02/23/17 02/23/17 02/24/17 06:15 06:15 04:04 WBC RBC Hgb Hct RDW 16.5 H [place] % (Auto) POC ABG pH POC ABG pCO2 POC ABG pO2 Sodium 150 H D Potassium 3.4 L Chloride 119.5 H Carbon Dioxide 18 L 18 L BUN 35 H Creatinine 0.6 L Glucose 143 H 109 H Lactic Acid Calcium 7.4 L 8.3 L Phosphorus 1.50 L Albumin Phenytoin 02/24/17 02/24/17 02/25/17 04:41 05:38 04:00 WBC RBC Hgb 11.0 L 11.0 L Hct 34.7 L 33.3 L RDW [place] % (Auto) POC ABG pH 7.460 H POC ABG pCO2 31.1 L POC ABG pO2 61 L Sodium Potassium Chloride Carbon Dioxide BUN Creatinine Glucose Lactic Acid Calcium Phosphorus Albumin Phenytoin 02/25/17 02/25/17 02/26/17 04:00 06:44 05:51 WBC RBC Hgb 10.6 L Hct 32.3 L RDW Yates % (Auto) POC ABG pH 7.475 H POC ABG pCO2 30.1 L POC ABG pO2 161 H Sodium Potassium Chloride Carbon Dioxide BUN Creatinine 0.7 L Glucose 123 H Lactic Acid Calcium 8.2 L Phosphorus Albumin Phenytoin 02/26/17 02/27/17 02/27/17 05:51 05:40 05:40 WBC RBC 3.57 L Hgb 10.2 L Hct 31.4 L RDW Yates % (Auto) 7.4 H POC ABG pH POC ABG pCO2 POC ABG pO2 Sodium 135 L Potassium Chloride Carbon Dioxide 18 L BUN Creatinine 0.7 L 0.7 L Glucose 125 H Lactic Acid Calcium 8.0 L 8.3 L Phosphorus 2.40 L Albumin Phenytoin 02/27/17 02/28/17 02/28/17 08:13 05:35 05:35 WBC RBC 3.62 L Hgb 10.4 L Hct 32.4 L RDW 15.4 H Yates % (Auto) POC ABG pH POC ABG pCO2 POC ABG pO2 107 H Sodium Potassium Chloride Carbon Dioxide BUN Creatinine Glucose Lactic Acid Calcium Phosphorus Albumin Phenytoin 8.0 L 02/28/17 05:35 WBC RBC Hgb Hct RDW Yates % (Auto) POC ABG pH POC ABG pCO2 POC ABG pO2 Sodium 135 L Potassium Chloride Carbon Dioxide BUN Creatinine 0.7 L Glucose 107 H Lactic Acid Calcium 8.3 L Phosphorus Albumin Phenytoin
--- NOTE | 2017-02-28 12:01 | Progress Note ---
Assessment and Plan Assessment and plan: 71 YO Male with HTN, Seizure disorder, GERD, HLD, Bullous pemphigoid presents to ED for evaluation. Pt unable to provide history, but history taken from medical record, and ED staff, EMS run sheet, as well as patient family who is at bedside during exam and interview. Pt had two seizures as per EMS and was subsequently unresponsive. Pt seen and evaluated in ED, and found to be unresponsive and unable to protect airway with vomitus in oral pharynx with absent gag reflex. Pt intubated and placed on vent support. No reports of fever , chills, CP, Palpitations, NVD, recent ill contacts, trauma, or skin rashes. Acute respiratory failure with hypoxemia on mechanical ventilator greater than 96 hours * Continue to attempt to wean off ventilator. Patient will likely require trach and PEG, pulmonary input appreciated Status Epiliepticus * Neurology input appreciated, continue Keppra, continue Dilantin , continued propofol, we'll continue to taper off propofol as tolerated * Check Dilantin level daily * Case discussed with neurologist, EEGs much improved, no epileptiform activity. Continue current doses of Keppra and Dilantin Aspiration pneumonitis * start on zosyn, will need seven-day course of antibiotics, till 03/06 * Obtain tracheal aspirate culture YUDY-secondary to vasomotor nephropathy-resolved with IVF Hypernatremia resolved with IVF Hypokalemia-corrected * repleted and normalized DIASTOLIC CHF-CHRONIC. preserved EF, stable Subclinical Hypothyroidism * continue low dose synthroid Acute Metabolic encephalopathy likely secondary to seizure and postictal state, rx underlying cause * Guarded prognosis * Discussed with family Case management on board, patient will likely require LTAC placement The high probability of a clinically significant, sudden or life threatening deterioration of the [Pulmonary, Neuro cardiac] system(s) required my full and direct attention, intervention and personal management. The aggregate critical care time was [35] minutes. This time is in addition to time spent performing reported procedures but includes the following: [x] Data Review and interpretation [x] Patient assessment and monitoring of vital signs [x] Documentation [x] Medication orders and management History Interval history: Patient remains intubated and sedated, he is on propofol drip Hospitalist Physical - Physical exam Narrative exam: General: no distress HEENT: MMM, EOMI cardiac: S1-S2 heard lungs: Ventilated breath sounds abdomen: soft, nontender, nondistended bowel sounds positive extremities: no edema clubbing or cyanosis Skin: no rash or lesion Neuro: Intubated and sedated - Constitutional Vitals: Temp Pulse Resp BP Pulse Ox 98.4 F 73 28 H 137/76 95 02/28/17 08:00 02/28/17 11:52 02/28/17 11:52 02/28/17 11:52 02/28/17 11:52 General appearance: Present: severe distress Results - Labs CBC & Chem 7: 02/28/17 05:35 02/28/17 05:35 Labs: Laboratory Last Values WBC 9.7 K/mm3 (4.5-11.0) 02/28/17 05:35 RBC 3.62 M/mm3 (3.65-5.03) L 02/28/17 05:35 Hgb 10.4 gm/dl (11.8-15.2) L 02/28/17 05:35 Hct 32.4 % (35.5-45.6) L 02/28/17 05:35 MCV 90 fl (84-94) 02/28/17 05:35 MCH 29 pg (28-32) 02/28/17 05:35 MCHC 32 % (32-34) 02/28/17 05:35 RDW 15.4 % (13.2-15.2) H 02/28/17 05:35 Plt Count 323 K/mm3 (140-440) 02/28/17 05:35 Lymph % (Auto) 24.1 % (13.4-35.0) 02/28/17 05:35 [place] % (Auto) 6.1 % (0.0-7.3) 02/28/17 05:35 Eos % (Auto) 2.6 % (0.0-4.3) 02/28/17 05:35 Baso % (Auto) 0.7 % (0.0-1.8) 02/28/17 05:35 Lymph # 2.3 K/mm3 (1.2-5.4) 02/28/17 05:35 [place] # 0.6 K/mm3 (0.0-0.8) 02/28/17 05:35 Eos # 0.3 K/mm3 (0.0-0.4) 02/28/17 05:35 Baso # 0.1 K/mm3 (0.0-0.1) 02/28/17 05:35 Add Manual Diff TNR 02/24/17 04:04 Seg Neutrophils % 66.5 % (40.0-70.0) 02/28/17 05:35 Seg Neutrophils # 6.4 K/mm3 (1.8-7.7) 02/28/17 05:35 POC ABG pH 7.413 (7.35-7.45) 02/28/17 08:26 POC ABG pCO2 37.0 (35-45) 02/28/17 08:26 POC ABG pO2 104 (80-105) 02/28/17 08:26 POC ABG HCO3 23.7 02/28/17 08:26 POC ABG Total CO2 25 02/28/17 08:26 POC ABG O2 Sat 98 02/28/17 08:26 POC ABG Base Excess -1 02/28/17 08:26 FiO2 28 % 02/28/17 08:26 Sodium 135 mmol/L (137-145) L 02/28/17 05:35 Potassium 4.3 mmol/L (3.6-5.0) 02/28/17 05:35 Chloride 100.7 mmol/L (98-107) 02/28/17 05:35 Carbon Dioxide 22 mmol/L (22-30) 02/28/17 05:35 Anion Gap 17 mmol/L 02/28/17 05:35 BUN 16 mg/dL (9-20) 02/28/17 05:35 Creatinine 0.7 mg/dL (0.8-1.5) L 02/28/17 05:35 Estimated GFR > 60 ml/min 02/28/17 05:35 BUN/Creatinine Ratio 22.85 % 02/28/17 05:35 Glucose 107 mg/dL (75-100) H 02/28/17 05:35 POC Glucose 223 (70-105) H 02/18/17 10:54 Lactic Acid 1.70 mmol/L (0.7-2.0) 02/22/17 03:22 Calcium 8.3 mg/dL (8.4-10.2) L 02/28/17 05:35 Phosphorus 2.40 mg/dL (2.5-4.5) L 02/26/17 05:51 Magnesium 1.90 mg/dL (1.7-2.3) 02/27/17 05:40 Total Bilirubin 0.20 mg/dL (0.1-1.2) 02/20/17 05:07 AST 29 units/L (5-40) 02/20/17 05:07 ALT 29 units/L (7-56) 02/20/17 05:07 Alkaline Phosphatase 93 units/L (35-129) 02/20/17 05:07 Troponin T 0.073 ng/mL (0.00-0.029) H 02/18/17 11:30 Total Protein 6.3 g/dL (6.3-8.2) D 02/20/17 05:07 Albumin 2.6 g/dL (3.9-5) L 02/20/17 05:07 Albumin/Globulin Ratio 0.7 % 02/20/17 05:07 Triglycerides 136 mg/dL (2-149) 02/18/17 11:30 Cholesterol 192 mg/dL (50-199) 02/18/17 11:30 LDL Cholesterol Direct 126 mg/dL (50-130) 02/18/17 11:30 HDL Cholesterol 39 mg/dL (40-59) L 02/18/17 11:30 Cholesterol/HDL Ratio 4.92 % 02/18/17 11:30 TSH 6.350 mlU/mL (0.270-4.200) H 02/18/17 11:30 Free T4 1.15 ng/dL (0.76-1.46) 02/19/17 19:52 Urine Color Yellow (Yellow) 02/18/17 Unknown Urine Turbidity Clear (Clear) 02/18/17 Unknown Urine pH 5.0 (5.0-7.0) 02/18/17 Unknown Ur Specific [place] 1.018 (1.003-1.030) 02/18/17 Unknown Urine Protein <15 mg/dl mg/dL (Negative) 02/18/17 Unknown Urine Glucose (UA) Neg mg/dL (Negative) 02/18/17 Unknown Urine Ketones Neg mg/dL (Negative) 02/18/17 Unknown Urine Blood Neg (Negative) 02/18/17 Unknown Urine Nitrite Neg (Negative) 02/18/17 Unknown Urine Bilirubin Neg (Negative) 02/18/17 Unknown Urine Urobilinogen < 2.0 mg/dL (<2.0) 02/18/17 Unknown Ur Leukocyte Esterase Neg (Negative) 02/18/17 Unknown Urine WBC (Auto) 1.0 /HPF (0.0-6.0) 02/18/17 Unknown Urine RBC (Auto) 1.0 /HPF (0.0-6.0) 02/18/17 Unknown U Epithel Cells (Auto) 3.0 /HPF (0-13.0) 02/18/17 Unknown Urine Mucus Few /HPF 02/18/17 Unknown Salicylates < 0.3 mg/dL (2.8-20.0) L 02/18/17 11:30 Urine Opiates Screen Presumptive negative 02/18/17 Unknown Urine Methadone Screen Presumptive negative 02/18/17 Unknown Acetaminophen < 15.0 ug/mL (10.0-30.0) 02/18/17 11:30 Ur Barbiturates Screen Presumptive negative 02/18/17 Unknown Phenytoin 8.0 mg/L (10.0-20.0) L 02/28/17 05:35 Levetiracetam 15.1 mcg/mL 02/18/17 13:07 Ur Phencyclidine Scrn Presumptive negative 02/18/17 Unknown Ur Amphetamines Screen Presumptive negative 02/18/17 Unknown U Benzodiazepines Scrn Presumptive negative 02/18/17 Unknown Urine Cocaine Screen Presumptive negative 02/18/17 Unknown U Marijuana (THC) Screen Presumptive negative 02/18/17 Unknown Drugs of Abuse Note Disclamer 02/18/17 Unknown Plasma/Serum Alcohol < 0.01 gm% (0-0.07) 02/18/17 11:30
[2017-02-28] MEDS: ATIVAN IV PRN (16:15)
[2017-03-01] MEDS: ZOSYN/NS 4.5GM/100ML 4.5 GM/100 ML VIAL IV SCH ×2 (04:31→13:25)
[2017-03-01] MEDS: SYNTHROID FEEDTUBE SCH (05:21)
[2017-03-01] MEDS: DILANTIN FEEDTUBE SCH ×3 (05:21→21:05)
--- NOTE | 2017-03-01 09:45 | XRay Report ---
Single view chest: Compared to 02/25/17. History: Left breast followup. Findings: Borderline cardiomegaly. Stable support system. The previously noted density in the left lower lobe is not visualized and may be obscured by position of the heart. The right lung appears unremarkable. Impression: Findings as detailed above. Followup recommended.
[2017-03-01] MEDS: LOVENOX SUB-Q SCH (10:30)
[2017-03-01] MEDS: KEPPRA PO SCH ×2 (10:30→21:05)
[2017-03-01] MEDS: PEPCID PO SCH ×2 (10:30→21:05)
[2017-03-01] MEDS ORDERED: CATHFLO IV ONE (10:46)
[2017-03-01] MEDS ORDERED: WATER FOR INJ (PF) 10 ML ONE (11:04)
[2017-03-01 11:08] LABS: ISTAT Base Excess 1; ISTAT HCO3 24.7; ISTAT PCO2 36.4 (35-45); ISTAT PH 7.439 (7.35-7.45); ISTAT PO2 131 (80-105); ISTAT SO2 99; ISTAT TCO2 26
--- NOTE | 2017-03-01 11:23 | Consultation ---
History of Present Illness - Reason for Consult Consult date: 03/01/17 seizue - History of Present Illness last EEG shows marked impriovement and epileptiform discharges have ceased exam shows he is little more awake and responsive at least opens the eyes and moves left arm slightly Past History Past Medical History: other (unable to obtain) Past Surgical History: Other (unable to obtain) Social history: other (unable to obtain) Family history: other (unable to obtain) Medications and Allergies Allergies Allergy/AdvReac Type Severity Reaction Status Date / Time No Known Allergies Allergy Verified 10/24/13 04:08 Home Medications Medication Instructions Recorded Confirmed Last Taken Type Levothyroxine [Synthroid] 50 mcg PO QAM 05/26/16 02/18/17 02/17/17 History levETIRAcetam [Keppra TAB] 750 mg PO BID 05/26/16 02/18/17 02/17/17 History Clopidogrel [Plavix] 75 mg PO DAILY #30 tablet 06/03/16 02/18/17 02/17/17 Rx Simvastatin [Zocor TAB] 20 mg PO QHS 02/18/17 02/18/17 02/17/17 History Active Meds: Active Medications Acetaminophen (Tylenol) 650 mg FEEDTUBE Q6H PRN PRN Reason: Non Cardiac Pain or Temp>100.5 Last Admin: 02/22/17 08:57 Dose: 650 mg Albuterol (Proventil) 2.5 mg IH Q3HRT PRN PRN Reason: Shortness Of Breath Lipase/Protease/Amylase (Pancreaze Dr 10,500 Unit) 1 each FEEDTUBE PRN PRN PRN Reason: For Clogged Feeding Tube Enoxaparin Sodium (Lovenox) 40 mg SUB-Q QDAY@1000 NESSA Last Admin: 03/01/17 10:30 Dose: 40 mg Famotidine (Pepcid) 20 mg PO BID NESSA Last Admin: 03/01/17 10:30 Dose: 20 mg Hydrophilic Ointment (Vaseline Lip Therapy) 1 applic TP Q2HR PRN PRN Reason: Dry Lips Piperacillin Sod/Tazobactam Sod (Zosyn/Ns 4.5gm/100ml) 4.5 gm in 100 mls @ 200 mls/hr IV Q8H NESSA PRN Reason: Protocol Last Admin: 03/01/17 04:31 Dose: 200 mls/hr Levetiracetam (Keppra) 1,000 mg PO BID [facility] Last Admin: 03/01/17 10:30 Dose: 1,000 mg Levothyroxine Sodium (Synthroid) 25 mcg FEEDTUBE DAILY@0600 [facility] Last Admin: 03/01/17 05:21 Dose: 25 mcg Lorazepam (Ativan) 2 mg IV Q4H PRN PRN Reason: Seizures Last Admin: 02/28/17 16:15 Dose: 2 mg Multi-Ingred Cream/Lotion/Oil/Oint (Artificial Tears Ophth Oint) 1 applic OU Q4HR PRN PRN Reason: Dry Eye(s) Phenytoin (Dilantin) 125 mg FEEDTUBE Q8HR [facility] Last Admin: 03/01/17 05:21 Dose: 125 mg Simple Syrup (Simple Syrup) 15 ml FEEDTUBE PRN PRN PRN Reason: Hypoglycemia Simple Syrup (Simple Syrup) 30 ml FEEDTUBE PRN PRN PRN Reason: Hypoglycemia Sodium Bicarbonate (Sodium Bicarbonate) 325 mg FEEDTUBE PRN PRN PRN Reason: For Clogged Feeding Tube Exam - Constitutional Vitals: Temp Pulse Resp BP Pulse Ox 98.7 F 85 31 H 152/83 95 03/01/17 08:00 03/01/17 10:00 03/01/17 10:00 03/01/17 10:00 03/01/17 10:00 Results - Labs CBC & Chem 7: 02/28/17 05:35 02/28/17 05:35 Labs: Abnormal lab results 03/01/17 Range/Units 09:58 POC ABG pO2 131 H (80-105)
--- NOTE | 2017-03-01 12:36 | Progress Note ---
Assessment and Plan Assessment and plan: 71 YO Male with HTN, Seizure disorder, GERD, HLD, Bullous pemphigoid presents to ED for evaluation. Pt unable to provide history, but history taken from medical record, and ED staff, EMS run sheet, as well as patient family who is at bedside during exam and interview. Pt had two seizures as per EMS and was subsequently unresponsive. Pt seen and evaluated in ED, and found to be unresponsive and unable to protect airway with vomitus in oral pharynx with absent gag reflex. Pt intubated and placed on vent support. No reports of fever , chills, CP, Palpitations, NVD, recent ill contacts, trauma, or skin rashes. Acute respiratory failure with hypoxemia on mechanical ventilator greater than 96 hours * Continue to attempt to wean off ventilator. Patient will likely require trach and PEG, pulmonary input appreciated Status Epiliepticus * Neurology input appreciated, continue Keppra, continue Dilantin , continued propofol, we'll continue to taper off propofol as tolerated * Check Dilantin level daily * MRI brain shows No acute cranial abnormality, small vessel ischemic changes with cortical atrophic, chronic right MCA infarct. * Case discussed with neurologist, EEGs much improved, no epileptiform activity. Continue current doses of Keppra and Dilantin Aspiration pneumonitis * cw abx till 03/06 * tracheal aspirate culture is growing normal kevin YUDY-secondary to vasomotor nephropathy-resolved with IVF Hypernatremia resolved with IVF Hypokalemia-corrected * repleted and normalized DIASTOLIC CHF-CHRONIC. preserved EF, stable Subclinical Hypothyroidism * continue low dose synthroid Acute Metabolic encephalopathy likely secondary to seizure and postictal state, rx underlying cause * Guarded prognosis * Discussed with niece family member present in the room family friend present provided some information is noted. Case management on board, patient will likely require LTAC placement The high probability of a clinically significant, sudden or life threatening deterioration of the [Pulmonary, Neuro cardiac] system(s) required my full and direct attention, intervention and personal management. The aggregate critical care time was [35] minutes. This time is in addition to time spent performing reported procedures but includes the following: [x] Data Review and interpretation [x] Patient assessment and monitoring of vital signs [x] Documentation [x] Medication orders and management History Interval history: Patient remains intubated and sedated, he is on propofol drip Hospitalist Physical - Physical exam Narrative exam: General: no distress HEENT: MMM, EOMI cardiac: S1-S2 heard lungs: Ventilated breath sounds abdomen: soft, nontender, nondistended bowel sounds positive extremities: no edema clubbing or cyanosis Skin: no rash or lesion Neuro: Intubated and sedated - Constitutional Vitals: Temp Pulse Resp BP Pulse Ox 98.5 F 85 31 H 152/83 95 03/01/17 12:00 03/01/17 10:00 03/01/17 10:00 03/01/17 10:00 03/01/17 10:00 General appearance: Present: severe distress Results - Labs CBC & Chem 7: 02/28/17 05:35 02/28/17 05:35 Labs: Laboratory Last Values WBC 9.7 K/mm3 (4.5-11.0) 02/28/17 05:35 RBC 3.62 M/mm3 (3.65-5.03) L 02/28/17 05:35 Hgb 10.4 gm/dl (11.8-15.2) L 02/28/17 05:35 Hct 32.4 % (35.5-45.6) L 02/28/17 05:35 MCV 90 fl (84-94) 02/28/17 05:35 MCH 29 pg (28-32) 02/28/17 05:35 MCHC 32 % (32-34) 02/28/17 05:35 RDW 15.4 % (13.2-15.2) H 02/28/17 05:35 Plt Count 323 K/mm3 (140-440) 02/28/17 05:35 Lymph % (Auto) 24.1 % (13.4-35.0) 02/28/17 05:35 [place] % (Auto) 6.1 % (0.0-7.3) 02/28/17 05:35 Eos % (Auto) 2.6 % (0.0-4.3) 02/28/17 05:35 Baso % (Auto) 0.7 % (0.0-1.8) 02/28/17 05:35 Lymph # 2.3 K/mm3 (1.2-5.4) 02/28/17 05:35 [place] # 0.6 K/mm3 (0.0-0.8) 02/28/17 05:35 Eos # 0.3 K/mm3 (0.0-0.4) 02/28/17 05:35 Baso # 0.1 K/mm3 (0.0-0.1) 02/28/17 05:35 Add Manual Diff TNR 02/24/17 04:04 Seg Neutrophils % 66.5 % (40.0-70.0) 02/28/17 05:35 Seg Neutrophils # 6.4 K/mm3 (1.8-7.7) 02/28/17 05:35 POC ABG pH 7.439 (7.35-7.45) 03/01/17 09:58 POC ABG pCO2 36.4 (35-45) 03/01/17 09:58 POC ABG pO2 131 (80-105) H 03/01/17 09:58 POC ABG HCO3 24.7 03/01/17 09:58 POC ABG Total CO2 26 03/01/17 09:58 POC ABG O2 Sat 99 03/01/17 09:58 POC ABG Base Excess 1 03/01/17 09:58 FiO2 28 % 03/01/17 09:58 Sodium 135 mmol/L (137-145) L 02/28/17 05:35 Potassium 4.3 mmol/L (3.6-5.0) 02/28/17 05:35 Chloride 100.7 mmol/L (98-107) 02/28/17 05:35 Carbon Dioxide 22 mmol/L (22-30) 02/28/17 05:35 Anion Gap 17 mmol/L 02/28/17 05:35 BUN 16 mg/dL (9-20) 02/28/17 05:35 Creatinine 0.7 mg/dL (0.8-1.5) L 02/28/17 05:35 Estimated GFR > 60 ml/min 02/28/17 05:35 BUN/Creatinine Ratio 22.85 % 02/28/17 05:35 Glucose 107 mg/dL (75-100) H 02/28/17 05:35 POC Glucose 223 (70-105) H 02/18/17 10:54 Lactic Acid 1.70 mmol/L (0.7-2.0) 02/22/17 03:22 Calcium 8.3 mg/dL (8.4-10.2) L 02/28/17 05:35 Phosphorus 2.40 mg/dL (2.5-4.5) L 02/26/17 05:51 Magnesium 1.90 mg/dL (1.7-2.3) 02/27/17 05:40 Total Bilirubin 0.20 mg/dL (0.1-1.2) 02/20/17 05:07 AST 29 units/L (5-40) 02/20/17 05:07 ALT 29 units/L (7-56) 02/20/17 05:07 Alkaline Phosphatase 93 units/L (35-129) 02/20/17 05:07 Troponin T 0.073 ng/mL (0.00-0.029) H 02/18/17 11:30 Total Protein 6.3 g/dL (6.3-8.2) D 02/20/17 05:07 Albumin 2.6 g/dL (3.9-5) L 02/20/17 05:07 Albumin/Globulin Ratio 0.7 % 02/20/17 05:07 Triglycerides 136 mg/dL (2-149) 02/18/17 11:30 Cholesterol 192 mg/dL (50-199) 02/18/17 11:30 LDL Cholesterol Direct 126 mg/dL (50-130) 02/18/17 11:30 HDL Cholesterol 39 mg/dL (40-59) L 02/18/17 11:30 Cholesterol/HDL Ratio 4.92 % 02/18/17 11:30 TSH 6.350 mlU/mL (0.270-4.200) H 02/18/17 11:30 Free T4 1.15 ng/dL (0.76-1.46) 02/19/17 19:52 Urine Color Yellow (Yellow) 02/18/17 Unknown Urine Turbidity Clear (Clear) 02/18/17 Unknown Urine pH 5.0 (5.0-7.0) 02/18/17 Unknown Ur Specific [place] 1.018 (1.003-1.030) 02/18/17 Unknown Urine Protein <15 mg/dl mg/dL (Negative) 02/18/17 Unknown Urine Glucose (UA) Neg mg/dL (Negative) 02/18/17 Unknown Urine Ketones Neg mg/dL (Negative) 02/18/17 Unknown Urine Blood Neg (Negative) 02/18/17 Unknown Urine Nitrite Neg (Negative) 02/18/17 Unknown Urine Bilirubin Neg (Negative) 02/18/17 Unknown Urine Urobilinogen < 2.0 mg/dL (<2.0) 02/18/17 Unknown Ur Leukocyte Esterase Neg (Negative) 02/18/17 Unknown Urine WBC (Auto) 1.0 /HPF (0.0-6.0) 02/18/17 Unknown Urine RBC (Auto) 1.0 /HPF (0.0-6.0) 02/18/17 Unknown U Epithel Cells (Auto) 3.0 /HPF (0-13.0) 02/18/17 Unknown Urine Mucus Few /HPF 02/18/17 Unknown Salicylates < 0.3 mg/dL (2.8-20.0) L 02/18/17 11:30 Urine Opiates Screen Presumptive negative 02/18/17 Unknown Urine Methadone Screen Presumptive negative 02/18/17 Unknown Acetaminophen < 15.0 ug/mL (10.0-30.0) 02/18/17 11:30 Ur Barbiturates Screen Presumptive negative 02/18/17 Unknown Phenytoin 8.0 mg/L (10.0-20.0) L 02/28/17 05:35 Levetiracetam 15.1 mcg/mL 02/18/17 13:07 Ur Phencyclidine Scrn Presumptive negative 02/18/17 Unknown Ur Amphetamines Screen Presumptive negative 02/18/17 Unknown U Benzodiazepines Scrn Presumptive negative 02/18/17 Unknown Urine Cocaine Screen Presumptive negative 02/18/17 Unknown U Marijuana (THC) Screen Presumptive negative 02/18/17 Unknown Drugs of Abuse Note Disclamer 02/18/17 Unknown Plasma/Serum Alcohol < 0.01 gm% (0-0.07) 02/18/17 11:30
--- NOTE | 2017-03-01 13:26 | Progress Note ---
Assessment and Plan Seizure d/o - Status epilepticus, better. No electoconvulsive status per EEG report. See note up comments Acute resp. failure. Intubated. Found with RR 38, not tolerating SBT 10/5 cm H2O YUDY, better Hypernatremia. Controlled Aspiration pneumonia, improved. CXR some retrocardiac density Hx of R MCA CVA Lactic acidosis. Resolved Rec A/C mode Vt to 475 cc for KEANU Complete antibiotics Nutritional support Management per neurology recommendations SBT in am.Chest CT if unsuccessful ? Critical care time was 31 minutes of [id number] evaluation and coordination of care. Subjective Date of service: 03/01/17 Principal diagnosis: Acute resp. failure Interval history: Alert intubated, non verbal Objective Vital Signs - 12hr 03/01/17 03/01/17 03/01/17 02:00 03:00 04:00 Temperature 99.8 F H Pulse Rate 65 75 76 Pulse Rate [ 64 From Monitor] Respiratory 15 15 14 Rate Blood Pressure 126/68 133/73 137/78 O2 Sat by Pulse 98 98 98 Oximetry 03/01/17 03/01/17 03/01/17 04:33 05:00 06:00 Temperature Pulse Rate 71 69 77 Pulse Rate [ From Monitor] Respiratory 14 16 Rate Blood Pressure 137/78 141/75 151/81 O2 Sat by Pulse 100 99 98 Oximetry 03/01/17 03/01/17 03/01/17 07:00 07:32 08:00 Temperature 98.7 F Pulse Rate 77 75 81 Pulse Rate [ From Monitor] Respiratory 23 20 26 H Rate Blood Pressure 147/81 147/81 154/85 O2 Sat by Pulse 95 99 96 Oximetry 03/01/17 03/01/17 03/01/17 09:00 09:58 10:00 Temperature Pulse Rate 81 84 80 Pulse Rate [ From Monitor] Respiratory 25 H 30 H 31 H Rate Blood Pressure 164/81 156/91 152/83 O2 Sat by Pulse 93 99 95 Oximetry 03/01/17 12:00 Temperature 98.5 F Pulse Rate Pulse Rate [ From Monitor] Respiratory Rate Blood Pressure O2 Sat by Pulse Oximetry Constitutional: no acute distress, alert, other (not following commands) ENT: other (orally intubated) Neck: supple Effort: normal Ascultation: Bilateral: clear, diminished breath sounds, rhonchi (sporadic) Cardiovascular: regular rate and rhythm Gastrointestinal: normoactive bowel sounds, soft, non-tender Integumentary: normal Extremities: no cyanosis, pink and warm, edema Neurologic: other (opens eyes minimally, not moving extremities) Psychiatric: other (unable to assess) CBC and BMP: 02/28/17 05:35 02/28/17 05:35 ABG, PT/INR, D-dimer: ABG POC ABG pH 7.439 (7.35-7.45) 03/01/17 09:58 POC ABG pCO2 36.4 (35-45) 03/01/17 09:58 POC ABG pO2 131 (80-105) H 03/01/17 09:58 POC ABG HCO3 24.7 03/01/17 09:58 POC ABG Total CO2 26 03/01/17 09:58 POC ABG O2 Sat 99 03/01/17 09:58 Abnormal lab findings: Abnormal Labs 02/18/17 02/19/17 02/19/17 17:56 06:05 09:06 WBC RBC Hgb Hct RDW [place] % (Auto) POC ABG pH POC ABG pCO2 32.6 L POC ABG pO2 181 H 139 H Sodium Potassium Chloride Carbon Dioxide BUN Creatinine Glucose Lactic Acid 3.00 H* Calcium Phosphorus Albumin Phenytoin 02/19/17 02/19/17 02/20/17 11:59 11:59 05:07 WBC 11.3 H RBC Hgb 11.1 L Hct 34.6 L D RDW [place] % (Auto) POC ABG pH POC ABG pCO2 POC ABG pO2 Sodium Potassium Chloride Carbon Dioxide 18 L BUN Creatinine Glucose Lactic Acid 2.20 H* Calcium Phosphorus Albumin Phenytoin 02/20/17 02/20/17 02/20/17 05:07 06:41 09:58 WBC RBC Hgb Hct RDW [place] % (Auto) POC ABG pH 7.457 H POC ABG pCO2 32.3 L POC ABG pO2 134 H Sodium Potassium Chloride Carbon Dioxide 19 L BUN Creatinine Glucose Lactic Acid 2.70 H* Calcium Phosphorus Albumin 2.6 L Phenytoin 02/21/17 02/21/17 02/22/17 03:56 04:47 03:22 WBC RBC 3.62 L Hgb 10.6 L 11.1 L Hct 31.8 L 33.3 L RDW [place] % (Auto) POC ABG pH 7.513 H POC ABG pCO2 25.6 L POC ABG pO2 Sodium Potassium Chloride Carbon Dioxide BUN Creatinine Glucose Lactic Acid Calcium Phosphorus Albumin Phenytoin 02/22/17 02/22/17 02/23/17 03:22 04:33 05:49 WBC RBC Hgb Hct RDW [place] % (Auto) POC ABG pH 7.464 H POC ABG pCO2 32.8 L 33.0 L POC ABG pO2 112 H 71 L Sodium Potassium 3.3 L Chloride 107.8 H Carbon Dioxide 20 L BUN 21 H Creatinine Glucose 132 H Lactic Acid Calcium 8.1 L Phosphorus Albumin Phenytoin 02/23/17 02/23/17 02/24/17 06:15 06:15 04:04 WBC RBC Hgb Hct RDW 16.5 H [place] % (Auto) POC ABG pH POC ABG pCO2 POC ABG pO2 Sodium 150 H D Potassium 3.4 L Chloride 119.5 H Carbon Dioxide 18 L 18 L BUN 35 H Creatinine 0.6 L Glucose 143 H 109 H Lactic Acid Calcium 7.4 L 8.3 L Phosphorus 1.50 L Albumin Phenytoin 02/24/17 02/24/17 02/25/17 04:41 05:38 04:00 WBC RBC Hgb 11.0 L 11.0 L Hct 34.7 L 33.3 L RDW [place] % (Auto) POC ABG pH 7.460 H POC ABG pCO2 31.1 L POC ABG pO2 61 L Sodium Potassium Chloride Carbon Dioxide BUN Creatinine Glucose Lactic Acid Calcium Phosphorus Albumin Phenytoin 02/25/17 02/25/17 02/26/17 04:00 06:44 05:51 WBC RBC Hgb 10.6 L Hct 32.3 L RDW [place] % (Auto) POC ABG pH 7.475 H POC ABG pCO2 30.1 L POC ABG pO2 161 H Sodium Potassium Chloride Carbon Dioxide BUN Creatinine 0.7 L Glucose 123 H Lactic Acid Calcium 8.2 L Phosphorus Albumin Phenytoin 02/26/17 02/27/17 02/27/17 05:51 05:40 05:40 WBC RBC 3.57 L Hgb 10.2 L Hct 31.4 L RDW [place] % (Auto) 7.4 H POC ABG pH POC ABG pCO2 POC ABG pO2 Sodium 135 L Potassium Chloride Carbon Dioxide 18 L BUN Creatinine 0.7 L 0.7 L Glucose 125 H Lactic Acid Calcium 8.0 L 8.3 L Phosphorus 2.40 L Albumin Phenytoin 02/27/17 02/28/17 02/28/17 08:13 05:35 05:35 WBC RBC 3.62 L Hgb 10.4 L Hct 32.4 L RDW 15.4 H [place] % (Auto) POC ABG pH POC ABG pCO2 POC ABG pO2 107 H Sodium Potassium Chloride Carbon Dioxide BUN Creatinine Glucose Lactic Acid Calcium Phosphorus Albumin Phenytoin 8.0 L 02/28/17 03/01/17 05:35 09:58 WBC RBC Hgb Hct RDW [place] % (Auto) POC ABG pH POC ABG pCO2 POC ABG pO2 131 H Sodium 135 L Potassium Chloride Carbon Dioxide BUN Creatinine 0.7 L Glucose 107 H Lactic Acid Calcium 8.3 L Phosphorus Albumin Phenytoin
[2017-03-01] MEDS: ATIVAN IV PRN (15:43)
[2017-03-01] MEDS: LEVAQUIN 750MG/150ML 750 MG/150 ML BAG IV SCH (16:42)
[2017-03-02] MEDS: SYNTHROID FEEDTUBE SCH (05:09)
[2017-03-02] MEDS: DILANTIN FEEDTUBE SCH ×3 (05:09→22:20)
[2017-03-02] MEDS: LEVAQUIN 750MG/150ML 750 MG/150 ML BAG IV SCH (09:58)
[2017-03-02] MEDS: PEPCID PO SCH ×2 (09:59→22:20)
[2017-03-02] MEDS: LOVENOX SUB-Q SCH (09:59)
[2017-03-02] MEDS: KEPPRA PO SCH ×2 (09:59→22:20)
--- NOTE | 2017-03-02 10:37 | Progress Note ---
Assessment and Plan Assessment and plan: 71 YO Male with HTN, Seizure disorder, GERD, HLD, Bullous pemphigoid presents to ED for evaluation. Pt unable to provide history, but history taken from medical record, and ED staff, EMS run sheet, as well as patient family who is at bedside during exam and interview. Pt had two seizures as per EMS and was subsequently unresponsive. Pt seen and evaluated in ED, and found to be unresponsive and unable to protect airway with vomitus in oral pharynx with absent gag reflex. Pt intubated and placed on vent support. No reports of fever , chills, CP, Palpitations, NVD, recent ill contacts, trauma, or skin rashes. Acute respiratory failure with hypoxemia on mechanical ventilator greater than 96 hours * Continue to attempt to wean off ventilator. Patient will likely require trach and PEG, pulmonary input appreciated Status Epiliepticus * Neurology input appreciated, continue Keppra, continue Dilantin , continued propofol, we'll continue to taper off propofol as tolerated * Check Dilantin level daily * MRI brain shows No acute cranial abnormality, small vessel ischemic changes with cortical atrophic, chronic right MCA infarct. * Case discussed with neurologist, EEGs much improved, no epileptiform activity. Continue current doses of Keppra and Dilantin Aspiration pneumonitis * cw abx till 03/06 * tracheal aspirate culture is growing normal kevin YUDY-secondary to vasomotor nephropathy-resolved with IVF Hypernatremia resolved with IVF Hypokalemia-corrected * repleted and normalized DIASTOLIC CHF-CHRONIC. preserved EF, stable Subclinical Hypothyroidism * continue low dose synthroid Acute Metabolic encephalopathy likely secondary to seizure and postictal state, rx underlying cause * Guarded prognosis * Discussed with niece family member present in the room family friend present provided some information is noted. Case management on board, patient will likely require LTAC placement The high probability of a clinically significant, sudden or life threatening deterioration of the [Pulmonary, Neuro cardiac] system(s) required my full and direct attention, intervention and personal management. The aggregate critical care time was [35] minutes. This time is in addition to time spent performing reported procedures but includes the following: [x] Data Review and interpretation [x] Patient assessment and monitoring of vital signs [x] Documentation [x] Medication orders and management History Interval history: Patient remains intubated and sedated, he is on propofol drip Hospitalist Physical - Physical exam Narrative exam: General: no distress HEENT: MMM, EOMI cardiac: S1-S2 heard lungs: Ventilated breath sounds abdomen: soft, nontender, nondistended bowel sounds positive extremities: no edema clubbing or cyanosis Skin: no rash or lesion Neuro: Intubated and sedated, has spontaneos movements of his extremities - Constitutional Vitals: Temp Pulse Resp BP Pulse Ox 98.9 F 88 15 166/97 94 03/02/17 08:00 03/02/17 10:00 03/02/17 10:00 03/02/17 10:00 03/02/17 10:00 General appearance: Present: severe distress Results - Labs CBC & Chem 7: 03/02/17 11:03 03/02/17 11:03 Labs: Laboratory Last Values WBC 9.7 K/mm3 (4.5-11.0) 02/28/17 05:35 RBC 3.62 M/mm3 (3.65-5.03) L 02/28/17 05:35 Hgb 10.4 gm/dl (11.8-15.2) L 02/28/17 05:35 Hct 32.4 % (35.5-45.6) L 02/28/17 05:35 MCV 90 fl (84-94) 02/28/17 05:35 MCH 29 pg (28-32) 02/28/17 05:35 MCHC 32 % (32-34) 02/28/17 05:35 RDW 15.4 % (13.2-15.2) H 02/28/17 05:35 Plt Count 323 K/mm3 (140-440) 02/28/17 05:35 Lymph % (Auto) 24.1 % (13.4-35.0) 02/28/17 05:35 [place] % (Auto) 6.1 % (0.0-7.3) 02/28/17 05:35 Eos % (Auto) 2.6 % (0.0-4.3) 02/28/17 05:35 Baso % (Auto) 0.7 % (0.0-1.8) 02/28/17 05:35 Lymph # 2.3 K/mm3 (1.2-5.4) 02/28/17 05:35 [place] # 0.6 K/mm3 (0.0-0.8) 02/28/17 05:35 Eos # 0.3 K/mm3 (0.0-0.4) 02/28/17 05:35 Baso # 0.1 K/mm3 (0.0-0.1) 02/28/17 05:35 Add Manual Diff TNR 02/24/17 04:04 Seg Neutrophils % 66.5 % (40.0-70.0) 02/28/17 05:35 Seg Neutrophils # 6.4 K/mm3 (1.8-7.7) 02/28/17 05:35 POC ABG pH 7.439 (7.35-7.45) 03/01/17 09:58 POC ABG pCO2 36.4 (35-45) 03/01/17 09:58 POC ABG pO2 131 (80-105) H 03/01/17 09:58 POC ABG HCO3 24.7 03/01/17 09:58 POC ABG Total CO2 26 03/01/17 09:58 POC ABG O2 Sat 99 03/01/17 09:58 POC ABG Base Excess 1 03/01/17 09:58 FiO2 28 % 03/01/17 09:58 Sodium 135 mmol/L (137-145) L 02/28/17 05:35 Potassium 4.3 mmol/L (3.6-5.0) 02/28/17 05:35 Chloride 100.7 mmol/L (98-107) 02/28/17 05:35 Carbon Dioxide 22 mmol/L (22-30) 02/28/17 05:35 Anion Gap 17 mmol/L 02/28/17 05:35 BUN 16 mg/dL (9-20) 02/28/17 05:35 Creatinine 0.7 mg/dL (0.8-1.5) L 02/28/17 05:35 Estimated GFR > 60 ml/min 02/28/17 05:35 BUN/Creatinine Ratio 22.85 % 02/28/17 05:35 Glucose 107 mg/dL (75-100) H 02/28/17 05:35 POC Glucose 223 (70-105) H 02/18/17 10:54 Lactic Acid 1.70 mmol/L (0.7-2.0) 02/22/17 03:22 Calcium 8.3 mg/dL (8.4-10.2) L 02/28/17 05:35 Phosphorus 2.40 mg/dL (2.5-4.5) L 02/26/17 05:51 Magnesium 1.90 mg/dL (1.7-2.3) 02/27/17 05:40 Total Bilirubin 0.20 mg/dL (0.1-1.2) 02/20/17 05:07 AST 29 units/L (5-40) 02/20/17 05:07 ALT 29 units/L (7-56) 02/20/17 05:07 Alkaline Phosphatase 93 units/L (35-129) 02/20/17 05:07 Troponin T 0.073 ng/mL (0.00-0.029) H 02/18/17 11:30 Total Protein 6.3 g/dL (6.3-8.2) D 02/20/17 05:07 Albumin 2.6 g/dL (3.9-5) L 02/20/17 05:07 Albumin/Globulin Ratio 0.7 % 02/20/17 05:07 Triglycerides 136 mg/dL (2-149) 02/18/17 11:30 Cholesterol 192 mg/dL (50-199) 02/18/17 11:30 LDL Cholesterol Direct 126 mg/dL (50-130) 02/18/17 11:30 HDL Cholesterol 39 mg/dL (40-59) L 02/18/17 11:30 Cholesterol/HDL Ratio 4.92 % 02/18/17 11:30 TSH 6.350 mlU/mL (0.270-4.200) H 02/18/17 11:30 Free T4 1.15 ng/dL (0.76-1.46) 02/19/17 19:52 Urine Color Yellow (Yellow) 02/18/17 Unknown Urine Turbidity Clear (Clear) 02/18/17 Unknown Urine pH 5.0 (5.0-7.0) 02/18/17 Unknown Ur Specific [place] 1.018 (1.003-1.030) 02/18/17 Unknown Urine Protein <15 mg/dl mg/dL (Negative) 02/18/17 Unknown Urine Glucose (UA) Neg mg/dL (Negative) 02/18/17 Unknown Urine Ketones Neg mg/dL (Negative) 02/18/17 Unknown Urine Blood Neg (Negative) 02/18/17 Unknown Urine Nitrite Neg (Negative) 02/18/17 Unknown Urine Bilirubin Neg (Negative) 02/18/17 Unknown Urine Urobilinogen < 2.0 mg/dL (<2.0) 02/18/17 Unknown Ur Leukocyte Esterase Neg (Negative) 02/18/17 Unknown Urine WBC (Auto) 1.0 /HPF (0.0-6.0) 02/18/17 Unknown Urine RBC (Auto) 1.0 /HPF (0.0-6.0) 02/18/17 Unknown U Epithel Cells (Auto) 3.0 /HPF (0-13.0) 02/18/17 Unknown Urine Mucus Few /HPF 02/18/17 Unknown Salicylates < 0.3 mg/dL (2.8-20.0) L 02/18/17 11:30 Urine Opiates Screen Presumptive negative 02/18/17 Unknown Urine Methadone Screen Presumptive negative 02/18/17 Unknown Acetaminophen < 15.0 ug/mL (10.0-30.0) 02/18/17 11:30 Ur Barbiturates Screen Presumptive negative 02/18/17 Unknown Phenytoin 6.7 mg/L (10.0-20.0) L 03/02/17 05:13 Levetiracetam 15.1 mcg/mL 02/18/17 13:07 Ur Phencyclidine Scrn Presumptive negative 02/18/17 Unknown Ur Amphetamines Screen Presumptive negative 02/18/17 Unknown U Benzodiazepines Scrn Presumptive negative 02/18/17 Unknown Urine Cocaine Screen Presumptive negative 02/18/17 Unknown U Marijuana (THC) Screen Presumptive negative 02/18/17 Unknown Drugs of Abuse Note Disclamer 02/18/17 Unknown Plasma/Serum Alcohol < 0.01 gm% (0-0.07) 02/18/17 11:30 - Imaging and Cardiology Chest x-ray: image reviewed (resolving left infiltrate)
[2017-03-02] MEDS ORDERED: APRESOLINE IV PRN (10:59)
[2017-03-02 11:14] LABS: Hematocrit 32.7 % (35.5-45.6); Hemoglobin 10.6 gm/dl (11.8-15.2); Mean Corpuscular HGB Conc 32 % (32-34); Mean Corpuscular Hemoglobin 29 pg (28-32); Mean Corpuscular Volume 88 fl (84-94); Platelet Count 376 K/mm3 (140-440); Red Cell Distribution Width 15.6 % (13.2-15.2); White Blood Count 8.7 K/mm3 (4.5-11.0)
--- NOTE | 2017-03-02 11:15 | XRay Report ---
PORTABLE CHEST INDICATION: Follow up respiratory failure. COMPARISON: Yesterday. FINDINGS: Portable, frontal chest radiograph, 10:28 AM, 03/02/2017 demonstrates poorer inspiration with mild exaggerated, though grossly stable cardiomediastinal silhouette. Improved left lung base aeration with mild atelectasis. Stable supporting devices, EKG leads and demineralized bones. CONCLUSION: Improving left basilar opacity, as described. Thank you for the opportunity to participate in this patient's care.
--- NOTE | 2017-03-02 11:24 | Progress Note ---
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 1. Continue Anti-epileptic drugs 2. Tube feeds 3. DVT prophylaxis 4. Check labs today 5. Follow up stat CXR, stable 6. May need bronch 7. PRN hydralazine for blood pressure CCT 31 minutes Subjective Date of service: 03/02/17 Principal diagnosis: Acute resp. failure Interval history: Eyes open but not following commands. No family at bedside. Tolerating PSV Objective Vital Signs - 12hr 03/02/17 03/02/17 03/02/17 00:00 00:11 01:00 Temperature 98.8 F Pulse Rate 89 83 83 Pulse Rate [ From Monitor] Respiratory 14 14 Rate Blood Pressure 137/92 137/92 139/88 O2 Sat by Pulse 98 99 99 Oximetry 03/02/17 03/02/17 03/02/17 02:00 03:00 04:00 Temperature 99.0 F Pulse Rate 78 82 77 Pulse Rate [ 100 H From Monitor] Respiratory 14 15 15 Rate Blood Pressure 155/86 155/86 150/83 O2 Sat by Pulse 97 99 99 Oximetry 03/02/17 03/02/17 03/02/17 04:21 05:00 06:01 Temperature Pulse Rate 85 88 93 H Pulse Rate [ From Monitor] Respiratory 14 28 H Rate Blood Pressure 150/83 150/83 160/88 O2 Sat by Pulse 99 100 93 Oximetry 03/02/17 03/02/17 03/02/17 07:00 08:00 09:00 Temperature 98.9 F Pulse Rate 89 92 H 82 Pulse Rate [ From Monitor] Respiratory 29 H 29 H 28 H Rate Blood Pressure 166/95 168/96 149/89 O2 Sat by Pulse 94 94 93 Oximetry 03/02/17 03/02/17 03/02/17 09:24 10:00 11:15 Temperature Pulse Rate 98 H 94 H 79 Pulse Rate [ From Monitor] Respiratory 15 Rate Blood Pressure 149/89 166/97 133/80 O2 Sat by Pulse 100 94 98 Oximetry Constitutional: no acute distress, alert, other (not following commands) ENT: other (orally intubated) Neck: supple Effort: normal Ascultation: Bilateral: clear, diminished breath sounds, rhonchi (sporadic), other (coarse BS bilaterally) Cardiovascular: regular rate and rhythm Gastrointestinal: normoactive bowel sounds, soft, non-tender Integumentary: normal Extremities: no cyanosis, pink and warm, edema Neurologic: other (opens eyes minimally, not moving extremities) Psychiatric: other (unable to assess) CBC and BMP: 03/02/17 11:03 02/28/17 05:35 ABG, PT/INR, D-dimer: ABG POC ABG pH 7.439 (7.35-7.45) 03/01/17 09:58 POC ABG pCO2 36.4 (35-45) 03/01/17 09:58 POC ABG pO2 131 (80-105) H 03/01/17 09:58 POC ABG HCO3 24.7 03/01/17 09:58 POC ABG Total CO2 26 03/01/17 09:58 POC ABG O2 Sat 99 03/01/17 09:58 Abnormal lab findings: Abnormal Labs 02/18/17 02/19/17 02/19/17 17:56 06:05 09:06 WBC RBC Hgb Hct RDW [place] % (Auto) POC ABG pH POC ABG pCO2 32.6 L POC ABG pO2 181 H 139 H Sodium Potassium Chloride Carbon Dioxide BUN Creatinine Glucose Lactic Acid 3.00 H* Calcium Phosphorus Albumin Phenytoin 02/19/17 02/19/17 02/20/17 11:59 11:59 05:07 WBC 11.3 H RBC Hgb 11.1 L Hct 34.6 L D RDW [place] % (Auto) POC ABG pH POC ABG pCO2 POC ABG pO2 Sodium Potassium Chloride Carbon Dioxide 18 L BUN Creatinine Glucose Lactic Acid 2.20 H* Calcium Phosphorus Albumin Phenytoin 02/20/17 02/20/17 02/20/17 05:07 06:41 09:58 WBC RBC Hgb Hct RDW [place] % (Auto) POC ABG pH 7.457 H POC ABG pCO2 32.3 L POC ABG pO2 134 H Sodium Potassium Chloride Carbon Dioxide 19 L BUN Creatinine Glucose Lactic Acid 2.70 H* Calcium Phosphorus Albumin 2.6 L Phenytoin 02/21/17 02/21/17 02/22/17 03:56 04:47 03:22 WBC RBC 3.62 L Hgb 10.6 L 11.1 L Hct 31.8 L 33.3 L RDW [place] % (Auto) POC ABG pH 7.513 H POC ABG pCO2 25.6 L POC ABG pO2 Sodium Potassium Chloride Carbon Dioxide BUN Creatinine Glucose Lactic Acid Calcium Phosphorus Albumin Phenytoin 02/22/17 02/22/17 02/23/17 03:22 04:33 05:49 WBC RBC Hgb Hct RDW [place] % (Auto) POC ABG pH 7.464 H POC ABG pCO2 32.8 L 33.0 L POC ABG pO2 112 H 71 L Sodium Potassium 3.3 L Chloride 107.8 H Carbon Dioxide 20 L BUN 21 H Creatinine Glucose 132 H Lactic Acid Calcium 8.1 L Phosphorus Albumin Phenytoin 02/23/17 02/23/17 02/24/17 06:15 06:15 04:04 WBC RBC Hgb Hct RDW 16.5 H [place] % (Auto) POC ABG pH POC ABG pCO2 POC ABG pO2 Sodium 150 H D Potassium 3.4 L Chloride 119.5 H Carbon Dioxide 18 L 18 L BUN 35 H Creatinine 0.6 L Glucose 143 H 109 H Lactic Acid Calcium 7.4 L 8.3 L Phosphorus 1.50 L Albumin Phenytoin 02/24/17 02/24/17 02/25/17 04:41 05:38 04:00 WBC RBC Hgb 11.0 L 11.0 L Hct 34.7 L 33.3 L RDW [place] % (Auto) POC ABG pH 7.460 H POC ABG pCO2 31.1 L POC ABG pO2 61 L Sodium Potassium Chloride Carbon Dioxide BUN Creatinine Glucose Lactic Acid Calcium Phosphorus Albumin Phenytoin 02/25/17 02/25/17 02/26/17 04:00 06:44 05:51 WBC RBC Hgb 10.6 L Hct 32.3 L RDW [place] % (Auto) POC ABG pH 7.475 H POC ABG pCO2 30.1 L POC ABG pO2 161 H Sodium Potassium Chloride Carbon Dioxide BUN Creatinine 0.7 L Glucose 123 H Lactic Acid Calcium 8.2 L Phosphorus Albumin Phenytoin 02/26/17 02/27/17 02/27/17 05:51 05:40 05:40 WBC RBC 3.57 L Hgb 10.2 L Hct 31.4 L RDW [place] % (Auto) 7.4 H POC ABG pH POC ABG pCO2 POC ABG pO2 Sodium 135 L Potassium Chloride Carbon Dioxide 18 L BUN Creatinine 0.7 L 0.7 L Glucose 125 H Lactic Acid Calcium 8.0 L 8.3 L Phosphorus 2.40 L Albumin Phenytoin 02/27/17 02/28/17 02/28/17 08:13 05:35 05:35 WBC RBC 3.62 L Hgb 10.4 L Hct 32.4 L RDW 15.4 H [place] % (Auto) POC ABG pH POC ABG pCO2 POC ABG pO2 107 H Sodium Potassium Chloride Carbon Dioxide BUN Creatinine Glucose Lactic Acid Calcium Phosphorus Albumin Phenytoin 8.0 L 02/28/17 03/01/17 03/01/17 05:35 09:58 12:59 WBC RBC Hgb Hct RDW [place] % (Auto) POC ABG pH POC ABG pCO2 POC ABG pO2 131 H Sodium 135 L Potassium Chloride Carbon Dioxide BUN Creatinine 0.7 L Glucose 107 H Lactic Acid Calcium 8.3 L Phosphorus Albumin Phenytoin 6.4 L 03/02/17 03/02/17 05:13 11:03 WBC RBC Hgb 10.6 L Hct 32.7 L RDW 15.6 H [place] % (Auto) POC ABG pH POC ABG pCO2 POC ABG pO2 Sodium Potassium Chloride Carbon Dioxide BUN Creatinine Glucose Lactic Acid Calcium Phosphorus Albumin Phenytoin 6.7 L
[2017-03-02 11:42] LABS: Anion Gap 19 mmol/L; BUN/Creatinine Ratio 21.42; Blood Urea Nitrogen 15 mg/dL (9-20); Calcium 8.3 mg/dL (8.4-10.2); Carbon Dioxide 20 mmol/L (22-30); Chloride 102.8 mmol/L (98-107); Glucose 136 mg/dL (75-100); Sodium 138 mmol/L (137-145)
[2017-03-02] MEDS ORDERED: SIMPLE SYRUP FEEDTUBE PRN ×2 (12:24)
[2017-03-02] MEDS ORDERED: SODIUM BICARBONATE FEEDTUBE PRN (12:24)
[2017-03-02] MEDS ORDERED: PANCREAZE DR 10,500 UNIT FEEDTUBE PRN (12:24)
[2017-03-02] MEDS: IMODIUM PO PRN ×2 (13:49→16:11)
[2017-03-03] MEDS: DILANTIN FEEDTUBE SCH ×3 (05:46→22:59)
[2017-03-03] MEDS: SYNTHROID FEEDTUBE SCH (05:46)
[2017-03-03 08:16] LABS: Hematocrit 32.7 % (35.5-45.6); Hemoglobin 10.7 gm/dl (11.8-15.2); Mean Corpuscular HGB Conc 33 % (32-34); Mean Corpuscular Hemoglobin 29 pg (28-32); Mean Corpuscular Volume 88 fl (84-94); Red Blood Count 3.73 M/mm3 (3.65-5.03); Red Cell Distribution Width 15.4 % (13.2-15.2)
[2017-03-03 08:20] LABS: Platelet Count 342 K/mm3 (140-440)
[2017-03-03 08:31] LABS: Anion Gap 17 mmol/L; Blood Urea Nitrogen 21 mg/dL (9-20); Calcium 8.6 mg/dL (8.4-10.2); Carbon Dioxide 23 mmol/L (22-30); Chloride 102.2 mmol/L (98-107); Glucose 104 mg/dL (75-100); Potassium 4.6 mmol/L (3.6-5.0); Sodium 138 mmol/L (137-145)
[2017-03-03] MEDS: PEPCID PO SCH ×2 (09:38→23:00)
[2017-03-03] MEDS: LOVENOX SUB-Q SCH (09:38)
[2017-03-03] MEDS: KEPPRA PO SCH ×2 (09:39→22:59)
--- NOTE | 2017-03-03 10:02 | Progress Note ---
Assessment and Plan Assessment and plan: 71 YO Male with HTN, Seizure disorder, GERD, HLD, Bullous pemphigoid presents to ED for evaluation. Pt unable to provide history, but history taken from medical record, and ED staff, EMS run sheet, as well as patient family who is at bedside during exam and interview. Pt had two seizures as per EMS and was subsequently unresponsive. Pt seen and evaluated in ED, and found to be unresponsive and unable to protect airway with vomitus in oral pharynx with absent gag reflex. Pt intubated and placed on vent support. No reports of fever , chills, CP, Palpitations, NVD, recent ill contacts, trauma, or skin rashes. Acute respiratory failure with hypoxemia on mechanical ventilator greater than 96 hours * Continue to attempt to wean off ventilator. Patient will likely require bronch, then trach and PEG, pulmonary input appreciated Status Epiliepticus * Neurology input appreciated, continue Keppra, continue Dilantin * Check Dilantin level daily * MRI brain shows No acute cranial abnormality, small vessel ischemic changes with cortical atrophic, chronic right MCA infarct. * Case discussed with neurologist, EEGs much improved, no epileptiform activity. Continue current doses of Keppra and Dilantin Aspiration pneumonitis * cw abx till 03/06 * tracheal aspirate culture is growing normal kevin, therefore non diagnostic YUDY-secondary to vasomotor nephropathy-resolved with IVF Hypernatremia resolved with IVF Hypokalemia-corrected * repleted and normalized DIASTOLIC CHF-CHRONIC. preserved EF, stable Subclinical Hypothyroidism * continue low dose synthroid Acute Metabolic encephalopathy likely secondary to seizure and postictal state, rx underlying cause * Guarded prognosis * Discussed with niece family member present in the room family friend present provided some information is noted. Case management on board, patient will likely require LTAC placement The high probability of a clinically significant, sudden or life threatening deterioration of the [Pulmonary, Neuro, cardiac] system(s) required my full and direct attention, intervention and personal management. The aggregate critical care time was [35] minutes. This time is in addition to time spent performing reported procedures but includes the following: [x] Data Review and interpretation [x] Patient assessment and monitoring of vital signs [x] Documentation [x] Medication orders and management History Interval history: Patient remains intubated and sedated, he has spontaneous movements, does not obey commands Hospitalist Physical - Physical exam Narrative exam: General: no distress HEENT: MMM, EOMI cardiac: S1-S2 heard lungs: Ventilated breath sounds abdomen: soft, nontender, nondistended bowel sounds positive extremities: no edema clubbing or cyanosis Skin: no rash or lesion Neuro: Intubated and sedated, has spontaneos movements of his extremities, does not obey commands - Constitutional Vitals: Temp Pulse Resp BP Pulse Ox 98.3 F 78 27 H 149/79 100 03/03/17 08:00 03/03/17 08:17 03/03/17 08:17 03/03/17 08:17 03/03/17 08:17 General appearance: Present: severe distress Results - Labs CBC & Chem 7: 03/03/17 08:09 03/03/17 08:09 Labs: Laboratory Last Values WBC 9.0 K/mm3 (4.5-11.0) 03/03/17 08:09 RBC 3.73 M/mm3 (3.65-5.03) 03/03/17 08:09 Hgb 10.7 gm/dl (11.8-15.2) L 03/03/17 08:09 Hct 32.7 % (35.5-45.6) L 03/03/17 08:09 MCV 88 fl (84-94) 03/03/17 08:09 MCH 29 pg (28-32) 03/03/17 08:09 MCHC 33 % (32-34) 03/03/17 08:09 RDW 15.4 % (13.2-15.2) H 03/03/17 08:09 Plt Count 342 K/mm3 (140-440) 03/03/17 08:09 Lymph % (Auto) 24.1 % (13.4-35.0) 02/28/17 05:35 [place] % (Auto) 6.1 % (0.0-7.3) 02/28/17 05:35 Eos % (Auto) 2.6 % (0.0-4.3) 02/28/17 05:35 Baso % (Auto) 0.7 % (0.0-1.8) 02/28/17 05:35 Lymph # 2.3 K/mm3 (1.2-5.4) 02/28/17 05:35 [place] # 0.6 K/mm3 (0.0-0.8) 02/28/17 05:35 Eos # 0.3 K/mm3 (0.0-0.4) 02/28/17 05:35 Baso # 0.1 K/mm3 (0.0-0.1) 02/28/17 05:35 Add Manual Diff TNR 02/24/17 04:04 Seg Neutrophils % 66.5 % (40.0-70.0) 02/28/17 05:35 Seg Neutrophils # 6.4 K/mm3 (1.8-7.7) 02/28/17 05:35 POC ABG pH 7.439 (7.35-7.45) 03/01/17 09:58 POC ABG pCO2 36.4 (35-45) 03/01/17 09:58 POC ABG pO2 131 (80-105) H 03/01/17 09:58 POC ABG HCO3 24.7 03/01/17 09:58 POC ABG Total CO2 26 03/01/17 09:58 POC ABG O2 Sat 99 03/01/17 09:58 POC ABG Base Excess 1 03/01/17 09:58 FiO2 28 % 03/01/17 09:58 Sodium 138 mmol/L (137-145) 03/03/17 08:09 Potassium 4.6 mmol/L (3.6-5.0) 03/03/17 08:09 Chloride 102.2 mmol/L (98-107) 03/03/17 08:09 Carbon Dioxide 23 mmol/L (22-30) 03/03/17 08:09 Anion Gap 17 mmol/L 03/03/17 08:09 BUN 21 mg/dL (9-20) H 03/03/17 08:09 Creatinine 0.7 mg/dL (0.8-1.5) L 03/03/17 08:09 Estimated GFR > 60 ml/min 03/03/17 08:09 BUN/Creatinine Ratio 30.00 % 03/03/17 08:09 Glucose 104 mg/dL (75-100) H 03/03/17 08:09 POC Glucose 223 (70-105) H 02/18/17 10:54 Lactic Acid 1.70 mmol/L (0.7-2.0) 02/22/17 03:22 Calcium 8.6 mg/dL (8.4-10.2) 03/03/17 08:09 Phosphorus 2.50 mg/dL (2.5-4.5) 03/02/17 11:03 Magnesium 1.80 mg/dL (1.7-2.3) 03/02/17 11:03 Total Bilirubin 0.20 mg/dL (0.1-1.2) 02/20/17 05:07 AST 29 units/L (5-40) 02/20/17 05:07 ALT 29 units/L (7-56) 02/20/17 05:07 Alkaline Phosphatase 93 units/L (35-129) 02/20/17 05:07 Troponin T 0.073 ng/mL (0.00-0.029) H 02/18/17 11:30 Total Protein 6.3 g/dL (6.3-8.2) D 02/20/17 05:07 Albumin 2.6 g/dL (3.9-5) L 02/20/17 05:07 Albumin/Globulin Ratio 0.7 % 02/20/17 05:07 Triglycerides 136 mg/dL (2-149) 02/18/17 11:30 Cholesterol 192 mg/dL (50-199) 02/18/17 11:30 LDL Cholesterol Direct 126 mg/dL (50-130) 02/18/17 11:30 HDL Cholesterol 39 mg/dL (40-59) L 02/18/17 11:30 Cholesterol/HDL Ratio 4.92 % 02/18/17 11:30 TSH 6.350 mlU/mL (0.270-4.200) H 02/18/17 11:30 Free T4 1.15 ng/dL (0.76-1.46) 02/19/17 19:52 Urine Color Yellow (Yellow) 02/18/17 Unknown Urine Turbidity Clear (Clear) 02/18/17 Unknown Urine pH 5.0 (5.0-7.0) 02/18/17 Unknown Ur Specific [place] 1.018 (1.003-1.030) 02/18/17 Unknown Urine Protein <15 mg/dl mg/dL (Negative) 02/18/17 Unknown Urine Glucose (UA) Neg mg/dL (Negative) 02/18/17 Unknown Urine Ketones Neg mg/dL (Negative) 02/18/17 Unknown Urine Blood Neg (Negative) 02/18/17 Unknown Urine Nitrite Neg (Negative) 02/18/17 Unknown Urine Bilirubin Neg (Negative) 02/18/17 Unknown Urine Urobilinogen < 2.0 mg/dL (<2.0) 02/18/17 Unknown Ur Leukocyte Esterase Neg (Negative) 02/18/17 Unknown Urine WBC (Auto) 1.0 /HPF (0.0-6.0) 02/18/17 Unknown Urine RBC (Auto) 1.0 /HPF (0.0-6.0) 02/18/17 Unknown U Epithel Cells (Auto) 3.0 /HPF (0-13.0) 02/18/17 Unknown Urine Mucus Few /HPF 02/18/17 Unknown Salicylates < 0.3 mg/dL (2.8-20.0) L 02/18/17 11:30 Urine Opiates Screen Presumptive negative 02/18/17 Unknown Urine Methadone Screen Presumptive negative 02/18/17 Unknown Acetaminophen < 15.0 ug/mL (10.0-30.0) 02/18/17 11:30 Ur Barbiturates Screen Presumptive negative 02/18/17 Unknown Phenytoin 6.7 mg/L (10.0-20.0) L 03/02/17 05:13 Levetiracetam 15.1 mcg/mL 02/18/17 13:07 Ur Phencyclidine Scrn Presumptive negative 02/18/17 Unknown Ur Amphetamines Screen Presumptive negative 02/18/17 Unknown U Benzodiazepines Scrn Presumptive negative 02/18/17 Unknown Urine Cocaine Screen Presumptive negative 02/18/17 Unknown U Marijuana (THC) Screen Presumptive negative 02/18/17 Unknown Drugs of Abuse Note Disclamer 02/18/17 Unknown Plasma/Serum Alcohol < 0.01 gm% (0-0.07) 02/18/17 11:30 - Imaging and Cardiology Chest x-ray: image reviewed (resolving infiltrate)
[2017-03-03] MEDS: IMODIUM PO PRN (10:18)
--- NOTE | 2017-03-03 11:16 | Progress Note ---
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 1. Continue Anti-epileptic drugs 2. Tube feeds 3. DVT prophylaxis 4. Placed consult to [place] for trach and peg given mental state, not able to extubate 5. BP improved with PRN meds 6. Discussed on IT rounds, will need placement. Most likely LTACH for further weaning capabilities CCT 31 minutes Subjective Date of service: 03/03/17 Principal diagnosis: Acute resp. failure Interval history: Tolerating PSV since 0600. Stable. No family at bedside. Objective Vital Signs - 12hr 03/02/17 03/02/17 03/03/17 23:27 23:56 00:00 Temperature 100 F H Pulse Rate 77 77 Pulse Rate [ 74 From Monitor] Respiratory 14 Rate Blood Pressure 150/83 151/83 O2 Sat by Pulse 99 100 Oximetry 03/03/17 03/03/17 03/03/17 01:00 02:00 02:13 Temperature Pulse Rate 78 73 74 Pulse Rate [ From Monitor] Respiratory 17 14 Rate Blood Pressure 151/81 149/77 O2 Sat by Pulse 98 98 Oximetry 03/03/17 03/03/17 03/03/17 03:00 04:00 04:05 Temperature 99.7 F H Pulse Rate 75 81 77 Pulse Rate [ From Monitor] Respiratory 14 13 Rate Blood Pressure 143/81 142/80 142/80 O2 Sat by Pulse 97 98 99 Oximetry 03/03/17 03/03/17 03/03/17 05:00 06:00 06:04 Temperature Pulse Rate 80 79 80 Pulse Rate [ From Monitor] Respiratory 20 25 H 13 Rate Blood Pressure 137/81 143/79 143/79 O2 Sat by Pulse 99 99 99 Oximetry 03/03/17 03/03/17 03/03/17 07:00 08:00 08:01 Temperature 98.3 F Pulse Rate 78 87 Pulse Rate [ From Monitor] Respiratory 25 H 21 Rate Blood Pressure 149/79 149/79 O2 Sat by Pulse 98 99 Oximetry 03/03/17 08:17 Temperature Pulse Rate 78 Pulse Rate [ From Monitor] Respiratory 27 H Rate Blood Pressure 149/79 O2 Sat by Pulse 100 Oximetry Constitutional: no acute distress, alert, other (not following commands) ENT: other (orally intubated) Neck: supple Effort: normal Ascultation: Bilateral: clear, diminished breath sounds, rhonchi (sporadic), other (coarse BS bilaterally) Cardiovascular: regular rate and rhythm Gastrointestinal: normoactive bowel sounds, soft, non-tender Integumentary: normal Extremities: no cyanosis, pink and warm, edema Neurologic: other (opens eyes minimally, not moving extremities) Psychiatric: other (unable to assess) CBC and BMP: 03/03/17 08:09 03/03/17 08:09 ABG, PT/INR, D-dimer: ABG POC ABG pH 7.439 (7.35-7.45) 03/01/17 09:58 POC ABG pCO2 36.4 (35-45) 03/01/17 09:58 POC ABG pO2 131 (80-105) H 03/01/17 09:58 POC ABG HCO3 24.7 03/01/17 09:58 POC ABG Total CO2 26 03/01/17 09:58 POC ABG O2 Sat 99 03/01/17 09:58 Abnormal lab findings: Abnormal Labs 02/18/17 02/19/17 02/19/17 17:56 06:05 09:06 WBC RBC Hgb Hct RDW [place] % (Auto) POC ABG pH POC ABG pCO2 32.6 L POC ABG pO2 181 H 139 H Sodium Potassium Chloride Carbon Dioxide BUN Creatinine Glucose Lactic Acid 3.00 H* Calcium Phosphorus Albumin Phenytoin 02/19/17 02/19/17 02/20/17 11:59 11:59 05:07 WBC 11.3 H RBC Hgb 11.1 L Hct 34.6 L D RDW [place] % (Auto) POC ABG pH POC ABG pCO2 POC ABG pO2 Sodium Potassium Chloride Carbon Dioxide 18 L BUN Creatinine Glucose Lactic Acid 2.20 H* Calcium Phosphorus Albumin Phenytoin 02/20/17 02/20/17 02/20/17 05:07 06:41 09:58 WBC RBC Hgb Hct RDW [place] % (Auto) POC ABG pH 7.457 H POC ABG pCO2 32.3 L POC ABG pO2 134 H Sodium Potassium Chloride Carbon Dioxide 19 L BUN Creatinine Glucose Lactic Acid 2.70 H* Calcium Phosphorus Albumin 2.6 L Phenytoin 02/21/17 02/21/17 02/22/17 03:56 04:47 03:22 WBC RBC 3.62 L Hgb 10.6 L 11.1 L Hct 31.8 L 33.3 L RDW [place] % (Auto) POC ABG pH 7.513 H POC ABG pCO2 25.6 L POC ABG pO2 Sodium Potassium Chloride Carbon Dioxide BUN Creatinine Glucose Lactic Acid Calcium Phosphorus Albumin Phenytoin 02/22/17 02/22/17 02/23/17 03:22 04:33 05:49 WBC RBC Hgb Hct RDW [place] % (Auto) POC ABG pH 7.464 H POC ABG pCO2 32.8 L 33.0 L POC ABG pO2 112 H 71 L Sodium Potassium 3.3 L Chloride 107.8 H Carbon Dioxide 20 L BUN 21 H Creatinine Glucose 132 H Lactic Acid Calcium 8.1 L Phosphorus Albumin Phenytoin 02/23/17 02/23/17 02/24/17 06:15 06:15 04:04 WBC RBC Hgb Hct RDW 16.5 H [place] % (Auto) POC ABG pH POC ABG pCO2 POC ABG pO2 Sodium 150 H D Potassium 3.4 L Chloride 119.5 H Carbon Dioxide 18 L 18 L BUN 35 H Creatinine 0.6 L Glucose 143 H 109 H Lactic Acid Calcium 7.4 L 8.3 L Phosphorus 1.50 L Albumin Phenytoin 02/24/17 02/24/17 02/25/17 04:41 05:38 04:00 WBC RBC Hgb 11.0 L 11.0 L Hct 34.7 L 33.3 L RDW [place] % (Auto) POC ABG pH 7.460 H POC ABG pCO2 31.1 L POC ABG pO2 61 L Sodium Potassium Chloride Carbon Dioxide BUN Creatinine Glucose Lactic Acid Calcium Phosphorus Albumin Phenytoin 02/25/17 02/25/17 02/26/17 04:00 06:44 05:51 WBC RBC Hgb 10.6 L Hct 32.3 L RDW [place] % (Auto) POC ABG pH 7.475 H POC ABG pCO2 30.1 L POC ABG pO2 161 H Sodium Potassium Chloride Carbon Dioxide BUN Creatinine 0.7 L Glucose 123 H Lactic Acid Calcium 8.2 L Phosphorus Albumin Phenytoin 02/26/17 02/27/17 02/27/17 05:51 05:40 05:40 WBC RBC 3.57 L Hgb 10.2 L Hct 31.4 L RDW [place] % (Auto) 7.4 H POC ABG pH POC ABG pCO2 POC ABG pO2 Sodium 135 L Potassium Chloride Carbon Dioxide 18 L BUN Creatinine 0.7 L 0.7 L Glucose 125 H Lactic Acid Calcium 8.0 L 8.3 L Phosphorus 2.40 L Albumin Phenytoin 02/27/17 02/28/17 02/28/17 08:13 05:35 05:35 WBC RBC 3.62 L Hgb 10.4 L Hct 32.4 L RDW 15.4 H [place] % (Auto) POC ABG pH POC ABG pCO2 POC ABG pO2 107 H Sodium Potassium Chloride Carbon Dioxide BUN Creatinine Glucose Lactic Acid Calcium Phosphorus Albumin Phenytoin 8.0 L 02/28/17 03/01/17 03/01/17 05:35 09:58 12:59 WBC RBC Hgb Hct RDW [place] % (Auto) POC ABG pH POC ABG pCO2 POC ABG pO2 131 H Sodium 135 L Potassium Chloride Carbon Dioxide BUN Creatinine 0.7 L Glucose 107 H Lactic Acid Calcium 8.3 L Phosphorus Albumin Phenytoin 6.4 L 03/02/17 03/02/17 03/02/17 05:13 11:03 11:03 WBC RBC Hgb 10.6 L Hct 32.7 L RDW 15.6 H [place] % (Auto) POC ABG pH POC ABG pCO2 POC ABG pO2 Sodium Potassium Chloride Carbon Dioxide 20 L BUN Creatinine 0.7 L Glucose 136 H Lactic Acid Calcium 8.3 L Phosphorus Albumin Phenytoin 6.7 L 03/03/17 03/03/17 08:09 08:09 WBC RBC Hgb 10.7 L Hct 32.7 L RDW 15.4 H [place] % (Auto) POC ABG pH POC ABG pCO2 POC ABG pO2 Sodium Potassium Chloride Carbon Dioxide BUN 21 H Creatinine 0.7 L Glucose 104 H Lactic Acid Calcium Phosphorus Albumin Phenytoin
--- NOTE | 2017-03-03 14:57 | Consultation ---
History of Present Illness Consult date: 03/03/17 Reason for consult: other (evaluation for trach and PEG) Requesting physician: PAIGE NIX - History of present illness History of present illness: This is a 71-year-old male with a history of seizure disorder who presented to the ER in status epilepticus and respiratory failure. Patient was intubated at that time and has been maintained on a ventilator. Due to his mental status and encephalopathy, he is been unable to be weaned from the ventilator. He is currently at 2 weeks post intubation and surgery has been asked to evaluate for tracheostomy and PEG. Past History Past Medical History: other (unable to obtain) Past Surgical History: Other (unable to obtain) Social history: other (unable to obtain) Family history: other (unable to obtain) Medications and Allergies Allergies Allergy/AdvReac Type Severity Reaction Status Date / Time No Known Allergies Allergy Verified 10/24/13 04:08 Home Medications Medication Instructions Recorded Confirmed Last Taken Type Levothyroxine [Synthroid] 50 mcg PO QAM 05/26/16 02/18/17 02/17/17 History levETIRAcetam [Keppra TAB] 750 mg PO BID 05/26/16 02/18/17 02/17/17 History Clopidogrel [Plavix] 75 mg PO DAILY #30 tablet 06/03/16 02/18/17 02/17/17 Rx Simvastatin [Zocor TAB] 20 mg PO QHS 02/18/17 02/18/17 02/17/17 History Active Meds: Active Medications Acetaminophen (Tylenol) 650 mg FEEDTUBE Q6H PRN PRN Reason: Non Cardiac Pain or Temp>100.5 Last Admin: 02/22/17 08:57 Dose: 650 mg Albuterol (Proventil) 2.5 mg IH Q3HRT PRN PRN Reason: Shortness Of Breath Lipase/Protease/Amylase (Pancreaze Dr 10,500 Unit) 1 each FEEDTUBE PRN PRN PRN Reason: For Clogged Feeding Tube Enoxaparin Sodium (Lovenox) 40 mg SUB-Q QDAY@1000 NESSA Last Admin: 03/03/17 09:38 Dose: 40 mg Famotidine (Pepcid) 20 mg PO BID [facility] Last Admin: 03/03/17 09:38 Dose: 20 mg Hydralazine HCl (Apresoline) 10 mg IV Q6HR PRN PRN Reason: SBP greater than 160 Hydrophilic Ointment (Vaseline Lip Therapy) 1 applic TP Q2HR PRN PRN Reason: Dry Lips Levetiracetam (Keppra) 1,000 mg PO BID [facility] Last Admin: 03/03/17 09:39 Dose: 1,000 mg Levothyroxine Sodium (Synthroid) 25 mcg FEEDTUBE DAILY@0600 [facility] Last Admin: 03/03/17 05:46 Dose: 25 mcg Loperamide HCl (Imodium) 2 mg PO Q2H PRN PRN Reason: Diarrhea Last Admin: 03/03/17 10:18 Dose: 2 mg Lorazepam (Ativan) 2 mg IV Q4H PRN PRN Reason: Seizures Last Admin: 03/01/17 15:43 Dose: 2 mg Multi-Ingred Cream/Lotion/Oil/Oint (Artificial Tears Ophth Oint) 1 applic OU Q4HR PRN PRN Reason: Dry Eye(s) Phenytoin (Dilantin) 125 mg FEEDTUBE Q8HR [facility] Last Admin: 03/03/17 13:59 Dose: 125 mg Simple Syrup (Simple Syrup) 15 ml FEEDTUBE PRN PRN PRN Reason: Hypoglycemia Simple Syrup (Simple Syrup) 30 ml FEEDTUBE PRN PRN PRN Reason: Hypoglycemia Sodium Bicarbonate (Sodium Bicarbonate) 325 mg FEEDTUBE PRN PRN PRN Reason: For Clogged Feeding Tube Exam Vital Signs Temp Pulse Resp BP Pulse Ox 98.7 F 132 H 24 144/82 92 02/18/17 10:55 02/18/17 10:55 02/18/17 10:55 02/18/17 10:55 02/18/17 10:55 - General physical appearance Positive: no distress - Respiratory Positive: normal respiratory effort - Cardiovascular Rhythm: regular - Abdomen Abdomen: Present: soft. Absent: tender - Neurologic Neurologic: other (eyes open but not responsive to verbal stimuli) Results - Labs 03/03/17 08:09 03/03/17 08:09 Abnormal lab results 03/03/17 03/03/17 Range/Units 08:09 08:09 Hgb 10.7 L (11.8-15.2) gm/dl Hct 32.7 L (35.5-45.6) % RDW 15.4 H (13.2-15.2) % BUN 21 H (9-20) mg/dL Creatinine 0.7 L (0.8-1.5) mg/dL Glucose 104 H (75-100) mg/dL Diabetes panel 03/03/17 Range/Units 08:09 Sodium 138 (137-145) mmol/L Potassium 4.6 (3.6-5.0) mmol/L Chloride 102.2 (98-107) mmol/L Carbon Dioxide 23 (22-30) mmol/L BUN 21 H (9-20) mg/dL Creatinine 0.7 L (0.8-1.5) mg/dL Glucose 104 H (75-100) mg/dL Calcium 8.6 (8.4-10.2) mg/dL Calcium panel 03/03/17 Range/Units 08:09 Calcium 8.6 (8.4-10.2) mg/dL Pituitary panel 03/03/17 Range/Units 08:09 Sodium 138 (137-145) mmol/L Potassium 4.6 (3.6-5.0) mmol/L Chloride 102.2 (98-107) mmol/L Carbon Dioxide 23 (22-30) mmol/L BUN 21 H (9-20) mg/dL Creatinine 0.7 L (0.8-1.5) mg/dL Glucose 104 H (75-100) mg/dL Calcium 8.6 (8.4-10.2) mg/dL Adrenal panel 03/03/17 Range/Units 08:09 Sodium 138 (137-145) mmol/L Potassium 4.6 (3.6-5.0) mmol/L Chloride 102.2 (98-107) mmol/L Carbon Dioxide 23 (22-30) mmol/L BUN 21 H (9-20) mg/dL Creatinine 0.7 L (0.8-1.5) mg/dL Glucose 104 H (75-100) mg/dL Calcium 8.6 (8.4-10.2) mg/dL Assessment and Plan Respiratory failure with prolonged vent dependence. Encephalopathy. History of seizure disorder. Malnutrition knee with need for nutritional support. Due to the patient's mental status he has been unable to be weaned from the ventilator. Currently he is set at 28% FiO2 with a PEEP of 5. He is been on the ventilator for approximately 2 weeks and now meets the criteria for conversion to tracheostomy. I discussed the risks and benefits of both percutaneous tracheostomy and PEG with the family. This is included not limited to bleeding, infection, malfunction, injury to adjacent structures, and need for additional surgery. Consent has been obtained. We'll plan for surgery as or time permits. Continue supportive care. We'll follow. Thank you for allowing us to participate in the treatment of this patient.
[2017-03-03] MEDS: ATIVAN IV PRN (23:00)
[2017-03-03] MEDS: TYLENOL FEEDTUBE PRN (23:32)
[2017-03-04] MEDS: ATIVAN IV PRN (05:15)
[2017-03-04] MEDS: DILANTIN FEEDTUBE SCH ×3 (05:47→21:51)
[2017-03-04] MEDS: SYNTHROID FEEDTUBE SCH (05:47)
[2017-03-04 07:26] LABS: Hematocrit 31.8 % (35.5-45.6); Hemoglobin 10.7 gm/dl (11.8-15.2); Mean Corpuscular HGB Conc 34 % (32-34); Mean Corpuscular Hemoglobin 30 pg (28-32); Mean Corpuscular Volume 87 fl (84-94); Platelet Count 384 K/mm3 (140-440); Red Blood Count 3.63 M/mm3 (3.65-5.03); Red Cell Distribution Width 15.1 % (13.2-15.2)
[2017-03-04 07:47] LABS: Anion Gap 18 mmol/L; BUN/Creatinine Ratio 31.42; Blood Urea Nitrogen 22 mg/dL (9-20); Calcium 8.3 mg/dL (8.4-10.2); Carbon Dioxide 21 mmol/L (22-30); Chloride 98.5 mmol/L (98-107); Glucose 109 mg/dL (75-100); Potassium 3.8 mmol/L (3.6-5.0); Sodium 134 mmol/L (137-145)
--- NOTE | 2017-03-04 09:46 | Progress Note ---
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 1. Continue Anti-epileptic drugs 2. Tube feeds 3. DVT prophylaxis 4. Surgery has seen and planning for trach and peg placement. 5. BP improved with PRN meds 6. Discussed on IT rounds, will need placement. Most likely LTACH for further weaning capabilities CCT 31 minutes Subjective Date of service: 03/04/17 Principal diagnosis: Acute resp. failure Interval history: No acute events overnight. This am on AC. Eyes not open. No family at bedside. Objective Vital Signs - 12hr 03/03/17 03/03/17 03/03/17 22:00 23:00 23:30 Temperature Pulse Rate 99 H 103 H 98 H Pulse Rate [ Apical] Respiratory 16 17 Rate Blood Pressure 175/85 166/99 157/83 O2 Sat by Pulse 95 96 99 Oximetry 03/03/17 03/03/17 03/04/17 23:32 23:50 00:00 Temperature 99.0 F Pulse Rate 97 H Pulse Rate [ Apical] Respiratory 18 16 Rate Blood Pressure 172/86 O2 Sat by Pulse 92 Oximetry 03/04/17 03/04/17 03/04/17 00:30 00:32 01:00 Temperature Pulse Rate 96 H Pulse Rate [ 98 H Apical] Respiratory 19 19 15 Rate Blood Pressure 175/84 O2 Sat by Pulse 93 Oximetry 03/04/17 03/04/17 03/04/17 02:00 03:00 04:00 Temperature 99.1 F Pulse Rate 97 H 82 101 H Pulse Rate [ 94 H Apical] Respiratory 20 14 22 Rate Blood Pressure 169/81 147/77 171/85 O2 Sat by Pulse 92 94 93 Oximetry 03/04/17 03/04/17 03/04/17 04:14 05:00 06:00 Temperature Pulse Rate 98 H 93 H 96 H Pulse Rate [ Apical] Respiratory 15 23 Rate Blood Pressure 171/85 170/76 156/75 O2 Sat by Pulse 98 92 94 Oximetry 03/04/17 03/04/17 03/04/17 06:05 07:00 08:00 Temperature 98.9 F Pulse Rate 98 H 89 86 Pulse Rate [ Apical] Respiratory 17 16 Rate Blood Pressure 176/70 149/78 134/71 O2 Sat by Pulse 99 99 Oximetry Constitutional: no acute distress, other (not following commands) ENT: other (orally intubated) Neck: supple Effort: normal Ascultation: Bilateral: clear, diminished breath sounds, rhonchi (sporadic), other (coarse BS bilaterally) Cardiovascular: regular rate and rhythm Gastrointestinal: normoactive bowel sounds, soft, non-tender Integumentary: normal Extremities: no cyanosis, pink and warm, edema Neurologic: other (opens eyes minimally, not moving extremities) Psychiatric: other (unable to assess) CBC and BMP: 03/04/17 07:16 03/04/17 07:16 ABG, PT/INR, D-dimer: ABG POC ABG pH 7.439 (7.35-7.45) 03/01/17 09:58 POC ABG pCO2 36.4 (35-45) 03/01/17 09:58 POC ABG pO2 131 (80-105) H 03/01/17 09:58 POC ABG HCO3 24.7 03/01/17 09:58 POC ABG Total CO2 26 03/01/17 09:58 POC ABG O2 Sat 99 03/01/17 09:58 Abnormal lab findings: Abnormal Labs 02/18/17 02/19/17 02/19/17 17:56 06:05 09:06 WBC RBC Hgb Hct RDW [place] % (Auto) POC ABG pH POC ABG pCO2 32.6 L POC ABG pO2 181 H 139 H Sodium Potassium Chloride Carbon Dioxide BUN Creatinine Glucose POC Glucose Lactic Acid 3.00 H* Calcium Phosphorus Albumin Phenytoin 02/19/17 02/19/17 02/20/17 11:59 11:59 05:07 WBC 11.3 H RBC Hgb 11.1 L Hct 34.6 L D RDW [place] % (Auto) POC ABG pH POC ABG pCO2 POC ABG pO2 Sodium Potassium Chloride Carbon Dioxide 18 L BUN Creatinine Glucose POC Glucose Lactic Acid 2.20 H* Calcium Phosphorus Albumin Phenytoin 02/20/17 02/20/17 02/20/17 05:07 06:41 09:58 WBC RBC Hgb Hct RDW [place] % (Auto) POC ABG pH 7.457 H POC ABG pCO2 32.3 L POC ABG pO2 134 H Sodium Potassium Chloride Carbon Dioxide 19 L BUN Creatinine Glucose POC Glucose Lactic Acid 2.70 H* Calcium Phosphorus Albumin 2.6 L Phenytoin 02/21/17 02/21/17 02/22/17 03:56 04:47 03:22 WBC RBC 3.62 L Hgb 10.6 L 11.1 L Hct 31.8 L 33.3 L RDW [place] % (Auto) POC ABG pH 7.513 H POC ABG pCO2 25.6 L POC ABG pO2 Sodium Potassium Chloride Carbon Dioxide BUN Creatinine Glucose POC Glucose Lactic Acid Calcium Phosphorus Albumin Phenytoin 02/22/17 02/22/17 02/23/17 03:22 04:33 05:49 WBC RBC Hgb Hct RDW [place] % (Auto) POC ABG pH 7.464 H POC ABG pCO2 32.8 L 33.0 L POC ABG pO2 112 H 71 L Sodium Potassium 3.3 L Chloride 107.8 H Carbon Dioxide 20 L BUN 21 H Creatinine Glucose 132 H POC Glucose Lactic Acid Calcium 8.1 L Phosphorus Albumin Phenytoin 02/23/17 02/23/17 02/24/17 06:15 06:15 04:04 WBC RBC Hgb Hct RDW 16.5 H [place] % (Auto) POC ABG pH POC ABG pCO2 POC ABG pO2 Sodium 150 H D Potassium 3.4 L Chloride 119.5 H Carbon Dioxide 18 L 18 L BUN 35 H Creatinine 0.6 L Glucose 143 H 109 H POC Glucose Lactic Acid Calcium 7.4 L 8.3 L Phosphorus 1.50 L Albumin Phenytoin 02/24/17 02/24/17 02/25/17 04:41 05:38 04:00 WBC RBC Hgb 11.0 L 11.0 L Hct 34.7 L 33.3 L RDW [place] % (Auto) POC ABG pH 7.460 H POC ABG pCO2 31.1 L POC ABG pO2 61 L Sodium Potassium Chloride Carbon Dioxide BUN Creatinine Glucose POC Glucose Lactic Acid Calcium Phosphorus Albumin Phenytoin 02/25/17 02/25/17 02/26/17 04:00 06:44 05:51 WBC RBC Hgb 10.6 L Hct 32.3 L RDW [place] % (Auto) POC ABG pH 7.475 H POC ABG pCO2 30.1 L POC ABG pO2 161 H Sodium Potassium Chloride Carbon Dioxide BUN Creatinine 0.7 L Glucose 123 H POC Glucose Lactic Acid Calcium 8.2 L Phosphorus Albumin Phenytoin 02/26/17 02/27/17 02/27/17 05:51 05:40 05:40 WBC RBC 3.57 L Hgb 10.2 L Hct 31.4 L RDW [place] % (Auto) 7.4 H POC ABG pH POC ABG pCO2 POC ABG pO2 Sodium 135 L Potassium Chloride Carbon Dioxide 18 L BUN Creatinine 0.7 L 0.7 L Glucose 125 H POC Glucose Lactic Acid Calcium 8.0 L 8.3 L Phosphorus 2.40 L Albumin Phenytoin 02/27/17 02/28/17 02/28/17 08:13 05:35 05:35 WBC RBC 3.62 L Hgb 10.4 L Hct 32.4 L RDW 15.4 H [place] % (Auto) POC ABG pH POC ABG pCO2 POC ABG pO2 107 H Sodium Potassium Chloride Carbon Dioxide BUN Creatinine Glucose POC Glucose Lactic Acid Calcium Phosphorus Albumin Phenytoin 8.0 L 02/28/17 03/01/17 03/01/17 05:35 09:58 12:59 WBC RBC Hgb Hct RDW [place] % (Auto) POC ABG pH POC ABG pCO2 POC ABG pO2 131 H Sodium 135 L Potassium Chloride Carbon Dioxide BUN Creatinine 0.7 L Glucose 107 H POC Glucose Lactic Acid Calcium 8.3 L Phosphorus Albumin Phenytoin 6.4 L 03/02/17 03/02/17 03/02/17 05:13 11:03 11:03 WBC RBC Hgb 10.6 L Hct 32.7 L RDW 15.6 H [place] % (Auto) POC ABG pH POC ABG pCO2 POC ABG pO2 Sodium Potassium Chloride Carbon Dioxide 20 L BUN Creatinine 0.7 L Glucose 136 H POC Glucose Lactic Acid Calcium 8.3 L Phosphorus Albumin Phenytoin 6.7 L 03/03/17 03/03/17 03/03/17 08:09 08:09 23:28 WBC RBC Hgb 10.7 L Hct 32.7 L RDW 15.4 H [place] % (Auto) POC ABG pH POC ABG pCO2 POC ABG pO2 Sodium Potassium Chloride Carbon Dioxide BUN 21 H Creatinine 0.7 L Glucose 104 H POC Glucose 119 H Lactic Acid Calcium Phosphorus Albumin Phenytoin 03/04/17 03/04/17 07:16 07:16 WBC RBC 3.63 L Hgb 10.7 L Hct 31.8 L RDW [place] % (Auto) POC ABG pH POC ABG pCO2 POC ABG pO2 Sodium 134 L Potassium Chloride Carbon Dioxide 21 L BUN 22 H Creatinine 0.7 L Glucose 109 H POC Glucose Lactic Acid Calcium 8.3 L Phosphorus Albumin Phenytoin
[2017-03-04] MEDS: HCTZ PO SCH (10:25)
[2017-03-04] MEDS: LOVENOX SUB-Q SCH (10:25)
[2017-03-04] MEDS: KEPPRA PO SCH ×2 (10:25→21:51)
[2017-03-04] MEDS: PEPCID PO SCH ×2 (10:25→21:51)
--- NOTE | 2017-03-04 10:46 | Progress Note ---
Assessment and Plan Assessment and plan: 71 YO Male with HTN, Seizure disorder, GERD, HLD, Bullous pemphigoid presents to ED for evaluation. Pt unable to provide history, but history taken from medical record, and ED staff, EMS run sheet, as well as patient family who is at bedside during exam and interview. Pt had two seizures as per EMS and was subsequently unresponsive. Pt seen and evaluated in ED, and found to be unresponsive and unable to protect airway with vomitus in oral pharynx with absent gag reflex. Pt intubated and placed on vent support. No reports of fever , chills, CP, Palpitations, NVD, recent ill contacts, trauma, or skin rashes. Acute respiratory failure with hypoxemia on mechanical ventilator greater than 96 hours * has failed weaning trials, patient is for trach and PEG, pulmonary input appreciated * Dr Weiner of surgery to schedule the procedure, his input is appreciated Status Epiliepticus * Neurology input appreciated, continue Keppra, continue Dilantin * Check Dilantin level daily * MRI brain shows No acute cranial abnormality, small vessel ischemic changes with cortical atrophic, chronic right MCA infarct. * Case discussed with neurologist, EEGs much improved, no epileptiform activity. Continue current doses of Keppra and Dilantin Aspiration pneumonitis * cw abx till 03/06 * tracheal aspirate culture is growing normal kevin, therefore non diagnostic YUDY-secondary to vasomotor nephropathy-resolved with IVF Hypernatremia resolved with IVF Hypokalemia-corrected * repleted and normalized DIASTOLIC CHF-CHRONIC. preserved EF, stable Subclinical Hypothyroidism * continue low dose synthroid Acute Metabolic encephalopathy likely secondary to seizure and postictal state, rx underlying cause * Guarded prognosis * Discussed with niece family member present in the room family friend present provided some information is noted. Case management on board, patient will likely require LTAC placement The high probability of a clinically significant, sudden or life threatening deterioration of the [Pulmonary, Neuro, cardiac] system(s) required my full and direct attention, intervention and personal management. The aggregate critical care time was [35] minutes. This time is in addition to time spent performing reported procedures but includes the following: [x] Data Review and interpretation [x] Patient assessment and monitoring of vital signs [x] Documentation [x] Medication orders and management History Interval history: Patient remains intubated and sedated, he has spontaneous movements, does not obey commands Hospitalist Physical - Physical exam Narrative exam: General: no distress HEENT: MMM, EOMI cardiac: S1-S2 heard lungs: Ventilated breath sounds abdomen: soft, nontender, nondistended bowel sounds positive extremities: no edema clubbing or cyanosis Skin: no rash or lesion Neuro: Intubated and sedated, has spontaneos movements of his extremities, does not obey commands - Constitutional Vitals: Temp Pulse Resp BP Pulse Ox 98.9 F 89 15 136/73 97 03/04/17 08:00 03/04/17 10:00 03/04/17 10:00 03/04/17 10:00 03/04/17 10:00 Results - Labs CBC & Chem 7: 03/04/17 07:16 03/04/17 07:16 Labs: Laboratory Last Values WBC 9.0 K/mm3 (4.5-11.0) 03/04/17 07:16 RBC 3.63 M/mm3 (3.65-5.03) L 03/04/17 07:16 Hgb 10.7 gm/dl (11.8-15.2) L 03/04/17 07:16 Hct 31.8 % (35.5-45.6) L 03/04/17 07:16 MCV 87 fl (84-94) 03/04/17 07:16 MCH 30 pg (28-32) 03/04/17 07:16 MCHC 34 % (32-34) 03/04/17 07:16 RDW 15.1 % (13.2-15.2) 03/04/17 07:16 Plt Count 384 K/mm3 (140-440) 03/04/17 07:16 Lymph % (Auto) 24.1 % (13.4-35.0) 02/28/17 05:35 [place] % (Auto) 6.1 % (0.0-7.3) 02/28/17 05:35 Eos % (Auto) 2.6 % (0.0-4.3) 02/28/17 05:35 Baso % (Auto) 0.7 % (0.0-1.8) 02/28/17 05:35 Lymph # 2.3 K/mm3 (1.2-5.4) 02/28/17 05:35 [place] # 0.6 K/mm3 (0.0-0.8) 02/28/17 05:35 Eos # 0.3 K/mm3 (0.0-0.4) 02/28/17 05:35 Baso # 0.1 K/mm3 (0.0-0.1) 02/28/17 05:35 Add Manual Diff TNR 02/24/17 04:04 Seg Neutrophils % 66.5 % (40.0-70.0) 02/28/17 05:35 Seg Neutrophils # 6.4 K/mm3 (1.8-7.7) 02/28/17 05:35 POC ABG pH 7.439 (7.35-7.45) 03/01/17 09:58 POC ABG pCO2 36.4 (35-45) 03/01/17 09:58 POC ABG pO2 131 (80-105) H 03/01/17 09:58 POC ABG HCO3 24.7 03/01/17 09:58 POC ABG Total CO2 26 03/01/17 09:58 POC ABG O2 Sat 99 03/01/17 09:58 POC ABG Base Excess 1 03/01/17 09:58 FiO2 28 % 03/01/17 09:58 Sodium 134 mmol/L (137-145) L 03/04/17 07:16 Potassium 3.8 mmol/L (3.6-5.0) 03/04/17 07:16 Chloride 98.5 mmol/L (98-107) 03/04/17 07:16 Carbon Dioxide 21 mmol/L (22-30) L 03/04/17 07:16 Anion Gap 18 mmol/L 03/04/17 07:16 BUN 22 mg/dL (9-20) H 03/04/17 07:16 Creatinine 0.7 mg/dL (0.8-1.5) L 03/04/17 07:16 Estimated GFR > 60 ml/min 03/04/17 07:16 BUN/Creatinine Ratio 31.42 % 03/04/17 07:16 Glucose 109 mg/dL (75-100) H 03/04/17 07:16 POC Glucose 119 (70-105) H 03/03/17 23:28 Lactic Acid 1.70 mmol/L (0.7-2.0) 02/22/17 03:22 Calcium 8.3 mg/dL (8.4-10.2) L 03/04/17 07:16 Phosphorus 2.50 mg/dL (2.5-4.5) 03/02/17 11:03 Magnesium 1.80 mg/dL (1.7-2.3) 03/02/17 11:03 Total Bilirubin 0.20 mg/dL (0.1-1.2) 02/20/17 05:07 AST 29 units/L (5-40) 02/20/17 05:07 ALT 29 units/L (7-56) 02/20/17 05:07 Alkaline Phosphatase 93 units/L (35-129) 02/20/17 05:07 Troponin T 0.073 ng/mL (0.00-0.029) H 02/18/17 11:30 Total Protein 6.3 g/dL (6.3-8.2) D 02/20/17 05:07 Albumin 2.6 g/dL (3.9-5) L 02/20/17 05:07 Albumin/Globulin Ratio 0.7 % 02/20/17 05:07 Triglycerides 136 mg/dL (2-149) 02/18/17 11:30 Cholesterol 192 mg/dL (50-199) 02/18/17 11:30 LDL Cholesterol Direct 126 mg/dL (50-130) 02/18/17 11:30 HDL Cholesterol 39 mg/dL (40-59) L 02/18/17 11:30 Cholesterol/HDL Ratio 4.92 % 02/18/17 11:30 TSH 6.350 mlU/mL (0.270-4.200) H 02/18/17 11:30 Free T4 1.15 ng/dL (0.76-1.46) 02/19/17 19:52 Urine Color Yellow (Yellow) 02/18/17 Unknown Urine Turbidity Clear (Clear) 02/18/17 Unknown Urine pH 5.0 (5.0-7.0) 02/18/17 Unknown Ur Specific [place] 1.018 (1.003-1.030) 02/18/17 Unknown Urine Protein <15 mg/dl mg/dL (Negative) 02/18/17 Unknown Urine Glucose (UA) Neg mg/dL (Negative) 02/18/17 Unknown Urine Ketones Neg mg/dL (Negative) 02/18/17 Unknown Urine Blood Neg (Negative) 02/18/17 Unknown Urine Nitrite Neg (Negative) 02/18/17 Unknown Urine Bilirubin Neg (Negative) 02/18/17 Unknown Urine Urobilinogen < 2.0 mg/dL (<2.0) 02/18/17 Unknown Ur Leukocyte Esterase Neg (Negative) 02/18/17 Unknown Urine WBC (Auto) 1.0 /HPF (0.0-6.0) 02/18/17 Unknown Urine RBC (Auto) 1.0 /HPF (0.0-6.0) 02/18/17 Unknown U Epithel Cells (Auto) 3.0 /HPF (0-13.0) 02/18/17 Unknown Urine Mucus Few /HPF 02/18/17 Unknown Salicylates < 0.3 mg/dL (2.8-20.0) L 02/18/17 11:30 Urine Opiates Screen Presumptive negative 02/18/17 Unknown Urine Methadone Screen Presumptive negative 02/18/17 Unknown Acetaminophen < 15.0 ug/mL (10.0-30.0) 02/18/17 11:30 Ur Barbiturates Screen Presumptive negative 02/18/17 Unknown Phenytoin 6.7 mg/L (10.0-20.0) L 03/02/17 05:13 Levetiracetam 15.1 mcg/mL 02/18/17 13:07 Ur Phencyclidine Scrn Presumptive negative 02/18/17 Unknown Ur Amphetamines Screen Presumptive negative 02/18/17 Unknown U Benzodiazepines Scrn Presumptive negative 02/18/17 Unknown Urine Cocaine Screen Presumptive negative 02/18/17 Unknown U Marijuana (THC) Screen Presumptive negative 02/18/17 Unknown Drugs of Abuse Note Disclamer 02/18/17 Unknown Plasma/Serum Alcohol < 0.01 gm% (0-0.07) 02/18/17 11:30
--- NOTE | 2017-03-04 15:04 | Progress Note ---
Assessment and Plan - Patient Problems (1) Acute respiratory failure with hypoxemia Current Visit: Yes Status: Acute Plan to address problem: Trach and PEG planned for Thursday Subjective Date of service: 03/04/17 Patient Reports: Positive: other (remains on vent) Objective Vital Signs - 12hr 03/04/17 03/04/17 03/04/17 04:00 04:14 05:00 Temperature 99.1 F Pulse Rate 101 H 98 H 93 H Pulse Rate [ 94 H Apical] Respiratory 22 15 Rate Blood Pressure 171/85 171/85 170/76 O2 Sat by Pulse 93 98 92 Oximetry 03/04/17 03/04/17 03/04/17 06:00 06:05 07:00 Temperature Pulse Rate 96 H 98 H 89 Pulse Rate [ Apical] Respiratory 23 17 Rate Blood Pressure 156/75 176/70 149/78 O2 Sat by Pulse 94 99 Oximetry 03/04/17 03/04/17 03/04/17 08:00 09:00 09:50 Temperature 98.9 F Pulse Rate 86 89 97 H Pulse Rate [ Apical] Respiratory 16 16 24 Rate Blood Pressure 134/71 132/73 136/73 O2 Sat by Pulse 99 98 97 Oximetry 03/04/17 03/04/17 03/04/17 10:00 11:00 12:00 Temperature Pulse Rate 89 87 97 H Pulse Rate [ Apical] Respiratory 15 32 H 29 H Rate Blood Pressure 136/73 131/72 146/77 O2 Sat by Pulse 97 97 93 Oximetry 03/04/17 13:00 Temperature Pulse Rate 100 H Pulse Rate [ Apical] Respiratory 24 Rate Blood Pressure 137/77 O2 Sat by Pulse 94 Oximetry - Neck trachea midline - Labs 03/04/17 07:16 03/04/17 07:16 Diabetes panel 03/04/17 Range/Units 07:16 Sodium 134 L (137-145) mmol/L Potassium 3.8 (3.6-5.0) mmol/L Chloride 98.5 (98-107) mmol/L Carbon Dioxide 21 L (22-30) mmol/L BUN 22 H (9-20) mg/dL Creatinine 0.7 L (0.8-1.5) mg/dL Glucose 109 H (75-100) mg/dL Calcium 8.3 L (8.4-10.2) mg/dL Calcium panel 03/04/17 Range/Units 07:16 Calcium 8.3 L (8.4-10.2) mg/dL Pituitary panel 03/04/17 Range/Units 07:16 Sodium 134 L (137-145) mmol/L Potassium 3.8 (3.6-5.0) mmol/L Chloride 98.5 (98-107) mmol/L Carbon Dioxide 21 L (22-30) mmol/L BUN 22 H (9-20) mg/dL Creatinine 0.7 L (0.8-1.5) mg/dL Glucose 109 H (75-100) mg/dL Calcium 8.3 L (8.4-10.2) mg/dL Adrenal panel 03/04/17 Range/Units 07:16 Sodium 134 L (137-145) mmol/L Potassium 3.8 (3.6-5.0) mmol/L Chloride 98.5 (98-107) mmol/L Carbon Dioxide 21 L (22-30) mmol/L BUN 22 H (9-20) mg/dL Creatinine 0.7 L (0.8-1.5) mg/dL Glucose 109 H (75-100) mg/dL Calcium 8.3 L (8.4-10.2) mg/dL
[2017-03-05 05:30] LABS: ISTAT Base Excess 2; ISTAT HCO3 25.7; ISTAT PCO2 36.7 (35-45); ISTAT PH 7.454 (7.35-7.45); ISTAT PO2 68 (80-105); ISTAT SO2 94; ISTAT TCO2 27
[2017-03-05] MEDS: DILANTIN FEEDTUBE SCH ×3 (06:09→21:57)
[2017-03-05] MEDS: SYNTHROID FEEDTUBE SCH (06:10)
[2017-03-05] MEDS: PEPCID PO SCH ×2 (09:09→21:58)
[2017-03-05] MEDS: HCTZ PO SCH (09:09)
[2017-03-05] MEDS: LOVENOX SUB-Q SCH (09:09)
[2017-03-05] MEDS: KEPPRA PO SCH ×2 (09:09→21:57)
--- NOTE | 2017-03-05 12:04 | Progress Note ---
Assessment and Plan Assessment and plan: 71 YO Male with HTN, Seizure disorder, GERD, HLD, Bullous pemphigoid presents to ED for evaluation. Pt unable to provide history, but history taken from medical record, and ED staff, EMS run sheet, as well as patient family who is at bedside during exam and interview. Pt had two seizures as per EMS and was subsequently unresponsive. Pt seen and evaluated in ED, and found to be unresponsive and unable to protect airway with vomitus in oral pharynx with absent gag reflex. Pt intubated and placed on vent support. No reports of fever , chills, CP, Palpitations, NVD, recent ill contacts, trauma, or skin rashes. Acute respiratory failure with hypoxemia on mechanical ventilator greater than 96 hours * has failed weaning trials, patient is for trach and PEG, pulmonary input appreciated * Dr Weiner of surgery to schedule the procedure, his input is appreciated Status Epiliepticus * Neurology input appreciated, continue Keppra, continue Dilantin * Check Dilantin level daily * MRI brain shows No acute cranial abnormality, small vessel ischemic changes with cortical atrophic, chronic right MCA infarct. * Case discussed with neurologist, EEGs much improved, no epileptiform activity. Continue current doses of Keppra and Dilantin Aspiration pneumonitis * cw abx till 03/06 * tracheal aspirate culture is growing normal kevin, therefore non diagnostic YUDY-secondary to vasomotor nephropathy-resolved with IVF Hypernatremia resolved with IVF Hypokalemia-corrected * repleted and normalized DIASTOLIC CHF-CHRONIC. preserved EF, stable Subclinical Hypothyroidism * continue low dose synthroid Acute Metabolic encephalopathy likely secondary to seizure and postictal state, rx underlying cause * Guarded prognosis * Discussed with niece family member present in the room family friend present provided some information is noted. Case management on board, patient will likely require LTAC placement The high probability of a clinically significant, sudden or life threatening deterioration of the [Pulmonary, Neuro, cardiac] system(s) required my full and direct attention, intervention and personal management. The aggregate critical care time was [35] minutes. This time is in addition to time spent performing reported procedures but includes the following: [x] Data Review and interpretation [x] Patient assessment and monitoring of vital signs [x] Documentation [x] Medication orders and management History Interval history: Patient remains intubated and sedated, he has spontaneous movements, does not obey commands Hospitalist Physical - Physical exam Narrative exam: General: no distress HEENT: MMM, EOMI cardiac: S1-S2 heard lungs: Ventilated breath sounds abdomen: soft, nontender, nondistended bowel sounds positive extremities: no edema clubbing or cyanosis Skin: no rash or lesion Neuro: Intubated and sedated, has spontaneos movements of his extremities, does not obey commands - Constitutional Vitals: Temp Pulse Resp BP Pulse Ox 99.5 F 93 H 32 H 128/78 95 03/05/17 08:00 03/05/17 11:00 03/05/17 11:00 03/05/17 11:00 03/05/17 11:00 General appearance: Present: severe distress Results - Labs CBC & Chem 7: 03/04/17 07:16 03/06/17 12:36 Labs: Laboratory Last Values WBC 9.0 K/mm3 (4.5-11.0) 03/04/17 07:16 RBC 3.63 M/mm3 (3.65-5.03) L 03/04/17 07:16 Hgb 10.7 gm/dl (11.8-15.2) L 03/04/17 07:16 Hct 31.8 % (35.5-45.6) L 03/04/17 07:16 MCV 87 fl (84-94) 03/04/17 07:16 MCH 30 pg (28-32) 03/04/17 07:16 MCHC 34 % (32-34) 03/04/17 07:16 RDW 15.1 % (13.2-15.2) 03/04/17 07:16 Plt Count 384 K/mm3 (140-440) 03/04/17 07:16 Lymph % (Auto) 24.1 % (13.4-35.0) 02/28/17 05:35 [place] % (Auto) 6.1 % (0.0-7.3) 02/28/17 05:35 Eos % (Auto) 2.6 % (0.0-4.3) 02/28/17 05:35 Baso % (Auto) 0.7 % (0.0-1.8) 02/28/17 05:35 Lymph # 2.3 K/mm3 (1.2-5.4) 02/28/17 05:35 [place] # 0.6 K/mm3 (0.0-0.8) 02/28/17 05:35 Eos # 0.3 K/mm3 (0.0-0.4) 02/28/17 05:35 Baso # 0.1 K/mm3 (0.0-0.1) 02/28/17 05:35 Add Manual Diff TNR 02/24/17 04:04 Seg Neutrophils % 66.5 % (40.0-70.0) 02/28/17 05:35 Seg Neutrophils # 6.4 K/mm3 (1.8-7.7) 02/28/17 05:35 POC ABG pH 7.454 (7.35-7.45) H 03/05/17 05:05 POC ABG pCO2 36.7 (35-45) 03/05/17 05:05 POC ABG pO2 68 (80-105) L 03/05/17 05:05 POC ABG HCO3 25.7 03/05/17 05:05 POC ABG Total CO2 27 03/05/17 05:05 POC ABG O2 Sat 94 03/05/17 05:05 POC ABG Base Excess 2 03/05/17 05:05 FiO2 28 % 03/05/17 05:05 Sodium 134 mmol/L (137-145) L 03/04/17 07:16 Potassium 3.8 mmol/L (3.6-5.0) 03/04/17 07:16 Chloride 98.5 mmol/L (98-107) 03/04/17 07:16 Carbon Dioxide 21 mmol/L (22-30) L 03/04/17 07:16 Anion Gap 18 mmol/L 03/04/17 07:16 BUN 22 mg/dL (9-20) H 03/04/17 07:16 Creatinine 0.7 mg/dL (0.8-1.5) L 03/04/17 07:16 Estimated GFR > 60 ml/min 03/04/17 07:16 BUN/Creatinine Ratio 31.42 % 03/04/17 07:16 Glucose 109 mg/dL (75-100) H 03/04/17 07:16 POC Glucose 119 (70-105) H 03/03/17 23:28 Lactic Acid 1.70 mmol/L (0.7-2.0) 02/22/17 03:22 Calcium 8.3 mg/dL (8.4-10.2) L 03/04/17 07:16 Phosphorus 2.50 mg/dL (2.5-4.5) 03/02/17 11:03 Magnesium 1.80 mg/dL (1.7-2.3) 03/02/17 11:03 Total Bilirubin 0.20 mg/dL (0.1-1.2) 02/20/17 05:07 AST 29 units/L (5-40) 02/20/17 05:07 ALT 29 units/L (7-56) 02/20/17 05:07 Alkaline Phosphatase 93 units/L (35-129) 02/20/17 05:07 Troponin T 0.073 ng/mL (0.00-0.029) H 02/18/17 11:30 Total Protein 6.3 g/dL (6.3-8.2) D 02/20/17 05:07 Albumin 2.6 g/dL (3.9-5) L 02/20/17 05:07 Albumin/Globulin Ratio 0.7 % 02/20/17 05:07 Triglycerides 136 mg/dL (2-149) 02/18/17 11:30 Cholesterol 192 mg/dL (50-199) 02/18/17 11:30 LDL Cholesterol Direct 126 mg/dL (50-130) 02/18/17 11:30 HDL Cholesterol 39 mg/dL (40-59) L 02/18/17 11:30 Cholesterol/HDL Ratio 4.92 % 02/18/17 11:30 TSH 6.350 mlU/mL (0.270-4.200) H 02/18/17 11:30 Free T4 1.15 ng/dL (0.76-1.46) 02/19/17 19:52 Urine Color Yellow (Yellow) 02/18/17 Unknown Urine Turbidity Clear (Clear) 02/18/17 Unknown Urine pH 5.0 (5.0-7.0) 02/18/17 Unknown Ur Specific [place] 1.018 (1.003-1.030) 02/18/17 Unknown Urine Protein <15 mg/dl mg/dL (Negative) 02/18/17 Unknown Urine Glucose (UA) Neg mg/dL (Negative) 02/18/17 Unknown Urine Ketones Neg mg/dL (Negative) 02/18/17 Unknown Urine Blood Neg (Negative) 02/18/17 Unknown Urine Nitrite Neg (Negative) 02/18/17 Unknown Urine Bilirubin Neg (Negative) 02/18/17 Unknown Urine Urobilinogen < 2.0 mg/dL (<2.0) 02/18/17 Unknown Ur Leukocyte Esterase Neg (Negative) 02/18/17 Unknown Urine WBC (Auto) 1.0 /HPF (0.0-6.0) 02/18/17 Unknown Urine RBC (Auto) 1.0 /HPF (0.0-6.0) 02/18/17 Unknown U Epithel Cells (Auto) 3.0 /HPF (0-13.0) 02/18/17 Unknown Urine Mucus Few /HPF 02/18/17 Unknown Salicylates < 0.3 mg/dL (2.8-20.0) L 02/18/17 11:30 Urine Opiates Screen Presumptive negative 02/18/17 Unknown Urine Methadone Screen Presumptive negative 02/18/17 Unknown Acetaminophen < 15.0 ug/mL (10.0-30.0) 02/18/17 11:30 Ur Barbiturates Screen Presumptive negative 02/18/17 Unknown Phenytoin 6.7 mg/L (10.0-20.0) L 03/02/17 05:13 Levetiracetam 15.1 mcg/mL 02/18/17 13:07 Ur Phencyclidine Scrn Presumptive negative 02/18/17 Unknown Ur Amphetamines Screen Presumptive negative 02/18/17 Unknown U Benzodiazepines Scrn Presumptive negative 02/18/17 Unknown Urine Cocaine Screen Presumptive negative 02/18/17 Unknown U Marijuana (THC) Screen Presumptive negative 02/18/17 Unknown Drugs of Abuse Note Disclamer 02/18/17 Unknown Plasma/Serum Alcohol < 0.01 gm% (0-0.07) 02/18/17 11:30
--- NOTE | 2017-03-05 13:25 | Progress Note ---
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 1. Continue Anti-epileptic drugs 2. Tube feeds 3. DVT prophylaxis 4. Surgery has seen and planning for trach and peg placement, should be done tomorrow 5. BP improved with PRN meds 6. Discussed on IT rounds, will need placement. Most likely LTACH for further weaning capabilities CCT 31 minutes Subjective Date of service: 03/05/17 Principal diagnosis: Acute resp. failure Interval history: No acute events overnight. Scheduled for trach and peg tomorrow, I assume at the bedside. Objective Vital Signs - 12hr 03/05/17 03/05/17 03/05/17 02:00 03:00 04:00 Temperature 99.8 F H Pulse Rate 98 H 101 H 100 H Pulse Rate [ 97 H Apical] Respiratory 17 15 21 Rate Blood Pressure 161/90 139/91 137/88 O2 Sat by Pulse 98 97 92 Oximetry 03/05/17 03/05/17 03/05/17 05:00 05:01 06:00 Temperature Pulse Rate 97 H 103 H 98 H Pulse Rate [ Apical] Respiratory 19 22 Rate Blood Pressure 143/88 143/88 143/88 O2 Sat by Pulse 100 Oximetry 03/05/17 03/05/17 03/05/17 07:00 07:29 07:39 Temperature Pulse Rate 99 H 100 H 99 H Pulse Rate [ Apical] Respiratory 15 34 H Rate Blood Pressure 123/79 123/79 134/80 O2 Sat by Pulse 94 97 97 Oximetry 03/05/17 03/05/17 03/05/17 08:00 09:00 10:00 Temperature 99.5 F Pulse Rate 102 H 100 H 102 H Pulse Rate [ Apical] Respiratory 35 H 33 H 36 H Rate Blood Pressure 134/81 134/81 130/83 O2 Sat by Pulse 98 97 97 Oximetry 03/05/17 03/05/17 03/05/17 11:00 12:05 12:43 Temperature 99.7 F H Pulse Rate 93 H 96 H Pulse Rate [ Apical] Respiratory 32 H 33 H Rate Blood Pressure 128/78 157/86 O2 Sat by Pulse 95 100 Oximetry Constitutional: no acute distress, other (not following commands) ENT: other (orally intubated) Neck: supple Effort: normal Ascultation: Bilateral: clear, diminished breath sounds, rhonchi (sporadic), other (coarse BS bilaterally) Cardiovascular: regular rate and rhythm Gastrointestinal: normoactive bowel sounds, soft, non-tender Integumentary: normal Extremities: no cyanosis, pink and warm, edema Neurologic: other (opens eyes minimally, not moving extremities) Psychiatric: other (unable to assess) CBC and BMP: 03/04/17 07:16 03/04/17 07:16 ABG, PT/INR, D-dimer: ABG POC ABG pH 7.454 (7.35-7.45) H 03/05/17 05:05 POC ABG pCO2 36.7 (35-45) 03/05/17 05:05 POC ABG pO2 68 (80-105) L 03/05/17 05:05 POC ABG HCO3 25.7 03/05/17 05:05 POC ABG Total CO2 27 03/05/17 05:05 POC ABG O2 Sat 94 03/05/17 05:05 Abnormal lab findings: Abnormal Labs 02/18/17 02/19/17 02/19/17 17:56 06:05 09:06 WBC RBC Hgb Hct RDW [place] % (Auto) POC ABG pH POC ABG pCO2 32.6 L POC ABG pO2 181 H 139 H Sodium Potassium Chloride Carbon Dioxide BUN Creatinine Glucose POC Glucose Lactic Acid 3.00 H* Calcium Phosphorus Albumin Phenytoin 02/19/17 02/19/17 02/20/17 11:59 11:59 05:07 WBC 11.3 H RBC Hgb 11.1 L Hct 34.6 L D RDW [place] % (Auto) POC ABG pH POC ABG pCO2 POC ABG pO2 Sodium Potassium Chloride Carbon Dioxide 18 L BUN Creatinine Glucose POC Glucose Lactic Acid 2.20 H* Calcium Phosphorus Albumin Phenytoin 02/20/17 02/20/17 02/20/17 05:07 06:41 09:58 WBC RBC Hgb Hct RDW [place] % (Auto) POC ABG pH 7.457 H POC ABG pCO2 32.3 L POC ABG pO2 134 H Sodium Potassium Chloride Carbon Dioxide 19 L BUN Creatinine Glucose POC Glucose Lactic Acid 2.70 H* Calcium Phosphorus Albumin 2.6 L Phenytoin 08/12/0302/21/17 02/22/17 03:56 04:47 03:22 WBC RBC 3.62 L Hgb 10.6 L 11.1 L Hct 31.8 L 33.3 L RDW [place] % (Auto) POC ABG pH 7.513 H POC ABG pCO2 25.6 L POC ABG pO2 Sodium Potassium Chloride Carbon Dioxide BUN Creatinine Glucose POC Glucose Lactic Acid Calcium Phosphorus Albumin Phenytoin 02/22/17 02/22/17 02/23/17 03:22 04:33 05:49 WBC RBC Hgb Hct RDW [place] % (Auto) POC ABG pH 7.464 H POC ABG pCO2 32.8 L 33.0 L POC ABG pO2 112 H 71 L Sodium Potassium 3.3 L Chloride 107.8 H Carbon Dioxide 20 L BUN 21 H Creatinine Glucose 132 H POC Glucose Lactic Acid Calcium 8.1 L Phosphorus Albumin Phenytoin 02/23/17 02/23/17 02/24/17 06:15 06:15 04:04 WBC RBC Hgb Hct RDW 16.5 H [place] % (Auto) POC ABG pH POC ABG pCO2 POC ABG pO2 Sodium 150 H D Potassium 3.4 L Chloride 119.5 H Carbon Dioxide 18 L 18 L BUN 35 H Creatinine 0.6 L Glucose 143 H 109 H POC Glucose Lactic Acid Calcium 7.4 L 8.3 L Phosphorus 1.50 L Albumin Phenytoin 02/24/17 02/24/17 02/25/17 04:41 05:38 04:00 WBC RBC Hgb 11.0 L 11.0 L Hct 34.7 L 33.3 L RDW [place] % (Auto) POC ABG pH 7.460 H POC ABG pCO2 31.1 L POC ABG pO2 61 L Sodium Potassium Chloride Carbon Dioxide BUN Creatinine Glucose POC Glucose Lactic Acid Calcium Phosphorus Albumin Phenytoin 02/25/17 02/25/17 02/26/17 04:00 06:44 05:51 WBC RBC Hgb 10.6 L Hct 32.3 L RDW [place] % (Auto) POC ABG pH 7.475 H POC ABG pCO2 30.1 L POC ABG pO2 161 H Sodium Potassium Chloride Carbon Dioxide BUN Creatinine 0.7 L Glucose 123 H POC Glucose Lactic Acid Calcium 8.2 L Phosphorus Albumin Phenytoin 02/26/17 02/27/17 02/27/17 05:51 05:40 05:40 WBC RBC 3.57 L Hgb 10.2 L Hct 31.4 L RDW [place] % (Auto) 7.4 H POC ABG pH POC ABG pCO2 POC ABG pO2 Sodium 135 L Potassium Chloride Carbon Dioxide 18 L BUN Creatinine 0.7 L 0.7 L Glucose 125 H POC Glucose Lactic Acid Calcium 8.0 L 8.3 L Phosphorus 2.40 L Albumin Phenytoin 02/27/17 02/28/17 02/28/17 08:13 05:35 05:35 WBC RBC 3.62 L Hgb 10.4 L Hct 32.4 L RDW 15.4 H [place] % (Auto) POC ABG pH POC ABG pCO2 POC ABG pO2 107 H Sodium Potassium Chloride Carbon Dioxide BUN Creatinine Glucose POC Glucose Lactic Acid Calcium Phosphorus Albumin Phenytoin 8.0 L 02/28/17 03/01/17 03/01/17 05:35 09:58 12:59 WBC RBC Hgb Hct RDW [place] % (Auto) POC ABG pH POC ABG pCO2 POC ABG pO2 131 H Sodium 135 L Potassium Chloride Carbon Dioxide BUN Creatinine 0.7 L Glucose 107 H POC Glucose Lactic Acid Calcium 8.3 L Phosphorus Albumin Phenytoin 6.4 L 03/02/17 03/02/17 03/02/17 05:13 11:03 11:03 WBC RBC Hgb 10.6 L Hct 32.7 L RDW 15.6 H [place] % (Auto) POC ABG pH POC ABG pCO2 POC ABG pO2 Sodium Potassium Chloride Carbon Dioxide 20 L BUN Creatinine 0.7 L Glucose 136 H POC Glucose Lactic Acid Calcium 8.3 L Phosphorus Albumin Phenytoin 6.7 L 03/03/17 03/03/17 03/03/17 08:09 08:09 23:28 WBC RBC Hgb 10.7 L Hct 32.7 L RDW 15.4 H [place] % (Auto) POC ABG pH POC ABG pCO2 POC ABG pO2 Sodium Potassium Chloride Carbon Dioxide BUN 21 H Creatinine 0.7 L Glucose 104 H POC Glucose 119 H Lactic Acid Calcium Phosphorus Albumin Phenytoin 03/04/17 03/04/17 03/05/17 07:16 07:16 05:05 WBC RBC 3.63 L Hgb 10.7 L Hct 31.8 L RDW [place] % (Auto) POC ABG pH 7.454 H POC ABG pCO2 POC ABG pO2 68 L Sodium 134 L Potassium Chloride Carbon Dioxide 21 L BUN 22 H Creatinine 0.7 L Glucose 109 H POC Glucose Lactic Acid Calcium 8.3 L Phosphorus Albumin Phenytoin
--- NOTE | 2017-03-05 14:52 | Progress Note ---
Assessment and Plan Bedside Trach and PEG on 03/06/17 Consent form signed Preop ATBx ordered Hold TF at 1am on 03/06/17 Subjective Date of service: 03/05/17 Patient Reports: Positive: no new complaints Objective Vital Signs - 12hr 03/05/17 03/05/17 03/05/17 03:00 04:00 05:00 Temperature 99.8 F H Pulse Rate 101 H 100 H 97 H Pulse Rate [ 97 H Apical] Respiratory 15 21 19 Rate Blood Pressure 139/91 137/88 143/88 O2 Sat by Pulse 97 92 Oximetry 03/05/17 03/05/17 03/05/17 05:01 06:00 07:00 Temperature Pulse Rate 103 H 98 H 99 H Pulse Rate [ Apical] Respiratory 22 15 Rate Blood Pressure 143/88 143/88 123/79 O2 Sat by Pulse 100 94 Oximetry 03/05/17 03/05/17 03/05/17 07:29 07:39 08:00 Temperature 99.5 F Pulse Rate 100 H 99 H 102 H Pulse Rate [ Apical] Respiratory 34 H 35 H Rate Blood Pressure 123/79 134/80 134/81 O2 Sat by Pulse 97 97 98 Oximetry 03/05/17 03/05/17 03/05/17 09:00 10:00 11:00 Temperature Pulse Rate 100 H 102 H 93 H Pulse Rate [ Apical] Respiratory 33 H 36 H 32 H Rate Blood Pressure 134/81 130/83 128/78 O2 Sat by Pulse 97 97 95 Oximetry 03/05/17 03/05/17 12:05 12:43 Temperature 99.7 F H Pulse Rate 96 H Pulse Rate [ Apical] Respiratory 33 H Rate Blood Pressure 157/86 O2 Sat by Pulse 100 Oximetry - Neck trachea midline - Abdomen soft - Labs 03/04/17 07:16 03/04/17 07:16
--- NOTE | 2017-03-05 15:24 | Anesthesia Consultation ---
Anesthesia Consult and Med Hx Date of service: 03/05/17 - Pre-Operative Health Status ASA Pre-Surgery Classification: ASA4 Proposed Anesthetic Plan: General - Pre-Anesthesia Comment Pre-Anesthesia Comments: OETT IN SITU - Pulmonary Hx Smoking: Yes Hx Respiratory Symptoms: Yes Hx Pneumonia: Yes (aspiration pneumonia) - Cardiovascular System Hx Hypertension: Yes Hx Coronary Artery Disease: Yes Hx Pacemaker: No Hx Internal Defibrillator: No - Central Nervous System Hx Seizures: Yes (epilepsy) CVA: Yes (encephalopathy) Hx Psychiatric Problems: Yes - Gastrointestinal Hx Ulcer: Yes - Endocrine Hx Renal Disease: Yes (acute kidney injury) Hx Insulin Dependent Diabetes: No - Additional Comments Anesthesia Medical History Comments: 02/18/17 - patient present to ER unresponsive with s/p epileptic seizure and aspiration. Subsequent aspiration pneumonia. Unsuccessful at weaning patient from ventilation with in situ OETT.
[2017-03-05] MEDS ORDERED: CATHFLO IV ONE ×2 (20:39→20:43)
[2017-03-05] MEDS ORDERED: WATER FOR INJ (PF) 10 ML ONE (21:44)
[2017-03-06] MEDS ORDERED: ANCEF/STERILE WATER 2 GM/20 ML 2 GM/20 ML SYRINGE IV NR ×2 (08:00→16:00)
[2017-03-06] MEDS: DILANTIN FEEDTUBE SCH ×2 (08:21→23:23)
[2017-03-06] MEDS: SYNTHROID FEEDTUBE SCH (08:21)
--- NOTE | 2017-03-06 11:27 | XRay Report ---
Single view chest: Compared to 03/02/17. History: Fever. Findings: Borderline cardiomegaly. Trachea is midline. No consolidation, pneumothorax or pleural effusion. Stable support system without interval change. Impression: No acute cardiopulmonary findings.
--- NOTE | 2017-03-06 12:12 | Progress Note ---
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 1. Continue Anti-epileptic drugs 2. Tube feeds 3. DVT prophylaxis 4. Trach and PEG today. 5. Continue HCTZ for BP, will check chemistry today as not ordered on yesterday. 6. Discussed on IT rounds, will need placement. Most likely LTACH for further weaning capabilities CCT 31 minutes Subjective Date of service: 03/06/17 Principal diagnosis: Acute resp. failure Interval history: No acute events. Tolerating PSV. Scheduled for trach and peg today. No family at bedside. Objective Vital Signs - 12hr 03/06/17 03/06/17 03/06/17 00:46 01:00 02:00 Temperature 97.4 F L Pulse Rate 87 100 H Pulse Rate [ From Monitor] Respiratory 14 16 Rate Blood Pressure 136/85 142/86 O2 Sat by Pulse 97 100 Oximetry 03/06/17 03/06/17 03/06/17 03:00 04:00 04:15 Temperature Pulse Rate 87 85 78 Pulse Rate [ 82 From Monitor] Respiratory 18 14 Rate Blood Pressure 145/80 143/76 137/79 O2 Sat by Pulse 99 100 99 Oximetry 03/06/17 03/06/17 03/06/17 04:54 05:00 06:00 Temperature 97.7 F Pulse Rate 87 80 Pulse Rate [ From Monitor] Respiratory 14 14 Rate Blood Pressure 142/81 137/71 O2 Sat by Pulse 99 99 Oximetry 03/06/17 03/06/17 03/06/17 07:00 07:20 08:00 Temperature 99.2 F Pulse Rate 80 88 84 Pulse Rate [ From Monitor] Respiratory 24 27 H 25 H Rate Blood Pressure 138/77 126/74 129/71 O2 Sat by Pulse 100 100 99 Oximetry 03/06/17 03/06/17 03/06/17 09:00 10:00 10:37 Temperature Pulse Rate 95 H 81 77 Pulse Rate [ From Monitor] Respiratory 23 24 Rate Blood Pressure 128/78 120/71 120/71 O2 Sat by Pulse 99 100 Oximetry 03/06/17 12:00 Temperature 98.4 F Pulse Rate Pulse Rate [ From Monitor] Respiratory Rate Blood Pressure O2 Sat by Pulse Oximetry Constitutional: no acute distress, other (not following commands) ENT: other (orally intubated) Neck: supple Effort: normal Ascultation: Bilateral: clear, diminished breath sounds, rhonchi (sporadic), other (coarse BS bilaterally) Cardiovascular: regular rate and rhythm Gastrointestinal: normoactive bowel sounds, soft, non-tender Integumentary: normal Extremities: no cyanosis, pink and warm, edema Neurologic: other (opens eyes minimally, not moving extremities) Psychiatric: other (unable to assess) CBC and BMP: 03/04/17 07:16 03/04/17 07:16 ABG, PT/INR, D-dimer: ABG POC ABG pH 7.454 (7.35-7.45) H 03/05/17 05:05 POC ABG pCO2 36.7 (35-45) 03/05/17 05:05 POC ABG pO2 68 (80-105) L 03/05/17 05:05 POC ABG HCO3 25.7 03/05/17 05:05 POC ABG Total CO2 27 03/05/17 05:05 POC ABG O2 Sat 94 03/05/17 05:05 Abnormal lab findings: Abnormal Labs 02/18/17 02/19/17 02/19/17 17:56 06:05 09:06 WBC RBC Hgb Hct RDW [place] % (Auto) POC ABG pH POC ABG pCO2 32.6 L POC ABG pO2 181 H 139 H Sodium Potassium Chloride Carbon Dioxide BUN Creatinine Glucose POC Glucose Lactic Acid 3.00 H* Calcium Phosphorus Albumin Phenytoin 02/19/17 02/19/17 02/20/17 11:59 11:59 05:07 WBC 11.3 H RBC Hgb 11.1 L Hct 34.6 L D RDW [place] % (Auto) POC ABG pH POC ABG pCO2 POC ABG pO2 Sodium Potassium Chloride Carbon Dioxide 18 L BUN Creatinine Glucose POC Glucose Lactic Acid 2.20 H* Calcium Phosphorus Albumin Phenytoin 02/20/17 02/20/17 02/20/17 05:07 06:41 09:58 WBC RBC Hgb Hct RDW [place] % (Auto) POC ABG pH 7.457 H POC ABG pCO2 32.3 L POC ABG pO2 134 H Sodium Potassium Chloride Carbon Dioxide 19 L BUN Creatinine Glucose POC Glucose Lactic Acid 2.70 H* Calcium Phosphorus Albumin 2.6 L Phenytoin 02/21/17 02/21/17 02/22/17 03:56 04:47 03:22 WBC RBC 3.62 L Hgb 10.6 L 11.1 L Hct 31.8 L 33.3 L RDW [place] % (Auto) POC ABG pH 7.513 H POC ABG pCO2 25.6 L POC ABG pO2 Sodium Potassium Chloride Carbon Dioxide BUN Creatinine Glucose POC Glucose Lactic Acid Calcium Phosphorus Albumin Phenytoin 02/22/17 02/22/17 02/23/17 03:22 04:33 05:49 WBC RBC Hgb Hct RDW [place] % (Auto) POC ABG pH 7.464 H POC ABG pCO2 32.8 L 33.0 L POC ABG pO2 112 H 71 L Sodium Potassium 3.3 L Chloride 107.8 H Carbon Dioxide 20 L BUN 21 H Creatinine Glucose 132 H POC Glucose Lactic Acid Calcium 8.1 L Phosphorus Albumin Phenytoin 02/23/17 02/23/17 02/24/17 06:15 06:15 04:04 WBC RBC Hgb Hct RDW 16.5 H [place] % (Auto) POC ABG pH POC ABG pCO2 POC ABG pO2 Sodium 150 H D Potassium 3.4 L Chloride 119.5 H Carbon Dioxide 18 L 18 L BUN 35 H Creatinine 0.6 L Glucose 143 H 109 H POC Glucose Lactic Acid Calcium 7.4 L 8.3 L Phosphorus 1.50 L Albumin Phenytoin 02/24/17 02/24/17 02/25/17 04:41 05:38 04:00 WBC RBC Hgb 11.0 L 11.0 L Hct 34.7 L 33.3 L RDW [place] % (Auto) POC ABG pH 7.460 H POC ABG pCO2 31.1 L POC ABG pO2 61 L Sodium Potassium Chloride Carbon Dioxide BUN Creatinine Glucose POC Glucose Lactic Acid Calcium Phosphorus Albumin Phenytoin 02/25/17 02/25/17 02/26/17 04:00 06:44 05:51 WBC RBC Hgb 10.6 L Hct 32.3 L RDW [place] % (Auto) POC ABG pH 7.475 H POC ABG pCO2 30.1 L POC ABG pO2 161 H Sodium Potassium Chloride Carbon Dioxide BUN Creatinine 0.7 L Glucose 123 H POC Glucose Lactic Acid Calcium 8.2 L Phosphorus Albumin Phenytoin 02/26/17 02/27/17 02/27/17 05:51 05:40 05:40 WBC RBC 3.57 L Hgb 10.2 L Hct 31.4 L RDW [place] % (Auto) 7.4 H POC ABG pH POC ABG pCO2 POC ABG pO2 Sodium 135 L Potassium Chloride Carbon Dioxide 18 L BUN Creatinine 0.7 L 0.7 L Glucose 125 H POC Glucose Lactic Acid Calcium 8.0 L 8.3 L Phosphorus 2.40 L Albumin Phenytoin 02/27/17 02/28/17 02/28/17 08:13 05:35 05:35 WBC RBC 3.62 L Hgb 10.4 L Hct 32.4 L RDW 15.4 H [place] % (Auto) POC ABG pH POC ABG pCO2 POC ABG pO2 107 H Sodium Potassium Chloride Carbon Dioxide BUN Creatinine Glucose POC Glucose Lactic Acid Calcium Phosphorus Albumin Phenytoin 8.0 L 02/28/17 03/01/17 03/01/17 05:35 09:58 12:59 WBC RBC Hgb Hct RDW [place] % (Auto) POC ABG pH POC ABG pCO2 POC ABG pO2 131 H Sodium 135 L Potassium Chloride Carbon Dioxide BUN Creatinine 0.7 L Glucose 107 H POC Glucose Lactic Acid Calcium 8.3 L Phosphorus Albumin Phenytoin 6.4 L 03/02/17 03/02/17 03/02/17 05:13 11:03 11:03 WBC RBC Hgb 10.6 L Hct 32.7 L RDW 15.6 H [place] % (Auto) POC ABG pH POC ABG pCO2 POC ABG pO2 Sodium Potassium Chloride Carbon Dioxide 20 L BUN Creatinine 0.7 L Glucose 136 H POC Glucose Lactic Acid Calcium 8.3 L Phosphorus Albumin Phenytoin 6.7 L 03/03/17 03/03/17 03/03/17 08:09 08:09 23:28 WBC RBC Hgb 10.7 L Hct 32.7 L RDW 15.4 H [place] % (Auto) POC ABG pH POC ABG pCO2 POC ABG pO2 Sodium Potassium Chloride Carbon Dioxide BUN 21 H Creatinine 0.7 L Glucose 104 H POC Glucose 119 H Lactic Acid Calcium Phosphorus Albumin Phenytoin 03/04/17 03/04/17 03/05/17 07:16 07:16 05:05 WBC RBC 3.63 L Hgb 10.7 L Hct 31.8 L RDW [place] % (Auto) POC ABG pH 7.454 H POC ABG pCO2 POC ABG pO2 68 L Sodium 134 L Potassium Chloride Carbon Dioxide 21 L BUN 22 H Creatinine 0.7 L Glucose 109 H POC Glucose Lactic Acid Calcium 8.3 L Phosphorus Albumin Phenytoin 03/06/17 06:41 WBC RBC Hgb Hct RDW [place] % (Auto) POC ABG pH POC ABG pCO2 POC ABG pO2 Sodium Potassium Chloride Carbon Dioxide BUN Creatinine Glucose POC Glucose 116 H Lactic Acid Calcium Phosphorus Albumin Phenytoin
[2017-03-06 13:18] LABS: Anion Gap 18 mmol/L; Blood Urea Nitrogen 21 mg/dL (9-20); Calcium 8.9 mg/dL (8.4-10.2); Carbon Dioxide 24 mmol/L (22-30); Chloride 95.6 mmol/L (98-107); Glucose 109 mg/dL (75-100); Sodium 134 mmol/L (137-145)
[2017-03-06] MEDS ORDERED: ZEMURON IV ONE (14:11)
[2017-03-06] MEDS ORDERED: VERSED IV ONE (14:11)
[2017-03-06] MEDS ORDERED: XYLOCAINE MPF 2% ONE (14:11)
[2017-03-06] MEDS ORDERED: DIPRIVAN 10 MG/ML IV ONE (14:11)
[2017-03-06] MEDS ORDERED: SIMPLE SYRUP FEEDTUBE PRN ×2 (14:30)
[2017-03-06] MEDS ORDERED: SODIUM BICARBONATE FEEDTUBE PRN (14:30)
[2017-03-06] MEDS ORDERED: PANCREAZE DR 10,500 UNIT FEEDTUBE PRN (14:30)
[2017-03-06] MEDS ORDERED: NACL 0.9% 1000 ML 1,000 ML ONE (14:31)
[2017-03-06] MEDS ORDERED: SUBLIMAZE ONE (15:12)
[2017-03-06] MEDS ORDERED: NACL 0.9% 1000 ML 1,000 ML IV SCH (16:00)
--- NOTE | 2017-03-06 16:42 | Operative Report ---
Operative Report Operative Report: Date of procedure: 03/06/2017 Pre-operative diagnosis: Malnutrition with need for nutritional support, prolonged vent dependence Post-operative diagnosis: Same Procedure name(s): Percutaneous endoscopic gastrostomy tube placement Surgeon: Young Weiner MD Journalists And Other Writers: Daniel Mendoza M.D. Anesthesia: General, 1% lidocaine EBL: Minimal Complications: None Instrument Count: Correct Indications: This is a 71-year-old male with a history of respiratory failure secondary to seizure activity with prolonged vent dependence. He was in need of nutritional support. The above-named procedure was offered to the family as a possible means to achieve this. The risks and benefits of discussed until all questions were answered. He was subsequently set up for the procedure. Findings: None significant Procedure: We reviewed the informed consent. The patient was then positioned with the head up. After adequate anesthesia was reached, we inserted the endoscope of the oral cavity into the stomach. The stomach was then insufflated to maximal capacity until the rugae flattened. At this time we applied gentle palpation externally and observed this visually through the endoscope, choosing a position approximately 2 fingerbreadths below the left costal margin. This was further verified using transillumination seen externally. We infiltrated local anesthetic at the site chosen. We then made a 5 mm incision at the site, and placed Angiocath through the incision. The needle was removed, and a guidewire was placed through the Angiocath. The guidewire was grasped using an endoscopic snare and brought through the oral cavity. This was attached to a 20 [place] pull-through gastrostomy tube. We then retracted the guidewire through the abdominal wall, bringing the gastrostomy tube through the oral cavity. We secured the external portion of the tube. Using the endoscope we verified placement within the stomach cavity. The tube was then secured to the abdominal wall sterilely. The patient tolerated this well and was maintained in no apparent distress
--- NOTE | 2017-03-06 16:44 | Operative Report ---
Operative Report Operative Report: Date of procedure: 03/06/2017 Pre-operative diagnosis: Respiratory failure with vent dependence Post-operative diagnosis: Same Procedure name(s): Percutaneous tracheostomy Surgeon: Young Weiner MD Ems Coordinator: Daniel Mendoza M.D. Anesthesia: General, 1% lidocaine EBL: Minimal Complications: None Instrument Count: correct Indications: This is a 71-year-old male with a history of respiratory failure secondary to seizure activity. The patient has prolonged vent dependence. Because of this he met the criteria for placement of a percutaneous tracheostomy. The risks and benefits of discussed the family until all questions were answered. He was subsequently set up for the procedure. Findings: Nonsignificant Procedure: We reviewed informed consent. The patient was then positioned in a semi-follow position the neck slightly extended. After infiltration of local anesthetic. Minimal small incision proximally one centimeter in size vertically 2 cm above the sternal notch in the neck. At this time anesthesia was prompted to partially withdraw the endotracheal tube to 16 cm at the teeth. Using a introducer needle on the syringe on gentle suction, we cannulated the trachea which was verified by a release of the suction. We placed a guidewire through the introducer needle and removed the needle we assured that we had not entrapped the endotracheal tube. We then dilated the tract using a 14 Danish skin dilator. This was substituted for a stiff catheter and Blue Rhino dilator combination. A 8 Shiley endotracheal tube was then placed over the stiff catheter and guidewire into the trachea. We removed the dilator catheter and guidewire and inserted the inner cannula. We then verified end tidal CO2. We secured the wings of the tracheostomy tube to the skin using a 2-0 Prolene. A tracheostomy collar was then applied and attached to the tracheostomy tube. The patient tolerated the procedure well. She was maintained on a ventilator in no apparent distress.
--- NOTE | 2017-03-06 16:56 | Progress Note ---
Assessment and Plan Assessment and plan: 71 YO Male with HTN, Seizure disorder, GERD, HLD, Bullous pemphigoid presents to ED for evaluation. Pt unable to provide history, but history taken from medical record, and ED staff, EMS run sheet, as well as patient family who is at bedside during exam and interview. Pt had two seizures as per EMS and was subsequently unresponsive. Pt seen and evaluated in ED, and found to be unresponsive and unable to protect airway with vomitus in oral pharynx with absent gag reflex. Pt intubated and placed on vent support. No reports of fever , chills, CP, Palpitations, NVD, recent ill contacts, trauma, or skin rashes. Acute respiratory failure with hypoxemia on mechanical ventilator greater than 96 hours * has failed weaning trials, patient is for trach and PEG, pulmonary input appreciated * Dr Weiner of surgery to schedule the procedure, his input is appreciated Status Epiliepticus * Neurology input appreciated, continue Keppra, continue Dilantin * Check Dilantin level daily * MRI brain shows No acute cranial abnormality, small vessel ischemic changes with cortical atrophic, chronic right MCA infarct. * Case discussed with neurologist, EEGs much improved, no epileptiform activity. Continue current doses of Keppra and Dilantin Aspiration pneumonitis * has now completed a course of abx * tracheal aspirate culture is growing normal kevin, therefore non diagnostic YUDY-secondary to vasomotor nephropathy-resolved with IVF Fever CXR shows resolving infiltrate -get UA today Hypernatremia resolved with IVF Hypokalemia-corrected * repleted and normalized DIASTOLIC CHF-CHRONIC. preserved EF, stable Subclinical Hypothyroidism * continue low dose synthroid Acute Metabolic encephalopathy likely secondary to seizure and postictal state, rx underlying cause * Guarded prognosis * Discussed with niece family member present in the room family friend present provided some information is noted. Case management on board, patient will likely require LTAC placement The high probability of a clinically significant, sudden or life threatening deterioration of the [Pulmonary, Neuro, cardiac] system(s) required my full and direct attention, intervention and personal management. The aggregate critical care time was [35] minutes. This time is in addition to time spent performing reported procedures but includes the following: [x] Data Review and interpretation [x] Patient assessment and monitoring of vital signs [x] Documentation [x] Medication orders and management History Interval history: Patient remains intubated and sedated, he has spontaneous movements, does not obey commands Hospitalist Physical - Physical exam Narrative exam: General: no distress HEENT: MMM, EOMI cardiac: S1-S2 heard lungs: Ventilated breath sounds abdomen: soft, nontender, nondistended bowel sounds positive extremities: no edema clubbing or cyanosis Skin: no rash or lesion Neuro: Intubated and sedated, has spontaneos movements of his extremities, does not obey commands - Constitutional Vitals: Temp Pulse Resp BP Pulse Ox 98.0 F 86 24 121/74 100 03/06/17 15:46 03/06/17 13:06 03/06/17 10:00 03/06/17 13:06 03/06/17 13:06 General appearance: Present: severe distress Results - Labs CBC & Chem 7: 03/04/17 07:16 03/06/17 12:36 Labs: Laboratory Last Values WBC 9.0 K/mm3 (4.5-11.0) 03/04/17 07:16 RBC 3.63 M/mm3 (3.65-5.03) L 03/04/17 07:16 Hgb 10.7 gm/dl (11.8-15.2) L 03/04/17 07:16 Hct 31.8 % (35.5-45.6) L 03/04/17 07:16 MCV 87 fl (84-94) 03/04/17 07:16 MCH 30 pg (28-32) 03/04/17 07:16 MCHC 34 % (32-34) 03/04/17 07:16 RDW 15.1 % (13.2-15.2) 03/04/17 07:16 Plt Count 384 K/mm3 (140-440) 03/04/17 07:16 Lymph % (Auto) 24.1 % (13.4-35.0) 02/28/17 05:35 Swain % (Auto) 6.1 % (0.0-7.3) 02/28/17 05:35 Eos % (Auto) 2.6 % (0.0-4.3) 02/28/17 05:35 Baso % (Auto) 0.7 % (0.0-1.8) 02/28/17 05:35 Lymph # 2.3 K/mm3 (1.2-5.4) 02/28/17 05:35 Swain # 0.6 K/mm3 (0.0-0.8) 02/28/17 05:35 Eos # 0.3 K/mm3 (0.0-0.4) 02/28/17 05:35 Baso # 0.1 K/mm3 (0.0-0.1) 02/28/17 05:35 Add Manual Diff TNR 02/24/17 04:04 Seg Neutrophils % 66.5 % (40.0-70.0) 02/28/17 05:35 Seg Neutrophils # 6.4 K/mm3 (1.8-7.7) 02/28/17 05:35 POC ABG pH 7.454 (7.35-7.45) H 03/05/17 05:05 POC ABG pCO2 36.7 (35-45) 03/05/17 05:05 POC ABG pO2 68 (80-105) L 03/05/17 05:05 POC ABG HCO3 25.7 03/05/17 05:05 POC ABG Total CO2 27 03/05/17 05:05 POC ABG O2 Sat 94 03/05/17 05:05 POC ABG Base Excess 2 03/05/17 05:05 FiO2 28 % 03/05/17 05:05 Sodium 134 mmol/L (137-145) L 03/06/17 12:36 Potassium 4.0 mmol/L (3.6-5.0) 03/06/17 12:36 Chloride 95.6 mmol/L (98-107) L 03/06/17 12:36 Carbon Dioxide 24 mmol/L (22-30) 03/06/17 12:36 Anion Gap 18 mmol/L 03/06/17 12:36 BUN 21 mg/dL (9-20) H 03/06/17 12:36 Creatinine 0.6 mg/dL (0.8-1.5) L 03/06/17 12:36 Estimated GFR > 60 ml/min 03/06/17 12:36 BUN/Creatinine Ratio 35.00 % 03/06/17 12:36 Glucose 109 mg/dL (75-100) H 03/06/17 12:36 POC Glucose 95 (70-105) 03/06/17 11:22 Lactic Acid 1.70 mmol/L (0.7-2.0) 02/22/17 03:22 Calcium 8.9 mg/dL (8.4-10.2) 03/06/17 12:36 Phosphorus 3.80 mg/dL (2.5-4.5) 03/06/17 12:36 Magnesium 2.00 mg/dL (1.7-2.3) 03/06/17 12:36 Total Bilirubin 0.20 mg/dL (0.1-1.2) 02/20/17 05:07 AST 29 units/L (5-40) 02/20/17 05:07 ALT 29 units/L (7-56) 02/20/17 05:07 Alkaline Phosphatase 93 units/L (35-129) 02/20/17 05:07 Troponin T 0.073 ng/mL (0.00-0.029) H 02/18/17 11:30 Total Protein 6.3 g/dL (6.3-8.2) D 02/20/17 05:07 Albumin 2.6 g/dL (3.9-5) L 02/20/17 05:07 Albumin/Globulin Ratio 0.7 % 02/20/17 05:07 Triglycerides 136 mg/dL (2-149) 02/18/17 11:30 Cholesterol 192 mg/dL (50-199) 02/18/17 11:30 LDL Cholesterol Direct 126 mg/dL (50-130) 02/18/17 11:30 HDL Cholesterol 39 mg/dL (40-59) L 02/18/17 11:30 Cholesterol/HDL Ratio 4.92 % 02/18/17 11:30 TSH 6.350 mlU/mL (0.270-4.200) H 02/18/17 11:30 Free T4 1.15 ng/dL (0.76-1.46) 02/19/17 19:52 Urine Color Yellow (Yellow) 02/18/17 Unknown Urine Turbidity Clear (Clear) 02/18/17 Unknown Urine pH 5.0 (5.0-7.0) 02/18/17 Unknown Ur Specific Mcneal 1.018 (1.003-1.030) 02/18/17 Unknown Urine Protein <15 mg/dl mg/dL (Negative) 02/18/17 Unknown Urine Glucose (UA) Neg mg/dL (Negative) 02/18/17 Unknown Urine Ketones Neg mg/dL (Negative) 02/18/17 Unknown Urine Blood Neg (Negative) 02/18/17 Unknown Urine Nitrite Neg (Negative) 02/18/17 Unknown Urine Bilirubin Neg (Negative) 02/18/17 Unknown Urine Urobilinogen < 2.0 mg/dL (<2.0) 02/18/17 Unknown Ur Leukocyte Esterase Neg (Negative) 02/18/17 Unknown Urine WBC (Auto) 1.0 /HPF (0.0-6.0) 02/18/17 Unknown Urine RBC (Auto) 1.0 /HPF (0.0-6.0) 02/18/17 Unknown U Epithel Cells (Auto) 3.0 /HPF (0-13.0) 02/18/17 Unknown Urine Mucus Few /HPF 02/18/17 Unknown Salicylates < 0.3 mg/dL (2.8-20.0) L 02/18/17 11:30 Urine Opiates Screen Presumptive negative 02/18/17 Unknown Urine Methadone Screen Presumptive negative 02/18/17 Unknown Acetaminophen < 15.0 ug/mL (10.0-30.0) 02/18/17 11:30 Ur Barbiturates Screen Presumptive negative 02/18/17 Unknown Phenytoin 6.7 mg/L (10.0-20.0) L 03/02/17 05:13 Levetiracetam 15.1 mcg/mL 02/18/17 13:07 Ur Phencyclidine Scrn Presumptive negative 02/18/17 Unknown Ur Amphetamines Screen Presumptive negative 02/18/17 Unknown U Benzodiazepines Scrn Presumptive negative 02/18/17 Unknown Urine Cocaine Screen Presumptive negative 02/18/17 Unknown U Marijuana (THC) Screen Presumptive negative 02/18/17 Unknown Drugs of Abuse Note Disclamer 02/18/17 Unknown Plasma/Serum Alcohol < 0.01 gm% (0-0.07) 02/18/17 11:30
[2017-03-06] MEDS: KEPPRA PO SCH (23:22)
[2017-03-06] MEDS: PEPCID PO SCH (23:22)
[2017-03-07] MEDS: SYNTHROID FEEDTUBE SCH (05:49)
[2017-03-07] MEDS: DILANTIN FEEDTUBE SCH ×4 (05:52→21:20)
[2017-03-07 06:12] LABS: Bacteria,Urine 1+ /HPF (Negative); Bilirubin,Urine NEG (Negative); Blood,Urine NEG (Negative); Ketones,Urine NEG (Negative); Leukocyte Esterase,Urine LG (Negative); Mucus,Urine FEW /HPF; Nitrite,Urine NEG (Negative); Protein,Urine <15 mg/dL mg/dL (Negative); Uric Acid Crystals,Urine FEW; Urobilinogen,Urine < 2.0 mg/dL (<2.0)
--- NOTE | 2017-03-07 09:24 | Progress Note ---
Assessment and Plan Assessment and plan: 71 YO Male with HTN, Seizure disorder, GERD, HLD, Bullous pemphigoid presents to ED for evaluation. Pt unable to provide history, but history taken from medical record, and ED staff, EMS run sheet, as well as patient family who is at bedside during exam and interview. Pt had two seizures as per EMS and was subsequently unresponsive. Pt seen and evaluated in ED, and found to be unresponsive and unable to protect airway with vomitus in oral pharynx with absent gag reflex. Pt intubated and placed on vent support. No reports of fever , chills, CP, Palpitations, NVD, recent ill contacts, trauma, or skin rashes. Acute respiratory failure with hypoxemia on mechanical ventilator greater than 96 hours * Status post trach and PEG on 03/06 * Continue events, patient will be discharged to LTAC for long-term vent weaning Status Epilepticus * Neurology input appreciated, continue Keppra, continue Dilantin * MRI brain shows No acute cranial abnormality, small vessel ischemic changes with cortical atrophic, chronic right MCA infarct. * Case discussed with neurologist, EEGs much improved, no epileptiform activity. Continue current doses of Keppra and Dilantin Aspiration pneumonitis * has now completed a course of abx * tracheal aspirate culture is growing normal kevin, therefore non diagnostic YUDY-secondary to vasomotor nephropathy-resolved with IVF Sepsis secondary to UTI * Obtain urine culture, start Rocephin. He will complete a seven-day course of antibiotics, we'll also remove Alcantar catheter and replacing a condom cath. Hypernatremia resolved with IVF Hypokalemia-corrected * repleted and normalized DIASTOLIC CHF-CHRONIC. preserved EF, stable Subclinical Hypothyroidism * continue low dose synthroid Acute Metabolic encephalopathy likely secondary to seizure and postictal state, rx underlying cause * Guarded prognosis * Discussed with niece family member present in the room family friend present provided some information is noted. Case management on board, patient will likely require LTAC placement The high probability of a clinically significant, sudden or life threatening deterioration of the [Pulmonary, Neuro, cardiac] system(s) required my full and direct attention, intervention and personal management. The aggregate critical care time was [35] minutes. This time is in addition to time spent performing reported procedures but includes the following: [x] Data Review and interpretation [x] Patient assessment and monitoring of vital signs [x] Documentation [x] Medication orders and management History Interval history: Patient remains intubated and sedated, he has spontaneous movements, does not obey commands Hospitalist Physical - Physical exam Narrative exam: General: no distress HEENT: MMM, EOMI cardiac: S1-S2 heard lungs: Ventilated breath sounds abdomen: soft, nontender, nondistended bowel sounds positive extremities: no edema clubbing or cyanosis Skin: no rash or lesion Neuro: opens eyes, has spontaneos movements of his extremities, does not obey commands - Constitutional Vitals: Temp Pulse Resp BP Pulse Ox 98.4 F 91 H 14 146/66 99 03/07/17 08:15 03/07/17 09:00 03/07/17 07:00 03/07/17 09:00 03/07/17 09:00 General appearance: Present: severe distress Results - Labs CBC & Chem 7: 03/04/17 07:16 03/06/17 12:36 Labs: Laboratory Last Values WBC 9.0 K/mm3 (4.5-11.0) 03/04/17 07:16 RBC 3.63 M/mm3 (3.65-5.03) L 03/04/17 07:16 Hgb 10.7 gm/dl (11.8-15.2) L 03/04/17 07:16 Hct 31.8 % (35.5-45.6) L 03/04/17 07:16 MCV 87 fl (84-94) 03/04/17 07:16 MCH 30 pg (28-32) 03/04/17 07:16 MCHC 34 % (32-34) 03/04/17 07:16 RDW 15.1 % (13.2-15.2) 03/04/17 07:16 Plt Count 384 K/mm3 (140-440) 03/04/17 07:16 Lymph % (Auto) 24.1 % (13.4-35.0) 02/28/17 05:35 [place] % (Auto) 6.1 % (0.0-7.3) 02/28/17 05:35 Eos % (Auto) 2.6 % (0.0-4.3) 02/28/17 05:35 Baso % (Auto) 0.7 % (0.0-1.8) 02/28/17 05:35 Lymph # 2.3 K/mm3 (1.2-5.4) 02/28/17 05:35 [place] # 0.6 K/mm3 (0.0-0.8) 02/28/17 05:35 Eos # 0.3 K/mm3 (0.0-0.4) 02/28/17 05:35 Baso # 0.1 K/mm3 (0.0-0.1) 02/28/17 05:35 Add Manual Diff TNR 02/24/17 04:04 Seg Neutrophils % 66.5 % (40.0-70.0) 02/28/17 05:35 Seg Neutrophils # 6.4 K/mm3 (1.8-7.7) 02/28/17 05:35 POC ABG pH 7.454 (7.35-7.45) H 03/05/17 05:05 POC ABG pCO2 36.7 (35-45) 03/05/17 05:05 POC ABG pO2 68 (80-105) L 03/05/17 05:05 POC ABG HCO3 25.7 03/05/17 05:05 POC ABG Total CO2 27 03/05/17 05:05 POC ABG O2 Sat 94 03/05/17 05:05 POC ABG Base Excess 2 03/05/17 05:05 FiO2 28 % 03/05/17 05:05 Sodium 134 mmol/L (137-145) L 03/06/17 12:36 Potassium 4.0 mmol/L (3.6-5.0) 03/06/17 12:36 Chloride 95.6 mmol/L (98-107) L 03/06/17 12:36 Carbon Dioxide 24 mmol/L (22-30) 03/06/17 12:36 Anion Gap 18 mmol/L 03/06/17 12:36 BUN 21 mg/dL (9-20) H 03/06/17 12:36 Creatinine 0.6 mg/dL (0.8-1.5) L 03/06/17 12:36 Estimated GFR > 60 ml/min 03/06/17 12:36 BUN/Creatinine Ratio 35.00 % 03/06/17 12:36 Glucose 109 mg/dL (75-100) H 03/06/17 12:36 POC Glucose 129 (70-105) H 03/07/17 05:28 Lactic Acid 1.70 mmol/L (0.7-2.0) 02/22/17 03:22 Calcium 8.9 mg/dL (8.4-10.2) 03/06/17 12:36 Phosphorus 3.80 mg/dL (2.5-4.5) 03/06/17 12:36 Magnesium 2.00 mg/dL (1.7-2.3) 03/06/17 12:36 Total Bilirubin 0.20 mg/dL (0.1-1.2) 02/20/17 05:07 AST 29 units/L (5-40) 02/20/17 05:07 ALT 29 units/L (7-56) 02/20/17 05:07 Alkaline Phosphatase 93 units/L (35-129) 02/20/17 05:07 Troponin T 0.073 ng/mL (0.00-0.029) H 02/18/17 11:30 Total Protein 6.3 g/dL (6.3-8.2) D 02/20/17 05:07 Albumin 2.6 g/dL (3.9-5) L 02/20/17 05:07 Albumin/Globulin Ratio 0.7 % 02/20/17 05:07 Triglycerides 136 mg/dL (2-149) 02/18/17 11:30 Cholesterol 192 mg/dL (50-199) 02/18/17 11:30 LDL Cholesterol Direct 126 mg/dL (50-130) 02/18/17 11:30 HDL Cholesterol 39 mg/dL (40-59) L 02/18/17 11:30 Cholesterol/HDL Ratio 4.92 % 02/18/17 11:30 TSH 6.350 mlU/mL (0.270-4.200) H 02/18/17 11:30 Free T4 1.15 ng/dL (0.76-1.46) 02/19/17 19:52 Urine Color Yellow (Yellow) 03/07/17 04:37 Urine Turbidity Cloudy (Clear) 03/07/17 04:37 Urine pH 5.0 (5.0-7.0) 03/07/17 04:37 Ur Specific [place] 1.020 (1.003-1.030) 03/07/17 04:37 Urine Protein <15 mg/dl mg/dL (Negative) 03/07/17 04:37 Urine Glucose (UA) Neg mg/dL (Negative) 03/07/17 04:37 Urine Ketones Neg mg/dL (Negative) 03/07/17 04:37 Urine Blood Neg (Negative) 03/07/17 04:37 Urine Nitrite Neg (Negative) 03/07/17 04:37 Urine Bilirubin Neg (Negative) 03/07/17 04:37 Urine Urobilinogen < 2.0 mg/dL (<2.0) 03/07/17 04:37 Ur Leukocyte Esterase Lg (Negative) 03/07/17 04:37 Urine WBC (Auto) 56.0 /HPF (0.0-6.0) H 03/07/17 04:37 Urine RBC (Auto) 100.0 /HPF (0.0-6.0) 03/07/17 04:37 U Epithel Cells (Auto) 1.0 /HPF (0-13.0) 03/07/17 04:37 Urine Bacteria (Auto) 1+ /HPF (Negative) 03/07/17 04:37 Urine WBC Clumps 2+ /HPF 03/07/17 04:37 Uric Acid Crystals Few 03/07/17 04:37 Urine Mucus Few /HPF 03/07/17 04:37 Urine Yeast (Budding) 3+ /HPF 03/07/17 04:37 Salicylates < 0.3 mg/dL (2.8-20.0) L 02/18/17 11:30 Urine Opiates Screen Presumptive negative 02/18/17 Unknown Urine Methadone Screen Presumptive negative 02/18/17 Unknown Acetaminophen < 15.0 ug/mL (10.0-30.0) 02/18/17 11:30 Ur Barbiturates Screen Presumptive negative 02/18/17 Unknown Phenytoin 6.7 mg/L (10.0-20.0) L 03/02/17 05:13 Levetiracetam 15.1 mcg/mL 02/18/17 13:07 Ur Phencyclidine Scrn Presumptive negative 02/18/17 Unknown Ur Amphetamines Screen Presumptive negative 02/18/17 Unknown U Benzodiazepines Scrn Presumptive negative 02/18/17 Unknown Urine Cocaine Screen Presumptive negative 02/18/17 Unknown U Marijuana (THC) Screen Presumptive negative 02/18/17 Unknown Drugs of Abuse Note Disclamer 02/18/17 Unknown Plasma/Serum Alcohol < 0.01 gm% (0-0.07) 02/18/17 11:30
--- NOTE | 2017-03-07 09:58 | Progress Note ---
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 No new recommendations for today. 1. Continue Anti-epileptic drugs 2. Tube feeds 3. DVT prophylaxis 4. Trach and PEG done 5. Continue HCTZ for BP, will check chemistry today as not ordered on yesterday. 6. Discussed on IT rounds, will need placement. Most likely LTACH for further weaning capabilities CCT 31 minutes Subjective Date of service: 03/07/17 Principal diagnosis: Acute resp. failure Interval history: No acute events. Pulm status unchanged. Trached and Pegged yesterday. No family at bedside. Objective Vital Signs - 12hr 03/06/17 03/06/17 03/06/17 22:00 23:00 23:34 Temperature Pulse Rate 101 H 97 H 95 H Respiratory 14 14 15 Rate Blood Pressure 143/86 148/84 150/77 O2 Sat by Pulse 100 100 Oximetry 03/06/17 03/07/17 03/07/17 23:39 00:00 00:15 Temperature 100.1 F H Pulse Rate 91 H Respiratory 14 17 Rate Blood Pressure 147/83 O2 Sat by Pulse 100 100 Oximetry 03/07/17 03/07/17 03/07/17 01:00 01:16 02:00 Temperature Pulse Rate 94 H 87 97 H Respiratory 15 17 Rate Blood Pressure 146/84 146/76 153/88 O2 Sat by Pulse 100 Oximetry 03/07/17 03/07/17 03/07/17 03:00 04:00 04:53 Temperature 100 F H Pulse Rate 90 99 H Respiratory 15 17 14 Rate Blood Pressure 146/78 156/88 O2 Sat by Pulse 100 98 100 Oximetry 03/07/17 03/07/17 03/07/17 05:00 05:31 06:00 Temperature Pulse Rate 90 93 H 94 H Respiratory 16 18 Rate Blood Pressure 146/78 119/86 150/67 O2 Sat by Pulse 100 100 100 Oximetry 03/07/17 03/07/17 03/07/17 07:00 08:15 09:00 Temperature 98.4 F Pulse Rate 83 91 H Respiratory 14 Rate Blood Pressure 129/69 146/66 O2 Sat by Pulse 99 99 Oximetry Constitutional: no acute distress, other (not following commands) ENT: other (orally intubated) Neck: supple Effort: normal Ascultation: Bilateral: diminished breath sounds, rhonchi (sporadic), other ( coarse BS bilaterally) Cardiovascular: regular rate and rhythm Gastrointestinal: normoactive bowel sounds, soft, non-tender Integumentary: normal Extremities: no cyanosis, pink and warm, edema Neurologic: other (opens eyes minimally, not moving extremities) Psychiatric: other (unable to assess) CBC and BMP: 03/04/17 07:16 03/06/17 12:36 ABG, PT/INR, D-dimer: ABG POC ABG pH 7.454 (7.35-7.45) H 03/05/17 05:05 POC ABG pCO2 36.7 (35-45) 03/05/17 05:05 POC ABG pO2 68 (80-105) L 03/05/17 05:05 POC ABG HCO3 25.7 03/05/17 05:05 POC ABG Total CO2 27 03/05/17 05:05 POC ABG O2 Sat 94 03/05/17 05:05 Abnormal lab findings: Abnormal Labs 02/18/17 02/19/17 02/19/17 17:56 06:05 09:06 WBC RBC Hgb Hct RDW [place] % (Auto) POC ABG pH POC ABG pCO2 32.6 L POC ABG pO2 181 H 139 H Sodium Potassium Chloride Carbon Dioxide BUN Creatinine Glucose POC Glucose Lactic Acid 3.00 H* Calcium Phosphorus Albumin Urine WBC (Auto) Phenytoin 02/19/17 02/19/17 02/20/17 11:59 11:59 05:07 WBC 11.3 H RBC Hgb 11.1 L Hct 34.6 L D RDW [place] % (Auto) POC ABG pH POC ABG pCO2 POC ABG pO2 Sodium Potassium Chloride Carbon Dioxide 18 L BUN Creatinine Glucose POC Glucose Lactic Acid 2.20 H* Calcium Phosphorus Albumin Urine WBC (Auto) Phenytoin 02/20/17 02/20/17 02/20/17 05:07 06:41 09:58 WBC RBC Hgb Hct RDW [place] % (Auto) POC ABG pH 7.457 H POC ABG pCO2 32.3 L POC ABG pO2 134 H Sodium Potassium Chloride Carbon Dioxide 19 L BUN Creatinine Glucose POC Glucose Lactic Acid 2.70 H* Calcium Phosphorus Albumin 2.6 L Urine WBC (Auto) Phenytoin 02/21/17 02/21/17 02/22/17 03:56 04:47 03:22 WBC RBC 3.62 L Hgb 10.6 L 11.1 L Hct 31.8 L 33.3 L RDW [place] % (Auto) POC ABG pH 7.513 H POC ABG pCO2 25.6 L POC ABG pO2 Sodium Potassium Chloride Carbon Dioxide BUN Creatinine Glucose POC Glucose Lactic Acid Calcium Phosphorus Albumin Urine WBC (Auto) Phenytoin 02/22/17 02/22/17 02/23/17 03:22 04:33 05:49 WBC RBC Hgb Hct RDW [place] % (Auto) POC ABG pH 7.464 H POC ABG pCO2 32.8 L 33.0 L POC ABG pO2 112 H 71 L Sodium Potassium 3.3 L Chloride 107.8 H Carbon Dioxide 20 L BUN 21 H Creatinine Glucose 132 H POC Glucose Lactic Acid Calcium 8.1 L Phosphorus Albumin Urine WBC (Auto) Phenytoin 02/23/17 02/23/17 02/24/17 06:15 06:15 04:04 WBC RBC Hgb Hct RDW 16.5 H [place] % (Auto) POC ABG pH POC ABG pCO2 POC ABG pO2 Sodium 150 H D Potassium 3.4 L Chloride 119.5 H Carbon Dioxide 18 L 18 L BUN 35 H Creatinine 0.6 L Glucose 143 H 109 H POC Glucose Lactic Acid Calcium 7.4 L 8.3 L Phosphorus 1.50 L Albumin Urine WBC (Auto) Phenytoin 02/24/17 02/24/17 02/25/17 04:41 05:38 04:00 WBC RBC Hgb 11.0 L 11.0 L Hct 34.7 L 33.3 L RDW [place] % (Auto) POC ABG pH 7.460 H POC ABG pCO2 31.1 L POC ABG pO2 61 L Sodium Potassium Chloride Carbon Dioxide BUN Creatinine Glucose POC Glucose Lactic Acid Calcium Phosphorus Albumin Urine WBC (Auto) Phenytoin 02/25/17 02/25/17 02/26/17 04:00 06:44 05:51 WBC RBC Hgb 10.6 L Hct 32.3 L RDW [place] % (Auto) POC ABG pH 7.475 H POC ABG pCO2 30.1 L POC ABG pO2 161 H Sodium Potassium Chloride Carbon Dioxide BUN Creatinine 0.7 L Glucose 123 H POC Glucose Lactic Acid Calcium 8.2 L Phosphorus Albumin Urine WBC (Auto) Phenytoin 02/26/17 02/27/17 02/27/17 05:51 05:40 05:40 WBC RBC 3.57 L Hgb 10.2 L Hct 31.4 L RDW [place] % (Auto) 7.4 H POC ABG pH POC ABG pCO2 POC ABG pO2 Sodium 135 L Potassium Chloride Carbon Dioxide 18 L BUN Creatinine 0.7 L 0.7 L Glucose 125 H POC Glucose Lactic Acid Calcium 8.0 L 8.3 L Phosphorus 2.40 L Albumin Urine WBC (Auto) Phenytoin 02/27/17 02/28/17 02/28/17 08:13 05:35 05:35 WBC RBC 3.62 L Hgb 10.4 L Hct 32.4 L RDW 15.4 H [place] % (Auto) POC ABG pH POC ABG pCO2 POC ABG pO2 107 H Sodium Potassium Chloride Carbon Dioxide BUN Creatinine Glucose POC Glucose Lactic Acid Calcium Phosphorus Albumin Urine WBC (Auto) Phenytoin 8.0 L 02/28/17 03/01/17 03/01/17 05:35 09:58 12:59 WBC RBC Hgb Hct RDW [place] % (Auto) POC ABG pH POC ABG pCO2 POC ABG pO2 131 H Sodium 135 L Potassium Chloride Carbon Dioxide BUN Creatinine 0.7 L Glucose 107 H POC Glucose Lactic Acid Calcium 8.3 L Phosphorus Albumin Urine WBC (Auto) Phenytoin 6.4 L 03/02/17 03/02/17 03/02/17 05:13 11:03 11:03 WBC RBC Hgb 10.6 L Hct 32.7 L RDW 15.6 H [place] % (Auto) POC ABG pH POC ABG pCO2 POC ABG pO2 Sodium Potassium Chloride Carbon Dioxide 20 L BUN Creatinine 0.7 L Glucose 136 H POC Glucose Lactic Acid Calcium 8.3 L Phosphorus Albumin Urine WBC (Auto) Phenytoin 6.7 L 03/03/17 03/03/17 03/03/17 08:09 08:09 23:28 WBC RBC Hgb 10.7 L Hct 32.7 L RDW 15.4 H [place] % (Auto) POC ABG pH POC ABG pCO2 POC ABG pO2 Sodium Potassium Chloride Carbon Dioxide BUN 21 H Creatinine 0.7 L Glucose 104 H POC Glucose 119 H Lactic Acid Calcium Phosphorus Albumin Urine WBC (Auto) Phenytoin 08/16/17 08/16/17 08/17/17 07:16 07:16 05:05 WBC RBC 3.63 L Hgb 10.7 L Hct 31.8 L RDW [place] % (Auto) POC ABG pH 7.454 H POC ABG pCO2 POC ABG pO2 68 L Sodium 134 L Potassium Chloride Carbon Dioxide 21 L BUN 22 H Creatinine 0.7 L Glucose 109 H POC Glucose Lactic Acid Calcium 8.3 L Phosphorus Albumin Urine WBC (Auto) Phenytoin 03/06/17 03/06/17 03/06/17 06:41 12:36 23:58 WBC RBC Hgb Hct RDW [place] % (Auto) POC ABG pH POC ABG pCO2 POC ABG pO2 Sodium 134 L Potassium Chloride 95.6 L Carbon Dioxide BUN 21 H Creatinine 0.6 L Glucose 109 H POC Glucose 116 H 128 H Lactic Acid Calcium Phosphorus Albumin Urine WBC (Auto) Phenytoin 03/07/17 03/07/17 04:37 05:28 WBC RBC Hgb Hct RDW [place] % (Auto) POC ABG pH POC ABG pCO2 POC ABG pO2 Sodium Potassium Chloride Carbon Dioxide BUN Creatinine Glucose POC Glucose 129 H Lactic Acid Calcium Phosphorus Albumin Urine WBC (Auto) 56.0 H Phenytoin
[2017-03-07] MEDS: HCTZ PO SCH ×2 (11:13→19:56)
[2017-03-07] MEDS: KEPPRA PO SCH ×3 (11:14→21:20)
[2017-03-07] MEDS: LOVENOX SUB-Q SCH ×2 (11:14→19:57)
[2017-03-07] MEDS: PEPCID PO SCH ×3 (11:14→21:21)
[2017-03-07] MEDS: ROCEPHIN/NS 1 GM/50 ML 1 GM/50 ML BAG IV SCH (11:15)
--- NOTE | 2017-03-07 15:51 | Progress Note ---
Assessment and Plan - Patient Problems (1) Acute respiratory failure with hypoxemia Current Visit: Yes Status: Acute Plan to address problem: s/p Trach & PEG will sign-off Subjective Date of service: 03/07/17 Patient Reports: Positive: other (on vent ; family at bedside) Objective Vital Signs - 12hr 03/07/17 03/07/17 03/07/17 04:00 04:53 05:00 Temperature 100 F H Pulse Rate 99 H 90 Respiratory 17 14 16 Rate Blood Pressure 156/88 146/78 O2 Sat by Pulse 98 100 100 Oximetry O2 Sat by Pulse Oximetry [ Assessment] 03/07/17 03/07/17 03/07/17 05:31 06:00 07:00 Temperature Pulse Rate 93 H 94 H 83 Respiratory 18 14 Rate Blood Pressure 119/86 150/67 129/69 O2 Sat by Pulse 100 100 99 Oximetry O2 Sat by Pulse Oximetry [ Assessment] 03/07/17 03/07/17 03/07/17 08:00 08:15 09:00 Temperature 98.4 F Pulse Rate 88 103 H Respiratory 15 21 Rate Blood Pressure 134/64 121/68 O2 Sat by Pulse 97 99 Oximetry O2 Sat by Pulse Oximetry [ Assessment] 03/07/17 03/07/17 03/07/17 09:50 10:00 11:00 Temperature 98.7 F Pulse Rate 92 H 82 Respiratory 19 21 Rate Blood Pressure 131/70 121/64 O2 Sat by Pulse 97 97 Oximetry O2 Sat by Pulse 100 Oximetry [ Assessment] 03/07/17 12:20 Temperature Pulse Rate 85 Respiratory 24 Rate Blood Pressure 123/64 O2 Sat by Pulse 99 Oximetry O2 Sat by Pulse Oximetry [ Assessment] - Neck other (trach site clean and dry) - Abdomen other (PEG site clean and dry) - Labs 03/04/17 07:16 03/06/17 12:36
[2017-03-08] MEDS: SYNTHROID FEEDTUBE SCH (06:28)
[2017-03-08] MEDS: DILANTIN FEEDTUBE SCH ×2 (06:28→13:51)
--- NOTE | 2017-03-08 09:05 | Progress Note ---
Assessment and Plan Assessment and plan: 71 YO Male with HTN, Seizure disorder, GERD, HLD, Bullous pemphigoid presents to ED for evaluation. Pt unable to provide history, but history taken from medical record, and ED staff, EMS run sheet, as well as patient family who is at bedside during exam and interview. Pt had two seizures as per EMS and was subsequently unresponsive. Pt seen and evaluated in ED, and found to be unresponsive and unable to protect airway with vomitus in oral pharynx with absent gag reflex. Pt intubated and placed on vent support. No reports of fever , chills, CP, Palpitations, NVD, recent ill contacts, trauma, or skin rashes. Acute respiratory failure with hypoxemia on mechanical ventilator greater than 96 hours * Status post trach and PEG on 03/06 * Continue events, patient will be discharged to LTAC for long-term vent weaning Status Epilepticus * Neurology input appreciated, continue Keppra, continue Dilantin * MRI brain shows No acute cranial abnormality, small vessel ischemic changes with cortical atrophic, chronic right MCA infarct. * Case discussed with neurologist, EEGs much improved, no epileptiform activity. Continue current doses of Keppra and Dilantin Aspiration pneumonitis * has now completed a course of abx * tracheal aspirate culture is growing normal kevin, therefore non diagnostic YUDY-secondary to vasomotor nephropathy-resolved with IVF Sepsis secondary to UTI * Obtain urine culture, start Rocephin. He will complete a seven-day course of antibiotics, we'll also remove Alcantar catheter and replacing a condom cath. Hypernatremia resolved with IVF Hypokalemia-corrected * repleted and normalized DIASTOLIC CHF-CHRONIC. preserved EF, stable Subclinical Hypothyroidism * continue low dose synthroid Acute Metabolic encephalopathy likely secondary to seizure and postictal state, rx underlying cause * Guarded prognosis * Discussed with niece family member present in the room family friend present provided some information is noted. Case management on board, patient will likely require LTAC placement The high probability of a clinically significant, sudden or life threatening deterioration of the [Pulmonary, Neuro, cardiac] system(s) required my full and direct attention, intervention and personal management. The aggregate critical care time was [35] minutes. This time is in addition to time spent performing reported procedures but includes the following: [x] Data Review and interpretation [x] Patient assessment and monitoring of vital signs [x] Documentation [x] Medication orders and management History Interval history: Patient remains trached and sedated, he has spontaneous movements, does not obey commands Hospitalist Physical - Physical exam Narrative exam: General: no distress HEENT: MMM, EOMI trache seen cardiac: S1-S2 heard lungs: Ventilated breath sounds abdomen: soft, nontender, nondistended bowel sounds positive extremities: no edema clubbing or cyanosis Skin: no rash or lesion Neuro: opens eyes, has spontaneos movements of his extremities, does not obey commands - Constitutional Vitals: Temp Pulse Resp BP Pulse Ox 98.2 F 89 21 135/70 97 03/08/17 08:00 03/08/17 08:00 03/08/17 08:00 03/08/17 08:00 03/08/17 08:00 Results - Labs CBC & Chem 7: 03/04/17 07:16 03/06/17 12:36 Labs: Laboratory Last Values WBC 9.0 K/mm3 (4.5-11.0) 03/04/17 07:16 RBC 3.63 M/mm3 (3.65-5.03) L 03/04/17 07:16 Hgb 10.7 gm/dl (11.8-15.2) L 03/04/17 07:16 Hct 31.8 % (35.5-45.6) L 03/04/17 07:16 MCV 87 fl (84-94) 03/04/17 07:16 MCH 30 pg (28-32) 03/04/17 07:16 MCHC 34 % (32-34) 03/04/17 07:16 RDW 15.1 % (13.2-15.2) 03/04/17 07:16 Plt Count 384 K/mm3 (140-440) 03/04/17 07:16 Lymph % (Auto) 24.1 % (13.4-35.0) 02/28/17 05:35 Bulloch % (Auto) 6.1 % (0.0-7.3) 02/28/17 05:35 Eos % (Auto) 2.6 % (0.0-4.3) 02/28/17 05:35 Baso % (Auto) 0.7 % (0.0-1.8) 02/28/17 05:35 Lymph # 2.3 K/mm3 (1.2-5.4) 02/28/17 05:35 Bulloch # 0.6 K/mm3 (0.0-0.8) 02/28/17 05:35 Eos # 0.3 K/mm3 (0.0-0.4) 02/28/17 05:35 Baso # 0.1 K/mm3 (0.0-0.1) 02/28/17 05:35 Add Manual Diff TNR 02/24/17 04:04 Seg Neutrophils % 66.5 % (40.0-70.0) 02/28/17 05:35 Seg Neutrophils # 6.4 K/mm3 (1.8-7.7) 02/28/17 05:35 POC ABG pH 7.454 (7.35-7.45) H 03/05/17 05:05 POC ABG pCO2 36.7 (35-45) 03/05/17 05:05 POC ABG pO2 68 (80-105) L 03/05/17 05:05 POC ABG HCO3 25.7 03/05/17 05:05 POC ABG Total CO2 27 03/05/17 05:05 POC ABG O2 Sat 94 03/05/17 05:05 POC ABG Base Excess 2 03/05/17 05:05 FiO2 28 % 03/05/17 05:05 Sodium 134 mmol/L (137-145) L 03/06/17 12:36 Potassium 4.0 mmol/L (3.6-5.0) 03/06/17 12:36 Chloride 95.6 mmol/L (98-107) L 03/06/17 12:36 Carbon Dioxide 24 mmol/L (22-30) 03/06/17 12:36 Anion Gap 18 mmol/L 03/06/17 12:36 BUN 21 mg/dL (9-20) H 03/06/17 12:36 Creatinine 0.6 mg/dL (0.8-1.5) L 03/06/17 12:36 Estimated GFR > 60 ml/min 03/06/17 12:36 BUN/Creatinine Ratio 35.00 % 03/06/17 12:36 Glucose 109 mg/dL (75-100) H 03/06/17 12:36 POC Glucose 132 (70-105) H 03/07/17 17:04 Lactic Acid 1.70 mmol/L (0.7-2.0) 02/22/17 03:22 Calcium 8.9 mg/dL (8.4-10.2) 03/06/17 12:36 Phosphorus 3.80 mg/dL (2.5-4.5) 03/06/17 12:36 Magnesium 2.00 mg/dL (1.7-2.3) 03/06/17 12:36 Total Bilirubin 0.20 mg/dL (0.1-1.2) 02/20/17 05:07 AST 29 units/L (5-40) 02/20/17 05:07 ALT 29 units/L (7-56) 02/20/17 05:07 Alkaline Phosphatase 93 units/L (35-129) 02/20/17 05:07 Troponin T 0.073 ng/mL (0.00-0.029) H 02/18/17 11:30 Total Protein 6.3 g/dL (6.3-8.2) D 02/20/17 05:07 Albumin 2.6 g/dL (3.9-5) L 02/20/17 05:07 Albumin/Globulin Ratio 0.7 % 02/20/17 05:07 Triglycerides 136 mg/dL (2-149) 02/18/17 11:30 Cholesterol 192 mg/dL (50-199) 02/18/17 11:30 LDL Cholesterol Direct 126 mg/dL (50-130) 02/18/17 11:30 HDL Cholesterol 39 mg/dL (40-59) L 02/18/17 11:30 Cholesterol/HDL Ratio 4.92 % 02/18/17 11:30 TSH 6.350 mlU/mL (0.270-4.200) H 02/18/17 11:30 Free T4 1.15 ng/dL (0.76-1.46) 02/19/17 19:52 Urine Color Yellow (Yellow) 03/07/17 04:37 Urine Turbidity Cloudy (Clear) 03/07/17 04:37 Urine pH 5.0 (5.0-7.0) 03/07/17 04:37 Ur Specific [place] 1.020 (1.003-1.030) 03/07/17 04:37 Urine Protein <15 mg/dl mg/dL (Negative) 03/07/17 04:37 Urine Glucose (UA) Neg mg/dL (Negative) 03/07/17 04:37 Urine Ketones Neg mg/dL (Negative) 03/07/17 04:37 Urine Blood Neg (Negative) 03/07/17 04:37 Urine Nitrite Neg (Negative) 03/07/17 04:37 Urine Bilirubin Neg (Negative) 03/07/17 04:37 Urine Urobilinogen < 2.0 mg/dL (<2.0) 03/07/17 04:37 Ur Leukocyte Esterase Lg (Negative) 03/07/17 04:37 Urine WBC (Auto) 56.0 /HPF (0.0-6.0) H 03/07/17 04:37 Urine RBC (Auto) 100.0 /HPF (0.0-6.0) 03/07/17 04:37 U Epithel Cells (Auto) 1.0 /HPF (0-13.0) 03/07/17 04:37 Urine Bacteria (Auto) 1+ /HPF (Negative) 03/07/17 04:37 Urine WBC Clumps 2+ /HPF 03/07/17 04:37 Uric Acid Crystals Few 03/07/17 04:37 Urine Mucus Few /HPF 03/07/17 04:37 Urine Yeast (Budding) 3+ /HPF 03/07/17 04:37 Salicylates < 0.3 mg/dL (2.8-20.0) L 02/18/17 11:30 Urine Opiates Screen Presumptive negative 02/18/17 Unknown Urine Methadone Screen Presumptive negative 02/18/17 Unknown Acetaminophen < 15.0 ug/mL (10.0-30.0) 02/18/17 11:30 Ur Barbiturates Screen Presumptive negative 02/18/17 Unknown Phenytoin 6.7 mg/L (10.0-20.0) L 03/02/17 05:13 Levetiracetam 15.1 mcg/mL 02/18/17 13:07 Ur Phencyclidine Scrn Presumptive negative 02/18/17 Unknown Ur Amphetamines Screen Presumptive negative 02/18/17 Unknown U Benzodiazepines Scrn Presumptive negative 02/18/17 Unknown Urine Cocaine Screen Presumptive negative 02/18/17 Unknown U Marijuana (THC) Screen Presumptive negative 02/18/17 Unknown Drugs of Abuse Note Disclamer 02/18/17 Unknown Plasma/Serum Alcohol < 0.01 gm% (0-0.07) 02/18/17 11:30
[2017-03-08] MEDS: HCTZ PO SCH (10:20)
[2017-03-08] MEDS: ROCEPHIN/NS 1 GM/50 ML 1 GM/50 ML BAG IV SCH (10:20)
[2017-03-08] MEDS: KEPPRA PO SCH (10:20)
[2017-03-08] MEDS: LOVENOX SUB-Q SCH (10:20)
[2017-03-08] MEDS: PEPCID PO SCH (10:20)
--- NOTE | 2017-03-08 10:38 | Progress Note ---
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 No new recommendations for today. 1. Continue Anti-epileptic drugs 2. Tube feeds 3. DVT prophylaxis 4. Trach and PEG done 5. Continue HCTZ for BP, will check chemistry today as not ordered on yesterday. 6. Discussed on IT rounds, will need placement. Most likely LTACH for further weaning capabilities CCT 31 minutes Subjective Date of service: 03/08/17 Principal diagnosis: Acute resp. failure Interval history: No acute events. Trach and Peg are stable Objective Vital Signs - 12hr 03/07/17 03/07/17 03/07/17 23:00 23:14 23:20 Temperature Pulse Rate 91 H 89 89 Pulse Rate [ From Monitor] Respiratory 27 H 27 H Rate Respiratory Rate [ Generalized] Blood Pressure 125/68 130/65 O2 Sat by Pulse 97 96 Oximetry O2 Sat by Pulse Oximetry [ Assessment] 03/07/17 03/07/17 03/08/17 23:28 23:54 00:00 Temperature 98.8 F Pulse Rate 92 H 92 H Pulse Rate [ 92 H From Monitor] Respiratory 14 Rate Respiratory Rate [ Generalized] Blood Pressure 129/66 129/69 O2 Sat by Pulse 99 95 Oximetry O2 Sat by Pulse Oximetry [ Assessment] 03/08/17 03/08/17 03/08/17 01:00 02:00 03:00 Temperature Pulse Rate 86 84 Pulse Rate [ From Monitor] Respiratory 14 14 Rate Respiratory Rate [ Generalized] Blood Pressure 130/67 134/67 134/70 O2 Sat by Pulse 97 97 98 Oximetry O2 Sat by Pulse Oximetry [ Assessment] 03/08/17 03/08/17 03/08/17 03:22 04:00 04:28 Temperature 100.2 F H Pulse Rate 85 81 Pulse Rate [ 85 From Monitor] Respiratory 20 Rate Respiratory Rate [ Generalized] Blood Pressure 127/67 127/67 O2 Sat by Pulse 98 99 Oximetry O2 Sat by Pulse Oximetry [ Assessment] 03/08/17 03/08/17 03/08/17 04:48 05:00 06:00 Temperature Pulse Rate 88 85 Pulse Rate [ From Monitor] Respiratory 15 14 Rate Respiratory Rate [ Generalized] Blood Pressure 145/75 140/71 O2 Sat by Pulse 98 97 Oximetry O2 Sat by Pulse 97 Oximetry [ Assessment] 03/08/17 03/08/17 03/08/17 07:00 07:22 08:00 Temperature 98.2 F Pulse Rate 78 83 89 Pulse Rate [ From Monitor] Respiratory 25 H 22 21 Rate Respiratory Rate [ Generalized] Blood Pressure 139/72 139/72 135/70 O2 Sat by Pulse 98 99 97 Oximetry O2 Sat by Pulse Oximetry [ Assessment] 03/08/17 03/08/17 03/08/17 09:00 09:10 10:00 Temperature Pulse Rate 87 86 Pulse Rate [ From Monitor] Respiratory 22 23 Rate Respiratory 16 Rate [ Generalized] Blood Pressure 132/69 120/63 O2 Sat by Pulse 96 95 Oximetry O2 Sat by Pulse 98 Oximetry [ Assessment] Constitutional: no acute distress, other (not following commands) ENT: other (orally intubated) Neck: supple Effort: normal Ascultation: Bilateral: clear, diminished breath sounds Cardiovascular: regular rate and rhythm Gastrointestinal: normoactive bowel sounds, soft, non-tender Integumentary: normal Extremities: no cyanosis, pink and warm, edema Neurologic: other (opens eyes minimally, not moving extremities) Psychiatric: other (unable to assess) CBC and BMP: 03/04/17 07:16 03/06/17 12:36 ABG, PT/INR, D-dimer: ABG POC ABG pH 7.454 (7.35-7.45) H 03/05/17 05:05 POC ABG pCO2 36.7 (35-45) 03/05/17 05:05 POC ABG pO2 68 (80-105) L 03/05/17 05:05 POC ABG HCO3 25.7 03/05/17 05:05 POC ABG Total CO2 27 03/05/17 05:05 POC ABG O2 Sat 94 03/05/17 05:05 Abnormal lab findings: Abnormal Labs 02/18/17 02/19/17 02/19/17 17:56 06:05 09:06 WBC RBC Hgb Hct RDW Johnston % (Auto) POC ABG pH POC ABG pCO2 32.6 L POC ABG pO2 181 H 139 H Sodium Potassium Chloride Carbon Dioxide BUN Creatinine Glucose POC Glucose Lactic Acid 3.00 H* Calcium Phosphorus Albumin Urine WBC (Auto) Phenytoin 02/19/17 02/19/17 02/20/17 11:59 11:59 05:07 WBC 11.3 H RBC Hgb 11.1 L Hct 34.6 L D RDW Johnston % (Auto) POC ABG pH POC ABG pCO2 POC ABG pO2 Sodium Potassium Chloride Carbon Dioxide 18 L BUN Creatinine Glucose POC Glucose Lactic Acid 2.20 H* Calcium Phosphorus Albumin Urine WBC (Auto) Phenytoin 02/20/17 02/20/17 02/20/17 05:07 06:41 09:58 WBC RBC Hgb Hct RDW Johnston % (Auto) POC ABG pH 7.457 H POC ABG pCO2 32.3 L POC ABG pO2 134 H Sodium Potassium Chloride Carbon Dioxide 19 L BUN Creatinine Glucose POC Glucose Lactic Acid 2.70 H* Calcium Phosphorus Albumin 2.6 L Urine WBC (Auto) Phenytoin 02/21/17 02/21/17 02/22/17 03:56 04:47 03:22 WBC RBC 3.62 L Hgb 10.6 L 11.1 L Hct 31.8 L 33.3 L RDW Johnston % (Auto) POC ABG pH 7.513 H POC ABG pCO2 25.6 L POC ABG pO2 Sodium Potassium Chloride Carbon Dioxide BUN Creatinine Glucose POC Glucose Lactic Acid Calcium Phosphorus Albumin Urine WBC (Auto) Phenytoin 02/22/17 02/22/17 02/23/17 03:22 04:33 05:49 WBC RBC Hgb Hct RDW Johnston % (Auto) POC ABG pH 7.464 H POC ABG pCO2 32.8 L 33.0 L POC ABG pO2 112 H 71 L Sodium Potassium 3.3 L Chloride 107.8 H Carbon Dioxide 20 L BUN 21 H Creatinine Glucose 132 H POC Glucose Lactic Acid Calcium 8.1 L Phosphorus Albumin Urine WBC (Auto) Phenytoin 02/23/17 02/23/17 02/24/17 06:15 06:15 04:04 WBC RBC Hgb Hct RDW 16.5 H Johnston % (Auto) POC ABG pH POC ABG pCO2 POC ABG pO2 Sodium 150 H D Potassium 3.4 L Chloride 119.5 H Carbon Dioxide 18 L 18 L BUN 35 H Creatinine 0.6 L Glucose 143 H 109 H POC Glucose Lactic Acid Calcium 7.4 L 8.3 L Phosphorus 1.50 L Albumin Urine WBC (Auto) Phenytoin 08/03/0502/24/17 02/25/17 04:41 05:38 04:00 WBC RBC Hgb 11.0 L 11.0 L Hct 34.7 L 33.3 L RDW [place] % (Auto) POC ABG pH 7.460 H POC ABG pCO2 31.1 L POC ABG pO2 61 L Sodium Potassium Chloride Carbon Dioxide BUN Creatinine Glucose POC Glucose Lactic Acid Calcium Phosphorus Albumin Urine WBC (Auto) Phenytoin 02/25/17 02/25/17 02/26/17 04:00 06:44 05:51 WBC RBC Hgb 10.6 L Hct 32.3 L RDW [place] % (Auto) POC ABG pH 7.475 H POC ABG pCO2 30.1 L POC ABG pO2 161 H Sodium Potassium Chloride Carbon Dioxide BUN Creatinine 0.7 L Glucose 123 H POC Glucose Lactic Acid Calcium 8.2 L Phosphorus Albumin Urine WBC (Auto) Phenytoin 02/26/17 02/27/17 02/27/17 05:51 05:40 05:40 WBC RBC 3.57 L Hgb 10.2 L Hct 31.4 L RDW [place] % (Auto) 7.4 H POC ABG pH POC ABG pCO2 POC ABG pO2 Sodium 135 L Potassium Chloride Carbon Dioxide 18 L BUN Creatinine 0.7 L 0.7 L Glucose 125 H POC Glucose Lactic Acid Calcium 8.0 L 8.3 L Phosphorus 2.40 L Albumin Urine WBC (Auto) Phenytoin 02/27/17 02/28/17 02/28/17 08:13 05:35 05:35 WBC RBC 3.62 L Hgb 10.4 L Hct 32.4 L RDW 15.4 H Johnston % (Auto) POC ABG pH POC ABG pCO2 POC ABG pO2 107 H Sodium Potassium Chloride Carbon Dioxide BUN Creatinine Glucose POC Glucose Lactic Acid Calcium Phosphorus Albumin Urine WBC (Auto) Phenytoin 8.0 L 02/28/17 03/01/17 03/01/17 05:35 09:58 12:59 WBC RBC Hgb Hct RDW [place] % (Auto) POC ABG pH POC ABG pCO2 POC ABG pO2 131 H Sodium 135 L Potassium Chloride Carbon Dioxide BUN Creatinine 0.7 L Glucose 107 H POC Glucose Lactic Acid Calcium 8.3 L Phosphorus Albumin Urine WBC (Auto) Phenytoin 6.4 L 03/02/17 03/02/17 03/02/17 05:13 11:03 11:03 WBC RBC Hgb 10.6 L Hct 32.7 L RDW 15.6 H Johnston % (Auto) POC ABG pH POC ABG pCO2 POC ABG pO2 Sodium Potassium Chloride Carbon Dioxide 20 L BUN Creatinine 0.7 L Glucose 136 H POC Glucose Lactic Acid Calcium 8.3 L Phosphorus Albumin Urine WBC (Auto) Phenytoin 6.7 L 03/03/17 03/03/17 03/03/17 08:09 08:09 23:28 WBC RBC Hgb 10.7 L Hct 32.7 L RDW 15.4 H Johnston % (Auto) POC ABG pH POC ABG pCO2 POC ABG pO2 Sodium Potassium Chloride Carbon Dioxide BUN 21 H Creatinine 0.7 L Glucose 104 H POC Glucose 119 H Lactic Acid Calcium Phosphorus Albumin Urine WBC (Auto) Phenytoin 03/04/17 03/04/17 03/05/17 07:16 07:16 05:05 WBC RBC 3.63 L Hgb 10.7 L Hct 31.8 L RDW [place] % (Auto) POC ABG pH 7.454 H POC ABG pCO2 POC ABG pO2 68 L Sodium 134 L Potassium Chloride Carbon Dioxide 21 L BUN 22 H Creatinine 0.7 L Glucose 109 H POC Glucose Lactic Acid Calcium 8.3 L Phosphorus Albumin Urine WBC (Auto) Phenytoin 03/06/17 03/06/17 03/06/17 06:41 12:36 23:58 WBC RBC Hgb Hct RDW [place] % (Auto) POC ABG pH POC ABG pCO2 POC ABG pO2 Sodium 134 L Potassium Chloride 95.6 L Carbon Dioxide BUN 21 H Creatinine 0.6 L Glucose 109 H POC Glucose 116 H 128 H Lactic Acid Calcium Phosphorus Albumin Urine WBC (Auto) Phenytoin 03/07/17 03/07/17 03/07/17 04:37 05:28 11:32 WBC RBC Hgb Hct RDW [place] % (Auto) POC ABG pH POC ABG pCO2 POC ABG pO2 Sodium Potassium Chloride Carbon Dioxide BUN Creatinine Glucose POC Glucose 129 H 140 H Lactic Acid Calcium Phosphorus Albumin Urine WBC (Auto) 56.0 H Phenytoin 03/07/17 17:04 WBC RBC Hgb Hct RDW [place] % (Auto) POC ABG pH POC ABG pCO2 POC ABG pO2 Sodium Potassium Chloride Carbon Dioxide BUN Creatinine Glucose POC Glucose 132 H Lactic Acid Calcium Phosphorus Albumin Urine WBC (Auto) Phenytoin
--- NOTE | 2017-03-08 10:46 | Discharge Summary ---
Providers - Providers Date of Admission: 02/18/17 12:52 Attending physician: SHANNON [place] MD 02/18/17 13:57 Consult to Dietitian/Nutrition [CONS] Routine Physician Instructions: Reason For Exam: Reason for Consult: Poor oral intake 02/18/17 18:56 Consult to Case Management [CONS] Routine Services Needed at Discharge: Securities Adviser Notified:: no Additional Physician Instructions: Please have social sciences chair evaluate for living conditions. Patient from home under the care of friend. Arrived to hospital with multiple wounds. 02/19/17 11:45 Consult to Physician [CONS] Routine Consulting Provider: RIO CARTER Reason For Exam: seizure Place consult to:: Dr Carter Notified:: yes Was contact made?: Yes If yes, spoke with:: Dr Carter 02/19/17 12:46 Consult to Dietitian/Nutrition [CONS] Routine Physician Instructions: Reason For Exam: Reason for Consult: Write/Manage Tube Feeding 02/19/17 14:59 Consult to Wound/ET Nurse [CONS] Routine Reason For Exam: wound eval 02/24/17 14:27 PICC Line Placement [Consult to PICC Line RN] [CONS] Stat Reason For Exam: picc line placement Type Line:: PICC 03/03/17 10:12 Consult to Physician [CONS] Routine Consulting Provider: YOUNG VIDAL I Reason For Exam: Trach and Peg Place consult to:: Young Vidal Notified:: yes Was contact made?: Yes Time called:: 12:17 Comment:: consent on chart after talking to Debbie (niece) Primary care physician: TRAVELING SALES REPRESENTATIVE Hospitalization Condition: Serious Hospital course: 71 YO Male with HTN, Seizure disorder, GERD, HLD, Bullous pemphigoid brought to the ER for non stop seizures and AMS. The patient was intubated, admitted to the ICU, treated with propofol drip. His antiepileptic drugs were optimized. He was seen in conjunction with neurology. EEG was repeated and he was no longer having seizures. At that time patient's was attempted at weaning of ventilator, but he failed repeatedly. Therefore tracheostomy and PEG tube were placed. He struggled to LTAC for long-term wean. He did complete a course of antibiotics for aspiration pneumonitis. He also completed antibiotics for treatment of UTI. He received IV fluids and electrolytes were corrected. He was continued on the rest of his chronic medications. His mental status did not return to baseline, his family was made aware, MRI did not show any acute infarcts, only showed old infarcts. He is to go to LTAC and from there will most likely go to a [place] [facility]. Diagnosis Acute respiratory failure with hypoxemia on mechanical ventilator greater than 96 hours Status Epilepticus Aspiration pneumonitis YUDY Vasomotor nephropathy Sepsis UTI Hypernatremia Hypokalemia Chronic diastolic CHF Subclinical hypothyroidism Acute toxic metabolic encephalopathy Disposition: [id number] MEDICARE CERT LT Time spent for discharge: 33 minutes Core Measure Documentation - Palliative Care Palliative Care/ Comfort Measures: Not Applicable - Core Measures Any of the following diagnoses?: heart failure, none - Heart Failure Discharge Requirements HENRRY/ARB for LVSD if EF <40%: Not Applicable Beta minesh at discharge: No Reason for no beta minesh on DC: Medical contraindication Exam - Physical Exam Narrative exam: General: no distress HEENT: MMM, EOMI cardiac: S1-S2 heard lungs: Ventilated breath sounds abdomen: soft, nontender, nondistended bowel sounds positive extremities: no edema clubbing or cyanosis Skin: no rash or lesion Neuro: opens eyes, has spontaneos movements of his extremities, does not obey commands - Constitutional Vitals: Temp Pulse Resp BP Pulse Ox 98.2 F 93 H 16 120/63 95 03/08/17 08:00 03/08/17 10:00 03/08/17 10:00 03/08/17 10:00 03/08/17 10:00 Plan Follow up with: PRIMARY CAREMD [Primary Care Provider] - 3-5 Days Prescriptions: Enoxaparin [Lovenox] 40 mg SUB-Q QDAY@1000 #10 syringe Famotidine [Pepcid] 20 mg PO BID #60 tablet Fluconazole [Diflucan ORAL SOLN] 100 mg PO QDAY #7 oral.liqd Hydrochlorothiazide [HCTZ] 25 mg PO QDAY #30 tablet levETIRAcetam [Keppra ORAL LIQ] 1,000 mg PO BID #1 bottle Loperamide [Imodium] 2 mg PO Q2H PRN #7 capsule PRN Reason: Diarrhea
[2017-03-08 16:08] VITALS: BP 139/78
[2017-03-09] MEDS ORDERED: DIFLUCAN PO SCH (10:00)
== END 2017-03-08 17:02 | DRG 4 ==
LOC: ED 10:48 → CC1 12:52
PROVIDERS: ADMIT Internal Medicine; ATTEND Internal Medicine
PROC: 5A1955Z Respiratory Ventilation, Greater than 96 Consecutive Hours (ICD-10-PCS; principal; 2017-02-20)
PROC: 4A033R1 Measurement of Arterial Saturation, Peripheral, Percutaneous Approach (ICD-10-PCS; 2017-03-05)
PROC: 0B113F4 Bypass Trachea to Cutaneous with Tracheostomy Device, Percutaneous Approach (ICD-10-PCS; 2017-03-06)
PROC: 0DH63UZ Insertion of Feeding Device into Stomach, Percutaneous Approach (ICD-10-PCS; 2017-03-06)
PROC: 3E0G76Z Introduction of Nutritional Substance into Upper GI, Via Natural or Artificial Opening (ICD-10-PCS; 2017-03-06)
DX: A41.9 Sepsis, unspecified organism (principal); J96.01 Acute respiratory failure with hypoxia; E03.5 Myxedema coma; J69.0 Pneumonitis due to inhalation of food and vomit; N17.0 Acute kidney failure with tubular necrosis; G92 Toxic encephalopathy; E87.2 Acidosis; E46 Unspecified protein-calorie malnutrition; I50.32 Chronic diastolic (congestive) heart failure; E87.0 Hyperosmolality and hypernatremia; N39.0 Urinary tract infection, site not specified; E78.5 Hyperlipidemia, unspecified; E78.00 Pure hypercholesterolemia, unspecified; Z96.652 Presence of left artificial knee joint; K21.9 Gastro-esophageal reflux disease without esophagitis; G40.901 Epilepsy, unspecified, not intractable, with status epilepticus; Z68.22 Body mass index [BMI] 22.0-22.9, adult; Z86.73 Personal history of transient ischemic attack (TIA), and cerebral infarction without residual deficits; I11.0 Hypertensive heart disease with heart failure; Z82.49 Family history of ischemic heart disease and other diseases of the circulatory system; E02 Subclinical iodine-deficiency hypothyroidism; E87.6 Hypokalemia
CPT/HCPCS: 36415; 36600; 70450; 70551; 71010; 74000; 80048; 80053; 80061; 80177; 80185; 80307; 80320; 81001; 82140; 82803; 82962; 83735; 84100; 84439; 84443; 84484; 85025; 85027; 87040; 87070; 87086; 87205; 87493; 93005; 93010; 93306; 94002; 94003; 95819; 96365; 96375; G0480; J0330; J0360; J0456; J0690; J0696; J1165; J1450; J1650; J1953; J1956; J2060; J2250; J2543; J2704; J2997; J3010; J3480; J7030; J7040; J7050